=== PATIENT | male | born 1940 | race Caucasian/White ===

== ENCOUNTER 2016-08-22 10:20 | Inpatient (IN) | payer MEDICARE, OTHER ==
[2016-08-22] MEDS ORDERED: methylPREDNISolone SOD SUCCI 125 MG/2 ML VIAL IV STA (10:30)
[2016-08-22] MEDS ORDERED: IPRATROPIUM-ALBUTEROL 3 ML NEB INHALATION STA (10:30)
--- NOTE | 2016-08-22 10:34 | ED ---
SOB HPI - General Stated Complaint: Chest pain,SOB Time Seen by Provider: 08/22/16 10:25 Source: patient, family, RN notes reviewed Mode of arrival: wheelchair Limitations: no limitations - History of Present Illness Initial Comments: This is a 76-year-old male with a history of COPD who just finished antibiotics and steroids a couple weeks ago for upper respiratory infection and cough he states he is had the onset since yesterday of shortness of breath cough some fevers chills sweats exertional dyspnea is also had some burning epigastric pain some nonspecific chest pain. No nausea vomiting diarrhea. MD Complaint: shortness of breath, cough - Related Data Home Medications Medication Instructions Recorded Confirmed Budesonide-Formot 160-4.5 Mcg 2 puff INHALATION RT-BID 08/09/14 05/19/16 [Symbicort 160-4.5 Mcg Inhaler] Insulin NPH Hum/Reg Insulin Hm 40 units SQ BID 08/09/14 05/19/16 [NovoLIN 70-30 100 UNIT/ML VIAL] Ipratropium-Albuterol Nebulize 3 ml INHALATION RT-QID 08/09/14 05/19/16 [Duoneb 0.5 mg-3 mg/3 ml Soln] Sertraline HCl [Zoloft] 50 mg PO HS 08/09/14 05/19/16 Atorvastatin Calcium [Lipitor] 20 mg PO HS 05/19/16 05/19/16 Gabapentin [Neurontin] 100 mg PO TID 05/19/16 05/19/16 HYDROcodone/APAP 7.5-325MG [Hartman 1 tab PO TID 05/19/16 05/19/16 7.5-325] amLODIPine [Norvasc] 5 mg PO DAILY 05/19/16 05/19/16 Previous Rx's Medication Instructions Recorded Insulin NPH/Reg Insulin 70/30 40 unit SQ HS vial 05/24/16 [humuLIN 70/30 VIAL] Levofloxacin [Levaquin] 500 mg PO DAILY #10 tab 05/24/16 Allergies Allergy/AdvReac Type Severity Reaction Status Date / Time sulfamethoxazole Allergy Unknown Verified 08/22/16 10:33 [From Bactrim] trimethoprim [From Bactrim] Allergy Unknown Verified 08/22/16 10:33 Review of Systems ROS Statement: Those systems with pertinent positive or pertinent negative responses have been documented in the HPI. ROS Other: All systems not noted in ROS Statement are negative. Past Medical History Past Medical History: Cancer, Chest Pain / Angina, COPD, Diabetes Mellitus, Hyperlipidemia, Hypertension, Pneumonia, Prostate Disorder Additional Past Medical History / Comment(s): colon ca 2006, glaucoma, retinal disorder,hemorroids, dentures upper and lower arthritis, home o2 2litersn/c as needed at night. spinal stenosis and disc deterioration History of Any Multi-Drug Resistant Organisms: None Reported Past Surgical History: Appendectomy, Bowel Resection Additional Past Surgical History / Comment(s): turp, bowel resection 2005 d/t cancer had peritonitis 3RD DAY post op spent 1 month in hospital -had colostomy w/ reversal. génesis cataracts, HAD A SHOT IN THE LT EYE FOR SWELLING BEHIND THE EYE. Past Anesthesia/Blood Transfusion Reactions: No Reported Reaction Past Psychological History: Anxiety, Depression Smoking Status: Former smoker Past Alcohol Use History: Occasional Additional Past Alcohol Use History / Comment(s): quit smoking in 1982 smoked 3 ppd x 30 years Past Drug Use History: None Reported - Past Family History Father Family Medical History: Unable to Obtain Mother Family Medical History: Cancer Additional Family Medical History / Comment(s): breast cancer, heart problems General Exam - General Exam Comments Initial Comments: Is a well-developed well-nourished awake alert oriented 3 male Limitations: no limitations General appearance: alert, anxious, in distress Head exam: Present: atraumatic, normocephalic, normal inspection Eye exam: Present: normal appearance, PERRL, EOMI. Absent: scleral icterus, conjunctival injection, periorbital swelling ENT exam: Present: normal exam, mucous membranes moist Neck exam: Present: normal inspection. Absent: tenderness, meningismus, lymphadenopathy Respiratory exam: Present: wheezes, accessory muscle use, decreased breath sounds. Absent: respiratory distress, rales, rhonchi, stridor Cardiovascular Exam: Present: regular rate, normal rhythm, normal heart sounds. Absent: systolic murmur, diastolic murmur, rubs, gallop, clicks GI/Abdominal exam: Present: soft, normal bowel sounds. Absent: distended, tenderness, guarding, rebound, rigid Extremities exam: Present: normal inspection, full ROM, normal capillary refill. Absent: tenderness, pedal edema, joint swelling, calf tenderness Back exam: Present: normal inspection Neurological exam: Present: alert, oriented X3, CN II-XII intact Psychiatric exam: Present: normal affect, normal mood Skin exam: Present: warm, dry, intact, normal color. Absent: rash Course Vital Signs 08/22/16 08/22/16 08/22/16 10:28 10:35 11:07 Temperature 98.6 F Pulse Rate 87 74 Respiratory 24 24 Rate Blood Pressure 183/77 O2 Sat by Pulse 86 L Oximetry 08/22/16 08/22/16 11:17 11:41 Temperature Pulse Rate 74 81 Respiratory 20 Rate Blood Pressure 180/76 O2 Sat by Pulse 96 Oximetry - Reevaluation(s) Reevaluation #1: 08/22/16 11:51 Patient states he is feeling somewhat better though reevaluation of the lung sounds reveal no wheezes at this time there is some diminished sounds on the left. Reevaluation #2: 08/22/16 11:51 I did review the EKG showed normal sinus rhythm I did review an old one from 05/19/16 which looks very similar configuration. Medical Decision Making - Lab Data Result diagrams: 08/22/16 10:00 08/22/16 10:00 Lab Results 08/22/16 08/22/16 08/22/16 Range/Units 10:00 10:00 10:00 WBC 7.1 (3.8-10.6) k/uL RBC 3.93 L (4.30-5.90) m/uL Hgb 12.1 L (13.0-17.5) gm/dL Hct 36.2 L (39.0-53.0) % MCV 92.2 (80.0-100.0) fL MCH 30.8 (25.0-35.0) pg MCHC 33.4 (31.0-37.0) g/dL RDW 15.0 (11.5-15.5) % Plt Count 127 L (150-450) k/uL Neutrophils % 85 % Lymphocytes % 4 % Monocytes % 5 % Eosinophils % 2 % Basophils % 1 % Neutrophils # 6.1 (1.3-7.7) k/uL Lymphocytes # 0.3 L (1.0-4.8) k/uL Monocytes # 0.3 (0-1.0) k/uL Eosinophils # 0.1 (0-0.7) k/uL Basophils # 0.0 (0-0.2) k/uL PT (9.0-12.0) sec INR (<1.1) APTT (22.0-30.0) sec Sodium 138 (137-145) mmol/L Potassium 4.7 (3.5-5.1) mmol/L Chloride 104 (98-107) mmol/L Carbon Dioxide 30 (22-30) mmol/L Anion Gap 4 mmol/L BUN 28 H (9-20) mg/dL Creatinine 1.20 (0.66-1.25) mg/dL Est GFR (MDRD) Af Amer >60 (>60 ml/min/1.73 sqM) Est GFR (MDRD) Non-Af 59 (>60 ml/min/1.73 sqM) Glucose 233 H (74-99) mg/dL Plasma Lactic Acid Tarik (0.7-2.0) mmol/L Calcium 9.0 (8.4-10.2) mg/dL Magnesium 1.8 (1.6-2.3) mg/dL Total Bilirubin 0.7 (0.2-1.3) mg/dL AST 33 (17-59) U/L ALT 40 (21-72) U/L Alkaline Phosphatase 66 (38-126) U/L Total Creatine Kinase 234 H (55-170) U/L CK-MB (CK-2) 5.6 H* (0.0-2.4) ng/mL CK-MB (CK-2) Rel Index 2.4 Troponin I 1.480 H* (0.000-0.034) ng/mL NT-Pro-B Natriuret Pep pg/mL Total Protein 5.8 L (6.3-8.2) g/dL Albumin 3.3 L (3.5-5.0) g/dL Influenza Type A RNA (Not Detectd) Influenza Type B (PCR) (Not Detectd) 08/22/16 08/22/16 08/22/16 Range/Units 10:00 10:00 10:00 WBC (3.8-10.6) k/uL RBC (4.30-5.90) m/uL Hgb (13.0-17.5) gm/dL Hct (39.0-53.0) % MCV (80.0-100.0) fL MCH (25.0-35.0) pg MCHC (31.0-37.0) g/dL RDW (11.5-15.5) % Plt Count (150-450) k/uL Neutrophils % % Lymphocytes % % Monocytes % % Eosinophils % % Basophils % % Neutrophils # (1.3-7.7) k/uL Lymphocytes # (1.0-4.8) k/uL Monocytes # (0-1.0) k/uL Eosinophils # (0-0.7) k/uL Basophils # (0-0.2) k/uL PT 10.4 (9.0-12.0) sec INR 1.0 (<1.1) APTT 24.7 (22.0-30.0) sec Sodium (137-145) mmol/L Potassium (3.5-5.1) mmol/L Chloride (98-107) mmol/L Carbon Dioxide (22-30) mmol/L Anion Gap mmol/L BUN (9-20) mg/dL Creatinine (0.66-1.25) mg/dL Est GFR (MDRD) Af Amer (>60 ml/min/1.73 sqM) Est GFR (MDRD) Non-Af (>60 ml/min/1.73 sqM) Glucose (74-99) mg/dL Plasma Lactic Acid Tarik (0.7-2.0) mmol/L Calcium (8.4-10.2) mg/dL Magnesium (1.6-2.3) mg/dL Total Bilirubin (0.2-1.3) mg/dL AST (17-59) U/L ALT (21-72) U/L Alkaline Phosphatase (38-126) U/L Total Creatine Kinase (55-170) U/L CK-MB (CK-2) (0.0-2.4) ng/mL CK-MB (CK-2) Rel Index Troponin I (0.000-0.034) ng/mL NT-Pro-B Natriuret Pep 3150 pg/mL Total Protein (6.3-8.2) g/dL Albumin (3.5-5.0) g/dL Influenza Type A RNA Detected H (Not Detectd) Influenza Type B (PCR) Not Detected (Not Detectd) 08/22/16 Range/Units 10:00 WBC (3.8-10.6) k/uL RBC (4.30-5.90) m/uL Hgb (13.0-17.5) gm/dL Hct (39.0-53.0) % MCV (80.0-100.0) fL MCH (25.0-35.0) pg MCHC (31.0-37.0) g/dL RDW (11.5-15.5) % Plt Count (150-450) k/uL Neutrophils % % Lymphocytes % % Monocytes % % Eosinophils % % Basophils % % Neutrophils # (1.3-7.7) k/uL Lymphocytes # (1.0-4.8) k/uL Monocytes # (0-1.0) k/uL Eosinophils # (0-0.7) k/uL Basophils # (0-0.2) k/uL PT (9.0-12.0) sec INR (<1.1) APTT (22.0-30.0) sec Sodium (137-145) mmol/L Potassium (3.5-5.1) mmol/L Chloride (98-107) mmol/L Carbon Dioxide (22-30) mmol/L Anion Gap mmol/L BUN (9-20) mg/dL Creatinine (0.66-1.25) mg/dL Est GFR (MDRD) Af Amer (>60 ml/min/1.73 sqM) Est GFR (MDRD) Non-Af (>60 ml/min/1.73 sqM) Glucose (74-99) mg/dL Plasma Lactic Acid Tarik 1.2 (0.7-2.0) mmol/L Calcium (8.4-10.2) mg/dL Magnesium (1.6-2.3) mg/dL Total Bilirubin (0.2-1.3) mg/dL AST (17-59) U/L ALT (21-72) U/L Alkaline Phosphatase (38-126) U/L Total Creatine Kinase (55-170) U/L CK-MB (CK-2) (0.0-2.4) ng/mL CK-MB (CK-2) Rel Index Troponin I (0.000-0.034) ng/mL NT-Pro-B Natriuret Pep pg/mL Total Protein (6.3-8.2) g/dL Albumin (3.5-5.0) g/dL Influenza Type A RNA (Not Detectd) Influenza Type B (PCR) (Not Detectd) - EKG Data -: EKG Interpreted by Me EKG shows normal: sinus rhythm, axis, intervals, QRS complexes, ST-T waves ( Normal sinus rhythm a rate of 84. Interval and 76 QRS duration 82 QT/QTC of 366 /43 to some artifact is present st-t wave changes.) Rate: normal - Radiology Data Radiology results: report reviewed (I did review the imaging and report left basilar infiltrate small effusion noted), image reviewed Critical Care Time Critical Care Time: Yes Critical Care Time: 33 minutes of critical care time which includes initial presentation with history and physical as well as lab and x-ray orders. Discussed with the patient and his family regarding the symptoms and findings. Evaluation of labs and x-ray orders. Reevaluation the patient to responsive therapy and several occasions. Discussed with the family regarding the final diagnosis. Discussion with Dr. Velazquez. Admission orders and documentation the above. Review of old charting. Also I did notify cardiology of the admission. Disposition Clinical Impression: Non-ST elevation myocardial infarction (NSTEMI), Congestive heart failure, Acute exacerbation of chronic obstructive airways disease Disposition: ADMITTED IP TO THIS HOSP Condition: Stable Decision Time: 11:45
[2016-08-22 10:57] LABS: Basophils % (A) 1 %; CH 29.6; CHCM 32.3; Eosinophils # (A) 0.1 k/uL (0-0.7); Eosinophils % (A) 2 %; HCT 36.2 % (39.0-53.0); HGB 12.1 gm/dL (13.0-17.5); Luc # (Auto) 0.26; Luc % (Auto) 4; Lymphocytes # (A) 0.3 k/uL (1.0-4.8); Lymphocytes % (A) 4 %; MCH 30.8 pg (25.0-35.0); MCHC 33.4 g/dL (31.0-37.0); MCV 92.2 fL (80.0-100.0); Mean Platelet Volume 8.7; Monocytes # (A) 0.3 k/uL (0-1.0); Monocytes % (A) 5 %; Neutrophils # (A) 6.1 k/uL (1.3-7.7); Neutrophils % (A) 85 %; RBC 3.93 m/uL (4.30-5.90); WBC 7.1 k/uL (3.8-10.6); WBC (Perox) 7.78
[2016-08-22 10:59] LABS: Partial Thromboplastin Time 24.7 sec (22.0-30.0); Prothrombin Time 10.4 sec (9.0-12.0)
[2016-08-22 11:04] LABS: ALT 40 U/L (21-72); AST 33 U/L (17-59); Alkaline Phosphatase 66 U/L (38-126); Anion Gap 4 mmol/L; Blood Urea Nitrogen 28 mg/dL (9-20); Carbon Dioxide 30 mmol/L (22-30); Chloride 104 mmol/L (98-107); Glucose 233 mg/dL (74-99); Magnesium 1.8 mg/dL (1.6-2.3); Non-African American GFR(MDRD) 59 (>60 ml/min/1.73 sqM); Potassium 4.7 mmol/L (3.5-5.1); Sodium 138 mmol/L (137-145); Total Bilirubin 0.7 mg/dL (0.2-1.3); Total Protein 5.8 g/dL (6.3-8.2)
--- NOTE | 2016-08-22 11:05 | XR ---
EXAMINATION TYPE: XR chest 2V DATE OF EXAM: 08/22/2016 10:57 AM COMPARISON: 07/29/2016 TECHNIQUE: PA and lateral views submitted. HISTORY: Difficulty breathing FINDINGS: Small left effusion and basilar infiltrate. Interstitium prominent heart enlarged. Arthropathy of the shoulders. Right lung clear. IMPRESSION: 1. Left basilar infiltrate with small effusion. Correlate for mild central venous congestion.
[2016-08-22 11:30] LABS: Creatine Kinase MB 5.6 ng/mL (0.0-2.4); Troponin I 1.48 ng/mL (0.000-0.034)
[2016-08-22] MEDS ORDERED: ACETAMINOPHEN TAB 500 MG TAB PO STA (11:34)
[2016-08-22] MEDS ORDERED: FUROSEMIDE 10 MG/ML 4 ML VIAL IV STA (11:52)
[2016-08-22] MEDS ORDERED: HEPARIN SODIUM,PORCINE 5,000 UNIT/ML 1 ML VIAL IV ONE (12:19)
[2016-08-22] MEDS ORDERED: NITROGLYCERIN SL TABS 0.4 MG TAB SUBLINGUAL PRN (12:19)
--- NOTE | 2016-08-22 12:25 | ED ---
Medical Decision Making - Lab Data Result diagrams: 08/22/16 10:00 08/22/16 10:00 Lab Results 08/22/16 08/22/16 08/22/16 Range/Units 10:00 10:00 10:00 WBC 7.1 (3.8-10.6) k/uL RBC 3.93 L (4.30-5.90) m/uL Hgb 12.1 L (13.0-17.5) gm/dL Hct 36.2 L (39.0-53.0) % MCV 92.2 (80.0-100.0) fL MCH 30.8 (25.0-35.0) pg MCHC 33.4 (31.0-37.0) g/dL RDW 15.0 (11.5-15.5) % Plt Count 127 L (150-450) k/uL Neutrophils % 85 % Lymphocytes % 4 % Monocytes % 5 % Eosinophils % 2 % Basophils % 1 % Neutrophils # 6.1 (1.3-7.7) k/uL Lymphocytes # 0.3 L (1.0-4.8) k/uL Monocytes # 0.3 (0-1.0) k/uL Eosinophils # 0.1 (0-0.7) k/uL Basophils # 0.0 (0-0.2) k/uL PT (9.0-12.0) sec INR (<1.1) APTT (22.0-30.0) sec Sodium 138 (137-145) mmol/L Potassium 4.7 (3.5-5.1) mmol/L Chloride 104 (98-107) mmol/L Carbon Dioxide 30 (22-30) mmol/L Anion Gap 4 mmol/L BUN 28 H (9-20) mg/dL Creatinine 1.20 (0.66-1.25) mg/dL Est GFR (MDRD) Af Amer >60 (>60 ml/min/1.73 sqM) Est GFR (MDRD) Non-Af 59 (>60 ml/min/1.73 sqM) Glucose 233 H (74-99) mg/dL Plasma Lactic Acid Tarik (0.7-2.0) mmol/L Calcium 9.0 (8.4-10.2) mg/dL Magnesium 1.8 (1.6-2.3) mg/dL Total Bilirubin 0.7 (0.2-1.3) mg/dL AST 33 (17-59) U/L ALT 40 (21-72) U/L Alkaline Phosphatase 66 (38-126) U/L Total Creatine Kinase 234 H (55-170) U/L CK-MB (CK-2) 5.6 H* (0.0-2.4) ng/mL CK-MB (CK-2) Rel Index 2.4 Troponin I 1.480 H* (0.000-0.034) ng/mL NT-Pro-B Natriuret Pep pg/mL Total Protein 5.8 L (6.3-8.2) g/dL Albumin 3.3 L (3.5-5.0) g/dL Influenza Type A RNA (Not Detectd) Influenza Type B (PCR) (Not Detectd) 08/22/16 08/22/16 08/22/16 Range/Units 10:00 10:00 10:00 WBC (3.8-10.6) k/uL RBC (4.30-5.90) m/uL Hgb (13.0-17.5) gm/dL Hct (39.0-53.0) % MCV (80.0-100.0) fL MCH (25.0-35.0) pg MCHC (31.0-37.0) g/dL RDW (11.5-15.5) % Plt Count (150-450) k/uL Neutrophils % % Lymphocytes % % Monocytes % % Eosinophils % % Basophils % % Neutrophils # (1.3-7.7) k/uL Lymphocytes # (1.0-4.8) k/uL Monocytes # (0-1.0) k/uL Eosinophils # (0-0.7) k/uL Basophils # (0-0.2) k/uL PT 10.4 (9.0-12.0) sec INR 1.0 (<1.1) APTT 24.7 (22.0-30.0) sec Sodium (137-145) mmol/L Potassium (3.5-5.1) mmol/L Chloride (98-107) mmol/L Carbon Dioxide (22-30) mmol/L Anion Gap mmol/L BUN (9-20) mg/dL Creatinine (0.66-1.25) mg/dL Est GFR (MDRD) Af Amer (>60 ml/min/1.73 sqM) Est GFR (MDRD) Non-Af (>60 ml/min/1.73 sqM) Glucose (74-99) mg/dL Plasma Lactic Acid Tarik (0.7-2.0) mmol/L Calcium (8.4-10.2) mg/dL Magnesium (1.6-2.3) mg/dL Total Bilirubin (0.2-1.3) mg/dL AST (17-59) U/L ALT (21-72) U/L Alkaline Phosphatase (38-126) U/L Total Creatine Kinase (55-170) U/L CK-MB (CK-2) (0.0-2.4) ng/mL CK-MB (CK-2) Rel Index Troponin I (0.000-0.034) ng/mL NT-Pro-B Natriuret Pep 3150 pg/mL Total Protein (6.3-8.2) g/dL Albumin (3.5-5.0) g/dL Influenza Type A RNA Detected H (Not Detectd) Influenza Type B (PCR) Not Detected (Not Detectd) 08/22/16 Range/Units 10:00 WBC (3.8-10.6) k/uL RBC (4.30-5.90) m/uL Hgb (13.0-17.5) gm/dL Hct (39.0-53.0) % MCV (80.0-100.0) fL MCH (25.0-35.0) pg MCHC (31.0-37.0) g/dL RDW (11.5-15.5) % Plt Count (150-450) k/uL Neutrophils % % Lymphocytes % % Monocytes % % Eosinophils % % Basophils % % Neutrophils # (1.3-7.7) k/uL Lymphocytes # (1.0-4.8) k/uL Monocytes # (0-1.0) k/uL Eosinophils # (0-0.7) k/uL Basophils # (0-0.2) k/uL PT (9.0-12.0) sec INR (<1.1) APTT (22.0-30.0) sec Sodium (137-145) mmol/L Potassium (3.5-5.1) mmol/L Chloride (98-107) mmol/L Carbon Dioxide (22-30) mmol/L Anion Gap mmol/L BUN (9-20) mg/dL Creatinine (0.66-1.25) mg/dL Est GFR (MDRD) Af Amer (>60 ml/min/1.73 sqM) Est GFR (MDRD) Non-Af (>60 ml/min/1.73 sqM) Glucose (74-99) mg/dL Plasma Lactic Acid Tarik 1.2 (0.7-2.0) mmol/L Calcium (8.4-10.2) mg/dL Magnesium (1.6-2.3) mg/dL Total Bilirubin (0.2-1.3) mg/dL AST (17-59) U/L ALT (21-72) U/L Alkaline Phosphatase (38-126) U/L Total Creatine Kinase (55-170) U/L CK-MB (CK-2) (0.0-2.4) ng/mL CK-MB (CK-2) Rel Index Troponin I (0.000-0.034) ng/mL NT-Pro-B Natriuret Pep pg/mL Total Protein (6.3-8.2) g/dL Albumin (3.5-5.0) g/dL Influenza Type A RNA (Not Detectd) Influenza Type B (PCR) (Not Detectd) Disposition Clinical Impression: Non-ST elevation myocardial infarction (NSTEMI), Congestive heart failure, Acute exacerbation of chronic obstructive airways disease, Influenza A Disposition: ADMITTED IP TO THIS HOSP Condition: Stable Referrals: Ford Altman MD [Primary Care Provider] - 1-2 days
[2016-08-22] MEDS ORDERED: HEPARIN SODIUM,PORCINE/D5W PMX 25,000 UNIT in DEXTROSE/WATER 1 500ML.BAG IV SCH (12:30)
[2016-08-22] MEDS: SODIUM CHLORIDE 0.9% 1,000 ML IV SCH (12:48)
[2016-08-22 14:44] LABS: Hemoglobin A1C 6.3 % (4.2-6.1)
[2016-08-22] MEDS: IPRATROPIUM-ALBUTEROL 3 ML NEB INHALATION SCH ×2 (16:19→19:47)
[2016-08-22] MEDS: GABAPENTIN 100 MG CAP PO SCH ×2 (16:40→21:46)
[2016-08-22] MEDS: HYDROcodone/APAP 7.5-325MG 1 EACH TAB PO SCH ×2 (16:40→21:45)
[2016-08-22 17:02] LABS: Glucose,Whole Blood 376 mg/dL (75-99)
[2016-08-22] MEDS: INSULIN LISPRO (humaLOG) 300 UNIT/3 ML VIAL SQ SCH ×2 (17:41→21:47)
[2016-08-22] MEDS: NITROGLYCERIN OINT 1 INCH/GM PACKET TOPICAL SCH (17:44)
[2016-08-22 18:32] LABS: Creatine Kinase MB 6.1 ng/mL (0.0-2.4)
[2016-08-22 18:33] LABS: Troponin I 0.995 ng/mL (0.000-0.034)
--- NOTE | 2016-08-22 18:48 | HP ---
DATE OF ADMISSION: 08/22/2016 CHIEF COMPLAINTS: Severe shortness of breath and cough. This is a 76-year-old white male who has a long-standing history of chronic obstructive pulmonary disease and he was recently seen by Dr. Moya and gave him a course of antibiotics and steroids and the patient continues to have a cough and shortness of breath and was progressively getting worse and he was brought to the emergency room. In the ER, his chest x-ray showed basilar infiltrate in the right lung and also there was a mild left pleural effusion. His CBC showed WBC count of 7.1, hemoglobin 12.1, platelet count 127,000. Potassium 4.7, sodium was within normal limits which was 138 and BUN 28, creatinine 1.20, BNP was 3,150. Cardiac enzymes slightly elevated, troponin 1.480 and CK-MB 5.6. Patient also was extremely short of breath and patient was admitted to the hospital for further evaluation and treatment. His past medical history reveals that the patient is known to have chronic obstructive pulmonary disease, hypertensive cardiovascular disease, diabetes mellitus, and he also has hyperlipidemia. His current medications includes: 1. Symbicort inhaler. 2. He is also on insulin for diabetes mellitus. 3. NPH insulin 40 units b.i.d. 4. He is also on DuoNeb inhaler. 5. Zoloft 50 mg p.o. daily. 6. Lipitor 20 mg p.o. daily. 7. Ventress 7.5/325 one t.i.d. p.r.n. 8. He is also on Neurontin 100 mg p.o. t.i.d. He is allergic to BACTRIM. He does not smoke and he does not drink alcohol. Family history reveals that there is a strong family history of heart disease and diabetes and hypertension. REVIEW OF SYSTEMS: Patient denies any headache. Appetite has been good. Bowels are regular. He denies any chest pain but he is extremely short of breath and also has a severe cough. No abdominal pain. He has some evidence of peripheral neuropathy. Physical examination reveals a 76-year-old white male, moderately obese. He is alert and oriented. He is short of breath even at rest and getting worse when he moves around and there is no jaundice. There is no generalized lymphadenopathy. There are no petechiae or bruises. Pulse 88 per minute and regular, blood pressure in the ER was 118/76, and temperature 98.6. Examination of the ENT negative. Neck is supple. There is no jugular venous distention. There is no goiter. There is no carotid bruit. Heart is in sinus rhythm. Lungs reveal diminished breath sounds over both bases with scattered rales and rhonchi and expiratory wheeze. Abdomen is soft and nontender. There is no mass palpable. Examination of the lower extremities reveal bilateral minimal pitting edema. Neurologic examination does not reveal any localizing signs. IMPRESSION: 1. Chronic obstructive pulmonary disease with acute exacerbation. 2. Acute tracheobronchitis with possible left basilar pneumonia. 3. Elevated cardiac enzymes, possible non-ST elevation myocardial infarction. 4. Diabetes mellitus, uncontrolled. His blood sugar in the ER was 234. 5. Peripheral neuropathy. 6. Mental depression. PLAN: The patient will be admitted to hospital and will monitor his heart rate on telemetry and will get serial EKGs and cardiac enzymes and will have get a cardiology consultation and Dr. Moya has been following for his pulmonary problems and will consult Dr. Moya. His diabetes will be controlled with NovoLog sliding scale. Overall prognosis is guarded. The diagnoses, prognosis, and therapeutic plans were discussed in detail with the patient. This patient was admitted by me for Dr. Altman who is his primary care physician. Dr. Altman has been on vacation and I am covering him during his absence.
[2016-08-22] MEDS ORDERED: INSULIN NPH/REG INSULIN 70/30 300 UNIT/3 ML VIAL SQ SCH (21:00)
[2016-08-22 21:44] LABS: Glucose,Whole Blood 429 mg/dL (75-99)
[2016-08-22] MEDS: ATORVASTATIN 20 MG TAB PO SCH (21:46)
[2016-08-22] MEDS: SERTRALINE 50 MG TAB PO SCH (21:47)
[2016-08-22] MEDS: INSULIN NPH/REG INSULIN 70/30 300 UNIT/3 ML VIAL SQ SCH (21:48)
[2016-08-22 23:19] LABS: Creatine Kinase MB 4.9 ng/mL (0.0-2.4); Troponin I 0.686 ng/mL (0.000-0.034)
[2016-08-23] MEDS: IPRATROPIUM-ALBUTEROL 3 ML NEB INHALATION SCH ×6 (00:05→20:32)
[2016-08-23] MEDS: NITROGLYCERIN OINT 1 INCH/GM PACKET TOPICAL SCH ×5 (00:21→23:39)
[2016-08-23 06:20] LABS: Glucose,Whole Blood 168 mg/dL (75-99)
[2016-08-23] MEDS: INSULIN LISPRO (humaLOG) 300 UNIT/3 ML VIAL SQ SCH ×4 (06:35→21:28)
[2016-08-23 07:07] LABS: Cholesterol 164 mg/dL (<200); HDL Cholesterol 63 mg/dL (40-60); Triglycerides 51 mg/dL (<150)
--- NOTE | 2016-08-23 11:58 | ECHOF ---
Referral Reason:[facility] MEASUREMENTS -------- HEIGHT: 172.7 cm WEIGHT: 104.3 kg BP: 129/56 RVIDd: 2.6 cm (< 3.3) IVSd: 0.8 cm (0.6 - 1.1) LVIDd: 5.1 cm (3.9 - 5.3) LVPWd: 1.1 cm (0.6 - 1.1) IVSs: 1.5 cm LVIDs: 3.9 cm LVPWs: 1.2 cm LA Diam: 3.7 cm (2.7 - 3.8) LAESV Index (A-L): 35.27 ml/m Ao Diam: 3.7 cm (2.0 - 3.7) AV Cusp: 2.0 cm (1.5 - 2.6) LA Diam: 3.8 cm (2.7 - 3.8) MV EXCURSION: 17.332 mm (> 18.000) MV EF SLOPE: 45 mm/s (70 - 150) EPSS: 1.8 cm MV E Selwyn: 0.82 m/s MV DecT: 211 ms MV A Selwyn: 1.04 m/s MV E/A Ratio: 0.79 FINDINGS -------- Sinus rhythm. This was a technically adequate study. There is mild concentric left ventricular hypertrophy. Overall left ventricular systolic function is low-normal with, an EF between 50 - 55 %. The right ventricle is normal in size. LA is moderately dilated 34-39 ml/m2 The right atrial size is normal. There is mild aortic valve sclerosis. There is no evidence of aortic regurgitation. Mild mitral annular calcification present. Mild mitral regurgitation is present. Mild tricuspid regurgitation present. There is no evidence of pulmonary hypertension. The right ventricular systolic pressure, as measured by Doppler, is {RVSP}. There is no pulmonic regurgitation present. The aortic root size is normal. There is no pericardial effusion. CONCLUSIONS -------- 1. There is mild concentric left ventricular hypertrophy. 2. Overall left ventricular systolic function is low-normal with, an EF between 50 - 55 %. 3. LA is moderately dilated 34-39 ml/m2 4. There is mild aortic valve sclerosis. 5. Mild mitral annular calcification present. 6. Mild mitral regurgitation is present. 7. Mild tricuspid regurgitation present. 8. There is no evidence of pulmonary hypertension. 9. The right ventricular systolic pressure, as measured by Doppler, is {RVSP}. BAR USEFUL OR BUSSER: Frida Thomason RDCS
[2016-08-23 12:08] LABS: Glucose,Whole Blood 133 mg/dL (75-99)
--- NOTE | 2016-08-23 12:14 | P.CRDCN ---
History of Present Illness Reason for Consult (text): Abnormal troponin History of present illness: This is a 76-year-old gentleman who came to the emergency room with the complaint of cough and shortness of breath and patient also had some fever and chills. This patient recently has been treated by Dr. Croft her acute bronchitis with antibiotic and prednisone. Patient started having some cough fever and chills and some burning pain in epigastric area patient has a history of for COPD. Patient denies any history of exertional angina or previous myocardial infarction isn't has a history of diabetes as well as hypertension. We will requested to see the patient because of abnormal troponin. EKG did not show any acute ischemic changes. Past Medical History Past Medical History: Cancer, Chest Pain / Angina, COPD, Diabetes Mellitus, Hyperlipidemia, Hypertension, Pneumonia, Prostate Disorder Additional Past Medical History / Comment(s): COPD, hypertension, hyperlipidemia , diabetes mellitus, BPH, peripheral neuropathy, glaucoma, retinal disease/ detachment/retinopathy, colon cancer with a previous resection in 2005, spinal stenosis with degenerative disc disease, recent hospitalization for respiratory complications that occurred in May 2016, Obesity, chronic hypoxic respiratory failre History of Any Multi-Drug Resistant Organisms: None Reported Past Surgical History: Appendectomy, Bowel Resection Additional Past Surgical History / Comment(s): I'll resection for colon cancer in 2005, TURP, previous colostomy with subsequent reversal due to complications of peritonitis following bowel surgery, cataracts surgery in both eyes, appendectomy Past Anesthesia/Blood Transfusion Reactions: No Reported Reaction Past Psychological History: Anxiety, Depression Smoking Status: Former smoker Past Alcohol Use History: Occasional Additional Past Alcohol Use History / Comment(s): quit smoking in 1982 smoked 3 ppd x 30 years Past Drug Use History: None Reported - Past Family History Father Family Medical History: Unable to Obtain Mother Family Medical History: Cancer Additional Family Medical History / Comment(s): breast cancer, heart problems Medications and Allergies Home Medications Medication Instructions Recorded Confirmed Type Insulin NPH Hum/Reg Insulin Hm 40 units SQ BID 08/09/14 08/22/16 History [NovoLIN 70-30 100 UNIT/ML VIAL] Ipratropium-Albuterol Nebulize 3 ml INHALATION RT-QID 08/09/14 08/22/16 History [Duoneb 0.5 mg-3 mg/3 ml Soln] Sertraline HCl [Zoloft] 75 mg PO HS 08/09/14 08/22/16 History Atorvastatin Calcium [Lipitor] 20 mg PO HS 05/19/16 08/22/16 History HYDROcodone/APAP 7.5-325MG [Mcdonough 1 tab PO TID 05/19/16 08/22/16 History 7.5-325] Aspirin EC [Ecotrin Low Dose] 81 mg PO DAILY 08/22/16 08/22/16 History Cholecalciferol [Vitamin D3] 2,000 unit PO DAILY 08/22/16 08/22/16 History Allergies Allergy/AdvReac Type Severity Reaction Status Date / Time sulfamethoxazole Allergy RAISES Verified 08/22/16 12:26 [From Bactrim] POTASSIUM trimethoprim [From Bactrim] Allergy RAISES Verified 08/22/16 12:26 POTASSIUM Physical Exam Vitals: Vital Signs Temp Pulse Pulse Resp BP BP Pulse Ox 08/23/16 11:49 76 08/23/16 11:34 72 08/23/16 08:14 80 08/23/16 08:04 76 08/23/16 08:00 97 F L 64 18 153/55 100 08/23/16 04:34 72 08/23/16 04:21 76 08/23/16 04:00 62 18 129/56 98 08/23/16 00:17 84 08/23/16 00:05 76 08/23/16 00:00 97.7 F 78 18 140/68 94 L 08/22/16 20:01 72 08/22/16 20:00 97.5 F L 81 18 125/62 94 L 08/22/16 19:47 70 08/22/16 16:33 74 08/22/16 16:19 76 08/22/16 13:57 97.9 F 64 20 149/63 96 08/22/16 13:10 69 22 149/67 94 L 08/22/16 12:34 97.6 F 79 20 163/80 94 L Intake and Output 08/22/16 08/23/16 08/23/16 22:59 06:59 14:59 Intake Total 180 Output Total 850 Balance 180 -850 Intake: Oral 180 Output: Urine 850 Other: Voiding Method Toilet Toilet Toilet Urinal Urinal Urinal # Voids 3 Weight 104.6 kg Patient is comfortable and not in any acute distress. Vital signs are reviewed. . ENT negative. Neck supple no increase in jugular venous pressure. There is no carotid bruit. Heart. First and second heart sounds are normal no murmurs are heard. Lungs. Bilateral scattered rhonchi noted. Abdomen is soft liver and spleen are not enlarged. Extremities pedal pulses are weak. There is no leg edema. Patient's initial troponin is 1.48 and second troponin is 0.995. Echocardiogram does not show any wall motion abnormality Results 08/22/16 10:00 08/22/16 10:00 Cardiac Enzymes 08/22/16 08/22/16 Range/Units 17:39 22:06 CK-MB (CK-2) 6.1 H* 4.9 H* (0.0-2.4) ng/mL Troponin I 0.995 H* 0.686 H* (0.000-0.034) ng/mL Coagulation 08/22/16 08/23/16 Range/Units 18:43 06:12 APTT 49.0 H 49.7 H (22.0-30.0) sec Lipids 08/23/16 Range/Units 06:12 Triglycerides 51 (<150) mg/dL Cholesterol 164 (<200) mg/dL HDL Cholesterol 63 H (40-60) mg/dL Current Medications Generic Name Dose Route Start Last Admin Trade Name Freq PRN Reason Stop Dose Admin Hydrocodone Bitart/Acetaminophen 1 each 08/22/16 16:00 08/22/16 21:45 Mcdonough 7.5-325 PO Not Given TID EILEEN Albuterol/Ipratropium 3 ml 08/22/16 16:00 08/23/16 11:34 Duoneb 0.5 Mg-3 Mg/3 Ml Soln INHALATION 3 ml RT-Q4H EILEEN Administration Amlodipine Besylate 5 mg 08/23/16 09:00 Norvasc PO DAILY EILEEN Aspirin 325 mg 08/23/16 09:00 Aspirin PO DAILY EILEEN Atorvastatin Calcium 20 mg 08/22/16 21:00 08/22/16 21:46 Lipitor PO 20 mg HS EILEEN Administration Gabapentin 100 mg 08/22/16 16:00 08/22/16 21:46 Neurontin PO 100 mg TID EILEEN Administration Heparin Sodium/Dextrose 25,000 500 mls @ 20 mls/hr 08/22/16 12:30 08/22/16 12 :42 unit/ IV Solution IV 9.186 units/kg/hr .Q24H EILEEN 20 mls/hr Protocol Administration 9.186 UNITS/KG/HR Sodium Chloride 1,000 mls @ 20 mls/hr 08/22/16 12:30 08/22/16 12:48 Saline 0.9% IV 20 mls/hr .Q24H EILEEN Administration Insulin Human Isoph/Insulin Regular 40 unit 08/22/16 21:00 08/22/16 21:48 Humulin 70/30 Vial SQ 40 unit BID EILEEN Administration Insulin Human Lispro 0 unit 08/22/16 17:30 08/23/16 06:35 Humalog SQ 2 unit ACHS EILEEN Administration Protocol Methylprednisolone Sodium Succinate 40 mg 08/23/16 10:45 Solu-Medrol IV Q12HR EILEEN Nitroglycerin 1 inch 08/22/16 18:00 08/23/16 06:35 Nitro-Bid Oint TOPICAL 1 inch Q6HR EILEEN Administration Nitroglycerin 0.4 mg 08/22/16 12:19 Nitrostat SUBLINGUAL Q5M PRN Chest Pain Oseltamivir Phosphate 75 mg 08/23/16 10:45 Tamiflu PO 08/27/16 21:01 Q12HR EILEEN Sertraline HCl 50 mg 08/22/16 21:00 08/22/16 21:47 Zoloft PO 50 mg HS EILEEN Administration Intake and Output 08/22/16 08/23/16 08/23/16 22:59 06:59 14:59 Intake Total 180 Output Total 850 Balance 180 -850 Intake: Oral 180 Output: Urine 850 Other: Voiding Method Toilet Toilet Toilet Urinal Urinal Urinal # Voids 3 Weight 104.6 kg Assessment and Plan Plan: This patient is primarily admitted with the symptoms of cough shortness of breath and acute bronchitis. Patient's nasal swab is positive for influenza. Patient's EKG does not show any acute ischemic changes and echocardiogram does not show any wall motion abnormality. The mild rise in the troponin could be secondary to supply and demand mismatch and type II myocardial infarction in view of the multiple risk factors underlying coronary artery disease cannot be entirely excluded. Patient might have even peripheral arterial disease. I would recommend to evaluate the patient with a stress Cardiolite study after he has recovered from his current illness
[2016-08-23] MEDS: HYDROcodone/APAP 7.5-325MG 1 EACH TAB PO SCH ×3 (13:06→21:26)
[2016-08-23] MEDS: METOPROLOL TARTRATE 25 MG TAB PO SCH ×2 (13:06→21:24)
[2016-08-23] MEDS: GABAPENTIN 100 MG CAP PO SCH ×3 (13:07→21:24)
[2016-08-23] MEDS: ASPIRIN 325 MG TAB PO SCH (13:07)
[2016-08-23] MEDS: INSULIN NPH/REG INSULIN 70/30 300 UNIT/3 ML VIAL SQ SCH ×2 (13:07→21:28)
[2016-08-23] MEDS: amLODIPine 5 MG TAB PO SCH (13:07)
[2016-08-23] MEDS: OSELTAMIVIR 75 MG CAP PO SCH ×2 (13:09→21:24)
[2016-08-23] MEDS: methylPREDNISolone SOD SUCCI 40 MG/ML 1 ML VIAL IV SCH ×2 (13:09→21:27)
[2016-08-23] MEDS: SODIUM CHLORIDE 0.9% 1,000 ML IV SCH (13:19)
[2016-08-23 16:47] LABS: Glucose,Whole Blood 124 mg/dL (75-99)
[2016-08-23 18:52] LABS: Glucose,Whole Blood 209 mg/dL (75-99)
[2016-08-23 20:59] LABS: Glucose,Whole Blood 209 mg/dL (75-99)
[2016-08-23] MEDS: SERTRALINE 50 MG TAB PO SCH (21:24)
[2016-08-23] MEDS: ATORVASTATIN 20 MG TAB PO SCH (21:25)
[2016-08-23] MEDS: ATORVASTATIN 40 MG TAB PO SCH (21:27)
[2016-08-24] MEDS: IPRATROPIUM-ALBUTEROL 3 ML NEB INHALATION SCH ×6 (00:47→19:53)
[2016-08-24] MEDS ORDERED: IPRATROPIUM-ALBUTEROL 3 ML NEB INHALATION PRN (03:54)
[2016-08-24] MEDS: NITROGLYCERIN OINT 1 INCH/GM PACKET TOPICAL SCH (05:17)
[2016-08-24 06:35] LABS: Glucose,Whole Blood 129 mg/dL (75-99)
[2016-08-24] MEDS: INSULIN LISPRO (humaLOG) 300 UNIT/3 ML VIAL SQ SCH ×4 (06:36→21:36)
[2016-08-24] MEDS: ASPIRIN 325 MG TAB PO SCH (08:14)
[2016-08-24] MEDS: HYDROcodone/APAP 7.5-325MG 1 EACH TAB PO SCH ×3 (08:14→21:34)
[2016-08-24] MEDS: GABAPENTIN 100 MG CAP PO SCH ×3 (08:14→21:35)
[2016-08-24] MEDS: METOPROLOL TARTRATE 25 MG TAB PO SCH ×2 (08:15→21:35)
[2016-08-24] MEDS: predniSONE 20 MG TAB PO SCH (08:15)
[2016-08-24] MEDS: amLODIPine 5 MG TAB PO SCH (08:15)
[2016-08-24] MEDS: OSELTAMIVIR 75 MG CAP PO SCH ×2 (08:15→21:35)
[2016-08-24] MEDS: INSULIN NPH/REG INSULIN 70/30 300 UNIT/3 ML VIAL SQ SCH ×2 (08:17→21:37)
--- NOTE | 2016-08-24 10:02 | PN ---
DATE OF SERVICE: 08/23/2016 CHIEF COMPLAINT: Re-evaluation. HISTORY OF PRESENT ILLNESS: This is an elderly gentleman, 76 years of age, who was admitted to the hospital with shortness of breath. The patient said he had a fairly good day on Tuesday, Tuesday he started having some increased shortness of breath. The patient was brought in to the emergency room over the weekend. He was noted to have elevated troponins. EKG reveals no acute changes. The patient does have underlying history of COPD and was being treated in the outpatient and he was towards the end of his treatment. His respiratory status had been stable when the symptoms occurred. There is potential ( ). REVIEW OF SYSTEMS: NEURO: Denies any headaches, dizziness. PSYCH: No anxiety but does have a history of depression. CARDIAC: Denies chest pain, angina, palpitation. RESPIRATORY: Denies shortness of breath, cough, hemoptysis. GI: No nausea, vomiting, abdominal pain, diarrhea. : No symptoms of dysuria, hematuria, urgency, frequency. EXTREMITIES: Denies pain or edema. CONSTITUTIONAL: No fever or chills. PHYSICAL EXAMINATION: Pleasant gentleman in no distress. Vital signs reveals temperature 97.6, pulse 64, respirations 18, blood pressure 153/55, pulse ox 100% on 2 liters. HEENT: Normocephalic. NECK: Supple. No JVD. Chest is clear to auscultation with generalized decreased air flow. No wheezing or rhonchi. CARDIAC: Distant heart sounds. S1, S2 with no gallop, systolic murmur 2 out of 6 left sternal border. ABDOMEN: Soft, no palpable masses. Bowel sounds normal. No organomegaly. The patient has a protuberant abdomen. Extremities reveal no edema. Good pulses upper extremities. Decreased pedal pulses, evidence of peripheral neuropathy. NEUROLOGICAL: Awake, alert, oriented with well-coordinated movements. Laboratory assessment was positive influenza A. Troponins elevated with elevated CPK. ASSESSMENT: 1. Acute tracheobronchitis. 2. Chronic obstructive pulmonary disease exacerbation. 3. Influenza. 4. Positive troponin and CPK elevation with improvement suggestion of possible subendocardial myocardial infarction. 5. Diabetes mellitus. PLAN: The patient is stable. Continue present medical regimen. The patient's condition discussed with the patient. Prognosis guarded. Cardiology has seen the patient at the time of this dictation. They feel the patient probably requires stress Cardiolite as an outpatient and not further intervention at present. We will plan on discontinuing heparin. The patient's prognosis remains guarded.
--- NOTE | 2016-08-24 10:52 | CDI ---
In responding to this query, please exercise your independent professional judgment. The [facility] Coding Staff and Clinical Documentation Specialists appreciate your assistance in clarifying documentation, maintaining compliance with coding guidelines, accurately documenting patients condition and capturing severity of illness. The fact that a question is asked does not imply that any particular answer is desired or expected. Communication forms are a method of clarifying documentation and are not made part of the Legal Health Record. Thank you in advance for your clarification. Last Revision, August 2015 [address] [facility] [place] [address] Documentation Clarification Form Date: 08/24/2016 10:45:00 AM From: Farheen Díaz Admit Date: 08/22/2016 12:26:00 PM Patient Name: Ralph Krishna Visit Number: [id number] Dr. Ford Altman History/Risk Factors: COPD Exacerbation Acute Traceobronchitis Possible NSTEMI Positive Influenza A Exsmoker Clinical Indicators: Vital signs on admission: RR 24, O2 sats 86% room air Lung/Breathing assessment: wheezes, accessory muscle use, decreased breath sounds, short of breath, labored Treatment: Updrafts IV Steroids IV Heparin IV Lasix x1 PO Tamiflu O2 4L nasal cannula initially, now down to 2L In your professional opinion, can you please clarify if these findings signify one of the following conditions? Acuity: o Acute o Chronic o Acute on Chronic Respiratory Status: o Respiratory failure with hypercapnia o Respiratory failure with hypoxia o Acute Respiratory Distress o Other Diagnosis, please specify o Unable to determine Please document in your progress notes and discharge summary in order to capture severity of illness and risk of mortality. Include clinical findings that support your diagnosis. FYI: Press F11 to launch patient chart. Place X here if this finding has no clinical significance, is not applicable or if you are not able to provide any additional documentation. REENA
[2016-08-24 10:59] VITALS: BMI 35.1
[2016-08-24 11:51] LABS: Glucose,Whole Blood 116 mg/dL (75-99)
[2016-08-24] MEDS: SODIUM CHLORIDE 0.9% 1,000 ML IV SCH (13:14)
--- NOTE | 2016-08-24 14:38 | P.PN ---
Subjective Principal diagnosis: Cough This is a 76-year-old gentleman who presented to the hospital with mainly complaints of cough and associated shortness of breath. He also had mild associated fever. Currently receiving treatment for acute bronchitis. Continues to have a productive cough today occasionally dark sputum but mostly clear according to him. Cardiology was initially requested to see the patient because of mildly abnormal troponins. Once patient is stable from a lung perspective we will schedule him for an outpatient stress test down the road. Echocardiogram with Doppler study was performed which revealed an ejection fraction of 50-55%. Objective - Vital Signs Vital signs: Vital Signs Temp 97.7 F 08/24/16 08:13 Pulse 78 08/24/16 13:12 Resp 18 08/24/16 11:15 BP 166/85 08/24/16 11:15 Pulse Ox 98 08/24/16 11:15 Intake & Output 08/23/16 08/24/16 08/24/16 18:59 06:59 18:59 Intake Total 250 300 860 Output Total 750 1000 750 Balance -500 -700 110 Weight 104.8 kg 104.8 kg Intake: Oral 250 300 860 Output: Urine 750 1000 750 Other: Voiding Method Toilet Toilet Toilet Urinal Urinal Urinal - Exam PHYSICAL EXAMINATION: HEENT: Head is atraumatic, normocephalic. Pupils equal, round. Neck is supple. There is no elevated jugular venous pressure. HEART EXAMINATION: Heart S1, S2 normal. No murmur or gallop heard. CHEST EXAMINATION: Lungs reveal bilateral scattered rhonchi. ABDOMEN: Soft, nontender. Bowel sounds are heard. No organomegaly noted. EXTREMITIES: 2+ peripheral pulses with no evidence of peripheral edema and no calf tenderness noted. NEUROLOGIC patient is awake, alert and oriented -3. . - Labs CBC & Chem 7: 08/22/16 10:00 08/22/16 10:00 Labs: Abnormal Lab Results - Last 24 Hours (Table) 08/23/16 08/23/16 08/23/16 Range/Units 16:45 18:50 20:57 POC Glucose (mg/dL) 124 H 209 H 209 H (75-99) mg/dL 08/24/16 08/24/16 Range/Units 06:32 11:49 POC Glucose (mg/dL) 129 H 116 H (75-99) mg/dL Assessment and Plan (1) Tracheobronchitis Status: Acute (2) Diabetes Status: Acute (3) Elevated troponin Status: Acute (4) Acute exacerbation of chronic obstructive airways disease Status: Acute Plan: From cardiology's perspective, we'll continue the patient on his current medications. Once he is stable from a lung perspective consider outpatient stress testing. DNP note has been reviewed, I agree with a documented findings and plan of care. Patient was seen and examined.
[2016-08-24 16:34] LABS: Glucose,Whole Blood 216 mg/dL (75-99)
[2016-08-24 20:25] LABS: Glucose,Whole Blood 272 mg/dL (75-99)
[2016-08-24] MEDS: ATORVASTATIN 40 MG TAB PO SCH (21:34)
[2016-08-24] MEDS: SERTRALINE 50 MG TAB PO SCH (21:35)
--- NOTE | 2016-08-24 23:06 | PN ---
CHIEF COMPLAINT: Re-evaluation. HISTORY OF PRESENT ILLNESS: This 76-year-old gentleman was admitted to the hospital with shortness of breath, cough. Patient has underlying history of influenza A. The patient does have a history of COPD and diabetes mellitus. His cardiac enzymes were elevated. Reviewed with the hydrometeorologist. He felt that this is probably more related to the patient's condition rather than an acute infarct. REVIEW OF SYSTEMS: NEURO: Denies any headaches, dizziness. PSYCH: No anxiety. CARDIAC: No chest pain, angina, palpitation. RESPIRATORY: No shortness of breath. Some cough. No hemoptysis. GI: No nausea, vomiting, abdominal pain, diarrhea. : No symptoms of dysuria, hematuria. EXTREMITIES: Denies pain, edema. CONSTITUTIONAL: No fever or chills. PHYSICAL EXAMINATION: Pleasant gentleman, at present in no acute distress. Vital signs reveal temperature 97.7, pulse 76, respirations of 18, blood pressure 157/79, pulse ox of 94% on 2 L. HEENT: Normocephalic. NECK: No JVD. CHEST: There is bilateral decreased air flow, generalized increased percussion noted. Occasional rhonchi. CARDIAC: Distant heart sounds. S1, S2 with no gallops. Systolic murmur 2/6, left sternal border. ABDOMEN: Soft. Bowel sounds present. EXTREMITIES: No edema. Neurologically awake, alert, oriented with well-coordinated movements. LABORATORY ASSESSMENT: None new. ASSESSMENT: 1. Acute exacerbation of chronic obstructive pulmonary disease. 2. Influenza A. 3. Elevated troponins, probably mismatch between supply and demand. Type 2 myocardial infarction, in view of the multiple risk factors, underlying coronary artery disease, not entirely excluded. 4. Diabetes mellitus. 5. Obesity. PLAN: The patient is stable. Continue present medical regimen. Patient's condition discussed with the patient. Prognosis guarded. Potential discharge home tomorrow.
[2016-08-25 03:16] LABS: Glucose,Whole Blood 30 mg/dL (75-99)
[2016-08-25 03:33] LABS: Glucose,Whole Blood 144 mg/dL (75-99)
[2016-08-25] MEDS ORDERED: DEXTROSE 50%-WATER 50 ML SYRINGE IVP STA (03:36)
[2016-08-25 05:31] LABS: Glucose,Whole Blood 73 mg/dL (75-99)
[2016-08-25 06:08] LABS: Glucose,Whole Blood 57 mg/dL (75-99)
[2016-08-25 06:37] LABS: Glucose,Whole Blood 82 mg/dL (75-99)
[2016-08-25] MEDS: INSULIN LISPRO (humaLOG) 300 UNIT/3 ML VIAL SQ SCH (06:42)
[2016-08-25] MEDS: IPRATROPIUM-ALBUTEROL 3 ML NEB INHALATION SCH ×4 (07:41→20:36)
[2016-08-25] MEDS: predniSONE 20 MG TAB PO SCH (08:27)
[2016-08-25] MEDS: amLODIPine 5 MG TAB PO SCH (08:27)
[2016-08-25] MEDS: ASPIRIN 325 MG TAB PO SCH (08:27)
[2016-08-25] MEDS: GABAPENTIN 100 MG CAP PO SCH ×3 (08:27→21:14)
[2016-08-25] MEDS: METOPROLOL TARTRATE 25 MG TAB PO SCH ×2 (08:27→21:13)
[2016-08-25] MEDS: OSELTAMIVIR 75 MG CAP PO SCH ×2 (08:27→21:13)
[2016-08-25] MEDS: INSULIN NPH/REG INSULIN 70/30 300 UNIT/3 ML VIAL SQ SCH ×2 (08:28→21:13)
[2016-08-25] MEDS: HYDROcodone/APAP 7.5-325MG 1 EACH TAB PO SCH ×3 (08:32→23:19)
[2016-08-25 10:53] LABS: Glucose,Whole Blood 33 mg/dL (75-99)
[2016-08-25 11:10] LABS: Glucose,Whole Blood 44 mg/dL (75-99)
[2016-08-25 11:32] LABS: Glucose,Whole Blood 86 mg/dL (75-99)
[2016-08-25 11:58] LABS: Glucose,Whole Blood 82 mg/dL (75-99)
[2016-08-25] MEDS: SODIUM CHLORIDE 0.9% 1,000 ML IV SCH (12:58)
--- NOTE | 2016-08-25 16:44 | P.PN ---
Subjective The patient was seen again today 08/25/2016 in follow-up. He was originally admitted with complaints of increasing shortness of breath cough and congestion. He was found to have underlying influenza A an exacerbation of his COPD. His chest x-ray reveals evidence of a left basilar infiltrate and a small effusion. He was actually planning on going home today however he had episodes of hypoglycemia and it was decided to keep the patient another day. He is seen today on the selective care unit. He is awake and alert in no acute distress. He states he did have some episode of dizziness with his low blood sugars but is recovered now. He denies any issues with shortness of breath, cough or congestion. Objective - Vital Signs Vital signs: Vital Signs Temp 98.4 F 08/25/16 15:57 Pulse 83 08/25/16 15:57 Resp 18 08/25/16 15:57 BP 115/67 08/25/16 15:57 Pulse Ox 97 08/25/16 15:57 Intake & Output 08/24/16 08/25/16 08/25/16 18:59 06:59 18:59 Intake Total 860 850 480 Output Total 750 Balance 110 850 480 Weight 104.8 kg 102.3 kg Intake: Oral 860 850 480 Output: Urine 750 Other: Voiding Method Toilet Toilet Toilet Urinal Urinal Urinal # Voids 2 - Exam GENERAL EXAM: Obese. Alert, active, comfortable in no apparent distress. HEAD: Normocephalic. EYES: Normal reaction of pupils, equal size. NOSE: Clear with pink turbinates. THROAT: No erythema or exudates. NECK: No masses, no JVD. CHEST: No chest wall deformity. LUNGS: Equal air entry with no crackles, wheeze, rhonchi or dullness. CVS: S1 and S2 normal with no audible murmurs, regular rhythm. ABDOMEN: No hepatosplenomegaly, normal bowel sounds, no guarding or rigidity. SPINE: No scoliosis or deformity SKIN: No rashes CENTRAL NERVOUS SYSTEM: No focal deficits, tone is normal in all 4 extremities. Extremities: There is trace peripheral edema. No clubbing, no cyanosis. Peripheral pulses are intact. - Labs CBC & Chem 7: 08/22/16 10:00 08/22/16 10:00 Labs: Abnormal Lab Results - Last 24 Hours (Table) 03/08/24/16 08/25/16 Range/Units 16:32 20:23 03:14 POC Glucose (mg/dL) 216 H 272 H 30 L (75-99) mg/dL 08/25/16 08/25/16 08/25/16 Range/Units 03:32 05:20 06:07 POC Glucose (mg/dL) 144 H 73 L 57 L (75-99) mg/dL 08/25/16 08/25/16 Range/Units 10:42 10:57 POC Glucose (mg/dL) 33 L 44 L (75-99) mg/dL Assessment and Plan Plan: Impression: #1 Acute exacerbation of chronic obstructive pulmonary disease, complicated by purulent tracheobronchitis and influenza A. #2 Diabetes mellitus. #3 Elevated troponin. #4 Diabetes mellitus with an episode of hypoglycemia. #5 Hyperlipidemia. #6 Hypertension. #7 Peripheral neuropathy. #8 Benign prosthetic hypertrophy. #9 Obesity. Plan: The patient was seen and evaluated by Dr. Vaughn. He is stable from the pulmonary standpoint. We'll continue with his bronchodilators. He'll complete his course of Tamiflu. Continue prednisone taper. He is going to stay based on his hypoglycemic episodes. His insulin doses have been adjusted. We will continue to follow.
[2016-08-25 16:45] LABS: Glucose,Whole Blood 128 mg/dL (75-99)
--- NOTE | 2016-08-25 18:24 | PN ---
Patient had a hypoglycemic episode today. He is otherwise feeling well. Denies any chest pain or shortness of breath. Blood pressure is 134/97 mmHg. First and second heart sounds are normal. Lungs reveal a few scattered wheezes. Patient is advised to follow up with Dr. Meneses as an outpatient and have further evaluation with a stress test. Depending upon the results, further recommendations will be made.
[2016-08-25 20:45] LABS: Glucose,Whole Blood 355 mg/dL (75-99)
[2016-08-25] MEDS: SERTRALINE 50 MG TAB PO SCH (21:13)
[2016-08-25] MEDS: ATORVASTATIN 40 MG TAB PO SCH (21:13)
--- NOTE | 2016-08-25 22:51 | PN ---
CHIEF COMPLAINT: Re-evaluation. HISTORY OF PRESENT ILLNESS: This is a 76-year-old gentleman who was admitted to the hospital with influenza and shortness of breath, cough, also elevated troponins with no evidence of any acute myocardial infarction. The patient is feeling much better; however, the patient did have hypoglycemia during the night with a blood sugar down to 30. The patient was given sugar and protein with help. The patient was planned for discharge if his blood sugars remained stable during the morning. However, before lunch, his blood sugar did drop again down in the 30s. The patient received a decreased dose of insulin this morning. REVIEW OF SYSTEMS: NEURO: Denies any headaches, dizziness. PSYCH: No anxiety. CARDIAC: No chest pain, angina, palpitation. RESPIRATORY: No shortness of breath. Does have cough. GI: No nausea, vomiting, abdominal pain, diarrhea. : No symptoms of dysuria, hematuria. EXTREMITIES: Denies pain or edema. CONSTITUTIONAL: No fever or chills. PHYSICAL EXAMINATION: Pleasant gentleman, at present in no distress. Vital signs reveal temperature 98.6, pulse of 96, respirations 18, blood pressure 146/61, pulse ox of 96% on 2L. HEENT: Normocephalic. NECK: No JVD. Chest has decreased generalized air flow, occasional scattered rhonchi. CARDIAC: Distant heart sounds. S1, S2 with no gallops. Systolic murmur 2/6, left sternal border. ABDOMEN: Soft, obese. Bowel sounds active. Extremities reveal trace edema at the ankles. Neurologically awake, alert, oriented with well-coordinated movements. LABORATORY ASSESSMENT: Blood sugar of 30 at 3:00 in the morning and then 57 at 6:00. ASSESSMENT: 1. Hypoglycemic episode. 2. Diabetes mellitus, type 2 on insulin. 3. Influenza A. 4. Chronic obstructive pulmonary disease with mild exacerbation. PLAN: The patient is presently stable. Continue present medical regimen. Patient's discharge was held. The patient's blood sugars will be monitored. Insulin is decreased down. He went down to 25 b.i.d. Prognosis remains guarded. The patient's blood sugar was probably decreased due to the insulin intake might be more for him with the hospital-controlled eating.
[2016-08-26 06:17] LABS: Glucose,Whole Blood 51 mg/dL (75-99)
[2016-08-26 06:35] LABS: Glucose,Whole Blood 66 mg/dL (75-99)
[2016-08-26 06:50] LABS: Glucose,Whole Blood 100 mg/dL (75-99)
[2016-08-26] MEDS: IPRATROPIUM-ALBUTEROL 3 ML NEB INHALATION SCH ×2 (07:43→11:14)
[2016-08-26] MEDS: INSULIN NPH/REG INSULIN 70/30 300 UNIT/3 ML VIAL SQ SCH ×2 (08:03→11:57)
[2016-08-26] MEDS: HYDROcodone/APAP 7.5-325MG 1 EACH TAB PO SCH (08:04)
[2016-08-26] MEDS: ASPIRIN 325 MG TAB PO SCH (08:04)
[2016-08-26] MEDS: OSELTAMIVIR 75 MG CAP PO SCH (08:05)
[2016-08-26] MEDS: METOPROLOL TARTRATE 25 MG TAB PO SCH (08:05)
[2016-08-26] MEDS: predniSONE 20 MG TAB PO SCH (08:05)
[2016-08-26] MEDS: amLODIPine 5 MG TAB PO SCH (08:05)
[2016-08-26] MEDS: GABAPENTIN 100 MG CAP PO SCH (08:05)
[2016-08-26 09:31] VITALS: TEMP 97.1
[2016-08-26 11:47] LABS: Glucose,Whole Blood 325 mg/dL (75-99)
[2016-08-26] MEDS: SODIUM CHLORIDE 0.9% 1,000 ML IV SCH (11:56)
[2016-08-26 13:19] VITALS: BP 166/68; PULSE 68; RESP 18
--- NOTE | 2016-08-27 14:25 | CDI ---
In responding to this query, please exercise your independent professional judgment. The [facility] Coding Staff and Clinical Documentation Specialists appreciate your assistance in clarifying documentation, maintaining compliance with coding guidelines, accurately documenting patients condition and capturing severity of illness. The fact that a question is asked does not imply that any particular answer is desired or expected. Communication forms are a method of clarifying documentation and are not made part of the Legal Health Record. Thank you in advance for your clarification. Last Revision, August 2015 [place] [address] [facility] [place] [address] Documentation Clarification Form Date: 08/24/2016 10:45:00 AM From: Farheen Díaz Admit Date: 08/22/2016 12:26:00 PM Patient Name: Ralph Krishna Visit Number: [id number] Discharge Date: 08/26/2016 Dr. Ford Altman *Query resubmitted Please respond prior to signing History/Risk Factors: COPD Exacerbation Acute Traceobronchitis Possible NSTEMI Positive Influenza A Exsmoker Clinical Indicators: Vital signs on admission: RR 24, O2 sats 86% room air Lung/Breathing assessment: wheezes, accessory muscle use, decreased breath sounds, short of breath, labored Treatment: Updrafts IV Steroids IV Heparin IV Lasix x1 PO Tamiflu O2 4L nasal cannula initially, now down to 2L In your professional opinion, can you please clarify if these findings signify one of the following conditions? Acuity: o Acute o Chronic o Acute on Chronic Respiratory Status: o Respiratory failure with hypercapnia o Respiratory failure with hypoxia o Acute Respiratory Distress o Other Diagnosis, please specify o Unable to determine Please document in your progress notes and discharge summary in order to capture severity of illness and risk of mortality. Include clinical findings that support your diagnosis. FYI: Press F11 to launch patient chart. Place X here if this finding has no clinical significance, is not applicable or if you are not able to provide any additional documentation. MTDD
--- NOTE | 2016-09-05 14:55 | P.DS ---
Providers Date of admission: 08/22/16 12:26 Attending physician: Ford Altman Consults: 08/22/16 14:52 Consult Physician Routine Consulting Provider: Frank Moya Consult Reason/Comments: COPD, CHF, non-ST elevation [place] Do you want consulting provider notified?: Yes Primary care physician: Ford Altman [facility] Course: History present illness/hospital course. This 76-year-old gentleman was admitted to the hospital because of shortness of breath. The patient does have underlying history of chronic obstructive lung disease. And evidence of chronic respiratory failure. Patient is on oxygen at home. He presents with increasing shortness of breath. Patient does follow with Dr. Berger on the outpatient. He had been treated in due to failure treatment he presents to the hospital. The patient's general condition improved after hospitalization with treatment. He was positive for influenza. Patient does have a history of diabetes mellitus and he did have episodes of hypoglycemia. Insulin is adjusted. Patient remains stable at the time of discharge. Final diagnoses to include 1. Influenza. 2. Tracheobronchitis 3. Acute on chronic respiratory failure 4. Obesity 5. Diabetes mellitus with associated autonomic neuropathy 6. Hypertension 7. Elevated troponins with no evidence of myocardial infarction Patient Condition at Discharge: Stable Plan - Discharge Summary New Discharge Prescriptions: Levofloxacin [Levaquin] 250 mg PO DAILY #7 tablet Nystatin 100,000 Unit/ml Susp [Mycostatin Oral Susp] 5 ml PO QID #150 ml Oseltamivir [Tamiflu] 75 mg PO Q12HR #5 cap predniSONE 10 mg PO DIRECTED #32 tab Discharge Medication List Insulin NPH Hum/Reg Insulin Hm [NovoLIN 70-30 100 UNIT/ML VIAL] 25 units SQ BID 08/09/14 [History] Ipratropium-Albuterol Nebulize [Duoneb 0.5 mg-3 mg/3 ml Soln] 3 ml INHALATION RT -QID 08/09/14 [History] Sertraline HCl [Zoloft] 75 mg PO HS 08/09/14 [History] Atorvastatin Calcium [Lipitor] 20 mg PO HS 05/19/16 [History] HYDROcodone/APAP 7.5-325MG [[place] 7.5-325] 1 tab PO TID 05/19/16 [History] Aspirin EC [Ecotrin Low Dose] 81 mg PO DAILY 08/22/16 [History] Cholecalciferol [Vitamin D3] 2,000 unit PO DAILY 08/22/16 [History] Atorvastatin [Lipitor] 40 mg PO HS tab 08/25/16 [Rx] Gabapentin [Neurontin] 100 mg PO TID cap 08/25/16 [Rx] Ipratropium-Albuterol Nebulize [Duoneb 0.5 mg-3 mg/3 ml Soln] 3 ml INHALATION RT -QID ampul.neb 08/25/16 [Rx] Levofloxacin [Levaquin] 250 mg PO DAILY #7 tablet 08/25/16 [Rx] Metoprolol Tartrate [Lopressor] 25 mg PO BID tab 08/25/16 [Rx] Oseltamivir [Tamiflu] 75 mg PO Q12HR #5 cap 08/25/16 [Rx] amLODIPine [Norvasc] 5 mg PO DAILY tab 08/25/16 [Rx] predniSONE 10 mg PO DIRECTED #32 tab 08/25/16 [Rx] Nystatin 100,000 Unit/ml Susp [Mycostatin Oral Susp] 5 ml PO QID #150 ml [Rx] Follow up Appointment(s)/Referral(s): Ford Altman MD [Primary Care Provider] - 08/30/16 2:00 pm (Follow up appt on TuesdayAugust 30 at 2:00 pm) Francisco Meneses MD [STAFF PHYSICIAN] - 3 Weeks (Call to make follow up appt for stress test) Patient Instructions/Handouts: Heart Failure (DC), COPD (Chronic Obstructive Pulmonary Disease) (DC) Discharge Disposition: HOME WITH HOME HEALTH SERVICES
== END 2016-08-26 14:07 | disposition home health service (06) | DRG 190 ==
LOC: EC 10:20 → 6SEL 12:26
PROVIDERS: ADMIT Internal Medicine; ATTEND Internal Medicine
DX: J44.0 Chronic obstructive pulmonary disease with (acute) lower respiratory infection (principal); J96.20 Acute and chronic respiratory failure, unspecified whether with hypoxia or hypercapnia; E11.42 Type 2 diabetes mellitus with diabetic polyneuropathy; I11.0 Hypertensive heart disease with heart failure; I50.9 Heart failure, unspecified; E11.649 Type 2 diabetes mellitus with hypoglycemia without coma; E11.43 Type 2 diabetes mellitus with diabetic autonomic (poly)neuropathy; E11.319 Type 2 diabetes mellitus with unspecified diabetic retinopathy without macular edema; E11.65 Type 2 diabetes mellitus with hyperglycemia; J44.1 Chronic obstructive pulmonary disease with (acute) exacerbation; E11.39 Type 2 diabetes mellitus with other diabetic ophthalmic complication; H40.9 Unspecified glaucoma; E66.9 Obesity, unspecified; E78.5 Hyperlipidemia, unspecified; F32.9 Major depressive disorder, single episode, unspecified; I25.10 Atherosclerotic heart disease of native coronary artery without angina pectoris; J20.9 Acute bronchitis, unspecified; N40.0 Benign prostatic hyperplasia without lower urinary tract symptoms; M48.00 Spinal stenosis, site unspecified; K64.9 Unspecified hemorrhoids; J10.1 Influenza due to other identified influenza virus with other respiratory manifestations; Z79.4 Long term (current) use of insulin; Z79.899 Other long term (current) drug therapy; Z88.2 Allergy status to sulfonamides; Z85.038 Personal history of other malignant neoplasm of large intestine; Z87.891 Personal history of nicotine dependence; Z68.35 Body mass index [BMI] 35.0-35.9, adult; Z82.49 Family history of ischemic heart disease and other diseases of the circulatory system
CPT/HCPCS: 36415; 71020; 80053; 80061; 82550; 82553; 83036; 83605; 83735; 83880; 84484; 85025; 85610; 85730; 87040; 87502; 93005; 93306; 94640; 94760; 96365; 96366; 96375; 96376; 99291

== ENCOUNTER → 2016-09-23 | Outpatient (CLI) | payer MEDICARE, OTHER ==
--- NOTE | 2016-09-23 10:33 | XR ---
EXAMINATION TYPE: XR chest 2V DATE OF EXAM: 09/23/2016 10:05 AM COMPARISON: 08/22/2016 TECHNIQUE: PA and lateral views submitted. HISTORY: Shortness of breath FINDINGS: Left lower lobe infiltrate and small effusion stable. No overt failure. Biapical pleural thickening. Arthropathy of the shoulders. Heart size stable. IMPRESSION: 1. A suggests COPD with stable left lower lobe infiltrate and small effusion. Consolidation in the joann ng base likely related to compressive atelectasis rather than pneumonia. Correlate clinically.
[2016-09-23 10:59] LABS: CH 29.7; CHCM 32.5; HCT 36.1 % (39.0-53.0); HDW 2.94; HGB 11.7 gm/dL (13.0-17.5); MCH 29.8 pg (25.0-35.0); MCHC 32.4 g/dL (31.0-37.0); Mean Platelet Volume 7.9; RBC 3.93 m/uL (4.30-5.90); WBC 10.4 k/uL (3.8-10.6)
[2016-09-23 11:14] LABS: ALT 27 U/L (21-72); AST 23 U/L (17-59); Alkaline Phosphatase 77 U/L (38-126); Anion Gap 8 mmol/L; Blood Urea Nitrogen 29 mg/dL (9-20); Calcium 9.8 mg/dL (8.4-10.2); Carbon Dioxide 31 mmol/L (22-30); Chloride 97 mmol/L (98-107); Glucose 190 mg/dL (74-99); Non-African American GFR(MDRD) >60 (>60 ml/min/1.73 sqM); Potassium 4.7 mmol/L (3.5-5.1); Sodium 136 mmol/L (137-145); Total Protein 6.3 g/dL (6.3-8.2)
== END ==
LOC: RADXRMAIN 09:36
PROVIDERS: ATTEND Internal Medicine
DX: R05 Cough (principal); R07.89 Other chest pain
CPT/HCPCS: 36415; 71020; 80053; 85027

== ENCOUNTER 2016-10-28 09:21 | Emergency (ER) | payer MEDICARE, OTHER ==
[2016-10-28] MEDS ORDERED: SODIUM CHLORIDE 0.9% 1,000 ML IV STA (09:28)
[2016-10-28] MEDS ORDERED: ALBUTEROL NEBULIZED 2.5 MG/3 ML INHALATION STA ×2 (09:28→12:01)
[2016-10-28] MEDS ORDERED: IPRATROPIUM 0.5 MG/2.5 ML NEBU INHALATION STA ×2 (09:28→12:01)
--- NOTE | 2016-10-28 09:56 | ED ---
General Adult HPI - General Chief complaint: Shortness of Breath Stated complaint: [place] Time Seen by Provider: 10/28/16 09:28 Source: patient, RN notes reviewed, old records reviewed Mode of arrival: wheelchair Limitations: no limitations - History of Present Illness Initial comments: This is a 76 male ER for evaluation shortness of breath, severe shortness of breath cough and congestion, requiring increasing oxygen. Patient has severe history of COPD, on chronic oxygen. Symptoms of the worse 3 months. No fevers. Does increasing oxygen demand, decreased activity level, inability to perform any exercise or activities. No chest pain. No bowel pain. No change in medications. Patient states he does do breathing treatments at least 4 times a day - Related Data Home Medications Medication Instructions Recorded Confirmed Insulin NPH Hum/Reg Insulin Hm 35 units SQ BID 08/09/14 10/28/16 [NovoLIN 70-30 100 UNIT/ML VIAL] Ipratropium-Albuterol Nebulize 3 ml INHALATION RT-TID 08/09/14 10/28/16 [Duoneb 0.5 mg-3 mg/3 ml Soln] Atorvastatin Calcium [Lipitor] 20 mg PO HS 05/19/16 10/28/16 HYDROcodone/APAP 7.5-325MG [[place] 1 tab PO TID 05/19/16 10/28/16 7.5-325] Aspirin EC [Ecotrin Low Dose] 81 mg PO DAILY 08/22/16 10/28/16 Cholecalciferol [Vitamin D3] 2,000 unit PO DAILY 08/22/16 10/28/16 Fludrocortisone [Florinef] 0.1 mg PO DAILY PRN 10/28/16 10/28/16 Gabapentin [Neurontin] 300 mg PO TID 10/28/16 10/28/16 Sertraline HCl [Zoloft] 100 mg PO HS 10/28/16 10/28/16 amLODIPine [Norvasc] 5 mg PO DAILY PRN 10/28/16 10/28/16 Previous Rx's Medication Instructions Recorded Albuterol Nebulized [Ventolin 2.5 mg INHALATION Q4H PRN #25 nebu 10/28/16 Nebulized] Albuterol Sulfate [Proair Hfa] 1 - 2 puff INHALATION Q4H PRN #1 10/28/16 inhaler Azithromycin [Zithromax Z-pack] 0 mg PO DIRECTED #1 pack 10/28/16 predniSONE 50 mg PO DAILY #5 tab 10/28/16 Allergies Allergy/AdvReac Type Severity Reaction Status Date / Time sulfamethoxazole Allergy RAISES Verified 10/28/16 11:22 [From Bactrim] POTASSIUM trimethoprim [From Bactrim] Allergy RAISES Verified 10/28/16 11:22 POTASSIUM Review of Systems ROS Statement: Those systems with pertinent positive or pertinent negative responses have been documented in the HPI. ROS Other: All systems not noted in ROS Statement are negative. Past Medical History Past Medical History: Cancer, Chest Pain / Angina, COPD, Diabetes Mellitus, Hyperlipidemia, Hypertension, Pneumonia, Prostate Disorder Additional Past Medical History / Comment(s): COPD, hypertension, hyperlipidemia , diabetes mellitus, BPH, peripheral neuropathy, glaucoma, retinal disease/ detachment/retinopathy, colon cancer with a previous resection in 2005, spinal stenosis with degenerative disc disease, recent hospitalization for respiratory complications that occurred in May 2016, Obesity, chronic hypoxic respiratory failre History of Any Multi-Drug Resistant Organisms: None Reported Past Surgical History: Appendectomy, Bowel Resection Additional Past Surgical History / Comment(s): I'll resection for colon cancer in 2005, TURP, previous colostomy with subsequent reversal due to complications of peritonitis following bowel surgery, cataracts surgery in both eyes, appendectomy Past Anesthesia/Blood Transfusion Reactions: No Reported Reaction Past Psychological History: Anxiety, Depression Smoking Status: Former smoker Past Alcohol Use History: Occasional Additional Past Alcohol Use History / Comment(s): quit smoking in 1982 smoked 3 ppd x 30 years Past Drug Use History: None Reported - Past Family History Father Family Medical History: Unable to Obtain Mother Family Medical History: Cancer Additional Family Medical History / Comment(s): breast cancer, heart problems General Exam Limitations: no limitations General appearance: alert, in no apparent distress, anxious Head exam: Present: atraumatic, normocephalic, normal inspection Eye exam: Present: normal appearance, PERRL, EOMI. Absent: scleral icterus, conjunctival injection, periorbital swelling ENT exam: Present: normal exam, mucous membranes moist Neck exam: Present: normal inspection. Absent: tenderness, meningismus, lymphadenopathy Respiratory exam: Present: respiratory distress, wheezes, accessory muscle use, decreased breath sounds, prolonged expiratory. Absent: rales, rhonchi, stridor Cardiovascular Exam: Present: regular rate, normal rhythm, normal heart sounds. Absent: systolic murmur, diastolic murmur, rubs, gallop, clicks GI/Abdominal exam: Present: soft, normal bowel sounds. Absent: distended, tenderness, guarding, rebound, rigid Extremities exam: Present: normal inspection, full ROM, normal capillary refill. Absent: tenderness, pedal edema, joint swelling, calf tenderness Back exam: Present: normal inspection Neurological exam: Present: alert, oriented X3, CN II-XII intact Psychiatric exam: Present: normal affect, normal mood Skin exam: Present: warm, dry, intact, normal color. Absent: rash Course Vital Signs 10/28/16 10/28/16 10/28/16 09:23 10:00 10:13 Temperature 98.3 F Pulse Rate 86 82 Respiratory 18 18 Rate Blood Pressure 182/72 O2 Sat by Pulse 88 L Oximetry 10/28/16 10/28/16 10/28/16 10:16 10:26 10:27 Temperature Pulse Rate 68 72 72 Respiratory Rate Blood Pressure O2 Sat by Pulse Oximetry 10/28/16 10/28/16 10/28/16 10:46 10:51 10:52 Temperature Pulse Rate 75 75 75 Respiratory 18 Rate Blood Pressure 215/88 190/77 O2 Sat by Pulse 100 Oximetry 10/28/16 10/28/16 10/28/16 11:00 12:12 12:13 Temperature Pulse Rate 76 70 85 Respiratory 20 Rate Blood Pressure 160/70 O2 Sat by Pulse 97 Oximetry 10/28/16 10/28/16 12:24 12:41 Temperature Pulse Rate 82 84 Respiratory Rate Blood Pressure O2 Sat by Pulse Oximetry - Reevaluation(s) Reevaluation #1: 10/28/16 12:[address] Altman, the patient to try outpatient therapy, speaking with patient patient agrees to this trial on this option. Patient would like to be discharged home Reevaluation #2: 10/28/16 12:52 Patient feeling better with improved prolonged breathing treatment EKG Findings - EKG Comments: EKG Findings:: EKG shows normal sinus rhythm of 71, FL 180, QRS 90, QTC 423 Medical Decision Making - Medical Decision Making 76 year for evaluation of cough congestion. Serious cough and congestion with history of COPD. Patient having increased work of breathing with activity, will increase oxygen, treated as an outpatient - Lab Data Result diagrams: 10/28/16 10:08 10/28/16 10:08 Lab Results 10/28/16 10/28/16 10/28/16 Range/Units 10:08 10:08 10:08 WBC 8.1 (3.8-10.6) k/uL RBC 3.72 L (4.30-5.90) m/uL Hgb 10.8 L (13.0-17.5) gm/dL Hct 33.2 L (39.0-53.0) % MCV 89.2 (80.0-100.0) fL MCH 29.2 (25.0-35.0) pg MCHC 32.7 (31.0-37.0) g/dL RDW 14.3 (11.5-15.5) % Plt Count 249 (150-450) k/uL Neutrophils % 64 % Lymphocytes % 12 % Monocytes % 6 % Eosinophils % 17 % Basophils % 1 % Neutrophils # 5.1 (1.3-7.7) k/uL Lymphocytes # 0.9 L (1.0-4.8) k/uL Monocytes # 0.5 (0-1.0) k/uL Eosinophils # 1.3 H (0-0.7) k/uL Basophils # 0.1 (0-0.2) k/uL PT (9.0-12.0) sec INR (<1.1) APTT (22.0-30.0) sec Sodium 142 (137-145) mmol/L Potassium 4.6 (3.5-5.1) mmol/L Chloride 102 (98-107) mmol/L Carbon Dioxide 31 H (22-30) mmol/L Anion Gap 9 mmol/L BUN 25 H (9-20) mg/dL Creatinine 0.92 (0.66-1.25) mg/dL Est GFR (MDRD) Af Amer >60 (>60 ml/min/1.73 sqM) Est GFR (MDRD) Non-Af >60 (>60 ml/min/1.73 sqM) Glucose 145 H (74-99) mg/dL Calcium 9.1 (8.4-10.2) mg/dL Magnesium 1.9 (1.6-2.3) mg/dL Total Bilirubin 0.7 (0.2-1.3) mg/dL AST 23 (17-59) U/L ALT 27 (21-72) U/L Alkaline Phosphatase 100 (38-126) U/L Total Creatine Kinase 100 (55-170) U/L CK-MB (CK-2) 2.2 (0.0-2.4) ng/mL CK-MB (CK-2) Rel Index 2.2 Troponin I 0.012 (0.000-0.034) ng/mL NT-Pro-B Natriuret Pep pg/mL Total Protein 6.5 (6.3-8.2) g/dL Albumin 3.4 L (3.5-5.0) g/dL 10/28/16 10/28/16 Range/Units 10:08 10:08 WBC (3.8-10.6) k/uL RBC (4.30-5.90) m/uL Hgb (13.0-17.5) gm/dL Hct (39.0-53.0) % MCV (80.0-100.0) fL MCH (25.0-35.0) pg MCHC (31.0-37.0) g/dL RDW (11.5-15.5) % Plt Count (150-450) k/uL Neutrophils % % Lymphocytes % % Monocytes % % Eosinophils % % Basophils % % Neutrophils # (1.3-7.7) k/uL Lymphocytes # (1.0-4.8) k/uL Monocytes # (0-1.0) k/uL Eosinophils # (0-0.7) k/uL Basophils # (0-0.2) k/uL PT 10.6 (9.0-12.0) sec INR 1.1 (<1.1) APTT 22.7 (22.0-30.0) sec Sodium (137-145) mmol/L Potassium (3.5-5.1) mmol/L Chloride (98-107) mmol/L Carbon Dioxide (22-30) mmol/L Anion Gap mmol/L BUN (9-20) mg/dL Creatinine (0.66-1.25) mg/dL Est GFR (MDRD) Af Amer (>60 ml/min/1.73 sqM) Est GFR (MDRD) Non-Af (>60 ml/min/1.73 sqM) Glucose (74-99) mg/dL Calcium (8.4-10.2) mg/dL Magnesium (1.6-2.3) mg/dL Total Bilirubin (0.2-1.3) mg/dL AST (17-59) U/L ALT (21-72) U/L Alkaline Phosphatase (38-126) U/L Total Creatine Kinase (55-170) U/L CK-MB (CK-2) (0.0-2.4) ng/mL CK-MB (CK-2) Rel Index Troponin I (0.000-0.034) ng/mL NT-Pro-B Natriuret Pep 674 pg/mL Total Protein (6.3-8.2) g/dL Albumin (3.5-5.0) g/dL - Radiology Data Radiology results: report reviewed (Chest x-ray is negative for acute disease), image reviewed Disposition Clinical Impression: Acute exacerbation of chronic obstructive airways disease, Congestive heart failure Disposition: HOME SELF-CARE Condition: Good Instructions: Acute Bronchitis (ED), Chronic Bronchitis (ED) Prescriptions: Albuterol Nebulized [Ventolin Nebulized] 2.5 mg INHALATION Q4H PRN #25 nebu PRN Reason: Shortness Of Breath Albuterol Sulfate [Proair Hfa] 1 - 2 puff INHALATION Q4H PRN #1 inhaler PRN Reason: Shortness Of Breath Azithromycin [Zithromax Z-pack] 0 mg PO DIRECTED #1 pack predniSONE 50 mg PO DAILY #5 tab Referrals: Ford Altman MD [Primary Care Provider] - 1-2 days
[2016-10-28 10:23] LABS: Basophils # (A) 0.1 k/uL (0-0.2); Basophils % (A) 1 %; CH 29.1; CHCM 32.7; Eosinophils # (A) 1.3 k/uL (0-0.7); Eosinophils % (A) 17 %; HCT 33.2 % (39.0-53.0); HDW 3.06; HGB 10.8 gm/dL (13.0-17.5); Luc # (Auto) 0.18; Luc % (Auto) 2; Lymphocytes # (A) 0.9 k/uL (1.0-4.8); Lymphocytes % (A) 12 %; MCH 29.2 pg (25.0-35.0); MCHC 32.7 g/dL (31.0-37.0); MCV 89.2 fL (80.0-100.0); Mean Platelet Volume 7.5; Monocytes # (A) 0.5 k/uL (0-1.0); Monocytes % (A) 6 %; Neutrophils # (A) 5.1 k/uL (1.3-7.7); Neutrophils % (A) 64 %; RBC 3.72 m/uL (4.30-5.90); RDW 14.3 % (11.5-15.5); WBC 8.1 k/uL (3.8-10.6); WBC (Perox) 7.49
--- NOTE | 2016-10-28 10:32 | XR ---
EXAMINATION TYPE: XR chest 1V portable DATE OF EXAM: 10/28/2016 10:26 AM Comparison: 09/23/2016 Clinical History: 76-year-old male with sob Findings: The cardiomediastinal silhouette, aorta, and pulmonary vasculature are within normal limits. There i s some strandy atelectasis in the lower lungs. Left base underpenetrated. Some patchy opacity or trac e effusion on the left difficult to exclude. Impression: Left base underpenetrated. Difficult to exclude a trace effusion or some patchy atelectasis/infiltrat e here.
[2016-10-28 10:33] LABS: Anion Gap 9 mmol/L; Blood Urea Nitrogen 25 mg/dL (9-20); Carbon Dioxide 31 mmol/L (22-30); Chloride 102 mmol/L (98-107); Glucose 145 mg/dL (74-99); INR 1.1 (<1.1); Partial Thromboplastin Time 22.7 sec (22.0-30.0); Potassium 4.6 mmol/L (3.5-5.1); Prothrombin Time 10.6 sec (9.0-12.0); Sodium 142 mmol/L (137-145)
[2016-10-28 10:34] LABS: ALT 27 U/L (21-72); AST 23 U/L (17-59); Alkaline Phosphatase 100 U/L (38-126); Calcium 9.1 mg/dL (8.4-10.2); Magnesium 1.9 mg/dL (1.6-2.3); Non-African American GFR(MDRD) >60 (>60 ml/min/1.73 sqM); Total Bilirubin 0.7 mg/dL (0.2-1.3); Total Protein 6.5 g/dL (6.3-8.2)
[2016-10-28] MEDS ORDERED: ENALAPRILAT 1.25 MG/ML 1 ML VIAL IVP STA (10:40)
[2016-10-28 11:01] LABS: Creatine Kinase MB 2.2 ng/mL (0.0-2.4); Troponin I 0.012 ng/mL (0.000-0.034)
[2016-10-28] MEDS ORDERED: SODIUM CHLORIDE 0.9% 500 ML IV STA (12:00)
[2016-10-28] MEDS ORDERED: methylPREDNISolone SOD SUCCI 125 MG/2 ML VIAL IV STA (12:00)
[2016-10-28 13:00] VITALS: RESP 18
[2016-10-28 13:23] VITALS: BP 183/79; PULSE 78; TEMP 98
== END 2016-10-28 13:15 | disposition home or self-care (01) ==
LOC: EC 09:21
DX: J44.1 Chronic obstructive pulmonary disease with (acute) exacerbation (principal); I11.0 Hypertensive heart disease with heart failure; E78.5 Hyperlipidemia, unspecified; E11.42 Type 2 diabetes mellitus with diabetic polyneuropathy; F32.9 Major depressive disorder, single episode, unspecified; F41.9 Anxiety disorder, unspecified; Z87.891 Personal history of nicotine dependence; Z79.4 Long term (current) use of insulin; Z79.82 Long term (current) use of aspirin; Z79.899 Other long term (current) drug therapy; Z88.1 Allergy status to other antibiotic agents; Z85.038 Personal history of other malignant neoplasm of large intestine; Z87.39 Personal history of other diseases of the musculoskeletal system and connective tissue; Z86.79 Personal history of other diseases of the circulatory system; Z99.81 Dependence on supplemental oxygen; Z98.890 Other specified postprocedural states
CPT/HCPCS: 36415; 94640 ×2; 93005; 83880; 80053; 82550; 82553; 83735; 84484; 85025; 85610; 85730; 87040; 71010; 99285; 96374; 96375; 96361 ×3; J2930

== ENCOUNTER 2017-03-09 17:12 | Inpatient (IN) | payer MEDICARE, OTHER ==
[2017-03-09] MEDS ORDERED: LEVOFLOXACIN 750MG-D5W PMX 750 MG in DEXTROSE/WATER 1 150ML.BAG IVPB STA (17:34)
[2017-03-09] MEDS ORDERED: IPRATROPIUM 0.5 MG/2.5 ML NEBU INHALATION STA (17:34)
[2017-03-09] MEDS ORDERED: ALBUTEROL NEBULIZED 2.5 MG/3 ML INHALATION STA (17:34)
[2017-03-09] MEDS ORDERED: SODIUM CHLORIDE 0.9% 1,000 ML IV STA ×2 (17:34)
[2017-03-09 18:30] LABS: Basophils % (A) 0 %; CH 26.4; CHCM 30.1; Eosinophils # (A) 0.2 k/uL (0-0.7); Eosinophils % (A) 1 %; HDW 2.76; HGB 9.4 gm/dL (13.0-17.5); Hypochromasia Marked; Luc # (Auto) 0.13; Luc % (Auto) 1; Lymphocytes # (A) 0.3 k/uL (1.0-4.8); Lymphocytes % (A) 2 %; MCH 26.8 pg (25.0-35.0); MCHC 30.4 g/dL (31.0-37.0); MCV 88.1 fL (80.0-100.0); Mean Platelet Volume 8.5; Monocytes # (A) 0.6 k/uL (0-1.0); Monocytes % (A) 4 %; Neutrophils # (A) 12.5 k/uL (1.3-7.7); Neutrophils % (A) 91 %; RBC 3.52 m/uL (4.30-5.90); WBC 13.7 k/uL (3.8-10.6)
[2017-03-09 18:34] LABS: Glucose,Whole Blood 163 mg/dL (75-99)
[2017-03-09 18:39] LABS: ALT 35 U/L (21-72); AST 28 U/L (17-59); Alkaline Phosphatase 77 U/L (38-126); Anion Gap 8 mmol/L; Blood Urea Nitrogen 31 mg/dL (9-20); Carbon Dioxide 27 mmol/L (22-30); Chloride 104 mmol/L (98-107); Glucose 144 mg/dL (74-99); Magnesium 1.7 mg/dL (1.6-2.3); Non-African American GFR(MDRD) 59 (>60 ml/min/1.73 sqM); Partial Thromboplastin Time 21.9 sec (22.0-30.0); Potassium 4.7 mmol/L (3.5-5.1); Prothrombin Time 10.5 sec (9.0-12.0); Sodium 139 mmol/L (137-145); Total Bilirubin 0.6 mg/dL (0.2-1.3); Total Protein 5.6 g/dL (6.3-8.2)
[2017-03-09 19:00] LABS: Troponin I 0.831 ng/mL (0.000-0.034)
[2017-03-09] MEDS ORDERED: PNEUMONIA PROTOCOL UTILIZED 1 EACH MISC PO PRN (20:22)
[2017-03-09] MEDS ORDERED: PIPERACILLIN-TAZOBACTAM 3.375 GM in DEXTROSE/WATER 1 50ML.BAG IVPB STA (20:22)
[2017-03-09] MEDS ORDERED: NITROGLYCERIN SL TABS 0.4 MG TAB SUBLINGUAL PRN (20:22)
[2017-03-09] MEDS ORDERED: HEPARIN SODIUM,PORCINE 5,000 UNIT/ML 1 ML VIAL IV ONE (20:22)
[2017-03-09] MEDS ORDERED: HEPARIN SODIUM,PORCINE 5,000 UNIT/ML 1 ML VIAL IV PRN (20:22)
[2017-03-09] MEDS ORDERED: MORPHINE SULFATE 4 MG/ML SYRINGE IV PRN (20:22)
[2017-03-09] MEDS ORDERED: SODIUM CHLORIDE 0.9% 1,000 ML IV SCH (20:30)
--- NOTE | 2017-03-09 20:30 | ED ---
General Adult HPI - General Chief complaint: Shortness of Breath Stated complaint: [place] Time Seen by Provider: 03/09/17 17:33 Source: patient, EMS, RN notes reviewed, old records reviewed Mode of arrival: EMS Limitations: no limitations - History of Present Illness Initial comments: This is a 76-year-old male to the ER for evaluation. Patient was unsafe for evaluation regarding shortness of breath. Patient has severe shortness of breath severe cough congestion and positive fever. Patient's [place] illness [place] for disease, chronic heart disease. Patient states symptoms really started today. He has water proofer yesterday and had no complaints. Patient denies significant chest pain at this time will he does have chest pain. Patient mainly complaining of shortness of breath to help at home breathing treatments. Patient states he noticed fever just prior to arrival. No recent travel history or known sick contacts - Related Data Home Medications Medication Instructions Recorded Confirmed Insulin NPH Hum/Reg Insulin Hm 40 units SQ BID 08/09/14 03/09/17 [NovoLIN 70-30 100 UNIT/ML VIAL] Ipratropium-Albuterol Nebulize 3 ml INHALATION RT-QID 08/09/14 03/09/17 [Duoneb 0.5 mg-3 mg/3 ml Soln] Atorvastatin Calcium [Lipitor] 20 mg PO HS 05/19/16 03/09/17 HYDROcodone/APAP 7.5-325MG [[place] 1 tab PO TID 05/19/16 03/09/17 7.5-325] Aspirin EC [Ecotrin Low Dose] 81 mg PO DAILY 08/22/16 03/09/17 Gabapentin [Neurontin] 300 mg PO TID 10/28/16 03/09/17 amLODIPine [Norvasc] 5 mg PO DAILY 10/28/16 03/09/17 Budesonide/Formoterol Fumarate 2 puff INHALATION RT-BID 03/09/17 03/09/17 [Symbicort 160-4.5 Mcg Inhaler] Sertraline [Zoloft] 50 mg PO HS 03/09/17 03/09/17 Allergies Allergy/AdvReac Type Severity Reaction Status Date / Time sulfamethoxazole Allergy RAISES Verified 03/09/17 18:54 [From Bactrim] POTASSIUM trimethoprim [From Bactrim] Allergy RAISES Verified 03/09/17 18:54 POTASSIUM Review of Systems ROS Statement: Those systems with pertinent positive or pertinent negative responses have been documented in the HPI. ROS Other: All systems not noted in ROS Statement are negative. Past Medical History Past Medical History: Cancer, Chest Pain / Angina, COPD, Diabetes Mellitus, Hyperlipidemia, Hypertension, Pneumonia, Prostate Disorder Additional Past Medical History / Comment(s): COPD, hypertension, hyperlipidemia , diabetes mellitus, BPH, peripheral neuropathy, glaucoma, retinal disease/ detachment/retinopathy, colon cancer with a previous resection in 2005, spinal stenosis with degenerative disc disease, recent hospitalization for respiratory complications that occurred in May 2016, Obesity, chronic hypoxic respiratory failre History of Any Multi-Drug Resistant Organisms: None Reported Past Surgical History: Appendectomy, Bowel Resection Additional Past Surgical History / Comment(s): I'll resection for colon cancer in 2005, TURP, previous colostomy with subsequent reversal due to complications of peritonitis following bowel surgery, cataracts surgery in both eyes, appendectomy Past Anesthesia/Blood Transfusion Reactions: No Reported Reaction Past Psychological History: Anxiety, Depression Smoking Status: Former smoker Past Alcohol Use History: Occasional Past Drug Use History: None Reported - Past Family History Father Family Medical History: Unable to Obtain Mother Family Medical History: Cancer Additional Family Medical History / Comment(s): breast cancer, heart problems General Exam Limitations: no limitations General appearance: alert, anxious, in distress Head exam: Present: atraumatic, normocephalic, normal inspection Eye exam: Present: normal appearance, PERRL, EOMI. Absent: scleral icterus, conjunctival injection, periorbital swelling ENT exam: Present: normal exam, mucous membranes moist Neck exam: Present: normal inspection. Absent: tenderness, meningismus, lymphadenopathy Respiratory exam: Present: normal lung sounds bilaterally, wheezes, accessory muscle use, decreased breath sounds, prolonged expiratory. Absent: respiratory distress, rales, rhonchi, stridor Cardiovascular Exam: Present: normal rhythm, tachycardia, normal heart sounds. Absent: systolic murmur, diastolic murmur, rubs, gallop, clicks GI/Abdominal exam: Present: soft, normal bowel sounds. Absent: distended, tenderness, guarding, rebound, rigid Extremities exam: Present: normal inspection, full ROM, normal capillary refill. Absent: tenderness, pedal edema, joint swelling, calf tenderness Back exam: Present: normal inspection Neurological exam: Present: alert, oriented X3, CN II-XII intact Psychiatric exam: Present: normal affect, normal mood Skin exam: Present: warm, dry, intact, normal color. Absent: rash Course Vital Signs 03/09/17 03/09/17 03/09/17 17:15 18:30 19:07 Temperature 102.6 F H Pulse Rate 111 H 101 H 92 Respiratory 26 H 24 Rate Blood Pressure 182/76 161/68 O2 Sat by Pulse 98 94 L Oximetry 03/09/17 03/09/17 19:29 20:00 Temperature Pulse Rate 98 94 Respiratory Rate Blood Pressure O2 Sat by Pulse Oximetry - Reevaluation(s) Reevaluation #1: 03/09/17 20:27 no improvemenyt with breathing treatment EKG Findings - EKG Comments: EKG Findings:: EKG shows sinus tachycardia rate of 101, SD 166, QRS 80, QTC 440 Medical Decision Making - Medical Decision Making 37 no the ER for evaluation of severe shortness of breath cough congestion positive fever. Positive pneumonia, elevated troponin elevated WI with chest pain. Patient to be admitted for removal respiratory treatments and therapy, IV antibiotics, anticoagulation trending of troponin and cardiac observation. We will monitor. Patient hemodynamically - Lab Data Result diagrams: 03/09/17 18:14 03/09/17 18:14 Lab Results 03/09/17 03/09/17 03/09/17 Range/Units 18:14 18:14 18:14 WBC 13.7 H (3.8-10.6) k/uL RBC 3.52 L (4.30-5.90) m/uL Hgb 9.4 L (13.0-17.5) gm/dL Hct 31.0 L (39.0-53.0) % MCV 88.1 (80.0-100.0) fL MCH 26.8 (25.0-35.0) pg MCHC 30.4 L (31.0-37.0) g/dL RDW 15.0 (11.5-15.5) % Plt Count 239 (150-450) k/uL Neutrophils % 91 % Lymphocytes % 2 % Monocytes % 4 % Eosinophils % 1 % Basophils % 0 % Neutrophils # 12.5 H (1.3-7.7) k/uL Lymphocytes # 0.3 L (1.0-4.8) k/uL Monocytes # 0.6 (0-1.0) k/uL Eosinophils # 0.2 (0-0.7) k/uL Basophils # 0.0 (0-0.2) k/uL Hypochromasia Marked PT (9.0-12.0) sec INR (<1.2) APTT (22.0-30.0) sec Sodium 139 (137-145) mmol/L Potassium 4.7 (3.5-5.1) mmol/L Chloride 104 (98-107) mmol/L Carbon Dioxide 27 (22-30) mmol/L Anion Gap 8 mmol/L BUN 31 H (9-20) mg/dL Creatinine 1.20 (0.66-1.25) mg/dL Est GFR (MDRD) Af Amer >60 (>60 ml/min/1.73 sqM) Est GFR (MDRD) Non-Af 59 (>60 ml/min/1.73 sqM) Glucose 144 H (74-99) mg/dL POC Glucose (mg/dL) (75-99) mg/dL POC Glu Patrol Supervisor ID Plasma Lactic Acid Tarik (0.7-2.0) mmol/L Calcium 9.0 (8.4-10.2) mg/dL Magnesium 1.7 (1.6-2.3) mg/dL Total Bilirubin 0.6 (0.2-1.3) mg/dL AST 28 (17-59) U/L ALT 35 (21-72) U/L Alkaline Phosphatase 77 (38-126) U/L Total Creatine Kinase 253 H (55-170) U/L CK-MB (CK-2) 8.0 H* (0.0-2.4) ng/mL CK-MB (CK-2) Rel Index 3.2 Troponin I 0.831 H* (0.000-0.034) ng/mL NT-Pro-B Natriuret Pep pg/mL Total Protein 5.6 L (6.3-8.2) g/dL Albumin 3.2 L (3.5-5.0) g/dL 03/09/17 03/09/17 03/09/17 Range/Units 18:14 18:14 18:14 WBC (3.8-10.6) k/uL RBC (4.30-5.90) m/uL Hgb (13.0-17.5) gm/dL Hct (39.0-53.0) % MCV (80.0-100.0) fL MCH (25.0-35.0) pg MCHC (31.0-37.0) g/dL RDW (11.5-15.5) % Plt Count (150-450) k/uL Neutrophils % % Lymphocytes % % Monocytes % % Eosinophils % % Basophils % % Neutrophils # (1.3-7.7) k/uL Lymphocytes # (1.0-4.8) k/uL Monocytes # (0-1.0) k/uL Eosinophils # (0-0.7) k/uL Basophils # (0-0.2) k/uL Hypochromasia PT 10.5 (9.0-12.0) sec INR 1.0 (<1.2) APTT 21.9 L (22.0-30.0) sec Sodium (137-145) mmol/L Potassium (3.5-5.1) mmol/L Chloride (98-107) mmol/L Carbon Dioxide (22-30) mmol/L Anion Gap mmol/L BUN (9-20) mg/dL Creatinine (0.66-1.25) mg/dL Est GFR (MDRD) Af Amer (>60 ml/min/1.73 sqM) Est GFR (MDRD) Non-Af (>60 ml/min/1.73 sqM) Glucose (74-99) mg/dL POC Glucose (mg/dL) (75-99) mg/dL POC Glu Patrol Supervisor ID Plasma Lactic Acid Tarik 1.3 (0.7-2.0) mmol/L Calcium (8.4-10.2) mg/dL Magnesium (1.6-2.3) mg/dL Total Bilirubin (0.2-1.3) mg/dL AST (17-59) U/L ALT (21-72) U/L Alkaline Phosphatase (38-126) U/L Total Creatine Kinase (55-170) U/L CK-MB (CK-2) (0.0-2.4) ng/mL CK-MB (CK-2) Rel Index Troponin I (0.000-0.034) ng/mL NT-Pro-B Natriuret Pep 1070 pg/mL Total Protein (6.3-8.2) g/dL Albumin (3.5-5.0) g/dL 03/09/17 Range/Units 18:31 WBC (3.8-10.6) k/uL RBC (4.30-5.90) m/uL Hgb (13.0-17.5) gm/dL Hct (39.0-53.0) % MCV (80.0-100.0) fL MCH (25.0-35.0) pg MCHC (31.0-37.0) g/dL RDW (11.5-15.5) % Plt Count (150-450) k/uL Neutrophils % % Lymphocytes % % Monocytes % % Eosinophils % % Basophils % % Neutrophils # (1.3-7.7) k/uL Lymphocytes # (1.0-4.8) k/uL Monocytes # (0-1.0) k/uL Eosinophils # (0-0.7) k/uL Basophils # (0-0.2) k/uL Hypochromasia PT (9.0-12.0) sec INR (<1.2) APTT (22.0-30.0) sec Sodium (137-145) mmol/L Potassium (3.5-5.1) mmol/L Chloride (98-107) mmol/L Carbon Dioxide (22-30) mmol/L Anion Gap mmol/L BUN (9-20) mg/dL Creatinine (0.66-1.25) mg/dL Est GFR (MDRD) Af Amer (>60 ml/min/1.73 sqM) Est GFR (MDRD) Non-Af (>60 ml/min/1.73 sqM) Glucose (74-99) mg/dL POC Glucose (mg/dL) 163 H (75-99) mg/dL POC Glu Patrol Supervisor ID Prerna Waterman Plasma Lactic Acid Tarik (0.7-2.0) mmol/L Calcium (8.4-10.2) mg/dL Magnesium (1.6-2.3) mg/dL Total Bilirubin (0.2-1.3) mg/dL AST (17-59) U/L ALT (21-72) U/L Alkaline Phosphatase (38-126) U/L Total Creatine Kinase (55-170) U/L CK-MB (CK-2) (0.0-2.4) ng/mL CK-MB (CK-2) Rel Index Troponin I (0.000-0.034) ng/mL NT-Pro-B Natriuret Pep pg/mL Total Protein (6.3-8.2) g/dL Albumin (3.5-5.0) g/dL - Radiology Data Radiology results: report reviewed (CXR is positive for pnenumonia), image reviewed Critical Care Time Critical Care Time: Yes Total Critical Care Time: 31 Disposition Clinical Impression: Renal failure, acute, Non-ST elevation myocardial infarction (NSTEMI), Congestive heart failure, Acute exacerbation of chronic obstructive airways disease, Elevated troponin, Fever, Nosocomial pneumonia Disposition: ADMITTED IP TO THIS HOSP Condition: Serious Referrals: Ford Altman MD [Primary Care Provider] - 1-2 days
--- NOTE | 2017-03-09 20:46 | XR ---
EXAMINATION TYPE: XR chest 2V DATE OF EXAM: 03/09/2017 COMPARISON: 10/28/2016 HISTORY: Difficulty breathing TECHNIQUE: Frontal and lateral views of the chest are obtained. FINDINGS: There is patchy consolidation in the right middle lobe. There is also infiltrate in both l ower lobes and probably more on the right side. There is no heart failure. Heart size is normal. Ther e are chest leads. IMPRESSION: New bilateral pneumonia compared to last exam. No heart failure.
[2017-03-09 21:10] LABS: Glucose,Whole Blood 189 mg/dL (75-99)
[2017-03-09] MEDS ORDERED: ONDANSETRON 4 MG/2 ML VIAL IVP STA (21:23)
[2017-03-09] MEDS ORDERED: ONDANSETRON 4 MG/2 ML VIAL IVP PRN ×2 (21:23→21:25)
[2017-03-09] MEDS: HEPARIN SODIUM,PORCINE/D5W PMX 25,000 UNIT in DEXTROSE/WATER 1 500ML.BAG IV SCH (21:30)
[2017-03-09] MEDS ORDERED: MORPHINE SULFATE 4 MG/ML SYRINGE IVP PRN (23:08)
[2017-03-09] MEDS: IPRATROPIUM-ALBUTEROL 3 ML NEB INHALATION SCH (23:19)
[2017-03-09] MEDS: methylPREDNISolone SOD SUCCI 125 MG/2 ML VIAL IV SCH (23:26)
--- NOTE | 2017-03-09 23:35 | HP ---
HISTORY AND PHYSICAL CHIEF COMPLAINT: Shortness of breath. HISTORY OF PRESENT ILLNESS: This 76-year-old gentleman was brought in the emergency room by ambulance because of shortness of breath. The patient was also noted to have a temperature of 102.6. The patient did not realize he had a fever. For the past couple days, he says he has having some shivering and has taken his temperatures at home and they have been normal. He does have underlying history of COPD. In fact, he saw the custom feed mill operator helper yesterday and was doing fairly well. The patient was recommended to continue his regular medications and follow up with him in about 3 months. The patient states he got more short of breath when he woke up this morning. He tried to take more oxygen, but his pulse ox was just low. He decided this evening to come to the hospital. As mentioned above, the patient had a temperature of 102.6. On subsequent workup, it was revealed the patient had some elevated CPK with troponin elevation, but no associated chest pain, symptoms of angina or any EKG changes. The patient did have a temperature as mentioned above associated with some cough and shortness of breath. The patient was given updrafts in the emergency room with some help. He had taken some updrafts at home, too. The patient's chest x-ray does suggest pneumonia. The patient is admitted to the hospital in view of this. PAST MEDICAL HISTORY: Significant for COPD, with chronic respiratory failure, history of diabetes mellitus with some associated autonomic neuropathy and peripheral neuropathy, history of carcinoma of the colon about 10 years ago with no evidence of recurrence. History of gastroesophageal reflux, degenerative arthritis and spinal stenosis. No history of CVA, myocardial infarction or peripheral arterial disease. PAST SURGICAL HISTORY: Partial colectomy and TURP, previous abdominal wall hernia repair. SOCIAL HISTORY: Ex-smoker. Alcohol: None. ALLERGIES: To sulfa. MEDICATIONS: At present include: 1. Gabapentin 100 mg t.i.d. 2. Aspirin 81 mg daily. 3. Zoloft 50 mg at bedtime. 4. DuoNeb updrafts. 5. [place] 7.5/325 p.r.n. t.i.d. 6. Symbicort 160/4.5, 2 puffs b.i.d. 7. Norvasc 5 mg daily. 8. Lipitor 20 mg daily. 9. Novolin 70/30, 40 units b.i.d. VACCINATION HISTORY: Pneumovax previously. ASR, also I think a flu vaccination a couple weeks ago. Details are pending. FAMILY MEDICAL HISTORY: Two daughters, one with history of hypertension. SOCIAL HISTORY: The patient , lives with his spouse. The spouse has a history of COPD and chronic back pain. PHYSICAL EXAMINATION: Pleasant gentleman present, quite nauseous and retching, but once that settled down, he was able to appear stable. VITAL SIGNS: Temperature was 102.6, pulse 111, respirations 26, blood pressure 182/76, pulse ox 98% on nonrebreather. Subsequently the patient's pulse ox is 94% on 4L. HEENT: Normocephalic. Pupils are reactive. Pharynx not examined, as patient was retching. NECK: No JVD. No carotid bruits. No thyromegaly. CHEST: Decreased air flow, especially left base. A few crackles. CARDIAC: Distant heart sounds. S1, S2 with no gallop. Systolic murmur 2/6 left sternal border. ABDOMEN: Protuberant, soft. Bowel sounds present. Extremities reveal trace edema. NEUROLOGIC: Awake, alert, oriented x3 with well coordinated movements. LABORATORY ASSESSMENT: Chest x-ray reveals bilateral basal infiltrates. Hemoglobin is 9.4, white count 13.7, platelets 239. PT, PTT are normal. Electrolytes normal. BUN 31, creatinine 1.2, glucose 144. Hepatic functions normal. CPK 253, MB 88.0 and troponin 0.831. BNP 1070. ASSESSMENT: 1. Pneumonia, bilateral. 2. Chronic obstructive pulmonary disease. 3. Respiratory failure. 4. Acute on chronic respiratory failure. 5. Anemia. 6. Diabetes mellitus. 7. Elevated troponins, probably demand and supply imbalance. PLAN: The patient has been started on IV antibiotics; Zosyn and Levaquin, oxygen updrafts. The patient has been anticoagulated. As a result of this, subsequent troponins remained stable or improved. Discontinued. The patient's condition was discussed with the patient and family. Further evaluation of anemia. The patient's general condition discussed with the patient. Prognosis guarded. MMODL / IJN: [id number] /
[2017-03-10] MEDS: ATORVASTATIN 20 MG TAB PO SCH ×2 (00:32→21:27)
[2017-03-10] MEDS: ASPIRIN 81 MG PO SCH ×2 (00:32→08:30)
[2017-03-10] MEDS: SERTRALINE 50 MG TAB PO SCH ×2 (00:32→21:27)
[2017-03-10 01:16] LABS: Creatine Kinase MB 23.9 ng/mL (0.0-2.4); Troponin I 8.49 ng/mL (0.000-0.034)
[2017-03-10] MEDS ORDERED: IPRATROPIUM-ALBUTEROL 3 ML NEB INHALATION PRN (03:28)
[2017-03-10] MEDS: IPRATROPIUM-ALBUTEROL 3 ML NEB INHALATION SCH ×5 (03:30→20:59)
[2017-03-10] MEDS: HYDROcodone/APAP 7.5-325MG 1 EACH TAB PO SCH ×4 (04:27→22:59)
[2017-03-10] MEDS: SODIUM CHLORIDE 0.9% 1,000 ML IV SCH ×2 (04:27→06:28)
[2017-03-10] MEDS ORDERED: HEPARIN SODIUM,PORCINE 5,000 UNIT/ML 1 ML VIAL IV STA (05:00)
[2017-03-10] MEDS ORDERED: HEPARIN SODIUM,PORCINE 5,000 UNIT/ML 1 ML VIAL IV PRN (05:25)
[2017-03-10 06:09] LABS: Glucose,Whole Blood 404 mg/dL (75-99)
[2017-03-10] MEDS: INSULIN LISPRO (humaLOG) 300 UNIT/3 ML VIAL SQ SCH ×4 (06:18→21:23)
[2017-03-10] MEDS: methylPREDNISolone SOD SUCCI 125 MG/2 ML VIAL IV SCH (06:23)
[2017-03-10 06:50] LABS: CH 26.9; CHCM 30.4; HCT 28.4 % (39.0-53.0); HDW 2.64; HGB 8.7 gm/dL (13.0-17.5); Hypochromasia Moderate; MCH 27.1 pg (25.0-35.0); MCHC 30.5 g/dL (31.0-37.0); MCV 88.6 fL (80.0-100.0); Mean Platelet Volume 8.5; RBC 3.21 m/uL (4.30-5.90); RDW 15.9 % (11.5-15.5); Reticulocyte % 2.8 % (0.5-2.0)
[2017-03-10 07:25] LABS: Cholesterol 108 mg/dL (<200); HDL Cholesterol 60 mg/dL (40-60)
[2017-03-10 07:34] LABS: Creatine Kinase MB 30.4 ng/mL (0.0-2.4); Troponin I 10.6 ng/mL (0.000-0.034)
--- NOTE | 2017-03-10 07:42 | P.CRDCN ---
History of Present Illness Consult date: 03/10/17 History of present illness: This is a pleasant 76-year-old gentleman with a past medical history significant for chronic respiratory failure related to COPD on home oxygen, diabetes, hypertension, dyslipidemia, presented to the hospital complaining of shortness of breath. The patient was in his usual state of health where he was seen by his global project manager on Tuesday and he was told that he was doing well. He was with some friends at [place] yesterday when he did not feel well. He started experiencing shortness of breath. He put his oxygen on without any improvement. The patient went home and continues not feeling well and then he decided to come to the hospital. In the emergency room he was found to be febrile with more than 100 Fahrenheit temperature. A chest x-ray was performed and showed what it seems to be bilateral pneumonia where the patient was admitted to the hospital and started on antibiotics as well as steroids. He did not have any symptoms of chest pain or chest discomfort for. We get involved in the care of the patient because her cardiac enzymes were checked and came in to be significantly abnormal with significantly abnormal troponin as well as CK-MB. As a mentioned earlier the patient did not have any symptoms of chest pain. The EKG showed sinus rhythm with diffuse nonspecific changes. BMP was checked and came in to be around 1000. He is not aware of any prior history of coronary artery disease or coronary revascularization in the past. Currently the patient is on aspirin, statin, and he is also on heparin IV. Past Medical History Past Medical History: Cancer, Chest Pain / Angina, COPD, Diabetes Mellitus, Hyperlipidemia, Hypertension, Pneumonia, Prostate Disorder Additional Past Medical History / Comment(s): COPD, hypertension, hyperlipidemia , diabetes mellitus, BPH, peripheral neuropathy, glaucoma, retinal disease/ detachment/retinopathy, colon cancer with a previous resection in 2005, spinal stenosis with degenerative disc disease, recent hospitalization for respiratory complications that occurred in May 2016, Obesity, chronic hypoxic respiratory failre History of Any Multi-Drug Resistant Organisms: None Reported Past Surgical History: Appendectomy, Bowel Resection Additional Past Surgical History / Comment(s): I'll resection for colon cancer in 2005, TURP, previous colostomy with subsequent reversal due to complications of peritonitis following bowel surgery, cataracts surgery in both eyes, appendectomy Past Anesthesia/Blood Transfusion Reactions: No Reported Reaction Past Psychological History: Anxiety, Depression Smoking Status: Former smoker Past Alcohol Use History: Occasional Additional Past Alcohol Use History / Comment(s): quit smoking in 1982 smoked 3 ppd x 30 years Past Drug Use History: None Reported - Past Family History Father Family Medical History: Unable to Obtain Mother Family Medical History: Cancer Additional Family Medical History / Comment(s): breast cancer, heart problems Medications and Allergies Home Medications Medication Instructions Recorded Confirmed Type Insulin NPH Hum/Reg Insulin Hm 40 units SQ BID 08/09/14 03/09/17 History [NovoLIN 70-30 100 UNIT/ML VIAL] Ipratropium-Albuterol Nebulize 3 ml INHALATION RT-QID 08/09/14 03/09/17 History [Duoneb 0.5 mg-3 mg/3 ml Soln] Atorvastatin Calcium [Lipitor] 20 mg PO HS 05/19/16 03/09/17 History HYDROcodone/APAP 7.5-325MG [Ethel 1 tab PO TID 05/19/16 03/09/17 History 7.5-325] Aspirin EC [Ecotrin Low Dose] 81 mg PO DAILY 08/22/16 03/09/17 History Gabapentin [Neurontin] 100 mg PO TID 10/28/16 03/09/17 History amLODIPine [Norvasc] 5 mg PO DAILY 10/28/16 03/09/17 History Budesonide/Formoterol Fumarate 2 puff INHALATION RT-BID 03/09/17 03/09/17 History [Symbicort 160-4.5 Mcg Inhaler] Sertraline [Zoloft] 50 mg PO HS 03/09/17 03/09/17 History Allergies Allergy/AdvReac Type Severity Reaction Status Date / Time sulfamethoxazole Allergy RAISES Verified 03/09/17 18:54 [From Bactrim] POTASSIUM trimethoprim [From Bactrim] Allergy RAISES Verified 03/09/17 18:54 POTASSIUM Physical Exam Vitals: Vital Signs Temp Pulse Pulse Resp BP BP Pulse Ox 03/10/17 04:00 98.0 F 74 16 157/68 03/10/17 03:51 72 03/10/17 03:30 73 03/10/17 00:00 98.3 F 75 21 90/50 99 03/09/17 23:24 102 H 03/09/17 23:19 102 H 03/09/17 22:55 97.8 F 98 22 115/51 98 03/09/17 21:00 98.9 F 99 24 176/87 95 03/09/17 20:00 94 03/09/17 19:29 98 03/09/17 19:07 92 03/09/17 18:30 101 H 24 161/68 94 L 03/09/17 17:15 102.6 F H 111 H 26 H 182/76 98 Intake and Output 03/09/17 03/10/17 03/10/17 22:59 06:59 14:59 Intake Total 450 376.333 Output Total 150 Balance 450 226.333 Intake: Intake, IV Titration 200 376.333 Amount Heparin Sodium,Porcine/ 150.333 D5w Pmx 25,000 unit In Dextrose/Water 1 500ml. bag @ 9.19 UNITS/KG/HR 20 mls/hr IV .Q24H [facility] Rx#: [id number] Piperacillin-Tazobactam 3 226 .375 gm In Dextrose/Water 1 50ml.bag @ 12.5 mls/hr IVPB ONCE [facility] Rx#: [id number] Sodium Chloride 0.9% 1, 200 000 ml @ 100 mls/hr IV . Q10H [facility] Rx#:[id number] Oral 250 Output: Urine 150 Other: Weight 108.862 kg 106.6 kg - Constitutional General appearance: no acute distress - Respiratory Respiratory: bilateral: rales - Cardiovascular Rhythm: regular Heart sounds: normal: S1, S2 Results 03/10/17 06:14 03/09/17 18:14 Cardiac Enzymes 03/09/17 03/09/17 03/10/17 Range/Units 18:14 18:14 00:28 AST 28 (17-59) U/L CK-MB (CK-2) 8.0 H* 23.9 H* (0.0-2.4) ng/mL Troponin I 0.831 H* 8.490 H* (0.000-0.034) ng/mL 03/10/17 Range/Units 06:14 AST (17-59) U/L CK-MB (CK-2) 30.4 H* (0.0-2.4) ng/mL Troponin I 10.600 H* (0.000-0.034) ng/mL Coagulation 03/09/17 03/10/17 Range/Units 18:14 04:12 PT 10.5 (9.0-12.0) sec APTT 21.9 L 32.6 H (22.0-30.0) sec Lipids 03/10/17 Range/Units 06:14 Triglycerides 47 (<150) mg/dL Cholesterol 108 (<200) mg/dL HDL Cholesterol 60 (40-60) mg/dL CBC 03/09/17 03/10/17 Range/Units 18:14 06:14 WBC 13.7 H 11.0 H (3.8-10.6) k/uL RBC 3.52 L 3.21 L (4.30-5.90) m/uL Hgb 9.4 L 8.7 L (13.0-17.5) gm/dL Hct 31.0 L 28.4 L (39.0-53.0) % Plt Count 239 199 (150-450) k/uL Comprehensive Metabolic Panel 03/09/17 Range/Units 18:14 Sodium 139 (137-145) mmol/L Potassium 4.7 (3.5-5.1) mmol/L Chloride 104 (98-107) mmol/L Carbon Dioxide 27 (22-30) mmol/L BUN 31 H (9-20) mg/dL Creatinine 1.20 (0.66-1.25) mg/dL Glucose 144 H (74-99) mg/dL Calcium 9.0 (8.4-10.2) mg/dL AST 28 (17-59) U/L ALT 35 (21-72) U/L Alkaline Phosphatase 77 (38-126) U/L Total Protein 5.6 L (6.3-8.2) g/dL Albumin 3.2 L (3.5-5.0) g/dL Current Medications Generic Name Dose Route Start Last Admin Trade Name Freq PRN Reason Stop Dose Admin Hydrocodone Bitart/Acetaminophen 1 each 03/09/17 22:45 03/10/17 04:27 Ethel 7.5-325 PO Not Given TID [facility] Albuterol/Ipratropium 3 ml 03/10/17 08:00 03/10/17 03:30 Duoneb 0.5 Mg-3 Mg/3 Ml Soln INHALATION 3 ml RT-QID [facility] Administration Albuterol/Ipratropium 3 ml 03/10/17 03:28 Duoneb 0.5 Mg-3 Mg/3 Ml Soln INHALATION RT-Q2H PRN Shortness Of Breath Or Wheezing Amlodipine Besylate 5 mg 03/10/17 09:00 Norvasc PO DAILY [facility] Aspirin 81 mg 03/09/17 22:45 03/10/17 00:32 Aspirin PO 81 mg DAILY [facility] Administration Atorvastatin Calcium 20 mg 03/09/17 22:45 03/10/17 00:32 Lipitor PO 20 mg HS [facility] Administration Budesonide/Formoterol Fumarate 2 puff 03/10/17 08:00 Symbicort 160-4.5 Mcg Inhaler INHALATION RT-BID [facility] Gabapentin 100 mg 03/10/17 09:00 Neurontin PO TID [facility] Heparin Sodium (Porcine) 0 unit 03/10/17 05:25 03/10/17 05:57 Heparin IV 4,000 unit Q6HR PRN Administration Low PTT Protocol Heparin Sodium/Dextrose 25,000 500 mls @ 20 mls/hr 03/09/17 20:30 03/10/17 05 :01 unit/ IV Solution IV 12.19 units/kg/hr .Q24H [facility] 26.54 mls/hr Protocol Titration 9.19 UNITS/KG/HR Piperacillin/Tazobactam/ 50 mls @ 12.5 mls/hr 03/10/17 08:00 Dextrose 3.375 gm/ IV Solution IVPB 03/20/17 08:01 Q8HR [facility] Sodium Chloride 1,000 mls @ 100 mls/hr 03/09/17 20:30 03/10/17 06:28 Saline 0.9% IV 100 mls/hr .Q10H [facility] Administration Insulin Human Isoph/Insulin Regular 40 unit 03/10/17 09:00 Humulin 70/30 Vial SQ BID [facility] Insulin Human Lispro 0 unit 03/10/17 07:30 03/10/17 06:18 Humalog SQ 8 unit ACHS [facility] Administration Protocol Methylprednisolone Sodium Succinate 60 mg 03/10/17 00:00 03/10/17 06:23 Solu-Medrol IV 60 mg Q6HR [facility] Administration Miscellaneous Information 1 each 03/09/17 20:22 Pneumonia Protocol Utilized PO ONCE PRN Per Protocol Morphine Sulfate 4 mg 03/09/17 23:08 03/09/17 23:20 Morphine Sulfate (Inj) IVP 4 mg Q6H PRN Administration Pain Nitroglycerin 0.4 mg 03/09/17 20:22 Nitrostat SUBLINGUAL Q5M PRN Chest Pain Ondansetron HCl 4 mg 03/09/17 21:23 Zofran IVP Q6HR PRN Nausea And Vomiting Pantoprazole Sodium 40 mg 03/10/17 09:00 Protonix IVP DAILY [facility] Sertraline HCl 50 mg 03/09/17 22:45 03/10/17 00:32 Zoloft PO 50 mg HS [facility] Administration Intake and Output 03/09/17 03/10/17 03/10/17 22:59 06:59 14:59 Intake Total 450 376.333 Output Total 150 Balance 450 226.333 Intake: Intake, IV Titration 200 376.333 Amount Heparin Sodium,Porcine/ 150.333 D5w Pmx 25,000 unit In Dextrose/Water 1 500ml. bag @ 9.19 UNITS/KG/HR 20 mls/hr IV .Q24H [facility] Rx#: [id number] Piperacillin-Tazobactam 3 226 .375 gm In Dextrose/Water 1 50ml.bag @ 12.5 mls/hr IVPB ONCE [facility] Rx#: [id number] Sodium Chloride 0.9% 1, 200 000 ml @ 100 mls/hr IV . Q10H [facility] Rx#:[id number] Oral 250 Output: Urine 150 Other: Weight 108.862 kg 106.6 kg 03/10/17 06:14 03/09/17 18:14 Assessment and Plan Plan: This is a pleasant 76-year-old gentleman with COPD, chronic respiratory failure , diabetes, hypertension, dyslipidemia presented to the hospital with dyspnea. No chest pain or discomfort. No cough. The patient was febrile when he was in the emergency room. The chest x-ray showed findings consistent with bilateral pneumonia. He was ruled in for acute non-ST elevation myocardial infarction by significantly abnormal troponin. Beside that he had nonspecific changes in the EKG most prominent in the lateral leads and could be representing ischemia. I would recommend at this point continue the current medical treatment with antibiotic and steroids. Continue the aspirin and heparin. I do feel that the patient need to undergo a heart catheterization to rule out any severe underlying CAD. I would recommend proceeding with that in the next 24 hours. We'll obtain an echocardiogram to assess for any wall motion abnormalities. We' ll continue following up with him.
[2017-03-10] MEDS: SYMBICORT 160-4.5 MCG INHALER INHALATION SCH ×2 (07:55→20:59)
[2017-03-10] MEDS ORDERED: IPRATROPIUM-ALBUTEROL 3 ML NEB INHALATION SCH (08:00)
[2017-03-10] MEDS: amLODIPine 5 MG TAB PO SCH (08:30)
[2017-03-10] MEDS: PANTOPRAZOLE 40 MG/10 ML VIAL IVP SCH (08:31)
[2017-03-10] MEDS: INSULIN NPH/REG INSULIN 70/30 300 UNIT/3 ML VIAL SQ SCH ×2 (08:31→21:22)
[2017-03-10] MEDS ORDERED: ASPIRIN 325 MG TAB PO SCH (09:00)
--- NOTE | 2017-03-10 09:02 | XR ---
EXAMINATION TYPE: XR chest 1V portable DATE OF EXAM: 03/10/2017 COMPARISON: 03/09/2017 HISTORY: Pneumonia TECHNIQUE: Single frontal view of the chest is obtained. FINDINGS: Bilateral lower lobe infiltrate. Cardiomegaly and hyperinflation suggestive of COPD. Arthr opathy of the shoulders. No pneumothorax. IMPRESSION: 1. Bilateral lower lobe infiltrate. Findings are stable.
[2017-03-10] MEDS: GABAPENTIN 100 MG CAP PO SCH ×3 (09:56→21:27)
--- NOTE | 2017-03-10 10:04 | ECHOF ---
Referral Reason:nstemi MEASUREMENTS -------- HEIGHT: 172.7 cm WEIGHT: 106.6 kg BP: RVIDd: 3.6 cm (< 3.3) IVSd: 1.4 cm (0.6 - 1.1) LVIDd: 4.7 cm (3.9 - 5.3) LVPWd: 1.3 cm (0.6 - 1.1) IVSs: 1.6 cm LVIDs: 4.2 cm LVPWs: 1.4 cm LAESV Index (A-L): 30.84 ml/m Ao Diam: 3.3 cm (2.0 - 3.7) AV Cusp: 1.8 cm (1.5 - 2.6) LA Diam: 4.3 cm (2.7 - 3.8) RAP: 5.00 mmHg RVSP: 16.53 mmHg FINDINGS -------- Sinus rhythm. This was a techncally difficult study with suboptimal views, , Definity utilized for enhancement of images. The left ventricular size is normal. Left ventricular wall thickness is normal. Overall left ventricular systolic function is normal with, an EF between 55 - 60 %. The right ventricle is normal in size. LA is midly dilated 29-33ml/m2. The right atrial size is normal. 1.5MG OF DEFINITY UTLIZED: 2 OR MORE WALL SEGMENTS NOT VISUALIZED. The aortic valve is trileaflet, and appears structurally normal. No aortic stenosis or regurgitation. Mild mitral regurgitation is present. Mild tricuspid regurgitation present. There is no evidence of pulmonary hypertension. The right ventricular systolic pressure, as measured by Doppler, is 16.53mmHg. The pulmonic valve was not well visualized. The aortic root size is normal. There is no pericardial effusion. CONCLUSIONS -------- 1. This was a techncally difficult study with suboptimal views, , Definity utilized for enhancement of images. 2. There is no evidence of pulmonary hypertension. 3. The right ventricular systolic pressure, as measured by Doppler, is 16.53mmHg. 4. The pulmonic valve was not well visualized. 5. The aortic root size is normal. 6. There is no pericardial effusion. 7. The left ventricular size is normal. 8. Left ventricular wall thickness is normal. 9. Overall left ventricular systolic function is normal with, an EF between 55 - 60 %. 10. LA is midly dilated 29-33ml/m2. 11. 1.5MG OF DEFINITY UTLIZED: 2 OR MORE WALL SEGMENTS NOT VISUALIZED. 12. The aortic valve is trileaflet, and appears structurally normal. No aortic stenosis or regurgitation. 13. Mild mitral regurgitation is present. 14. Mild tricuspid regurgitation present. HEALTHCARE ECONOMICS MANAGER: Frida Thomason RDCS
[2017-03-10] MEDS: PIPERACILLIN-TAZOBACTAM 3.375 GM in DEXTROSE/WATER 1 50ML.BAG IVPB SCH ×3 (10:34→23:10)
[2017-03-10 11:58] LABS: Glucose,Whole Blood 331 mg/dL (75-99)
--- NOTE | 2017-03-10 13:04 | P.CNPUL ---
History of Present Illness Consult date: 03/10/17 Requesting physician: Ford Altman Reason for consult: COPD, pneumonia, other (Acute myocardial infarction, COPD) Chief complaint: Shortness of breath, fever and chills. History of present illness: This is a 76-year-old white male with known history of severe COPD, O2 dependent , but not prednisone dependent. Patient is also known to have history of obstructive sleep apnea syndrome, noncompliant with his CPAP at home. Patient saw Dr. Moya on Tuesday for follow-up on his COPD, and it was basically a routine visit, his lungs sounded fairly clear and the patient had no unusual pulmonary symptoms. No changes were made with his medications. However on Tuesday the patient started feeling a bit febrile and had intermittent chills. He also noted that he was requiring oxygen most of the time, and his O2 saturation in spite of being on 4 L nasal cannula in the 70s. As time went on, patient was getting worse, and he was not feeling much better with increased shortness of breath, fever and chills, and temperature as high as 102.6. Patient came into the ER yesterday, and he was noted to have abnormal chest x- ray consistent with by basilar infiltrates. Patient was also noted to have a bit of leukocytosis, and his cardiac panel was significantly abnormal with elevated troponins. Patient was admitted and I was asked to see him on consultation. He was already placed on proper antibiotics and bronchodilators. He was already seen by cardiology, and entertaining the possibility of having to do cardiac catheterization because of his non-ST segment elevation myocardial infarction. EKG showed nonspecific changes, normal sinus rhythm. CPK MB bands were also abnormal. Patient had no symptoms of chest pain all along, no palpitations, no nausea, no vomiting, felt some vague back discomfort , but is not unusual to have mid back pain on and off. Patient had no melena, no hematemesis, no dysuria and no frequency no urgency. Patient was placed on heparin and he was already on aspirin. No previous history of coronary artery disease. Patient is known to have diabetes, and history of hypertension. As well as morbid obesity. Review of Systems 14 point review of systems were obtained, please refer to pertinent positives in the HPI, otherwise the remaining systems are negative. Past Medical History Past Medical History: Cancer, Chest Pain / Angina, COPD, Diabetes Mellitus, Hyperlipidemia, Hypertension, Pneumonia, Prostate Disorder Additional Past Medical History / Comment(s): COPD, hypertension, hyperlipidemia , diabetes mellitus, BPH, peripheral neuropathy, glaucoma, retinal disease/ detachment/retinopathy, colon cancer with a previous resection in 2005, spinal stenosis with degenerative disc disease, recent hospitalization for respiratory complications that occurred in May 2016, Obesity, chronic hypoxic respiratory failre History of Any Multi-Drug Resistant Organisms: None Reported Past Surgical History: Appendectomy, Bowel Resection Additional Past Surgical History / Comment(s): I'll resection for colon cancer in 2005, TURP, previous colostomy with subsequent reversal due to complications of peritonitis following bowel surgery, cataracts surgery in both eyes, appendectomy Past Anesthesia/Blood Transfusion Reactions: No Reported Reaction Past Psychological History: Anxiety, Depression Smoking Status: Former smoker Past Alcohol Use History: Occasional Additional Past Alcohol Use History / Comment(s): quit smoking in 1982 smoked 3 ppd x 30 years Past Drug Use History: None Reported - Past Family History Father Family Medical History: Unable to Obtain Mother Family Medical History: Cancer Additional Family Medical History / Comment(s): breast cancer, heart problems Medications and Allergies Home Medications Medication Instructions Recorded Confirmed Type Insulin NPH Hum/Reg Insulin Hm 40 units SQ BID 08/09/14 03/09/17 History [NovoLIN 70-30 100 UNIT/ML VIAL] Ipratropium-Albuterol Nebulize 3 ml INHALATION RT-QID 08/09/14 03/09/17 History [Duoneb 0.5 mg-3 mg/3 ml Soln] Atorvastatin Calcium [Lipitor] 20 mg PO HS 05/19/16 03/09/17 History HYDROcodone/APAP 7.5-325MG [Renovo 1 tab PO TID 05/19/16 03/09/17 History 7.5-325] Aspirin EC [Ecotrin Low Dose] 81 mg PO DAILY 08/22/16 03/09/17 History Gabapentin [Neurontin] 300 mg PO TID 10/28/16 03/10/17 History amLODIPine [Norvasc] 5 mg PO DAILY 10/28/16 03/09/17 History Budesonide/Formoterol Fumarate 2 puff INHALATION RT-BID 03/09/17 03/09/17 History [Symbicort 160-4.5 Mcg Inhaler] Cholecalciferol (Vitamin D3) 2,000 unit PO DAILY 03/10/17 03/10/17 History [Vitamin D3] Fludrocortisone [Florinef] 0.1 mg PO DAILY 03/10/17 03/10/17 History Sertraline [Zoloft] 100 mg PO DAILY 03/10/17 03/10/17 History Allergies Allergy/AdvReac Type Severity Reaction Status Date / Time sulfamethoxazole Allergy RAISES Verified 03/09/17 18:54 [From Bactrim] POTASSIUM trimethoprim [From Bactrim] Allergy RAISES Verified 03/09/17 18:54 POTASSIUM Physical Exam Vitals: Vital Signs Temp Pulse Pulse Resp BP BP Pulse Ox 03/10/17 12:09 80 03/10/17 11:59 98.7 F 80 18 137/54 98 03/10/17 11:54 80 03/10/17 08:30 97.8 F 74 20 128/52 100 03/10/17 08:10 84 03/10/17 07:56 88 03/10/17 04:00 98.0 F 74 16 157/68 03/10/17 03:51 72 03/10/17 03:30 73 03/10/17 00:00 98.3 F 75 21 90/50 99 03/09/17 23:24 102 H 03/09/17 23:19 102 H 03/09/17 22:55 97.8 F 98 22 115/51 98 03/09/17 21:00 98.9 F 99 24 176/87 95 03/09/17 20:00 94 03/09/17 19:29 98 03/09/17 19:07 92 03/09/17 18:30 101 H 24 161/68 94 L 03/09/17 17:15 102.6 F H 111 H 26 H 182/76 98 Intake and Output 03/09/17 03/10/17 03/10/17 22:59 06:59 14:59 Intake Total 450 376.333 695.338 Output Total 150 Balance 450 226.333 695.338 Intake: Intake, IV Titration 200 376.333 335.338 Amount Heparin Sodium,Porcine/ 150.333 185.338 D5w Pmx 25,000 unit In Dextrose/Water 1 500ml. bag @ 9.19 UNITS/KG/HR 20 mls/hr IV .Q24H [facility] Rx#: [id number] Piperacillin-Tazobactam 3 226 .375 gm In Dextrose/Water 1 50ml.bag @ 12.5 mls/hr IVPB ONCE [facility] Rx#: [id number] Piperacillin-Tazobactam 3 50 .375 gm In Dextrose/Water 1 50ml.bag @ 12.5 mls/hr IVPB Q8HR [facility] Rx#: [id number] Sodium Chloride 0.9% 1, 200 100 000 ml @ 100 mls/hr IV . Q10H [facility] Rx#:[id number] Oral 250 360 Output: Urine 150 Other: Voiding Method Urinal Urinal Weight 108.862 kg 106.6 kg General appearance: Revealed a 76-year-old obese white male, alert, in no form of respiratory distress. Head exam: atraumatic, normocephalic, normal inspection Eye exam: PERRL, EOMI. no icterus. ENT exam: Moist mucous membranes, normal nasal mucosa. Neck exam: No neck masses, no JVD, no thyromegaly, no lymphadenopathy. Respiratory exam: Present: normal lung sounds bilaterally, minimal crackles at the bases, no rhonchi, no wheezes. Normal symmetrical chest expansion. Cardiovascular Exam: Present: Normal S1 and S2, no S3 gallop, no murmur. GI/Abdominal exam: Obese, soft, nontender, large abdominal wall hernia noted./ Ventral hernia and multiple surgical scars noted. Extremities exam: Present: normal inspection, full ROM, normal capillary refill. Absent: tenderness, pedal edema, joint swelling, calf tenderness Back exam: No tenderness. Neurological exam: No gross focal neurologic deficit Psychiatric exam: normal affect, normal mood Skin exam: No rashes. No ulcerations. Results - Laboratory Findings CBC and BMP: 03/10/17 06:14 03/09/17 18:14 PT/INR, D-dimer PT 10.5 sec (9.0-12.0) 03/09/17 18:14 INR 1.0 (<1.2) 03/09/17 18:14 Abnormal lab findings: Abnormal Labs 03/09/17 03/09/17 03/09/17 18:14 18:14 18:14 WBC 13.7 H RBC 3.52 L Hgb 9.4 L Hct 31.0 L MCHC 30.4 L RDW Neutrophils # 12.5 H Lymphocytes # 0.3 L Retic Count APTT BUN 31 H Glucose 144 H POC Glucose (mg/dL) Plasma Lactic Acid Tarik Total Creatine Kinase 253 H CK-MB (CK-2) 8.0 H* Troponin I 0.831 H* Total Protein 5.6 L Albumin 3.2 L 03/09/17 03/09/17 03/09/17 18:14 18:31 21:07 WBC RBC Hgb Hct MCHC RDW Neutrophils # Lymphocytes # Retic Count APTT 21.9 L BUN Glucose POC Glucose (mg/dL) 163 H 189 H Plasma Lactic Acid Tarik Total Creatine Kinase CK-MB (CK-2) Troponin I Total Protein Albumin 03/10/17 03/10/17 03/10/17 00:28 00:28 04:12 WBC RBC Hgb Hct MCHC RDW Neutrophils # Lymphocytes # Retic Count APTT 32.6 H BUN Glucose POC Glucose (mg/dL) Plasma Lactic Acid Tarik 2.6 H* Total Creatine Kinase 586 H CK-MB (CK-2) 23.9 H* Troponin I 8.490 H* Total Protein Albumin 03/10/17 03/10/17 03/10/17 04:12 06:07 06:14 WBC RBC Hgb Hct MCHC RDW Neutrophils # Lymphocytes # Retic Count APTT BUN Glucose POC Glucose (mg/dL) 404 H Plasma Lactic Acid Tarik 2.1 H* Total Creatine Kinase 760 H CK-MB (CK-2) 30.4 H* Troponin I 10.600 H* Total Protein Albumin 03/10/17 03/10/17 03/10/17 06:14 10:39 11:42 WBC 11.0 H RBC 3.21 L Hgb 8.7 L Hct 28.4 L MCHC 30.5 L RDW 15.9 H Neutrophils # Lymphocytes # Retic Count 2.8 H APTT 45.9 H BUN Glucose POC Glucose (mg/dL) 331 H Plasma Lactic Acid Tarik Total Creatine Kinase CK-MB (CK-2) Troponin I Total Protein Albumin - Diagnostic Findings Chest x-ray: image reviewed (By basilar infiltrates were noted.) Assessment and Plan Plan: Impression: 1 acute community-acquired pneumonia 2 acute non-ST segment elevation myocardial infarction 3 acute on chronic hypoxic respiratory failure secondary to pneumonia and COPD 4 severe oxygen dependent chronic obstructive pulmonary disease with acute exacerbation 5 morbid obesity 6 history of obstructive sleep apnea syndrome 7 history of diabetes Recommendation: Continue present treatment plan including antibiotics in the form of Zosyn and Levaquin, continue heparin and aspirin, patient is being considered for possible cardiac catheterization. Bronchodilators, cut down the dose of Solu-Medrol since the presentation seems to be mostly a presentation of pneumonia rather than presentation of COPD exacerbation. Continue GI prophylaxis. We will continue to follow. Time with Patient: Greater than 30
[2017-03-10 14:10] LABS: Iron Saturation 5.2 (15.00-50.00)
[2017-03-10 15:09] LABS: Magnesium 1.9 mg/dL (1.6-2.3); Potassium 4.5 mmol/L (3.5-5.1)
[2017-03-10] MEDS: methylPREDNISolone SOD SUCCI 40 MG/ML 1 ML VIAL IV SCH ×2 (16:56→22:59)
[2017-03-10 16:59] LABS: Glucose,Whole Blood 232 mg/dL (75-99)
[2017-03-10] MEDS: HEPARIN SODIUM,PORCINE/D5W PMX 25,000 UNIT in DEXTROSE/WATER 1 500ML.BAG IV SCH (17:08)
[2017-03-10 21:07] LABS: Glucose,Whole Blood 316 mg/dL (75-99)
[2017-03-11 02:37] LABS: Glucose,Whole Blood 275 mg/dL (75-99)
[2017-03-11] MEDS: INSULIN LISPRO (humaLOG) 300 UNIT/3 ML VIAL SQ SCH ×5 (02:45→21:14)
--- NOTE | 2017-03-11 05:34 | PN ---
PROGRESS NOTE CHIEF COMPLAINT: Re-evaluation. HISTORY OF PRESENT ILLNESS: This 76-year-old gentleman was admitted to the hospital with significant shortness of breath last night. The patient was doing fairly well this morning. He had received some morphine, oxygen and BiPAP. The patient is more alert and back to his usual self this evening. The patient denies any chest pain. The patient's laboratory evaluation has revealed progressive troponin elevation. The patient has been on IV heparin. He was given some steroids too. The patient is feeling improved. Chest x-ray suggested pneumonia. REVIEW OF SYSTEMS: NEURO: Denies any headaches, dizziness. PSYCH: Some anxiety. CARDIAC: No chest pain, angina, palpitations. RESPIRATORY: Denies much shortness of breath. Does have some cough. No hemoptysis. GI: No nausea, vomiting, abdominal pain, diarrhea. : No symptoms of dysuria, hematuria. Does have some urgency, frequency. Extremities denies pain, edema. CONSTITUTIONAL: No fever or chills. PHYSICAL EXAMINATION: Pleasant gentleman in no distress. VITAL SIGNS: Temperature 98, pulse 74, respirations 16, blood pressure 157/68 on BiPAP. Later this afternoon, the patient has remained afebrile with a temperature 97, pulse 77, respiration 18, blood pressure 143/54, pulse ox of 99% 3 L. HEENT: Normocephalic. NECK: Supple. No JVD. CHEST EXAMINATION: Generalized decreased air flow. CARDIAC: Distant heart sounds. S1, S2. No gallop. Systolic murmur 2/6 left sternal border. ABDOMEN: Soft, protuberant. Bowel sounds active. Extremities reveal trace edema at the ankles. NEUROLOGIC: Awake, alert, oriented with well-coordinated movements. LABORATORY ASSESSMENT: Troponin level 10.60. The CPK up to 760. The patient's serum iron is low at 14. Hemoglobin is 8.7, white count 11. Blood sugar is elevated. Cholesterol 108, HDL 60, and the LDL 39. ASSESSMENT: 1. Acute subendocardial myocardial infarction. 2. Chronic obstructive pulmonary disease exacerbation. 3. Pneumonia. 4. Diabetes mellitus. 5. Obesity. 6. Anemia of iron deficiency. PLAN: The patient at present is stable as upon this morning with the vital signs and again was re-evaluated this evening and discussed with the patient and family regarding the possible cardiac catheterization. The patient has had no further temperatures. Will monitor the patient closely. We will discontinue his steroids. Continue antibiotics. Repeat chest x-ray in the morning. The patient will receive some iron intravenously. Patient condition discussed with the patient. Prognosis guarded. Subsequently may require GI workup. DAYANARAL / IJN: [id number] /
[2017-03-11 05:53] LABS: Glucose,Whole Blood 266 mg/dL (75-99)
[2017-03-11 07:09] LABS: CH 27.1; HCT 27.9 % (39.0-53.0); HDW 2.64; HGB 8.3 gm/dL (13.0-17.5); Hypochromasia Slight; MCH 26.1 pg (25.0-35.0); MCHC 29.8 g/dL (31.0-37.0); MCV 87.8 fL (80.0-100.0); Mean Platelet Volume 9.5; RBC 3.17 m/uL (4.30-5.90); RDW 15.9 % (11.5-15.5)
[2017-03-11 07:26] LABS: Calcium 8.5 mg/dL (8.4-10.2); Potassium 4.5 mmol/L (3.5-5.1)
--- NOTE | 2017-03-11 08:29 | XR ---
EXAMINATION TYPE: XR chest 2V DATE OF EXAM: 03/11/2017 COMPARISON: 03/10/2017 TECHNIQUE: PA and lateral views submitted. HISTORY: Shortness of breath FINDINGS: Bilateral lower lobe infiltrate and small left effusion stable. Mild interstitial prominence. No pneu mothorax. Apical pleural thickening arthropathy of the shoulders noted. Heart size stable. IMPRESSION: 1. Stable bilateral lower lobe infiltrate. Mild central venous congestion not excluded
[2017-03-11] MEDS: SYMBICORT 160-4.5 MCG INHALER INHALATION SCH ×2 (08:36→20:10)
[2017-03-11] MEDS: IPRATROPIUM-ALBUTEROL 3 ML NEB INHALATION SCH ×4 (08:36→20:10)
[2017-03-11] MEDS: PANTOPRAZOLE 40 MG/10 ML VIAL IVP SCH (08:44)
[2017-03-11] MEDS: ASPIRIN 81 MG PO SCH (08:44)
[2017-03-11] MEDS: HYDROcodone/APAP 7.5-325MG 1 EACH TAB PO SCH ×3 (08:44→23:04)
[2017-03-11] MEDS: INSULIN NPH/REG INSULIN 70/30 300 UNIT/3 ML VIAL SQ SCH ×2 (08:44→21:14)
[2017-03-11] MEDS: amLODIPine 5 MG TAB PO SCH (08:45)
[2017-03-11] MEDS: SODIUM CHLORIDE 0.9% 1,000 ML IV SCH ×2 (08:45→23:05)
[2017-03-11] MEDS: PIPERACILLIN-TAZOBACTAM 3.375 GM in DEXTROSE/WATER 1 50ML.BAG IVPB SCH ×3 (08:58→23:11)
--- NOTE | 2017-03-11 09:58 | P.PN ---
Subjective Principal diagnosis: Acute coronary syndrome This is a pleasant 76-year-old gentleman with a past medical history significant for chronic respiratory failure related to COPD on home oxygen, diabetes, hypertension, dyslipidemia, presented to the hospital complaining of shortness of breath. 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 He was with some friends at [place] yesterday when he did not feel well. He started experiencing shortness of breath. He put his oxygen on without any improvement. The patient went home and continues not feeling well and then he decided to come to the hospital. In the emergency room he was found to be febrile with more than 100 Fahrenheit temperature. A chest x-ray was performed and showed what it seems to be bilateral pneumonia where the patient was admitted to the hospital and started on antibiotics as well as steroids. He did not have any symptoms of chest pain or chest discomfort for. We get involved in the care of the patient because her cardiac enzymes were checked and came in to be significantly abnormal with significantly abnormal troponin as well as CK-MB. The third set of troponin came in to be 10. As a mentioned earlier the patient did not have any symptoms of chest pain. The EKG showed sinus rhythm with diffuse nonspecific changes. BMP was checked and came in to be around 1000. He is not aware of any prior history of coronary artery disease or coronary revascularization in the past. On follow-up with the patient today on March [id number], he stated that the shortness of breath is better. He continues to be chest pain free. The patient initially was scheduled to undergo a heart catheterization today but the creatinine is worse and he is not on any nephrotoxic medication nor he was hypotensive. The echocardiogram showed normal LV function without any evidence of wall motion abnormalities.. At this point, would continue the current medical treatment with aspirin, heparin IV, statin, and consider monitoring the creatinine over the weekend for possible heart catheterization on Tuesday with Dr. Meneses. Objective - Vital Signs Vital signs: Vital Signs Temp 98 F 03/11/17 08:44 Pulse 80 03/11/17 08:51 Resp 18 03/11/17 08:44 BP 137/54 03/11/17 08:44 Pulse Ox 100 03/11/17 08:44 Intake & Output 03/10/17 03/11/17 03/11/17 18:59 06:59 18:59 Intake Total 1213.907 317.801 125.048 Output Total 300 750 Balance 913.907 -432.199 125.048 Weight 109.1 kg Intake: Intake, IV Titration 493.907 317.801 125.048 Amount Heparin Sodium,Porcine/ 343.907 267.801 125.048 D5w Pmx 25,000 unit In Dextrose/Water 1 500ml. bag @ 9.19 UNITS/KG/HR 20 mls/hr IV .Q24H [facility] Rx#: [id number] Piperacillin-Tazobactam 3 50 50 .375 gm In Dextrose/Water 1 50ml.bag @ 12.5 mls/hr IVPB Q8HR [facility] Rx#: [id number] Sodium Chloride 0.9% 1, 100 000 ml @ 100 mls/hr IV . Q10H [facility] Rx#:[id number] Oral 720 Output: Urine 300 750 Other: Voiding Method Urinal Urinal Urinal # Voids 1 - Constitutional General appearance: Present: no acute distress - Respiratory Respiratory: bilateral: diminished - Cardiovascular Rhythm: regular Heart sounds: normal: S1, S2 - Labs CBC & Chem 7: 03/11/17 06:51 03/11/17 06:51 Labs: Abnormal Lab Results - Last 24 Hours (Table) 03/10/17 03/10/17 03/10/17 Range/Units 06:14 10:39 11:42 WBC (3.8-10.6) k/uL RBC (4.30-5.90) m/uL Hgb (13.0-17.5) gm/dL Hct (39.0-53.0) % MCHC (31.0-37.0) g/dL RDW (11.5-15.5) % APTT 45.9 H (22.0-30.0) sec Sodium (137-145) mmol/L BUN (9-20) mg/dL Creatinine (0.66-1.25) mg/dL Glucose (74-99) mg/dL POC Glucose (mg/dL) 331 H (75-99) mg/dL Iron 14 L (65-175) ug/dL Iron Saturation 5.20 L (15.00-50.00) 03/10/17 03/10/17 03/10/17 Range/Units 16:53 18:03 21:05 WBC (3.8-10.6) k/uL RBC (4.30-5.90) m/uL Hgb (13.0-17.5) gm/dL Hct (39.0-53.0) % MCHC (31.0-37.0) g/dL RDW (11.5-15.5) % APTT 82.0 H (22.0-30.0) sec Sodium (137-145) mmol/L BUN (9-20) mg/dL Creatinine (0.66-1.25) mg/dL Glucose (74-99) mg/dL POC Glucose (mg/dL) 232 H 316 H (75-99) mg/dL Iron (65-175) ug/dL Iron Saturation (15.00-50.00) 03/11/17 03/11/17 03/11/17 Range/Units 01:29 02:36 05:48 WBC (3.8-10.6) k/uL RBC (4.30-5.90) m/uL Hgb (13.0-17.5) gm/dL Hct (39.0-53.0) % MCHC (31.0-37.0) g/dL RDW (11.5-15.5) % APTT 91.5 H (22.0-30.0) sec Sodium (137-145) mmol/L BUN (9-20) mg/dL Creatinine (0.66-1.25) mg/dL Glucose (74-99) mg/dL POC Glucose (mg/dL) 275 H 266 H (75-99) mg/dL Iron (65-175) ug/dL Iron Saturation (15.00-50.00) 03/11/17 03/11/17 03/11/17 Range/Units 06:51 06:51 06:51 WBC 14.0 H (3.8-10.6) k/uL RBC 3.17 L (4.30-5.90) m/uL Hgb 8.3 L (13.0-17.5) gm/dL Hct 27.9 L (39.0-53.0) % MCHC 29.8 L (31.0-37.0) g/dL RDW 15.9 H (11.5-15.5) % APTT 92.3 H (22.0-30.0) sec Sodium 135 L (137-145) mmol/L BUN 57 H (9-20) mg/dL Creatinine 2.08 H (0.66-1.25) mg/dL Glucose 228 H (74-99) mg/dL POC Glucose (mg/dL) (75-99) mg/dL Iron (65-175) ug/dL Iron Saturation (15.00-50.00) Microbiology - Last 24 Hours (Table) 03/09/17 18:14 Blood Culture - Preliminary Blood No Growth after 24 hours Assessment and Plan Plan: This is a pleasant 76-year-old gentleman with COPD, chronic respiratory failure , diabetes, hypertension, dyslipidemia presented to the hospital with dyspnea. No chest pain or discomfort. No cough. The patient was febrile when he was in the emergency room. The chest x-ray showed findings consistent with bilateral pneumonia. He was ruled in for acute non-ST elevation myocardial infarction by significantly abnormal troponin. Beside that he had nonspecific changes in the EKG most prominent in the lateral leads and could be representing ischemia. In view of the worsening creatinine I would continue monitoring the kidney function over the weekend and consider heart catheterization on Tuesday. Continue the current medical regimen and add metoprolol
[2017-03-11] MEDS: HEPARIN SODIUM,PORCINE/D5W PMX 25,000 UNIT in DEXTROSE/WATER 1 500ML.BAG IV SCH (10:15)
[2017-03-11 11:59] LABS: Glucose,Whole Blood 243 mg/dL (75-99)
[2017-03-11] MEDS: SODIUM FERRIC GLUCONAT-SUCROSE 125 MG in SODIUM CHLORIDE 0.9% 100 ML IVPB SCH (13:34)
[2017-03-11] MEDS ORDERED: ALPRAZolam 0.25 MG TAB PO PRN (14:58)
--- NOTE | 2017-03-11 15:50 | P.PN ---
Subjective Principal diagnosis: Acute bilateral pneumonia and acute CO. This is a 76-year-old white male with known history of severe COPD, O2 dependent , but not prednisone dependent. Patient is also known to have history of obstructive sleep apnea syndrome, noncompliant with his CPAP at home. Patient saw Dr. Moya on Tuesday for follow-up on his COPD, and it was basically a routine visit, his lungs sounded fairly clear and the patient had no unusual pulmonary symptoms. No changes were made with his medications. However on Tuesday the patient started feeling a bit febrile and had intermittent chills. He also noted that he was requiring oxygen most of the time, and his O2 saturation in spite of being on 4 L nasal cannula in the 70s. As time went on, patient was getting worse, and he was not feeling much better with increased shortness of breath, fever and chills, and temperature as high as 102.6. Patient came into the ER yesterday, and he was noted to have abnormal chest x- ray consistent with by basilar infiltrates. Patient was also noted to have a bit of leukocytosis, and his cardiac panel was significantly abnormal with elevated troponins. Patient was admitted and I was asked to see him on consultation. He was already placed on proper antibiotics and bronchodilators. He was already seen by cardiology, and entertaining the possibility of having to do cardiac catheterization because of his non-ST segment elevation myocardial infarction. EKG showed nonspecific changes, normal sinus rhythm. CPK MB bands were also abnormal. Patient had no symptoms of chest pain all along, no palpitations, no nausea, no vomiting, felt some vague back discomfort , but is not unusual to have mid back pain on and off. Patient had no melena, no hematemesis, no dysuria and no frequency no urgency. Patient was placed on heparin and he was already on aspirin. No previous history of coronary artery disease. Patient is known to have diabetes, and history of hypertension. As well as morbid obesity. Patient was reevaluated today on 03/11/2017, feels better, shortness of breath is improved, no chest pain, patient was supposed to undergo cardiac catheterization today, however because of his renal profile this was postponed. His echocardiogram showed normal LV function. Patient remains on most daily aspirin and heparin IV, statin, creatinine jumped up to 2.08 today. It was 1.2 on admission. No nephrotoxic drugs were given, and no IV contrast was given to this patient so far. Hemoglobin is 8.3 WBC count is 14.0. Objective - Vital Signs Vital signs: Vital Signs Temp 97.2 F L 03/11/17 12:08 Pulse 76 03/11/17 12:16 Resp 20 03/11/17 12:08 BP 157/71 03/11/17 12:08 Pulse Ox 97 03/11/17 12:08 Intake & Output 03/10/17 03/11/17 03/11/17 18:59 06:59 18:59 Intake Total 1213.907 317.801 664.382 Output Total 300 750 440 Balance 913.907 -432.199 224.382 Weight 109.1 kg Intake: Intake, IV Titration 493.907 317.801 424.382 Amount Heparin Sodium,Porcine/ 343.907 267.801 274.382 D5w Pmx 25,000 unit In Dextrose/Water 1 500ml. bag @ 9.19 UNITS/KG/HR 20 mls/hr IV .Q24H [facility] Rx#: [id number] Piperacillin-Tazobactam 3 50 50 .375 gm In Dextrose/Water 1 50ml.bag @ 12.5 mls/hr IVPB Q8HR [facility] Rx#: [id number] Sodium Chloride 0.9% 1, 100 000 ml @ 100 mls/hr IV . Q10H [facility] Rx#:[id number] Sodium Chloride 0.9% 1, 150 000 ml @ 75 mls/hr IV . [id number] [facility] Rx#:[id number] Oral 720 240 Output: Urine 300 750 440 Other: Voiding Method Urinal Urinal Urinal # Voids 1 2 # Bowel Movements 0 - Exam General appearance: Revealed a 76-year-old obese white male, alert, in no form of respiratory distress. Head exam: atraumatic, normocephalic, normal inspection Eye exam: PERRL, EOMI. no icterus. ENT exam: Moist mucous membranes, normal nasal mucosa. Neck exam: No neck masses, no JVD, no thyromegaly, no lymphadenopathy. Respiratory exam: Present: normal lung sounds bilaterally, minimal crackles at the bases, no rhonchi, no wheezes. Normal symmetrical chest expansion. Cardiovascular Exam: Present: Normal S1 and S2, no S3 gallop, no murmur. GI/Abdominal exam: Obese, soft, nontender, large abdominal wall hernia noted./ Ventral hernia and multiple surgical scars noted. Extremities exam: Present: normal inspection, full ROM, normal capillary refill. Absent: tenderness, pedal edema, joint swelling, calf tenderness Back exam: No tenderness. Neurological exam: No gross focal neurologic deficit Psychiatric exam: normal affect, normal mood Skin exam: No rashes. No ulcerations. - Labs CBC & Chem 7: 03/11/17 06:51 03/11/17 06:51 Labs: Abnormal Lab Results - Last 24 Hours (Table) 03/10/17 03/10/17 03/10/17 Range/Units 16:53 18:03 21:05 WBC (3.8-10.6) k/uL RBC (4.30-5.90) m/uL Hgb (13.0-17.5) gm/dL Hct (39.0-53.0) % MCHC (31.0-37.0) g/dL RDW (11.5-15.5) % APTT 82.0 H (22.0-30.0) sec Sodium (137-145) mmol/L BUN (9-20) mg/dL Creatinine (0.66-1.25) mg/dL Glucose (74-99) mg/dL POC Glucose (mg/dL) 232 H 316 H (75-99) mg/dL Troponin I (0.000-0.034) ng/mL 03/11/17 03/11/17 03/11/17 Range/Units 01:29 02:36 05:48 WBC (3.8-10.6) k/uL RBC (4.30-5.90) m/uL Hgb (13.0-17.5) gm/dL Hct (39.0-53.0) % MCHC (31.0-37.0) g/dL RDW (11.5-15.5) % APTT 91.5 H (22.0-30.0) sec Sodium (137-145) mmol/L BUN (9-20) mg/dL Creatinine (0.66-1.25) mg/dL Glucose (74-99) mg/dL POC Glucose (mg/dL) 275 H 266 H (75-99) mg/dL Troponin I (0.000-0.034) ng/mL 03/11/17 03/11/17 03/11/17 Range/Units 06:51 06:51 06:51 WBC 14.0 H (3.8-10.6) k/uL RBC 3.17 L (4.30-5.90) m/uL Hgb 8.3 L (13.0-17.5) gm/dL Hct 27.9 L (39.0-53.0) % MCHC 29.8 L (31.0-37.0) g/dL RDW 15.9 H (11.5-15.5) % APTT 92.3 H (22.0-30.0) sec Sodium 135 L (137-145) mmol/L BUN 57 H (9-20) mg/dL Creatinine 2.08 H (0.66-1.25) mg/dL Glucose 228 H (74-99) mg/dL POC Glucose (mg/dL) (75-99) mg/dL Troponin I (0.000-0.034) ng/mL 03/11/17 03/11/17 03/11/17 Range/Units 11:12 11:56 13:48 WBC (3.8-10.6) k/uL RBC (4.30-5.90) m/uL Hgb (13.0-17.5) gm/dL Hct (39.0-53.0) % MCHC (31.0-37.0) g/dL RDW (11.5-15.5) % APTT 77.4 H (22.0-30.0) sec Sodium (137-145) mmol/L BUN (9-20) mg/dL Creatinine (0.66-1.25) mg/dL Glucose (74-99) mg/dL POC Glucose (mg/dL) 243 H (75-99) mg/dL Troponin I 3.690 H* (0.000-0.034) ng/mL Microbiology - Last 24 Hours (Table) 03/09/17 18:14 Blood Culture - Preliminary Blood No Growth after 24 hours Assessment and Plan Plan: Impression: 1 acute community-acquired pneumonia 2 acute non-ST segment elevation myocardial infarction 3 acute on chronic hypoxic respiratory failure secondary to pneumonia and COPD 4 severe oxygen dependent chronic obstructive pulmonary disease with acute exacerbation 5 morbid obesity 6 history of obstructive sleep apnea syndrome 7 history of diabetes 8 acute kidney injury, etiology is not clear at this point. Hence his cardiac catheterization was postponed, patient may have to be seen by nephrology on consultation. Recommendation: Continue present treatment plan including antibiotics in the form of Zosyn, Levaquin was discontinued because of his renal profile., continue heparin and aspirin, patient is being considered for possible cardiac catheterization. Possibly early next week. Continue Bronchodilators, cut down the dose of Solu-Medrol since the presentation seems to be mostly a presentation of pneumonia rather than presentation of COPD exacerbation. Continue GI prophylaxis. We will continue to follow. Time with Patient: Less than 30
[2017-03-11 16:42] LABS: Glucose,Whole Blood 286 mg/dL (75-99)
[2017-03-11 20:54] LABS: Glucose,Whole Blood 289 mg/dL (75-99)
[2017-03-11] MEDS: ATORVASTATIN 20 MG TAB PO SCH (21:14)
[2017-03-11] MEDS: SERTRALINE 50 MG TAB PO SCH (21:15)
[2017-03-11] MEDS: METOPROLOL TARTRATE 12.5 MG TAB PO SCH (21:24)
--- NOTE | 2017-03-12 02:23 | PN ---
PROGRESS NOTE ATTENDING PHYSICIAN: Dr. Jonathan Altman. CHIEF COMPLAINT: Reevaluation. HISTORY OF PRESENT ILLNESS: A 76-year-old gentleman was admitted to the hospital with fever with suggestion of pneumonia as well as elevated troponins. The patient was felt to have pneumonia with underlying COPD. Patient is placed on antibiotics. His respiratory status is improved. The patient also has elevated troponins with suggestion of acute subendocardial TN. The patient is anticoagulated on heparin. The patient was planned for cardiac catheterization today but was canceled because of having developed acute nonoliguric renal failure. The patient has not received any significant medications, however, did not know if the patient has an hypotensive episode prior to coming to the hospital. REVIEW OF SYSTEMS: Neuro: Denies any headaches, dizziness. Psych: No anxiety. Cardiac: No chest pain, angina or palpitation. Respiratory: Denies shortness of breath. Does have a history of chronic respiratory failure. Does have mild cough. No hemoptysis. GI: No nausea, vomiting, abdominal pain, diarrhea. : No symptoms of dysuria, hematuria, urgency, frequency. Extremities: Denies pain or edema. Constitutional: No fever or chills. PHYSICAL EXAMINATION: Vital signs are stable. The patient has been afebrile since admission. Cardiac rhythm has remained stable. Temperature is 98, pulse 70, respirations 18, blood pressure 137/54, pulse ox 100% on 3 L. HEENT: Normocephalic. Neck no JVD. CHEST: Clear to auscultation with mild decrease of vision. No rhonchi or wheezing appreciated. Cardiac distant heart sounds S1, S2 with no gallop. Systolic murmur 2/6 left sternal border. Abdomen protuberant, soft. Bowel sounds present. Extremities reveal trace edema. Neurologic is awake, alert, oriented times with well coordinated movements. LABORATORY ASSESSMENT: CBC which shows a hemoglobin of 8.7, [place] [address], hemoglobin is 8.3, platelet 220. Sodium 135, potassium 4.5, chloride 100, CO2 content 24, BUN 57, creatinine 2.08. A significant increase. Echocardiogram, which shows good left ventricular function. No hypokinetic segment. Ejection fraction 55%. ASSESSMENT: 1. Acute endocardial myocardial infarction. 2. Bilateral lower lobe pneumonia. 3. Chronic obstructive pulmonary disease. 4. Acute on chronic renal failure. 5. Diabetes mellitus. 6. Obesity. 7. Anemia of iron deficiency. PLAN: The patient is stable. Continue present medical regimen. Patient is dehydrated. Prognosis remains guarded. The patient's cardiac catheterization was postponed for now. The patient is asymptomatic. Patient condition discussed with the patient. Prognosis remains guarded. Cardiac catheterizations pending. Follow renal function. MMODL / IJN: [id number] /
[2017-03-12] MEDS: INSULIN LISPRO (humaLOG) 300 UNIT/3 ML VIAL SQ SCH ×4 (06:24→20:54)
[2017-03-12 06:29] LABS: Mean Platelet Volume 8.6
[2017-03-12 06:41] LABS: Glucose,Whole Blood 71 mg/dL (75-99)
[2017-03-12] MEDS: PANTOPRAZOLE 40 MG/10 ML VIAL IVP SCH (08:20)
[2017-03-12] MEDS: amLODIPine 5 MG TAB PO SCH (08:26)
[2017-03-12] MEDS: PIPERACILLIN-TAZOBACTAM 3.375 GM in DEXTROSE/WATER 1 50ML.BAG IVPB SCH ×3 (08:26→23:45)
[2017-03-12] MEDS: ASPIRIN 81 MG PO SCH (08:26)
[2017-03-12] MEDS: METOPROLOL TARTRATE 12.5 MG TAB PO SCH ×2 (08:27→19:54)
[2017-03-12] MEDS: INSULIN NPH/REG INSULIN 70/30 300 UNIT/3 ML VIAL SQ SCH ×3 (08:27→17:17)
[2017-03-12] MEDS: HYDROcodone/APAP 7.5-325MG 1 EACH TAB PO SCH ×3 (08:28→22:35)
[2017-03-12] MEDS: IPRATROPIUM-ALBUTEROL 3 ML NEB INHALATION SCH ×4 (08:43→20:45)
[2017-03-12] MEDS: SYMBICORT 160-4.5 MCG INHALER INHALATION SCH ×2 (08:43→20:45)
[2017-03-12 10:02] LABS: Calcium 8.1 mg/dL (8.4-10.2); Potassium 4.3 mmol/L (3.5-5.1)
[2017-03-12 10:08] LABS: Glucose,Whole Blood 43 mg/dL (75-99)
[2017-03-12 10:19] LABS: Glucose,Whole Blood 40 mg/dL (75-99)
[2017-03-12 10:43] LABS: Glucose,Whole Blood 62 mg/dL (75-99)
[2017-03-12 10:53] LABS: Glucose,Whole Blood 67 mg/dL (75-99)
--- NOTE | 2017-03-12 10:59 | P.PN ---
Subjective Principal diagnosis: Acute bilateral pneumonia and acute MS. This is a 76-year-old white male with known history of severe COPD, O2 dependent , but not prednisone dependent. Patient is also known to have history of obstructive sleep apnea syndrome, noncompliant with his CPAP at home. Patient saw Dr. Moya on Tuesday for follow-up on his COPD, and it was basically a routine visit, his lungs sounded fairly clear and the patient had no unusual pulmonary symptoms. No changes were made with his medications. However on Tuesday the patient started feeling a bit febrile and had intermittent chills. He also noted that he was requiring oxygen most of the time, and his O2 saturation in spite of being on 4 L nasal cannula in the 70s. As time went on, patient was getting worse, and he was not feeling much better with increased shortness of breath, fever and chills, and temperature as high as 102.6. Patient came into the ER yesterday, and he was noted to have abnormal chest x- ray consistent with by basilar infiltrates. Patient was also noted to have a bit of leukocytosis, and his cardiac panel was significantly abnormal with elevated troponins. Patient was admitted and I was asked to see him on consultation. He was already placed on proper antibiotics and bronchodilators. He was already seen by cardiology, and entertaining the possibility of having to do cardiac catheterization because of his non-ST segment elevation myocardial infarction. EKG showed nonspecific changes, normal sinus rhythm. CPK MB bands were also abnormal. Patient had no symptoms of chest pain all along, no palpitations, no nausea, no vomiting, felt some vague back discomfort , but is not unusual to have mid back pain on and off. Patient had no melena, no hematemesis, no dysuria and no frequency no urgency. Patient was placed on heparin and he was already on aspirin. No previous history of coronary artery disease. Patient is known to have diabetes, and history of hypertension. As well as morbid obesity. Patient was reevaluated today on 03/11/2017, feels better, shortness of breath is improved, no chest pain, patient was supposed to undergo cardiac catheterization today, however because of his renal profile this was postponed. His echocardiogram showed normal LV function. Patient remains on most daily aspirin and heparin IV, statin, creatinine jumped up to 2.08 today. It was 1.2 on admission. No nephrotoxic drugs were given, and no IV contrast was given to this patient so far. Hemoglobin is 8.3 WBC count is 14.0. Reevaluated today on 03/12/2017, patient continues to do clinically well. Remains on heparin, renal profile seems to be a bit better today, creatinine is down to 1.82. PTT is 78. Troponin has been trending down compared to 2 days ago. Hemoglobin is 8.3. Patient is being considered for cardiac catheterization, however his renal profile seems to be the issue. And his acute kidney injury is an issue at this point. Patient denies any cough no wheezing no shortness of breath at present. Objective - Vital Signs Vital signs: Vital Signs Temp 97.2 F L 03/12/17 08:00 Pulse 68 03/12/17 08:53 Resp 20 03/12/17 08:00 BP 124/61 03/12/17 08:00 Pulse Ox 100 03/12/17 08:43 Intake & Output 03/11/17 03/12/17 03/12/17 18:59 06:59 18:59 Intake Total 1144.382 941.144 240 Output Total 440 850 Balance 704.382 91.144 240 Weight 108.6 kg Intake: IV 675 Sodium Chloride 0.9% 1, 675 000 ml @ 75 mls/hr IV . [id number] EILEEN Rx#:[id number] Intake, IV Titration 424.382 266.144 Amount Heparin Sodium,Porcine/ 274.382 216.144 D5w Pmx 25,000 unit In Dextrose/Water 1 500ml. bag @ 9.19 UNITS/KG/HR 20 mls/hr IV .Q24H EILEEN Rx#: [id number] Piperacillin-Tazobactam 3 50 .375 gm In Dextrose/Water 1 50ml.bag @ 12.5 mls/hr IVPB Q8HR EILEEN Rx#: [id number] Sodium Chloride 0.9% 1, 150 000 ml @ 75 mls/hr IV . [id number] EILEEN Rx#:[id number] Oral 720 240 Output: Urine 440 850 Other: Voiding Method Urinal Urinal Urinal # Voids 2 # Bowel Movements 0 - Exam General appearance: Revealed a 76-year-old obese white male, alert, in no form of respiratory distress. Head exam: atraumatic, normocephalic, normal inspection Eye exam: PERRL, EOMI. no icterus. ENT exam: Moist mucous membranes, normal nasal mucosa. Neck exam: No neck masses, no thyromegaly, no lymphadenopathy. Respiratory exam: Present: normal lung sounds bilaterally, minimal crackles at the bases, no rhonchi, no wheezes. Normal symmetrical chest expansion. Cardiovascular Exam: Present: Normal S1 and S2, no S3 gallop, no murmur. GI/Abdominal exam: Obese, soft, nontender, large abdominal wall hernia noted./ Ventral hernia and multiple surgical scars noted. Extremities exam: Present: normal inspection, full ROM, normal capillary refill. Absent: tenderness, pedal edema, joint swelling, calf tenderness Back exam: No tenderness. Neurological exam: No gross focal neurologic deficit Psychiatric exam: normal affect, normal mood Skin exam: No rashes. No ulcerations. - Labs CBC & Chem 7: 03/12/17 06:01 03/12/17 06:01 Labs: Abnormal Lab Results - Last 24 Hours (Table) 03/11/17 03/11/17 03/11/17 Range/Units 11:12 11:56 13:48 APTT 77.4 H (22.0-30.0) sec Chloride (98-107) mmol/L BUN (9-20) mg/dL Creatinine (0.66-1.25) mg/dL Glucose (74-99) mg/dL POC Glucose (mg/dL) 243 H (75-99) mg/dL Calcium (8.4-10.2) mg/dL Troponin I 3.690 H* (0.000-0.034) ng/mL 03/11/17 03/11/17 03/11/17 Range/Units 16:39 17:15 20:35 APTT 89.9 H (22.0-30.0) sec Chloride (98-107) mmol/L BUN (9-20) mg/dL Creatinine (0.66-1.25) mg/dL Glucose (74-99) mg/dL POC Glucose (mg/dL) 286 H (75-99) mg/dL Calcium (8.4-10.2) mg/dL Troponin I 3.400 H* (0.000-0.034) ng/mL 03/11/17 03/12/17 03/12/17 Range/Units 20:38 06:01 06:01 APTT 78.2 H (22.0-30.0) sec Chloride 108 H (98-107) mmol/L BUN 60 H (9-20) mg/dL Creatinine 1.82 H (0.66-1.25) mg/dL Glucose 62 L (74-99) mg/dL POC Glucose (mg/dL) 289 H (75-99) mg/dL Calcium 8.1 L (8.4-10.2) mg/dL Troponin I (0.000-0.034) ng/mL 03/12/17 03/12/17 03/12/17 Range/Units 06:21 10:04 10:17 APTT (22.0-30.0) sec Chloride (98-107) mmol/L BUN (9-20) mg/dL Creatinine (0.66-1.25) mg/dL Glucose (74-99) mg/dL POC Glucose (mg/dL) 71 L 43 L 40 L (75-99) mg/dL Calcium (8.4-10.2) mg/dL Troponin I (0.000-0.034) ng/mL 03/12/17 03/12/17 Range/Units 10:31 10:50 APTT (22.0-30.0) sec Chloride (98-107) mmol/L BUN (9-20) mg/dL Creatinine (0.66-1.25) mg/dL Glucose (74-99) mg/dL POC Glucose (mg/dL) 62 L 67 L (75-99) mg/dL Calcium (8.4-10.2) mg/dL Troponin I (0.000-0.034) ng/mL Microbiology - Last 24 Hours (Table) 03/10/17 21:25 Gram Stain - Preliminary Sputum 03/09/17 18:14 Blood Culture - Preliminary Blood No Growth after 48 hours Assessment and Plan Plan: Impression: 1 acute community-acquired pneumonia, bilateral 2 acute non-ST segment elevation myocardial infarction 3 acute on chronic hypoxic respiratory failure secondary to pneumonia and COPD 4 severe oxygen dependent chronic obstructive pulmonary disease with acute exacerbation 5 morbid obesity 6 history of obstructive sleep apnea syndrome 7 history of diabetes 8 acute kidney injury, etiology is not clear at this point. Hence his cardiac catheterization was postponed, patient may have to be seen by nephrology on consultation. Recommendation: Continue present treatment plan including antibiotics in the form of Zosyn, Levaquin was discontinued because of his renal profile., continue heparin and aspirin, patient is being considered for possible cardiac catheterization. Possibly early next week. Continue Bronchodilators, cut down the dose of Solu-Medrol since the presentation seems to be mostly a presentation of pneumonia rather than presentation of COPD exacerbation. Continue GI prophylaxis. We will continue to follow. Time with Patient: Less than 30
[2017-03-12 11:10] LABS: Glucose,Whole Blood 81 mg/dL (75-99)
[2017-03-12] MEDS: SODIUM FERRIC GLUCONAT-SUCROSE 125 MG in SODIUM CHLORIDE 0.9% 100 ML IVPB SCH (12:27)
[2017-03-12] MEDS: SODIUM CHLORIDE 0.9% 1,000 ML IV SCH ×2 (12:28→22:35)
--- NOTE | 2017-03-12 13:51 | PN ---
PROGRESS NOTE Mr. Krishna is a 76-year-old male with known history of severe chronic obstructive lung disease, who presented with evidence of non ST-segment elevation myocardial infarction. He was evaluated to undergo cardiac catheterization, but that had to be postponed because of worsening renal function. He is feeling better today. His breathing is stable. He denies any symptoms of chest pain. He denies any dizziness or palpitation. He continues to be dyspneic, but stabilized. He continued to be on amlodipine 5 mg daily, aspirin 81 mg daily, Lipitor 20 mg daily, IV heparin, metoprolol tartrate 12.5 mg twice a day. PHYSICAL EXAMINATION: Blood pressure 124/60 with the heart rate in the 60s. LUNGS: With severe decreased in air exchange. No wheezes. HEART: Regular rate and rhythm. S1, S2. No S3. No rub appreciated. ABDOMEN: Soft, obese, nontender. EXTREMITIES: No edema. LAB DATA: Lab data revealed a BUN and creatinine of 60 and 1.82. Potassium of 4.3. His creatinine yesterday was 2.08. IMPRESSION: 1. Exacerbation of chronic obstructive pulmonary disease. 2. Non ST-segment elevation myocardial infarction. 3. Worsening renal failure. RECOMMENDATION: From the cardiac standpoint, we will continue present therapy. We will follow his renal function. If they are stabilized by Tuesday, then he will proceed with coronary angiography. MMODL / IJN: [id number] /
[2017-03-12 15:48] LABS: Glucose,Whole Blood 55 mg/dL (75-99)
[2017-03-12] MEDS ORDERED: HEPARIN SODIUM,PORCINE 5,000 UNIT/ML 1 ML VIAL SQ SCH (16:00)
[2017-03-12 16:35] LABS: Glucose,Whole Blood 75 mg/dL (75-99)
[2017-03-12 16:35] LABS: Glucose,Whole Blood 83 mg/dL (75-99)
[2017-03-12] MEDS: ATORVASTATIN 20 MG TAB PO SCH (19:54)
[2017-03-12] MEDS: SERTRALINE 50 MG TAB PO SCH (19:54)
[2017-03-12] MEDS: HEPARIN SODIUM,PORCINE/D5W PMX 25,000 UNIT in DEXTROSE/WATER 1 500ML.BAG IV SCH (20:45)
[2017-03-12 20:56] LABS: Glucose,Whole Blood 102 mg/dL (75-99)
--- NOTE | 2017-03-12 23:27 | PN ---
PROGRESS NOTE ATTENDING PHYSICIAN: Dr. Ford Altman. CHIEF COMPLAINT: Re-evaluation. HISTORY OF PRESENT ILLNESS: This 76-year-old gentleman was admitted to the hospital for shortness of breath. The patient also had an associated temperature, noted to have suggestion of pneumonia as well as COPD exacerbation. The patient had no wheezing. The patient has also had a progressively elevated troponin suggestive of a non-ST elevated myocardial infarction. The patient does have underlying history of diabetes mellitus. He had developed acute renal failure, possibly ATN. The patient's status is improving. He does have diabetes mellitus and this morning, mid morning when he was seen, his blood sugars are down in the 40s. Patient awake, alert. He is given treatment for hypoglycemia. The patient's insulin dosage is adjusted down. REVIEW OF SYSTEMS: NEURO: Denies any headaches, dizziness. PSYCH: No anxiety. CARDIAC: No chest pain, angina, palpitation. RESPIRATORY: Denies shortness of breath. Uses oxygen 24/7. Does have mild cough. No hemoptysis. GI: No nausea, vomiting, abdominal pain, diarrhea. : No symptoms of dysuria, hematuria, urgency, frequency. EXTREMITIES: Denies pain, edema. CONSTITUTIONAL: No fever, chills. ENDOCRINE. Hypoglycemia. SKIN: No rash. PHYSICAL EXAMINATION: Pleasant gentleman at present in no distress. Vital signs reveal temperature 97.2, pulse 67, respirations 20, blood pressure 124/61, pulse ox 100% on 3L. HEENT: Normocephalic. NECK: No JVD. CHEST: Clear to auscultation with mild generalized decreased air flow. Occasional rhonchi. CARDIAC: Distant heart sounds. S1, S2 with no gallop. Systolic murmur 2/6, left sternal border. ABDOMEN: Soft, protuberant. Bowel sounds active. Extremities reveal no edema. NEUROLOGICAL: Awake, alert, oriented with well-coordinated movements. LABORATORY ASSESSMENT: Electrolytes are normal. BUN 60, creatinine 1.82, glucose of 62. Calcium 8.1. ASSESSMENT: 1. Acute on chronic renal failure, improving. 2. Status post myocardial infarction. 3. Pneumonia. 4. Chronic obstructive pulmonary disease. 5. Diabetes mellitus. 6. Hypoglycemic episode. 7. Hypertension. 8. Chronic obstructive pulmonary disease. 9. Anemia, iron deficiency. PLAN: Continue present medical regimen. Patient's condition discussed with the patient. Prognosis guarded. The patient is subsequently going to be scheduled for a cardiac cath. He is also going to require workup for anemia deficiency, iron deficiency. He has had a previous history of carcinoma of the colon and has had colonoscopies subsequently routinely. The patient's condition is guarded. Potential discharge home tomorrow. MMODL / IJN: [id number] /
[2017-03-13 02:33] LABS: Glucose,Whole Blood 125 mg/dL (75-99)
[2017-03-13] MEDS: SYMBICORT 160-4.5 MCG INHALER INHALATION SCH ×2 (06:26→20:19)
[2017-03-13] MEDS: IPRATROPIUM-ALBUTEROL 3 ML NEB INHALATION SCH ×4 (06:26→20:20)
[2017-03-13 06:27] LABS: Potassium 4.6 mmol/L (3.5-5.1)
[2017-03-13 06:32] LABS: Glucose,Whole Blood 114 mg/dL (75-99)
[2017-03-13] MEDS: INSULIN LISPRO (humaLOG) 300 UNIT/3 ML VIAL SQ SCH ×4 (06:36→21:46)
[2017-03-13] MEDS: PANTOPRAZOLE 40 MG TABLET PO SCH (06:54)
[2017-03-13] MEDS: METOPROLOL TARTRATE 12.5 MG TAB PO SCH ×2 (08:38→20:27)
[2017-03-13] MEDS: ASPIRIN 81 MG PO SCH (08:39)
[2017-03-13] MEDS: amLODIPine 5 MG TAB PO SCH (08:39)
[2017-03-13] MEDS: PIPERACILLIN-TAZOBACTAM 3.375 GM in DEXTROSE/WATER 1 50ML.BAG IVPB SCH ×3 (08:39→23:45)
[2017-03-13] MEDS: HYDROcodone/APAP 7.5-325MG 1 EACH TAB PO SCH ×3 (08:39→20:31)
--- NOTE | 2017-03-13 09:23 | XR ---
EXAMINATION TYPE: XR chest 1V portable DATE OF EXAM: 03/13/2017 HISTORY: sob. REFERENCE: Previous study dated 03/11/2017. FINDINGS: The heart is mildly enlarged. There is vascular congestion and mild pulmonary edema. I susp ect small effusions. IMPRESSION: FINDINGS CONSISTENT WITH CONGESTIVE HEART FAILURE.
[2017-03-13] MEDS ORDERED: FUROSEMIDE 10 MG/ML 4 ML VIAL IV STA ×2 (10:46→23:01)
--- NOTE | 2017-03-13 10:53 | P.PN ---
Subjective Principal diagnosis: Acute bilateral pneumonia and acute AL. This is a 76-year-old white male with known history of severe COPD, O2 dependent , but not prednisone dependent. Patient is also known to have history of obstructive sleep apnea syndrome, noncompliant with his CPAP at home. Patient saw Dr. Moya on Tuesday for follow-up on his COPD, and it was basically a routine visit, his lungs sounded fairly clear and the patient had no unusual pulmonary symptoms. No changes were made with his medications. However on Tuesday the patient started feeling a bit febrile and had intermittent chills. He also noted that he was requiring oxygen most of the time, and his O2 saturation in spite of being on 4 L nasal cannula in the 70s. As time went on, patient was getting worse, and he was not feeling much better with increased shortness of breath, fever and chills, and temperature as high as 102.6. Patient came into the ER yesterday, and he was noted to have abnormal chest x- ray consistent with by basilar infiltrates. Patient was also noted to have a bit of leukocytosis, and his cardiac panel was significantly abnormal with elevated troponins. Patient was admitted and I was asked to see him on consultation. He was already placed on proper antibiotics and bronchodilators. He was already seen by cardiology, and entertaining the possibility of having to do cardiac catheterization because of his non-ST segment elevation myocardial infarction. EKG showed nonspecific changes, normal sinus rhythm. CPK MB bands were also abnormal. Patient had no symptoms of chest pain all along, no palpitations, no nausea, no vomiting, felt some vague back discomfort , but is not unusual to have mid back pain on and off. Patient had no melena, no hematemesis, no dysuria and no frequency no urgency. Patient was placed on heparin and he was already on aspirin. No previous history of coronary artery disease. Patient is known to have diabetes, and history of hypertension. As well as morbid obesity. Patient was reevaluated today on 03/11/2017, feels better, shortness of breath is improved, no chest pain, patient was supposed to undergo cardiac catheterization today, however because of his renal profile this was postponed. His echocardiogram showed normal LV function. Patient remains on most daily aspirin and heparin IV, statin, creatinine jumped up to 2.08 today. It was 1.2 on admission. No nephrotoxic drugs were given, and no IV contrast was given to this patient so far. Hemoglobin is 8.3 WBC count is 14.0. Reevaluated today on 03/12/2017, patient continues to do clinically well. Remains on heparin, renal profile seems to be a bit better today, creatinine is down to 1.82. PTT is 78. Troponin has been trending down compared to 2 days ago. Hemoglobin is 8.3. Patient is being considered for cardiac catheterization, however his renal profile seems to be the issue. And his acute kidney injury is an issue at this point. Patient denies any cough no wheezing no shortness of breath at present. Reevaluated today on 03/13/2017, patient does not seem to be feeling well today. Complaining of shortness of breath, cough, and wheezing. Chest x-ray was ordered and I reviewed the chest x-ray seems to be consistent with mild congestive heart failure. Small effusions were also noted. Hence I recommended Lasix 40 mg IV push 1, and I recommended cutting down his IV fluid to 50 mL/h. Solu-Medrol was added because of his wheezing although I am convinced that the findings are more findings of congestive heart failure but he does have severe underlying COPD. Slight worsening is noted in his right lower lobe airspace disease, however that could be a combination of pneumonia and pulmonary edema. Patient is already on antibiotics, and I will add Lasix 1 today, must have a repeat chest x-ray in a.m. Considering the patient had normal LV function on presentation, I believe the patient's echocardiogram may have to be repeated I am suspecting LV dysfunction or diastolic congestive heart failure, with poor renal perfusion to explain his rapid renal worsening shortly after he presented to the hospital. Objective - Vital Signs Vital signs: Vital Signs Temp 98.8 F 03/13/17 08:00 Pulse 80 03/13/17 08:00 Resp 22 03/13/17 08:00 BP 145/66 03/13/17 08:00 Pulse Ox 98 03/13/17 04:00 Intake & Output 03/12/17 03/13/17 03/13/17 18:59 06:59 18:59 Intake Total 765.688 684.605 129.835 Output Total 480 Balance 765.688 204.605 129.835 Weight 107.8 kg Intake: IV 602 Heparin Sodium,Porcine/ 77 D5w Pmx 25,000 unit In Dextrose/Water 1 500ml. bag @ 9.19 UNITS/KG/HR 20 mls/hr IV .Q24H [facility] Rx#: [id number] Sodium Chloride 0.9% 1, 525 000 ml @ 75 mls/hr IV . [id number] [facility] Rx#:[id number] Intake, IV Titration 45.688 82.605 129.835 Amount Heparin Sodium,Porcine/ 45.688 82.605 129.835 D5w Pmx 25,000 unit In Dextrose/Water 1 500ml. bag @ 9.19 UNITS/KG/HR 20 mls/hr IV .Q24H [facility] Rx#: [id number] Oral 720 Output: Urine 480 Other: Voiding Method Urinal Toilet Toilet Urinal Urinal # Voids 3 1 - Exam General appearance: Revealed a 76-year-old obese white male, alert, in no form of respiratory distress. Head exam: atraumatic, normocephalic, normal inspection Eye exam: PERRL, EOMI. no icterus. ENT exam: Moist mucous membranes, normal nasal mucosa. Neck exam: No neck masses, no thyromegaly, no lymphadenopathy. Respiratory exam: Present: normal lung sounds bilaterally, minimal crackles at the bases, rhonchi and wheezes noted bilaterally more so on forced expiratory maneuver Normal symmetrical chest expansion. Cardiovascular Exam: Present: Normal S1 and S2, no S3 gallop, no murmur. GI/Abdominal exam: Obese, soft, nontender, large abdominal wall hernia noted./ Ventral hernia and multiple surgical scars noted. Extremities exam: Present: normal inspection, full ROM, normal capillary refill. Absent: tenderness, pedal edema, joint swelling, calf tenderness Back exam: No tenderness. Neurological exam: No gross focal neurologic deficit Psychiatric exam: normal affect, normal mood Skin exam: No rashes. No ulcerations. - Labs CBC & Chem 7: 03/12/17 06:01 03/13/17 05:49 Labs: Abnormal Lab Results - Last 24 Hours (Table) 03/12/17 03/12/17 03/12/17 Range/Units 10:50 12:22 15:46 APTT 43.6 H (22.0-30.0) sec Chloride (98-107) mmol/L BUN (9-20) mg/dL Creatinine (0.66-1.25) mg/dL Glucose (74-99) mg/dL POC Glucose (mg/dL) 67 L 55 L (75-99) mg/dL Calcium (8.4-10.2) mg/dL 03/12/17 03/12/17 03/13/17 Range/Units 18:22 20:53 02:21 APTT 49.7 H (22.0-30.0) sec Chloride (98-107) mmol/L BUN (9-20) mg/dL Creatinine (0.66-1.25) mg/dL Glucose (74-99) mg/dL POC Glucose (mg/dL) 102 H 125 H (75-99) mg/dL Calcium (8.4-10.2) mg/dL 03/13/17 03/13/17 03/13/17 Range/Units 05:49 05:52 06:14 APTT 34.9 H (22.0-30.0) sec Chloride 109 H (98-107) mmol/L BUN 54 H (9-20) mg/dL Creatinine 1.90 H (0.66-1.25) mg/dL Glucose 103 H (74-99) mg/dL POC Glucose (mg/dL) 114 H (75-99) mg/dL Calcium 8.0 L (8.4-10.2) mg/dL Microbiology - Last 24 Hours (Table) 03/10/17 21:25 Gram Stain - Final Sputum Sputum Culture - Final Brandi albicans 03/09/17 18:14 Blood Culture - Preliminary Blood No Growth after 72 hours Assessment and Plan Plan: Impression: 1 acute community-acquired pneumonia, bilateral 2 acute non-ST segment elevation myocardial infarction 3 acute on chronic hypoxic respiratory failure secondary to pneumonia and COPD 4 severe oxygen dependent chronic obstructive pulmonary disease with acute exacerbation 5 suspect acute diastolic congestive heart failure, although the possibility of systolic congestive heart failure is not entirely ruled out. Repeat echocardiogram may be necessary to assess his LV function again and compared to the admission echocardiogram. Considering his initial presentation of acute AL , I believe the patient may have sustained significant cardiac injury to explain all the findings of congestive heart failure acute kidney injury and possibly poor renal perfusion. 5 morbid obesity 6 history of obstructive sleep apnea syndrome 7 history of diabetes 8 acute kidney injury, I believe it is mostly secondary to poor perfusion state to his kidneys. And again an echocardiogram may be necessary but I will leave that decision to the residential real estate appraiser on the case. Recommendation: Continue present treatment plan including antibiotics in the form of Zosyn, patient will have IV fluid at KVO, Lasix 40 mg IV push was ordered since his chest x-ray is showing worsening congestive heart failure picture. Patient will be placed on Solu-Medrol because of his wheezing and we' ll continue to follow closely. Again may have to consider repeating his echocardiogram. I am strongly suspecting that the patient may have sustained significant cardiac injury from his acute myocardial infarction. Time with Patient: Less than 30
[2017-03-13] MEDS: SODIUM CHLORIDE 0.9% 1,000 ML IV SCH ×2 (11:28→20:26)
[2017-03-13] MEDS: methylPREDNISolone SOD SUCCI 40 MG/ML 1 ML VIAL IV SCH ×3 (11:30→23:46)
[2017-03-13] MEDS: INSULIN NPH/REG INSULIN 70/30 300 UNIT/3 ML VIAL SQ SCH ×2 (11:31→17:43)
--- NOTE | 2017-03-13 11:49 | PN ---
PROGRESS NOTE Mr. Krishna is a 76-year-old male with history of severe chronic obstructive lung disease, who presented with symptoms of dyspnea and was diagnosed with non ST-segment elevation myocardial infarction. He was evaluated to undergo cardiac catheterization, but that procedure was postponed because of worsening renal function. He has dyspnea on exertion but no chest pain. He denies any dizziness or palpitation. He denies any nausea. He continues to be at this time on amlodipine 5 mg daily, aspirin once a day, Lipitor 20 mg daily, IV heparin, metoprolol tartrate 12.5 mg twice a day. PHYSICAL EXAMINATION: Blood pressure 145/60 with a heart in the 80s. LUNGS: Severe decreased in air exchange. No wheezes. HEART: Regular rate and rhythm S1, S2. No S3. No rub. ABDOMEN: Soft, obese, nontender. EXTREMITIES: No significant edema. LAB DATA: Revealed BUN and creatinine 54 and 1.9. Potassium 4.6. IMPRESSION: 1. Non ST-segment elevation myocardial infarction. 2. Severe chronic obstructive pulmonary disease. 3. Renal failure. 4. Obesity. 5. Diabetes mellitus. RECOMMENDATION: From the cardiac standpoint, I will obtain a repeat evaluation of his renal function tomorrow. If they remain unstable, then the cardiac catheterization will be postponed. If no cardiac catheterization is to be done tomorrow, then I will stop his IV heparin. MMODL / IJN: [id number] /
[2017-03-13 12:22] LABS: Glucose,Whole Blood 153 mg/dL (75-99)
[2017-03-13 16:35] LABS: Glucose,Whole Blood 289 mg/dL (75-99)
[2017-03-13] MEDS: HEPARIN SODIUM,PORCINE/D5W PMX 25,000 UNIT in DEXTROSE/WATER 1 500ML.BAG IV SCH (20:26)
[2017-03-13] MEDS: SERTRALINE 50 MG TAB PO SCH (20:27)
[2017-03-13] MEDS: ATORVASTATIN 20 MG TAB PO SCH (20:27)
[2017-03-13 21:06] LABS: Glucose,Whole Blood 455 mg/dL (75-99)
[2017-03-13 21:11] LABS: Glucose,Whole Blood 449 mg/dL (75-99)
[2017-03-14] MEDS ORDERED: INSULIN LISPRO (humaLOG) 300 UNIT/3 ML VIAL SQ ONE (00:15)
[2017-03-14 00:47] LABS: Glucose,Whole Blood 364 mg/dL (75-99)
[2017-03-14 06:19] LABS: Glucose,Whole Blood 287 mg/dL (75-99)
[2017-03-14] MEDS: PANTOPRAZOLE 40 MG TABLET PO SCH (06:24)
[2017-03-14] MEDS: amLODIPine 5 MG TAB PO SCH (06:24)
[2017-03-14] MEDS: INSULIN LISPRO (humaLOG) 300 UNIT/3 ML VIAL SQ SCH ×4 (06:24→22:08)
[2017-03-14] MEDS: ASPIRIN 81 MG PO SCH (06:24)
[2017-03-14] MEDS: METOPROLOL TARTRATE 12.5 MG TAB PO SCH (06:24)
--- NOTE | 2017-03-14 07:14 | PN ---
PROGRESS NOTE CHIEF COMPLAINT: Re-evaluation. HISTORY OF PRESENT ILLNESS: This 76-year-old gentleman was admitted to the hospital with shortness of breath, noted to have evidence suggestive of pneumonia and also a subendocardial RI. The patient has been followed by Pulmonary as well as Cardiology. The patient has developed acute renal failure, nonoliguric, etiology unclear. The patient's renal function improved slightly and then is back up again today. The patient has no symptoms relating to his renal status. The patient has no chest pain. He did have increased shortness of breath last night. He has mild cough. The patient does have a history of COPD and he also has anemia of iron deficiency. REVIEW OF SYSTEMS: NEURO: Denies any headaches, dizziness. PSYCH: Some frustration. CARDIAC: Denies chest pain. RESPIRATORY: Complains of shortness of breath. Mild cough. No hemoptysis. GI: No nausea, vomiting, abdominal pain, diarrhea. : No symptoms of dysuria, hematuria. Has adequate urine output. EXTREMITIES: No pain or edema. CONSTITUTIONAL: No fever or chills. PHYSICAL EXAMINATION: Pleasant gentleman at present in no distress. Vital signs reveal temperature 98.8, pulse 80, respirations 22, blood pressure 145/66, pulse ox 92% on 3 L. HEENT: Normocephalic. NECK: No JVD. Chest has decreased air flow. No rhonchi or wheezing. CARDIAC: Distant heart sounds. S1, S2 with no gallops. Systolic murmur 2/6 left sternal border. Regular rhythm. ABDOMEN: Protuberant, soft. Bowel sounds present. Extremities reveal 1+ edema left leg, trace right leg. NEUROLOGICAL: Awake, alert, oriented with well-coordinated movements. LABORATORY ASSESSMENT: Electrolytes normal. BUN 54, creatinine 1.9. Glucose 103. Calcium 8.0. better results. ASSESSMENT: 1. Status post subendocardial myocardial infarction. 2. Acute renal failure and acute on chronic renal failure. 3. Pneumonia. 4. Chronic obstructive pulmonary disease. 5. Anemia of iron deficiency. 6. Obesity. PLAN: Continue present medical regimen. Patient's condition discussed with the patient and Dr. Sheehan. Plan to continue present medical regimen. Prognosis remains guarded. Cardiac cath is on hold. Pulmonary physician feels that the patient's problem may be more cardiac. Await the patient's renal status to stabilize. The patient's condition discussed with the patient. Prognosis guarded. MMODL / IJN: [id number] /
[2017-03-14 07:22] LABS: Calcium 9.4 mg/dL (8.4-10.2); Potassium 4.6 mmol/L (3.5-5.1)
[2017-03-14] MEDS ORDERED: FUROSEMIDE 10 MG/ML 2 ML VIAL IV ONE (08:30)
[2017-03-14] MEDS ORDERED: ALPRAZolam 0.25 MG TAB PO PRN (08:42)
[2017-03-14] MEDS ORDERED: ALPRAZolam 0.5 MG TAB PO PRN (08:42)
[2017-03-14] MEDS ORDERED: SODIUM CHLORIDE 0.9% 1,000 ML in EMPTY BAG 1 BAG IV ONE (08:42)
[2017-03-14] MEDS ORDERED: NITROGLYCERIN SL TABS 0.4 MG TAB SUBLINGUAL PRN (08:42)
[2017-03-14] MEDS: HYDROcodone/APAP 7.5-325MG 1 EACH TAB PO SCH ×3 (09:08→22:07)
[2017-03-14] MEDS: PIPERACILLIN-TAZOBACTAM 3.375 GM in DEXTROSE/WATER 1 50ML.BAG IVPB SCH ×3 (09:09→23:02)
[2017-03-14] MEDS: INSULIN NPH/REG INSULIN 70/30 300 UNIT/3 ML VIAL SQ SCH ×2 (10:19→17:09)
[2017-03-14] MEDS: SODIUM CHLORIDE 0.9% 1,000 ML IV SCH (10:24)
--- NOTE | 2017-03-14 10:35 | PN ---
PROGRESS NOTE Mr. Krishna is a 76-year-old male who presented with worsening dyspnea as well as evidence of non STEMI. He is feeling reasonably well this morning. His breathing is stable. He is denying any chest pain. No dizziness or palpitation. He denies any nausea. He had some abdominal discomfort earlier that resolved. His rate and rhythm are stable. He continues to be on amlodipine 5 mg daily, aspirin once a day, Atorvastatin 20 mg daily, metoprolol tartrate 12.5 mg twice a day. His IV heparin was stopped and he received a dose of diuretics yesterday. PHYSICAL EXAMINATION: Blood pressure running in the 130s to 180 with the heart rate in the 70s. LUNGS: No wheezes. HEART: Regular rate and rhythm, S1, S2. No S3. No rub. ABDOMEN: Soft, obese, nontender. EXTREMITIES: No significant edema. LAB DATA: Lab data revealed BUN and creatinine 50 and 1.66. His NT proBNP is 8270. The chest x-ray that was performed yesterday revealed evidence of congestive heart failure. IMPRESSION: 1. Exacerbation of chronic obstructive pulmonary disease with dyspnea, improving. 2. Non-ST elevation myocardial infarction. 3. Renal failure, improving. 4. Hypertension. RECOMMENDATION: From the cardiac standpoint, I will increase the dose of his metoprolol tartrate and will follow his renal functions tomorrow. If they are stable, we will proceed with cardiac catheterization tomorrow by Dr. Meneses. I have discussed with the patient those findings and recommendations. MMODL / IJN: [id number] /
[2017-03-14] MEDS: SYMBICORT 160-4.5 MCG INHALER INHALATION SCH ×2 (11:06→20:23)
[2017-03-14] MEDS: IPRATROPIUM-ALBUTEROL 3 ML NEB INHALATION SCH ×4 (11:07→20:26)
--- NOTE | 2017-03-14 11:21 | XR ---
EXAMINATION TYPE: XR chest 2V DATE OF EXAM: 03/14/2017 COMPARISON: 03/13/2017 TECHNIQUE: PA and lateral views submitted. HISTORY: Shortness of breath FINDINGS: Bilateral consolidation and small effusion noted. Prominent central interstitial pattern. Biapical pl eural thickening. Diffuse osteopenia and arthropathy shoulders. No pneumothorax. Underlying COPD susp ected. IMPRESSION: 1. Bilateral lower lobe infiltrate and small effusion. Mild central venous congestion or interstitial pneumonitis in the differential diagnosis. No significant interval change.
[2017-03-14 12:01] LABS: Glucose,Whole Blood 307 mg/dL (75-99)
--- NOTE | 2017-03-14 14:58 | P.PN ---
Subjective Progress note dated 03/14/2017 76-year-old male admitted with a shortness of breath cough and wheezing. Was thought to have a combination of COPD exacerbation and possible pneumonia and also congestive heart failure. The patient also had elevation of his cardiac enzymes was thought to have a non-ST segment elevation myocardial infarction. He was to have a catheterization but kidney dysfunction prevented that. From the pulmonary standpoint he is feeling better. Not feeling as much shortness of breath as before. The patient is being treated with an with a number different medications for all those things mentioned above. He is feeling better as I mention. Hoping to have a catheterization in the near future. Again the poor renal function is prevented that. Other than that he is doing reasonably well. Denies any chest pain or chest discomfort. Not really coughing. Not producing much phlegm. No fever or chills. Objective - Vital Signs Vital signs: Vital Signs Temp 97.2 F L 03/14/17 08:00 Pulse 72 03/14/17 12:09 Resp 18 03/14/17 12:00 BP 170/52 03/14/17 08:00 Pulse Ox 98 03/14/17 08:00 Intake & Output 03/13/17 03/14/17 03/14/17 18:59 06:59 18:59 Intake Total 732.268 497.528 200 Output Total 850 1720 300 Balance -117.732 -1222.472 -100 Intake: IV 340 Heparin Sodium,Porcine/ 240 D5w Pmx 25,000 unit In Dextrose/Water 1 500ml. bag @ 9.19 UNITS/KG/HR 20 mls/hr IV .Q24H EILEEN Rx#: [id number] Sodium Chloride 0.9% 1, 100 000 ml @ 50 mls/hr IV . Q20H EILEEN Rx#:[id number] Intake, IV Titration 252.268 157.528 Amount Heparin Sodium,Porcine/ 252.268 157.528 D5w Pmx 25,000 unit In Dextrose/Water 1 500ml. bag @ 9.19 UNITS/KG/HR 20 mls/hr IV .Q24H EILEEN Rx#: [id number] Oral 480 200 Output: Urine 850 1720 300 Other: Voiding Method Toilet Toilet Urinal Urinal # Voids 1 - Exam No acute distress, oriented 3. Laying on his right side. Receiving a breathing treatment while we were in the room. HEENT examination is grossly unremarkable. Mucous membranes are moist. No oral lesions. A bit of a roper face. Neck supple. Full range of motion. No adenopathy or thyromegaly. Neck veins are flat. Cardiovascular examination reveals distant heart sounds. S1-S2 normal. No S3- S4 or murmur. Lungs reveal some mild expiratory wheezes. This some expiratory crackles. Breath sounds are diminished. There is prolongation. Breath sounds are equal bilaterally. Abdomen obese. Bowel sounds are heard. Extremities reveal some mild edema. No cyanosis or clubbing. Skin is without rash. Neurologic examination is nonfocal. - Labs CBC & Chem 7: 03/12/17 06:01 03/14/17 06:03 Labs: Abnormal Lab Results - Last 24 Hours (Table) 03/13/17 03/13/17 03/13/17 Range/Units 14:42 16:32 20:59 APTT 44.2 H 59.1 H (22.0-30.0) sec BUN (9-20) mg/dL Creatinine (0.66-1.25) mg/dL Glucose (74-99) mg/dL POC Glucose (mg/dL) 289 H (75-99) mg/dL 03/13/17 03/13/17 03/14/17 Range/Units 21:04 21:06 00:14 APTT (22.0-30.0) sec BUN (9-20) mg/dL Creatinine (0.66-1.25) mg/dL Glucose (74-99) mg/dL POC Glucose (mg/dL) 455 H 449 H 364 H (75-99) mg/dL 03/14/17 03/14/17 03/14/17 Range/Units 06:03 06:03 06:16 APTT 73.4 H (22.0-30.0) sec BUN 50 H (9-20) mg/dL Creatinine 1.66 H (0.66-1.25) mg/dL Glucose 288 H (74-99) mg/dL POC Glucose (mg/dL) 287 H (75-99) mg/dL 03/14/17 Range/Units 11:57 APTT (22.0-30.0) sec BUN (9-20) mg/dL Creatinine (0.66-1.25) mg/dL Glucose (74-99) mg/dL POC Glucose (mg/dL) 307 H (75-99) mg/dL Microbiology - Last 24 Hours (Table) 03/09/17 18:14 Blood Culture - Preliminary Blood No Growth after 96 hours Assessment and Plan (1) Obesity Status: Acute (2) Acute exacerbation of chronic obstructive airways disease Status: Acute (3) Congestive heart failure Status: Acute (4) Elevated troponin Status: Acute (5) Non-ST elevation myocardial infarction (NSTEMI) Status: Acute (6) Nosocomial pneumonia Status: Acute (7) Renal failure, acute Status: Acute (8) Chest pain Status: Acute (9) Diabetes Status: Acute (10) Tracheobronchitis Status: Acute Plan: Plan The patient's medications labs and x-rays are reviewed. The x-ray showed bibasilar infiltrates or atelectasis. Possibly some small effusions. The patient's medications are reviewed as is his labs. Additional recommendations and suggestions are forthcoming. His prognosis is guarded given his plethora of medical problems as obesity renal fire COPD and CHF. Time with Patient: Greater than 30
[2017-03-14 17:18] LABS: Glucose,Whole Blood 276 mg/dL (75-99)
--- NOTE | 2017-03-14 18:17 | PN ---
PROGRESS NOTE CHIEF COMPLAINT: Re-evaluation. HISTORY OF PRESENT ILLNESS: This 76-year-old gentleman was admitted to the hospital because of shortness of breath. He has suggestion of pneumonia. The patient also has history of underlying COPD. The patient had some elevated troponins. The patient's subsequent serial enzymes suggested subendocardial [place]. The patient has an echocardiogram which reveals adequate ejection fraction of 55%. The patient is being followed by Cardiology as well as Pulmonary. The patient developed acute renal failure of uncertain etiology. The patient's renal failure is improving. The patient was scheduled for a cardiac catheterization, and this has been put on hold because of his renal status. The patient also has anemia, iron deficiency. He has been given iron supplement intravenously. The patient had been on anticoagulation. REVIEW OF SYSTEMS: NEURO: Denies any headaches, dizziness. PSYCH: Some apprehension. CARDIAC: Denies chest pain, angina, palpitation. RESPIRATORY: Shortness of breath but improved following the dose of Lasix yesterday. : No symptoms of dysuria, hematuria. Has frequency. GI: No nausea, vomiting, abdominal pain, diarrhea. SKIN: Denies any rash. EXTREMITIES: Edema, improved. ENDOCRINE: Elevated blood sugars. PHYSICAL EXAMINATION: Pleasant gentleman, at present in no distress. Vital signs revealed blood pressure this morning was elevated 170/52, pulse rate of 63, respirations 18, temperature 97.2, pulse ox of 98% with oxygen at 3 L. HEENT: Normocephalic. NECK: Supple. JVD is not appreciated. CHEST EXAMINATION: Decreased air flow at the bases. No rhonchi or wheezing. CARDIAC: Distant heart sounds S1, S2 with no gallops. Systolic murmur 2/6, left sternal border. ABDOMEN: Protuberant, soft. Bowel sounds present. Extremities reveal trace edema, left leg, which is improved. Neurologically awake, alert, oriented x3 with well-coordinated movements. LABORATORY ASSESSMENT: Electrolytes are normal. BUN 50, creatinine 1.66. Glucose was 288. Calcium 9.4. BNP elevated at 8270. Chest x-ray shows basilar infiltrates, possible mild venous congestion. ASSESSMENT: 1. Status post subendocardial myocardial infarction. 2. /pneumonia. 3. Chronic obstructive pulmonary disease. 4. Anemia. 5. Diabetes mellitus with elevated blood sugars. 6. Acute on chronic renal failure. PLAN: The patient is stable. Continue present medical regimen. Patient's condition was discussed with the patient and Dr. Sheehan from Cardiology. Plan is to hold off any cardiac catheterization today. Reconsider tomorrow. Patient's prognosis remains guarded. Patient will be given a small dose of Lasix 20 mg today. Will recheck patient's electrolytes, BUN and creatinine tomorrow. Recheck CBC tomorrow. MMODL / IJN: [id number] /
[2017-03-14 21:10] LABS: Glucose,Whole Blood 185 mg/dL (75-99)
[2017-03-14] MEDS: METOPROLOL TARTRATE 25 MG TAB PO SCH (22:06)
[2017-03-14] MEDS: methylPREDNISolone SOD SUCCI 40 MG/ML 1 ML VIAL IV SCH ×2 (22:06→22:53)
[2017-03-14] MEDS: ATORVASTATIN 20 MG TAB PO SCH (22:06)
[2017-03-14] MEDS: SERTRALINE 50 MG TAB PO SCH (22:07)
[2017-03-14] MEDS: ALPRAZolam 0.5 MG TAB PO PRN (22:07)
[2017-03-15] MEDS ORDERED: ATORVASTATIN 80 MG TAB PO ONE (06:00)
[2017-03-15] MEDS ORDERED: ASPIRIN 325 MG TAB PO ONE (06:00)
[2017-03-15] MEDS: METOPROLOL TARTRATE 25 MG TAB PO SCH ×2 (06:12→20:16)
[2017-03-15] MEDS: amLODIPine 5 MG TAB PO SCH (06:13)
[2017-03-15] MEDS: methylPREDNISolone SOD SUCCI 40 MG/ML 1 ML VIAL IV SCH (06:14)
[2017-03-15] MEDS: ASPIRIN 81 MG PO SCH (06:14)
[2017-03-15] MEDS: PANTOPRAZOLE 40 MG TABLET PO SCH (06:14)
[2017-03-15] MEDS: SODIUM CHLORIDE 0.9% 1,000 ML IV SCH ×2 (06:15→23:28)
[2017-03-15 06:20] LABS: Basophils % (A) 0 %; CHCM 29.3; Eosinophils % (A) 0 %; HCT 27.1 % (39.0-53.0); HDW 2.65; Hypochromasia Marked; Luc # (Auto) 0.08; Luc % (Auto) 1; Lymphocytes # (A) 0.3 k/uL (1.0-4.8); Lymphocytes % (A) 3 %; MCH 26.3 pg (25.0-35.0); MCHC 29.6 g/dL (31.0-37.0); MCV 88.8 fL (80.0-100.0); Mean Platelet Volume 8.8; Monocytes # (A) 0.3 k/uL (0-1.0); Monocytes % (A) 3 %; Neutrophils # (A) 9.4 k/uL (1.3-7.7); Neutrophils % (A) 93 %; RBC 3.06 m/uL (4.30-5.90); RDW 15.3 % (11.5-15.5); WBC 10.1 k/uL (3.8-10.6); WBC (Perox) 10.62
[2017-03-15 06:26] LABS: Calcium 8.8 mg/dL (8.4-10.2); Total Bilirubin 0.4 mg/dL (0.2-1.3); Total Protein 5.4 g/dL (6.3-8.2)
[2017-03-15] MEDS: INSULIN LISPRO (humaLOG) 300 UNIT/3 ML VIAL SQ SCH ×4 (06:48→23:11)
[2017-03-15 06:50] LABS: Glucose,Whole Blood 202 mg/dL (75-99)
[2017-03-15] MEDS: IPRATROPIUM-ALBUTEROL 3 ML NEB INHALATION SCH ×4 (07:26→21:03)
[2017-03-15] MEDS: SYMBICORT 160-4.5 MCG INHALER INHALATION SCH ×2 (07:26→21:03)
[2017-03-15] MEDS ORDERED: amLODIPine 5 MG TAB PO STA (08:12)
[2017-03-15] MEDS: PIPERACILLIN-TAZOBACTAM 3.375 GM in DEXTROSE/WATER 1 50ML.BAG IVPB SCH ×3 (08:18→23:28)
[2017-03-15] MEDS ORDERED: LIDOCAINE 2% INJ 20 MG/ML (20 ML MDV) ONE ×2 (09:40→10:01)
[2017-03-15] MEDS: INSULIN NPH/REG INSULIN 70/30 300 UNIT/3 ML VIAL SQ SCH ×2 (09:49→16:47)
[2017-03-15] MEDS ORDERED: fentaNYL (PF) 50 MCG/ML 2 ML AMP ONE (10:01)
[2017-03-15] MEDS ORDERED: MIDAZOLAM 2 MG/2 ML VIAL ONE (10:01)
[2017-03-15] MEDS ORDERED: hydrALAZINE HCL 20 MG/ML 1 ML VIAL ONE (10:06)
[2017-03-15] MEDS ORDERED: MIDAZOLAM 2 MG/2 ML VIAL IV ONE (10:08)
[2017-03-15] MEDS: hydrALAZINE HCL 20 MG/ML 1 ML VIAL IV ONE ×2 (10:08→10:24)
[2017-03-15] MEDS ORDERED: LIDOCAINE 2% INJ 20 MG/ML SQ ONE ×2 (10:10→10:43)
[2017-03-15] MEDS ORDERED: fentaNYL (PF) 50 MCG/ML 2 ML AMP IV ONE (10:15)
[2017-03-15] MEDS ORDERED: IV FLUID CONTINUATION 1,000 ML IV ONE (10:24)
[2017-03-15] MEDS ORDERED: VERAPAMIL 2.5 MG/ML 2 ML AMP ONE (10:30)
[2017-03-15] MEDS ORDERED: HEPARIN SODIUM 1,000 UN/ML (10ML VL) ONE (10:42)
[2017-03-15] MEDS ORDERED: VERAPAMIL SYRINGE (5 MG/10 ML) INTRAARTER ONE (10:43)
[2017-03-15] MEDS ORDERED: HEPARIN SODIUM 1,000 UN/ML (10ML VL) IV ONE (10:53)
[2017-03-15] MEDS ORDERED: IODIXANOL 320 MG/ML 100 ML INTRAARTER ONE (11:09)
[2017-03-15] MEDS ORDERED: RX INFO: IV CONTRAST WAS GIVEN 1 EACH MISC MISCELLANE PRN (11:09)
[2017-03-15] MEDS ORDERED: SODIUM CHLORIDE 0.9% 1,000 ML IV SCH (11:15)
[2017-03-15 11:44] LABS: Glucose,Whole Blood 239 mg/dL (75-99)
--- NOTE | 2017-03-15 11:45 | CC ---
CARDIAC CATHETERIZATION REPORT Mr. Krishna is a 76-year-old male with known history of chronic obstructive lung disease, who presented with symptoms of progressive dyspnea, had elevation of his troponin. In view of that, recommendation made regarding cardiac catheterization. The procedures, risks, and complications were discussed with the patient who is in full understanding and agreement. PROCEDURE: Patient was brought to [facility] in a fasting semi-sedated state after receiving fentanyl and Benadryl and achieving moderate conscious sedated state. Attempt by Dr. Meneses to canalize the right femoral artery was unsuccessful because of very poor pulse. At that time, using xylocaine anesthesia and Seldinger technique, a 6-Danish sheath was introduced in the right radial artery. Selective right and left angiography performed using 5-Danish 3.5 bend right and left Luz Marina catheter. Multiple views of the coronary artery including hemiaxial views were obtained. Following that 5-Danish tight pigtail catheter was introduced into the left ventricle and pressures were calculated. Following that, catheter and sheath were removed. Hemostasis was obtained with deployment of a TR band. There was no immediate complication. Patient is returned to his room in stable condition. Of note, the patient received 5000 units of intravenous heparin as well as intra-arterial verapamil. FINDINGS: LEFT MAIN: This is a large-sized vessel bifurcating into left circumflex, left anterior descending artery. The left main coronary artery distally has a 20% plaque, is a calcified vessel. LEFT ANTERIOR DESCENDING ARTERY: This is a large-sized vessel reaching toward the apex, with a wraparound apex segment, tapers down distal third, giving rise to a large diagonal branch in the mid segment. The left anterior descending artery is calcified throughout its course. Has diffuse intimal disease to 20% to 30% without any evidence of high-grade stenosis. LEFT CIRCUMFLEX: This is a nondominant vessel, moderate in caliber, giving rise to 2 obtuse marginal branches, small to moderate caliber. The left circumflex has diffuse intimal disease without any evidence of high-grade stenosis. RIGHT CORONARY ARTERY: This is a large dominant vessel, bifurcating distally into PDA, postop segment branches, calcified in the mid segment. The right coronary artery in mid segment has 20% to 30% plaque. The rest of the vessel has no high-degree stenosis. LEFT VENTRICULOGRAM: Left ventriculogram was not performed. HEMODYNAMICS: There was no gradient across the aortic valve. The left ventricular end- diastolic pressure was 24 mmHg. CONCLUSION: 1. Calcified coronary artery. 2. Mild to moderate triple-vessel coronary disease. 3. Mildly elevated left ventricular end-diastolic pressure. RECOMMENDATION: In view of finding, I have recommend to maximize his medical therapy. Patient most likely had a ruptured plaque. Those findings and recommendation were discussed with the patient and his family who are in full understanding and agreement. MMSELVIN / DENG: [id number] /
--- NOTE | 2017-03-15 11:54 | LTR ---
DATE OF SERVICE: 03/15/2013 RE: Erendira Ralph Dear Dr. Altman; I performed a cardiac catheterization on Mr. Krishna at [facility] on March 15, 2017 and a full copy of the procedure note will be forwarded to you. In brief, he was found to have calcified coronary artery with mild to moderate triple- vessel coronary disease and based on those findings, I have recommended to continue medical therapy with the aggressive risk-factor modification being initiated. Thank you again for allowing me to participate in your patient's care. Please feel free to call for any questions. Sincerely yours, Piotr NICHOLEL / IJN: [id number] /
--- NOTE | 2017-03-15 12:09 | P.PN ---
Subjective Principal diagnosis: Acute non-ST segment elevation myocardial infarction. This is a very pleasant 76-year-old gentleman who presented here on 03/09/2017 with an acute non-ST segment elevation myocardial infarction with secondary shortness of breath. He had undergone cardiac catheterization today which revealed calcified coronary arteries. There is [id number] triple-vessel coronary artery disease and mildly elevated left ventricular end diastolic pressure. There is no significant stenosis. He is recommended maximal medical therapy. He is seen again today in follow-up on the selective care unit. He is resting quite comfortably in bed. He denies any worsening shortness of breath, cough or congestion. No chest pain, palpitations lightheadedness or dizziness. Yesterday his chest x-ray revealed bilateral lower lobe infiltrate and small effusions. There is some mild central venous congestion as well. He remains on bronchodilators, IV Solu-Medrol and antibiotics in the form of Zosyn. Renal function improved to 1.60. Objective - Vital Signs Vital signs: Vital Signs Temp 98.7 F 03/15/17 08:00 Pulse 66 03/15/17 08:00 Resp 18 03/15/17 08:00 BP 177/74 03/15/17 08:00 Pulse Ox 99 03/15/17 08:00 Intake & Output 03/14/17 03/15/17 03/15/17 18:59 06:59 18:59 Intake Total 436 450 100 Output Total 1000 Balance -564 450 100 Weight 106 kg Intake: IV 400 100 Sodium Chloride 0.9% 1, 400 000 ml @ 50 mls/hr IV . Q20H EILEEN Rx#:[id number] Intake, IV Titration 50 Amount Piperacillin-Tazobactam 3 50 .375 gm In Dextrose/Water 1 50ml.bag @ 12.5 mls/hr IVPB Q8HR EILEEN Rx#: [id number] Oral 436 Output: Urine 1000 Other: Voiding Method Toilet Urinal # Voids 3 - Exam GENERAL EXAM: Alert, comfortable in no apparent distress. HEAD: Normocephalic. EYES: Normal reaction of pupils, equal size. NOSE: Clear with pink turbinates. THROAT: No erythema or exudates. NECK: No masses, no JVD. CHEST: No chest wall deformity. LUNGS: Equal air entry with crackles in the posterior bases. Diminished. CVS: S1 and S2 normal with no audible murmurs, regular rhythm. ABDOMEN: No hepatosplenomegaly, normal bowel sounds, no guarding or rigidity. SPINE: No scoliosis or deformity SKIN: No rashes CENTRAL NERVOUS SYSTEM: No focal deficits, tone is normal in all 4 extremities. Extremities: There is no significant peripheral edema. No clubbing, no cyanosis. Peripheral pulses are intact. - Labs CBC & Chem 7: 03/15/17 05:42 03/15/17 05:42 Labs: Abnormal Lab Results - Last 24 Hours (Table) 03/14/17 03/14/17 03/14/17 Range/Units 11:57 16:55 21:03 RBC (4.30-5.90) m/uL Hgb (13.0-17.5) gm/dL Hct (39.0-53.0) % MCHC (31.0-37.0) g/dL Neutrophils # (1.3-7.7) k/uL Lymphocytes # (1.0-4.8) k/uL BUN (9-20) mg/dL Creatinine (0.66-1.25) mg/dL Glucose (74-99) mg/dL POC Glucose (mg/dL) 307 H 276 H 185 H (75-99) mg/dL Total Protein (6.3-8.2) g/dL Albumin (3.5-5.0) g/dL 03/15/17 03/15/17 03/15/17 Range/Units 05:42 05:42 06:30 RBC 3.06 L (4.30-5.90) m/uL Hgb 8.0 L (13.0-17.5) gm/dL Hct 27.1 L (39.0-53.0) % MCHC 29.6 L (31.0-37.0) g/dL Neutrophils # 9.4 H (1.3-7.7) k/uL Lymphocytes # 0.3 L (1.0-4.8) k/uL BUN 54 H (9-20) mg/dL Creatinine 1.60 H (0.66-1.25) mg/dL Glucose 187 H (74-99) mg/dL POC Glucose (mg/dL) 202 H (75-99) mg/dL Total Protein 5.4 L (6.3-8.2) g/dL Albumin 2.9 L (3.5-5.0) g/dL 03/15/17 Range/Units 11:42 RBC (4.30-5.90) m/uL Hgb (13.0-17.5) gm/dL Hct (39.0-53.0) % MCHC (31.0-37.0) g/dL Neutrophils # (1.3-7.7) k/uL Lymphocytes # (1.0-4.8) k/uL BUN (9-20) mg/dL Creatinine (0.66-1.25) mg/dL Glucose (74-99) mg/dL POC Glucose (mg/dL) 239 H (75-99) mg/dL Total Protein (6.3-8.2) g/dL Albumin (3.5-5.0) g/dL Microbiology - Last 24 Hours (Table) 03/09/17 18:14 Blood Culture - Preliminary Blood No Growth after 120 hours Assessment and Plan Plan: Impression: 1 acute community-acquired pneumonia, bilateral 2 acute non-ST segment elevation myocardial infarction 3 acute on chronic hypoxic respiratory failure secondary to pneumonia and COPD 4 severe oxygen dependent chronic obstructive pulmonary disease with acute exacerbation 5 suspect acute diastolic congestive heart failure, systolic congestive heart failure is ruled out. Repeat echocardiogram revealed preserved left ventricular systolic function. 6 morbid obesity 7 history of obstructive sleep apnea syndrome 8 history of diabetes 9 acute kidney injury, I believe it is mostly secondary to poor perfusion state to his kidneys. Plan: The patient was seen and evaluated by Dr. Moya. He is stable from the pulmonary standpoint. Cardiac catheterization did not reveal any significant stenosis. We'll continue with his current medications. We will repeat his chest x-ray in a.m. We'll continue to follow.
[2017-03-15] MEDS: HYDROcodone/APAP 7.5-325MG 1 EACH TAB PO SCH ×3 (12:43→23:09)
[2017-03-15] MEDS: ATORVASTATIN 40 MG TAB PO SCH ×2 (12:44→20:16)
[2017-03-15 14:20] VITALS: BMI 35.5
[2017-03-15 16:43] LABS: Glucose,Whole Blood 353 mg/dL (75-99)
--- NOTE | 2017-03-15 19:36 | PN ---
PROGRESS NOTE ATTENDING PHYSICIAN: Dr. Jonathan Altman. CHIEF COMPLAINT: Re-evaluation. HISTORY OF PRESENT ILLNESS: 76-year-old gentleman who was admitted to the hospital with shortness of breath. The patient has undergone chest x-ray which suggests a pneumonic process. He has been treated for the same. His cough is markedly improved. He has had no further fever. The patient has been followed by Pulmonary. The patient is on updrafts. He is still on steroids and will try to discontinue that. Patient placed on a small dose of steroids orally. He also had developed renal failure unclear etiology. Possible maybe an episode of hypotension not documented. The patient was nonoliguric and renal function is improved marginally today compared to yesterday. His creatinine was 1.66. Today is 1.6. The patient is overall feeling better. His troponins have gone up, indication of subendocardial IA. The patient is awaiting further evaluation by Cardiology for cardiac cath possible today. REVIEW OF SYSTEMS: NEURO: Denies any headaches, dizziness. PSYCH: No anxiety, slept all night. CARDIAC: Denies chest pain, angina, palpitation. RESPIRATORY: Denies shortness of breath. Mild minimal cough. No hemoptysis. GI: No nausea, vomiting, abdominal pain, diarrhea. : No symptoms of dysuria, hematuria. EXTREMITIES: Denies pain edema. CONSTITUTIONAL: No fever chills. ENDOCRINE: Blood sugars elevated. Patient on steroid. PHYSICAL EXAMINATION: Pleasant gentleman in no distress. Vital signs reveals temperature 98.7, pulse 66, respirations 18, blood pressure 177/74, pulse ox of 99% on 3 L. HEENT: Normocephalic. NECK: No JVD. CHEST EXAMINATION: Generalized decreased air flow. No rhonchi, wheezing appreciated. CARDIAC: Distant heart sounds S1, S2 with no gallop. Systolic murmur 2/6 left sternal border. ABDOMEN: Protuberant, soft. Bowel sounds are active. EXTREMITIES: Reveal trace edema left leg. NEUROLOGIC: Awake, alert, oriented with well-coordinated movements. LABORATORY ASSESSMENT: As mentioned above. Electrolytes normal with potassium 4.0, BUN 54, creatinine 1.6. The patient has a hemoglobin of 8, white count 10.1, platelet count 219. The patient did undergo a cardiac catheterization and was noted to have mild to moderate generalized diffuse coronary artery disease. Has been recommended risk modification in medical therapy. ASSESSMENT: 1. Bilateral pneumonia on medical therapy, resolving. 2. Chronic obstructive pulmonary disease. 3. Subendocardial myocardial infarction. 4. Coronary arthrosclerosis. 5. Anemia, iron deficiency. 6. Diabetes mellitus. 7. Obesity. 8. Acute on chronic renal failure, improved. 9. Remote history of carcinoma of the colon. PLAN: The patient is stable. Continue present medical regimen. Patient's condition discussed with the patient. Prognosis guarded. Recheck renal function tomorrow. The patient's steroids will be discontinued with rising BUN. We will start the patient on p.o. steroids tomorrow and wean off. The patient's condition stable. MMODL / IJN: [id number] /
[2017-03-15] MEDS: SERTRALINE 50 MG TAB PO SCH (20:16)
[2017-03-15 20:50] LABS: Glucose,Whole Blood 345 mg/dL (75-99)
[2017-03-15] MEDS: ALPRAZolam 0.5 MG TAB PO PRN (23:09)
[2017-03-15 23:10] LABS: Glucose,Whole Blood 309 mg/dL (75-99)
[2017-03-16 06:08] LABS: Glucose,Whole Blood 160 mg/dL (75-99)
[2017-03-16] MEDS: PANTOPRAZOLE 40 MG TABLET PO SCH (06:18)
[2017-03-16 06:32] LABS: Calcium 8.4 mg/dL (8.4-10.2); Potassium 4.5 mmol/L (3.5-5.1)
[2017-03-16] MEDS: INSULIN NPH/REG INSULIN 70/30 300 UNIT/3 ML VIAL SQ SCH (07:02)
[2017-03-16] MEDS: INSULIN LISPRO (humaLOG) 300 UNIT/3 ML VIAL SQ SCH (07:02)
--- NOTE | 2017-03-16 07:21 | XR ---
EXAMINATION TYPE: XR chest 1V portable DATE OF EXAM: 03/16/2017 COMPARISON: Prior chest x-ray 03/14/2017 HISTORY: Follow-up pneumonia, congestive heart failure TECHNIQUE: Single frontal view of the chest is obtained. FINDINGS: There is some improvement in aeration at the left lung base. Patient is rotated. No eviden t pneumothorax. Patient is rotated. Heart size is stable accounting for differences in technique. Pat cat basilar density persists bilaterally. IMPRESSION: There is some improvement in aeration at the left lung base.
[2017-03-16] MEDS: SYMBICORT 160-4.5 MCG INHALER INHALATION SCH (08:20)
[2017-03-16] MEDS: IPRATROPIUM-ALBUTEROL 3 ML NEB INHALATION SCH (08:20)
[2017-03-16] MEDS ORDERED: predniSONE 20 MG TAB PO SCH (09:00)
--- NOTE | 2017-03-16 09:12 | P.PN ---
Subjective Progress Note Date: 03/16/17 Principal diagnosis: NSTEMI This is a pleasant 76-year-old gentleman with a history of COPD. He presented to the emergency department with progressive dyspnea and was noted to have elevation of his troponins. In view of that, recommendation was made for patient to undergo cardiac catheterization. Patient was found to have mild to moderate triple-vessel coronary disease now with elevated left ventricular end- diastolic pressure. It was felt the patient likely had a plaque rupture. He is recommended to maximize medical therapy. Upon examination this morning, patient is resting completely embedded. He denies complaints of shortness of breath, chest discomfort, palpitations, dizziness or lightheadedness. He does complain of some tenderness at his right femoral puncture site where access was attempted initially. The site is soft without ecchymosis or hematoma. Objective - Vital Signs Vital signs: Vital Signs Temp 97.3 F L 03/16/17 04:00 Pulse 74 03/16/17 08:32 Resp 18 03/16/17 04:00 BP 125/58 03/16/17 04:00 Pulse Ox 99 03/15/17 08:00 Intake & Output 03/15/17 03/16/17 03/16/17 18:59 06:59 18:59 Intake Total 1540 Output Total 220 580 Balance 1320 -580 Weight 106 kg 110.3 kg Intake: IV 100 Oral 1440 Output: Urine 220 580 Other: Voiding Method Toilet Urinal # Voids 1 1 # Bowel Movements 0 - Exam PHYSICAL EXAMINATION: HEENT: Head is atraumatic, normocephalic. Pupils equal, round. Neck is supple. There is no elevated jugular venous pressure. HEART EXAMINATION: Heart sounds regular, S1 and S2 normal. No murmur or gallop heard. CHEST EXAMINATION: Lungs reveal diminished air entry bilaterally. No chest wall tenderness is noted on palpation or with deep breathing. ABDOMEN: Soft, obese, nontender. Bowel sounds are heard. No organomegaly noted. EXTREMITIES: 1+ peripheral pulses with no evidence of peripheral edema and no calf tenderness noted. Right radial puncture site soft with ecchymosis but no hematoma. Right groin puncture site soft without ecchymosis or hematoma.. NEUROLOGIC patient is awake, alert and oriented x3. . - Labs CBC & Chem 7: 03/15/17 05:42 03/16/17 05:50 Labs: Abnormal Lab Results - Last 24 Hours (Table) 03/15/17 03/15/17 03/15/17 Range/Units 11:42 16:38 20:48 BUN (9-20) mg/dL Creatinine (0.66-1.25) mg/dL Glucose (74-99) mg/dL POC Glucose (mg/dL) 239 H 353 H 345 H (75-99) mg/dL 03/15/17 03/16/17 03/16/17 Range/Units 23:08 05:50 06:07 BUN 63 H (9-20) mg/dL Creatinine 1.80 H (0.66-1.25) mg/dL Glucose 140 H (74-99) mg/dL POC Glucose (mg/dL) 309 H 160 H (75-99) mg/dL Microbiology - Last 24 Hours (Table) 03/09/17 18:14 Blood Culture - Final Blood No Growth after 144 hours Assessment and Plan Plan: Assessment and plan #1 non-ST elevated NC, likely secondary to plaque rupture #2 mild to moderate triple-vessel coronary artery disease #3 COPD #4 hypertension #5 renal failure From cardiology's perspective, patient is stable for discharge home today. He will have a repeat lites BUN and creatinine on Tuesday and follow-up with Dr. Gaviria next week. In the new amlodipine 5 mg by mouth daily, aspirin 81 mg by mouth daily, atorvastatin 40 mg by mouth daily at bedtime, tartrate 25 mg by mouth twice a day. INTRAOPERATIVE NEURO TECH note has been reviewed, I agree with a documented findings and plan of care. Patient was seen and examined.
[2017-03-16] MEDS: METOPROLOL TARTRATE 25 MG TAB PO SCH (09:31)
[2017-03-16] MEDS: amLODIPine 5 MG TAB PO SCH (09:31)
[2017-03-16] MEDS: ASPIRIN 81 MG PO SCH (09:31)
[2017-03-16] MEDS: PIPERACILLIN-TAZOBACTAM 3.375 GM in DEXTROSE/WATER 1 50ML.BAG IVPB SCH (09:36)
[2017-03-16 10:48] VITALS: TEMP 97.4
[2017-03-16 10:59] LABS: Anisocytosis Slight; CHCM 30.7; HDW 2.58; HGB 7.5 gm/dL (13.0-17.5); Hypochromasia Moderate; MCH 26.3 pg (25.0-35.0); MCHC 29.8 g/dL (31.0-37.0); MCV 88.3 fL (80.0-100.0); Mean Platelet Volume 9.2; RBC 2.84 m/uL (4.30-5.90); RDW 16.7 % (11.5-15.5); WBC 11.5 k/uL (3.8-10.6)
[2017-03-16 12:06] LABS: Glucose,Whole Blood 168 mg/dL (75-99)
[2017-03-16] MEDS: HYDROcodone/APAP 7.5-325MG 1 EACH TAB PO SCH (12:15)
[2017-03-16 12:32] VITALS: BP 125/58; PULSE 69; RESP 17
--- NOTE | 2017-03-16 13:19 | P.PN ---
Subjective Progress note dated 03/14/2017 76-year-old male admitted with a shortness of breath cough and wheezing. Was thought to have a combination of COPD exacerbation and possible pneumonia and also congestive heart failure. The patient also had elevation of his cardiac enzymes was thought to have a non-ST segment elevation myocardial infarction. He was to have a catheterization but kidney dysfunction prevented that. From the pulmonary standpoint he is feeling better. Not feeling as much shortness of breath as before. The patient is being treated with an with a number different medications for all those things mentioned above. He is feeling better as I mention. Hoping to have a catheterization in the near future. Again the poor renal function is prevented that. Other than that he is doing reasonably well. Denies any chest pain or chest discomfort. Not really coughing. Not producing much phlegm. No fever or chills. Progress note dated 03/16/2017 76-year-old male admitted with a diagnosis of shortness of breath cough wheezing. In addition, saw to have a component of CHF acute kidney injury and elevated cardiac enzymes consistent with a non-ST segment elevation myocardial infarction. Catheterization was performed. He apparently was negative for significant CAD. He did have some disease but disease that could be treated medically. The patient may be discharged home today. He's feeling well. We' ll make sure he has an appointment to see me in the office. He does see me typically in the office. He has a history of off chronic hypoxemic respiratory failure diastolic CHF morbid obesity sleep apnea syndrome diabetes. Objective - Vital Signs Vital signs: Vital Signs Temp 97.4 F L 03/16/17 08:00 Pulse 69 03/16/17 12:00 Resp 17 03/16/17 12:00 BP 125/58 03/16/17 12:00 Pulse Ox 97 03/16/17 12:00 Intake & Output 03/15/17 03/16/17 03/16/17 18:59 06:59 18:59 Intake Total 1540 230 Output Total 220 580 400 Balance 1320 -580 -170 Weight 106 kg 110.3 kg Intake: IV 100 Intake, IV Titration 50 Amount Piperacillin-Tazobactam 3 50 .375 gm In Dextrose/Water 1 50ml.bag @ 12.5 mls/hr IVPB Q8HR [facility] Rx#: [id number] Oral 1440 180 Output: Urine 220 580 400 Other: Voiding Method Toilet Urinal # Voids 1 1 # Bowel Movements 0 - Exam No acute distress, oriented 3. Laying on his right side. Receiving a breathing treatment while we were in the room. HEENT examination is grossly unremarkable. Mucous membranes are moist. No oral lesions. A bit of a roper face. Neck supple. Full range of motion. No adenopathy or thyromegaly. Neck veins are flat. Cardiovascular examination reveals distant heart sounds. S1-S2 normal. No S3- S4 or murmur. Lungs reveal some mild expiratory wheezes. This some expiratory crackles. Breath sounds are diminished. There is prolongation. Breath sounds are equal bilaterally. Abdomen obese. Bowel sounds are heard. Extremities reveal some mild edema. No cyanosis or clubbing. Skin is without rash. Neurologic examination is nonfocal. - Labs CBC & Chem 7: 03/16/17 10:39 03/16/17 05:50 Labs: Abnormal Lab Results - Last 24 Hours (Table) 03/15/17 03/15/17 03/15/17 Range/Units 16:38 20:48 23:08 WBC (3.8-10.6) k/uL RBC (4.30-5.90) m/uL Hgb (13.0-17.5) gm/dL Hct (39.0-53.0) % MCHC (31.0-37.0) g/dL RDW (11.5-15.5) % BUN (9-20) mg/dL Creatinine (0.66-1.25) mg/dL Glucose (74-99) mg/dL POC Glucose (mg/dL) 353 H 345 H 309 H (75-99) mg/dL 03/16/17 03/16/17 03/16/17 Range/Units 05:50 06:07 10:39 WBC 11.5 H (3.8-10.6) k/uL RBC 2.84 L (4.30-5.90) m/uL Hgb 7.5 L (13.0-17.5) gm/dL Hct 25.0 L (39.0-53.0) % MCHC 29.8 L (31.0-37.0) g/dL RDW 16.7 H (11.5-15.5) % BUN 63 H (9-20) mg/dL Creatinine 1.80 H (0.66-1.25) mg/dL Glucose 140 H (74-99) mg/dL POC Glucose (mg/dL) 160 H (75-99) mg/dL 03/16/17 Range/Units 11:49 WBC (3.8-10.6) k/uL RBC (4.30-5.90) m/uL Hgb (13.0-17.5) gm/dL Hct (39.0-53.0) % MCHC (31.0-37.0) g/dL RDW (11.5-15.5) % BUN (9-20) mg/dL Creatinine (0.66-1.25) mg/dL Glucose (74-99) mg/dL POC Glucose (mg/dL) 168 H (75-99) mg/dL Microbiology - Last 24 Hours (Table) 03/09/17 18:14 Blood Culture - Final Blood No Growth after 144 hours Assessment and Plan (1) Obesity Status: Acute (2) Acute exacerbation of chronic obstructive airways disease Status: Acute (3) Congestive heart failure Status: Acute (4) Elevated troponin Status: Acute (5) Non-ST elevation myocardial infarction (NSTEMI) Status: Acute (6) Nosocomial pneumonia Status: Acute (7) Renal failure, acute Status: Acute (8) Chest pain Status: Acute (9) Diabetes Status: Acute (10) Tracheobronchitis Status: Acute Plan: Plan The patient's medications labs and x-rays are reviewed. The x-ray showed bibasilar infiltrates or atelectasis. Possibly some small effusions. The patient's medications are reviewed as is his labs. Additional recommendations and suggestions are forthcoming. His prognosis is guarded given his plethora of medical problems as obesity renal fire COPD and CHF. Plan dated 03/16/2017. Possible discharge today. The patient seemed be doing a lot better. He was relieved to know that S catheterization was essentially within normal range save for some minimal disease. The patient will see me back in the office. Additional recommendations are made. Prognosis is guarded. Time with Patient: Less than 30
--- NOTE | 2017-03-27 09:12 | P.DS ---
Providers Date of admission: 03/09/17 20:26 Expected date of discharge: 03/16/17 Attending physician: Ford Altman Consults: 03/09/17 20:22 Consult Physician Urgent Consulting Provider: Wilmer Campo Consult Reason/Comments: known Do you want consulting provider notified?: Yes Consult Physician Urgent Consulting Provider: Opal Contreras Consult Reason/Comments: nstemi Do you want consulting provider notified?: Yes Primary care physician: Ford Altman Hospital Course: This 76-year-old gentleman was admitted to the hospital with complaints of shortness of breath. He also had a temperature 102.6. Noted to have bilateral pneumonia on chest x-ray. He does have underlying history of COPD and diabetes mellitus. The patient's troponins are borderline elevated at the time of admission he had no symptoms to suggest myocardial infarction however his subsequent enzymes went up significantly. The patient in view of this was anticoagulated with heparin and monitored cardiac monitoring. Patient treated with antibiotics area patient's temperature defervesced his respiratory status improved. He was seen by pulmonary as well. The patient also was noted to be anemic and has evidence of iron deficiency anemia with no evidence of any active bleeding. He has had a previous history of carcinoma of the colon with no evidence of recurrence. Patient's hemoglobin was down to about 7.5 at discharge. He was given IV infusion of iron. Patient has history of diabetes mellitus. His sister had combination of autonomic and peripheral neuropathy. The patient did have elevated blood sugars due to the use of steroids. He is treated with additional insulin. He did have one episode of hypoglycemia. The patient respiratory status stabilized. He does have a history of chronic respiratory failure oxygen dependent for hypoxia. The patient also developed acute on chronic renal failure of unclear etiology. The patient's renal status improved and subsequently he did undergo cardiac catheterization. Her cardiac cath is noted to have mild to moderate blockages with significant calcifications of the coronary arteries. He is advised medical management. Had a long discussion with the patient regarding his obesity, need to be dietary compliant and lose weight. He also has diabetes mellitus and recommended adequate control of his blood sugars as well as hypertension and lipids. The patient's status was also discussed with the family. Patient at the time of discharge is stable. As mentioned above and was seen by pulmonary and cardiology. He'll follow up in the outpatient. Final diagnosis to include 1. Acute on chronic respiratory failure 2. Bilateral pneumonia 3. COPD 4. Hypertension 5. Diabetes with complication of neuropathy 6. Acute renal failure 7. Morbid obesity 8. Subendocardial myocardial infarction 9. [id number] occlusion of coronary arteries with atherosclerosis 10. Anemia of iron deficiency secondary to chronic blood loss 11. History of carcinoma of the colon Patient Condition at Discharge: Serious Plan - Discharge Summary New Discharge Prescriptions: New Metoprolol Tartrate [Lopressor] 25 mg PO BID #100 tab Nitroglycerin Sl Tabs [Nitrostat] 0.4 mg SUBLINGUAL Q5M PRN #100 tab PRN Reason: Chest Pain predniSONE 5 mg PO DIRECTED #30 tab Sertraline [Zoloft] 50 mg PO HS tab Cefuroxime Axetil [Ceftin] 500 mg PO BID #10 tab Continue Insulin NPH Hum/Reg Insulin Hm [NovoLIN 70-30 100 UNIT/ML VIAL] 40 units SQ BID Ipratropium-Albuterol Nebulize [Duoneb 0.5 mg-3 mg/3 ml Soln] 3 ml INHALATION RT-QID HYDROcodone/APAP 7.5-325MG [[place] 7.5-325] 1 tab PO TID Atorvastatin Calcium [Lipitor] 20 mg PO HS Aspirin EC [Ecotrin Low Dose] 81 mg PO DAILY amLODIPine [Norvasc] 5 mg PO DAILY Gabapentin [Neurontin] 300 mg PO TID Budesonide/Formoterol Fumarate [Symbicort 160-4.5 Mcg Inhaler] 2 puff INHALATION RT-BID Sertraline [Zoloft] 100 mg PO DAILY Cholecalciferol (Vitamin D3) [Vitamin D3] 2,000 unit PO DAILY Fludrocortisone [Florinef] 0.1 mg PO DAILY Discharge Medication List Insulin NPH Hum/Reg Insulin Hm [NovoLIN 70-30 100 UNIT/ML VIAL] 40 units SQ BID 08/09/14 [History] Ipratropium-Albuterol Nebulize [Duoneb 0.5 mg-3 mg/3 ml Soln] 3 ml INHALATION RT -QID 08/09/14 [History] Atorvastatin Calcium [Lipitor] 20 mg PO HS 05/19/16 [History] HYDROcodone/APAP 7.5-325MG [[place] 7.5-325] 1 tab PO TID 05/19/16 [History] Aspirin EC [Ecotrin Low Dose] 81 mg PO DAILY 08/22/16 [History] Gabapentin [Neurontin] 300 mg PO TID 10/28/16 [History] amLODIPine [Norvasc] 5 mg PO DAILY 10/28/16 [History] Budesonide/Formoterol Fumarate [Symbicort 160-4.5 Mcg Inhaler] 2 puff INHALATION RT-BID 03/09/17 [History] Cholecalciferol (Vitamin D3) [Vitamin D3] 2,000 unit PO DAILY 03/10/17 [History] Fludrocortisone [Florinef] 0.1 mg PO DAILY 03/10/17 [History] Sertraline [Zoloft] 100 mg PO DAILY 03/10/17 [History] Cefuroxime Axetil [Ceftin] 500 mg PO BID #10 tab 03/16/17 [Rx] Metoprolol Tartrate [Lopressor] 25 mg PO BID #100 tab 03/16/17 [Rx] Nitroglycerin Sl Tabs [Nitrostat] 0.4 mg SUBLINGUAL Q5M PRN #100 tab 03/16/17 [ Rx] Sertraline [Zoloft] 50 mg PO HS tab 03/16/17 [Rx] predniSONE 5 mg PO DIRECTED #30 tab 03/16/17 [Rx] Follow up Appointment(s)/Referral(s): Ford Altman MD [Primary Care Provider] - 03/18/17 11:00 am Francisco Meneses MD [STAFF PHYSICIAN] - 03/24/17 4:00 pm Ambulatory/Diagnostic Orders: Basic Metabolic Panel [LAB.AMB] Time Frame: 03/21/17, Location: Determined By Patient Patient Instructions/Handouts: *Surgery [facility] - After Heart Catheterization - [employer] Instructions, Left Heart Catheterization (DC) Discharge Disposition: HOME SELF-CARE
== END 2017-03-16 13:36 | disposition home or self-care (01) | DRG 280 ==
LOC: EC 17:12 → 6SEL 20:26
PROVIDERS: ADMIT Internal Medicine; ATTEND Internal Medicine
PROC: B211YZZ Fluoroscopy of Multiple Coronary Arteries using Other Contrast (ICD-10-PCS; 2017-03-15)
PROC: 4A023N7 Measurement of Cardiac Sampling and Pressure, Left Heart, Percutaneous Approach (ICD-10-PCS; principal; 2017-03-15 09:00)
DX: I21.4 Non-ST elevation (NSTEMI) myocardial infarction (principal); J96.21 Acute and chronic respiratory failure with hypoxia; J18.9 Pneumonia, unspecified organism; I50.33 Acute on chronic diastolic (congestive) heart failure; N17.9 Acute kidney failure, unspecified; I13.0 Hypertensive heart and chronic kidney disease with heart failure and stage 1 through stage 4 chronic kidney disease, or unspecified chronic kidney disease; E11.42 Type 2 diabetes mellitus with diabetic polyneuropathy; E11.22 Type 2 diabetes mellitus with diabetic chronic kidney disease; J44.0 Chronic obstructive pulmonary disease with (acute) lower respiratory infection; J44.1 Chronic obstructive pulmonary disease with (acute) exacerbation; E11.43 Type 2 diabetes mellitus with diabetic autonomic (poly)neuropathy; E11.649 Type 2 diabetes mellitus with hypoglycemia without coma; Z99.81 Dependence on supplemental oxygen; E66.01 Morbid (severe) obesity due to excess calories; E11.319 Type 2 diabetes mellitus with unspecified diabetic retinopathy without macular edema; E11.65 Type 2 diabetes mellitus with hyperglycemia; D50.0 Iron deficiency anemia secondary to blood loss (chronic); K21.9 Gastro-esophageal reflux disease without esophagitis; I25.10 Atherosclerotic heart disease of native coronary artery without angina pectoris; E78.5 Hyperlipidemia, unspecified; N40.0 Benign prostatic hyperplasia without lower urinary tract symptoms; H40.9 Unspecified glaucoma; N18.9 Chronic kidney disease, unspecified; G47.33 Obstructive sleep apnea (adult) (pediatric); F32.9 Major depressive disorder, single episode, unspecified; F41.9 Anxiety disorder, unspecified; G89.29 Other chronic pain; M54.9 Dorsalgia, unspecified; M19.91 Primary osteoarthritis, unspecified site; M48.00 Spinal stenosis, site unspecified; Z79.82 Long term (current) use of aspirin; Z79.51 Long term (current) use of inhaled steroids; Z79.4 Long term (current) use of insulin; Z79.899 Other long term (current) drug therapy; Z87.891 Personal history of nicotine dependence; Z98.42 Cataract extraction status, left eye; Z98.41 Cataract extraction status, right eye; Z91.19 Patient's noncompliance with other medical treatment and regimen; Z85.038 Personal history of other malignant neoplasm of large intestine; Z90.49 Acquired absence of other specified parts of digestive tract; Z82.49 Family history of ischemic heart disease and other diseases of the circulatory system; Z88.2 Allergy status to sulfonamides
CPT/HCPCS: 36415; 71010; 71020; 80048; 80053; 80061; 82550; 82553; 82728; 83540; 83550; 83605; 83735; 83880; 84132; 84484; 85025; 85027; 85045; 85049; 85610; 85730; 87040; 87070; 87205; 90686; 93005; 93306; 93458; 94640; 94644; 94660; 94760; 96365; 96366; 96375; 99213; 99291

== ENCOUNTER 2017-04-04 15:35 | Inpatient (IN) | payer MEDICARE, OTHER ==
[2017-04-04] MEDS ORDERED: methylPREDNISolone SOD SUCCI 125 MG/2 ML VIAL IV STA (15:42)
[2017-04-04] MEDS ORDERED: IPRATROPIUM-ALBUTEROL 3 ML NEB INHALATION STA (15:42)
--- NOTE | 2017-04-04 15:45 | ED ---
General Adult HPI - General Stated complaint: DENNYS Time Seen by Provider: 04/04/17 15:42 Source: patient, EMS, RN notes reviewed Mode of arrival: EMS Limitations: no limitations - History of Present Illness Initial comments: Patient is a pleasant 76-year-old male presenting to the emergency department with difficulty in breathing. Onset of symptoms was last day or 2, worsening. Patient has taken 3 nebulizer treatments today without improvement. Patient has occasional dry cough. Patient was just discharged from the hospital less than 2 weeks ago with double pneumonia. No fevers at this time. Patient does have a history of similar symptoms previously with COPD. - Related Data Home Medications Medication Instructions Recorded Confirmed Ipratropium-Albuterol Nebulize 3 ml INHALATION RT-QID 08/09/14 04/04/17 [Duoneb 0.5 mg-3 mg/3 ml Soln] Atorvastatin Calcium [Lipitor] 20 mg PO HS 05/19/16 04/04/17 HYDROcodone/APAP 7.5-325MG [[place] 1 tab PO TID 05/19/16 04/04/17 7.5-325] Aspirin EC [Ecotrin Low Dose] 81 mg PO DAILY 08/22/16 04/04/17 Gabapentin [Neurontin] 300 mg PO TID 10/28/16 04/04/17 Budesonide/Formoterol Fumarate 2 puff INHALATION RT-BID 03/09/17 04/04/17 [Symbicort 160-4.5 Mcg Inhaler] Cholecalciferol (Vitamin D3) 2,000 unit PO DAILY 03/10/17 04/04/17 [Vitamin D3] Fludrocortisone [Florinef] 0.1 mg PO DAILY 03/10/17 04/04/17 Sertraline [Zoloft] 100 mg PO DAILY 03/10/17 04/04/17 Insulin Aspart [NovoLOG] See Protocol SQ AC-TID PRN 04/04/17 04/04/17 Insuln Asp Prt/Insulin Aspart 30 - 35 unit SQ BID 04/04/17 04/04/17 [NovoLOG MIX 70-30 VIAL] Previous Rx's Medication Instructions Recorded Metoprolol Tartrate [Lopressor] 25 mg PO BID #100 tab 03/16/17 Nitroglycerin Sl Tabs [Nitrostat] 0.4 mg SUBLINGUAL Q5M PRN #100 tab 03/16/17 Sertraline [Zoloft] 50 mg PO HS tab 03/16/17 Allergies Allergy/AdvReac Type Severity Reaction Status Date / Time sulfamethoxazole Allergy RAISES Verified 04/04/17 16:27 [From Bactrim] POTASSIUM trimethoprim [From Bactrim] Allergy RAISES Verified 04/04/17 16:27 POTASSIUM Review of Systems ROS Statement: Those systems with pertinent positive or pertinent negative responses have been documented in the HPI. ROS Other: All systems not noted in ROS Statement are negative. Constitutional: Denies: fever Eyes: Denies: eye pain ENT: Denies: ear pain Respiratory: Reports: cough, dyspnea Cardiovascular: Denies: chest pain Endocrine: Reports: fatigue Gastrointestinal: Denies: abdominal pain Genitourinary: Denies: dysuria Musculoskeletal: Denies: back pain Skin: Denies: rash Neurological: Denies: weakness Past Medical History Past Medical History: Cancer, Chest Pain / Angina, COPD, Diabetes Mellitus, Hyperlipidemia, Hypertension, Pneumonia, Prostate Disorder Additional Past Medical History / Comment(s): COPD, hypertension, hyperlipidemia , diabetes mellitus, BPH, peripheral neuropathy, glaucoma, retinal disease/ detachment/retinopathy, colon cancer with a previous resection in 2005, spinal stenosis with degenerative disc disease, recent hospitalization for respiratory complications that occurred in May 2016, Obesity, chronic hypoxic respiratory failre History of Any Multi-Drug Resistant Organisms: None Reported Past Surgical History: Appendectomy, Bowel Resection Additional Past Surgical History / Comment(s): I'll resection for colon cancer in 2005, TURP, previous colostomy with subsequent reversal due to complications of peritonitis following bowel surgery, cataracts surgery in both eyes, appendectomy Past Anesthesia/Blood Transfusion Reactions: No Reported Reaction Past Psychological History: Anxiety, Depression Smoking Status: Former smoker Past Alcohol Use History: Occasional Additional Past Alcohol Use History / Comment(s): quit smoking in 1982 smoked 3 ppd x 30 years Past Drug Use History: None Reported - Past Family History Father Family Medical History: Unable to Obtain Mother Family Medical History: Cancer Additional Family Medical History / Comment(s): breast cancer, heart problems General Exam Limitations: no limitations General appearance: alert, in distress Head exam: Present: atraumatic Eye exam: Present: normal appearance, PERRL ENT exam: Present: normal oropharynx Neck exam: Present: normal inspection Respiratory exam: Present: respiratory distress, decreased breath sounds Cardiovascular Exam: Present: regular rate, normal rhythm GI/Abdominal exam: Present: soft. Absent: tenderness Extremities exam: Present: normal inspection. Absent: pedal edema, calf tenderness Neurological exam: Present: alert Psychiatric exam: Present: normal affect, normal mood Skin exam: Present: normal color Course Vital Signs 04/04/17 04/04/17 04/04/17 15:40 16:00 16:09 Temperature 97.9 F Pulse Rate 107 H 90 92 Respiratory 32 H Rate Blood Pressure 207/88 O2 Sat by Pulse 100 Oximetry 04/04/17 16:12 Temperature Pulse Rate 90 Respiratory 17 Rate Blood Pressure 172/72 O2 Sat by Pulse 100 Oximetry EKG Findings - EKG Comments: EKG Findings:: Normal sinus rhythm 92. NM 180. QRS 86. QT 358. QTC 442. Normal axis. Normal QRS. Nonspecific ST-T. Medical Decision Making - Medical Decision Making Patient reexamined and significantly improved with BiPAP. Patient updated on results and plan. Case was discussed with Dr. Morrow, who will consult on his patient. Dr. Altman has been paged for admission. - Lab Data Result diagrams: 04/04/17 15:58 04/04/17 15:58 Lab Results 04/04/17 04/04/17 04/04/17 Range/Units 15:58 15:58 15:58 WBC 7.4 (3.8-10.6) k/uL RBC 3.07 L (4.30-5.90) m/uL Hgb 8.1 L (13.0-17.5) gm/dL Hct 27.8 L (39.0-53.0) % MCV 90.5 (80.0-100.0) fL MCH 26.4 (25.0-35.0) pg MCHC 29.2 L (31.0-37.0) g/dL RDW 16.6 H (11.5-15.5) % Plt Count 201 (150-450) k/uL Neutrophils % 85 % Lymphocytes % 6 % Monocytes % 6 % Eosinophils % 1 % Basophils % 0 % Neutrophils # 6.3 (1.3-7.7) k/uL Lymphocytes # 0.5 L (1.0-4.8) k/uL Monocytes # 0.5 (0-1.0) k/uL Eosinophils # 0.1 (0-0.7) k/uL Basophils # 0.0 (0-0.2) k/uL Hypochromasia Marked Anisocytosis Slight PT (9.0-12.0) sec INR (<1.2) APTT (22.0-30.0) sec Sodium 140 (137-145) mmol/L Potassium 4.9 (3.5-5.1) mmol/L Chloride 104 (98-107) mmol/L Carbon Dioxide 28 (22-30) mmol/L Anion Gap 8 mmol/L BUN 25 H (9-20) mg/dL Creatinine 1.08 (0.66-1.25) mg/dL Est GFR (MDRD) Af Amer >60 (>60 ml/min/1.73 sqM) Est GFR (MDRD) Non-Af >60 (>60 ml/min/1.73 sqM) Glucose 157 H (74-99) mg/dL Calcium 8.8 (8.4-10.2) mg/dL Total Bilirubin 0.7 (0.2-1.3) mg/dL AST 40 (17-59) U/L ALT 56 (21-72) U/L Alkaline Phosphatase 87 (38-126) U/L Total Creatine Kinase 93 (55-170) U/L CK-MB (CK-2) 3.2 H* (0.0-2.4) ng/mL CK-MB (CK-2) Rel Index 3.4 Troponin I 0.040 H* (0.000-0.034) ng/mL NT-Pro-B Natriuret Pep pg/mL Total Protein 6.1 L (6.3-8.2) g/dL Albumin 3.4 L (3.5-5.0) g/dL 04/04/17 04/04/17 Range/Units 15:58 15:58 WBC (3.8-10.6) k/uL RBC (4.30-5.90) m/uL Hgb (13.0-17.5) gm/dL Hct (39.0-53.0) % MCV (80.0-100.0) fL MCH (25.0-35.0) pg MCHC (31.0-37.0) g/dL RDW (11.5-15.5) % Plt Count (150-450) k/uL Neutrophils % % Lymphocytes % % Monocytes % % Eosinophils % % Basophils % % Neutrophils # (1.3-7.7) k/uL Lymphocytes # (1.0-4.8) k/uL Monocytes # (0-1.0) k/uL Eosinophils # (0-0.7) k/uL Basophils # (0-0.2) k/uL Hypochromasia Anisocytosis PT 10.3 (9.0-12.0) sec INR 1.0 (<1.2) APTT 23.3 (22.0-30.0) sec Sodium (137-145) mmol/L Potassium (3.5-5.1) mmol/L Chloride (98-107) mmol/L Carbon Dioxide (22-30) mmol/L Anion Gap mmol/L BUN (9-20) mg/dL Creatinine (0.66-1.25) mg/dL Est GFR (MDRD) Af Amer (>60 ml/min/1.73 sqM) Est GFR (MDRD) Non-Af (>60 ml/min/1.73 sqM) Glucose (74-99) mg/dL Calcium (8.4-10.2) mg/dL Total Bilirubin (0.2-1.3) mg/dL AST (17-59) U/L ALT (21-72) U/L Alkaline Phosphatase (38-126) U/L Total Creatine Kinase (55-170) U/L CK-MB (CK-2) (0.0-2.4) ng/mL CK-MB (CK-2) Rel Index Troponin I (0.000-0.034) ng/mL NT-Pro-B Natriuret Pep 3750 pg/mL Total Protein (6.3-8.2) g/dL Albumin (3.5-5.0) g/dL - Radiology Data Radiology results: image reviewed (Chest x-ray shows suspected CHF. Vascular congestion and effusions.) Critical Care Time Critical Care Time: Yes Total Critical Care Time: 32 Disposition Clinical Impression: Acute exacerbation of chronic obstructive airways disease, Acute respiratory failure Disposition: ADMITTED IP TO THIS [facility] Condition: Serious Referrals: Ford Altman MD [Primary Care Provider] - 1-2 days Decision Time: 17:04
[2017-04-04 16:14] LABS: Anisocytosis Slight; Basophils % (A) 0 %; CH 26.3; CHCM 29.2; Eosinophils # (A) 0.1 k/uL (0-0.7); Eosinophils % (A) 1 %; HCT 27.8 % (39.0-53.0); HDW 2.85; HGB 8.1 gm/dL (13.0-17.5); Hypochromasia Marked; Luc # (Auto) 0.12; Luc % (Auto) 2; Lymphocytes # (A) 0.5 k/uL (1.0-4.8); Lymphocytes % (A) 6 %; MCH 26.4 pg (25.0-35.0); MCHC 29.2 g/dL (31.0-37.0); MCV 90.5 fL (80.0-100.0); Mean Platelet Volume 7.4; Monocytes # (A) 0.5 k/uL (0-1.0); Monocytes % (A) 6 %; Neutrophils # (A) 6.3 k/uL (1.3-7.7); Neutrophils % (A) 85 %; RBC 3.07 m/uL (4.30-5.90); RDW 16.6 % (11.5-15.5); WBC 7.4 k/uL (3.8-10.6); WBC (Perox) 7.24
[2017-04-04 16:25] LABS: Partial Thromboplastin Time 23.3 sec (22.0-30.0); Prothrombin Time 10.3 sec (9.0-12.0)
[2017-04-04 16:27] LABS: ALT 56 U/L (21-72); AST 40 U/L (17-59); Alkaline Phosphatase 87 U/L (38-126); Anion Gap 8 mmol/L; Blood Urea Nitrogen 25 mg/dL (9-20); Calcium 8.8 mg/dL (8.4-10.2); Carbon Dioxide 28 mmol/L (22-30); Chloride 104 mmol/L (98-107); Glucose 157 mg/dL (74-99); Non-African American GFR(MDRD) >60 (>60 ml/min/1.73 sqM); Potassium 4.9 mmol/L (3.5-5.1); Sodium 140 mmol/L (137-145); Total Bilirubin 0.7 mg/dL (0.2-1.3); Total Protein 6.1 g/dL (6.3-8.2)
--- NOTE | 2017-04-04 16:29 | XR ---
EXAMINATION TYPE: XR chest 1V portable DATE OF EXAM: 04/04/2017 COMPARISON: Chest x-ray March 16, 2017 HISTORY: COPD with shortness of breath TECHNIQUE: Single AP portable frontal upright view of the chest is obtained. FINDINGS: There is cardiomegaly identified. There is central vascular congestion seen. There are sm all to moderate-sized bilateral pleural effusions, left greater than right. There is associated bibas ilar atelectasis and/or infiltrate. The osseous structures are demineralized. IMPRESSION: Suspect CHF exacerbation as there is cardiomegaly with central vascular congestion and s mall to moderate-sized left greater than right pleural effusions, correlate clinically. Associated le ft greater than right bibasilar atelectasis and/or infiltrate is noted. Findings more prominent than prior.
[2017-04-04 16:54] LABS: Creatine Kinase MB 3.2 ng/mL (0.0-2.4)
[2017-04-04 16:55] LABS: Troponin I 0.04 ng/mL (0.000-0.034)
[2017-04-04] MEDS ORDERED: IPRATROPIUM-ALBUTEROL 3 ML NEB INHALATION PRN (17:05)
[2017-04-04] MEDS ORDERED: FUROSEMIDE 10 MG/ML 4 ML VIAL IV STA (17:09)
[2017-04-04] MEDS ORDERED: NITROGLYCERIN SL TABS 0.4 MG TAB SUBLINGUAL PRN (18:20)
[2017-04-04 19:15] LABS: Glucose,Whole Blood 218 mg/dL (75-99)
[2017-04-04] MEDS ORDERED: IPRATROPIUM-ALBUTEROL 3 ML NEB INHALATION SCH (20:00)
[2017-04-04] MEDS: IPRATROPIUM-ALBUTEROL 3 ML NEB INHALATION SCH (20:21)
[2017-04-04] MEDS: SYMBICORT 160-4.5 MCG INHALER INHALATION SCH (20:22)
[2017-04-04] MEDS ORDERED: methylPREDNISolone SOD SUCCI 125 MG/2 ML VIAL IV SCH ×3 (21:00→23:00)
[2017-04-04] MEDS: METOPROLOL TARTRATE 25 MG TAB PO SCH (21:02)
[2017-04-04] MEDS: SERTRALINE 50 MG TAB PO SCH (21:02)
[2017-04-04] MEDS: FUROSEMIDE 10 MG/ML 4 ML VIAL IV SCH (21:02)
[2017-04-04] MEDS: GABAPENTIN 300 MG CAP PO SCH (21:02)
[2017-04-04] MEDS: ATORVASTATIN 20 MG TAB PO SCH (21:02)
[2017-04-04] MEDS: HYDROcodone/APAP 7.5-325MG 1 EACH TAB PO SCH (21:03)
[2017-04-04 21:10] LABS: Glucose,Whole Blood 264 mg/dL (75-99)
[2017-04-04] MEDS: INSULIN LISPRO (humaLOG) 300 UNIT/3 ML VIAL SQ SCH (22:13)
[2017-04-04] MEDS: HEPARIN SODIUM,PORCINE 5,000 UNIT/ML 1 ML VIAL SQ SCH (23:10)
--- NOTE | 2017-04-05 06:03 | HP ---
HISTORY AND PHYSICAL CHIEF COMPLAINT: Shortness of breath. HISTORY OF PRESENT ILLNESS: This 76-year-old gentleman brought in the emergency room by ambulance because of markedly increased short of breath. The patient says for the past couple days, he has been having some progressive dyspnea on exertion. No shortness of breath at rest. However, today the breathing got worse and in view of this patient presents to the emergency room. He has had a previous hospitalization here about 2 weeks ago. He was discharged on 03/16/2017 with exacerbation of COPD and possible subendocardial AK. The patient noted to have adequate left ventricular function. He does have symptoms, however, suggestive of possible CHF. The patient denied any symptoms of shortness of breath sitting around. His symptoms only are mostly with activity and they started 2 days prior. Today, his breathing got worse even in sitting. He denied any chest pain. PAST MEDICAL HISTORY: Past medical history is significant for COPD. The patient also has a history of recent pneumonia, also history of coronary artery disease with generalized diffuse coronary atherosclerosis with no significant tight lesions. The patient has adequate left ventricular function. He does have history of diabetes mellitus, hypertension, obesity, remote history of carcinoma of the colon. The patient also at last visit noted to have anemia, iron deficiency; however, the patient's condition not been stable enough to undergo any GI evaluation at present. The patient was given iron supplements last visit. Past medical history as mentioned about diabetes mellitus, hypertension, COPD, coronary artery disease, obesity, peripheral neuropathy and autonomic neuropathy. No history of any CVA. Does have a history of peripheral neuropathy, PAST SURGICAL HISTORY: Significant for partial colon resection and TURP. Also has had some previous abdominal wall hernia repair. PERSONAL HISTORY: Ex-smoker. Alcohol none. ALLERGIES: Allergies to SULFA. Basically the SULFA caused him to have acute renal failure, nonoliguric. MEDICATIONS: Medications at present include; 1. Gabapentin mg t.i.d. 2. Aspirin 81 mg daily. 3. Zoloft 100 mg daily. 4. DuoNeb updrafts q.i.d. 5. Lamont 7.5/325 p.r.n. t.i.d. 6. Symbicort 160/4.5 two puffs b.i.d. 7. Norvasc 5 mg daily. 8. Lipitor 20 mg daily. 9. Novolin 70/30 40 units b.i.d. with some coverage with Novolin for elevated blood sugars for which he is on steroids. The patient used to be on enalapril, which has been on hold due to the renal status. VACCINATION HISTORY: The patient has had a Pneumovax. FAMILY MEDICAL HISTORY: Two daughters in good health. One has history of hypertension. SOCIAL HISTORY: Patient is , lives with his spouse. The spouse at present is in the hospital with some cellulitis apparently in the lower legs. PHYSICAL EXAMINATION: Elderly gentleman who appears to be at present stable, stabilized with use of BiPAP. Vital signs reveal a blood pressure of 186/70, pulse rate of 90, respirations of 24. HEENT: Normocephalic. Neck is supple. Pupils are reactive. Ears reveal no drainage. Oral cavity is dry. Patient wears upper and lower dentures. NECK: Difficult to assess for any JVD. No carotid bruits appreciated. CHEST EXAMINATION: Generalized decreased air flow. No wheezing or rhonchi appreciated. CARDIAC: Distant heart sounds, S1, S2, with no gallop. Systolic murmur 2/6 left sternal border. ABDOMEN: Protuberant, soft. Bowel sounds are active. Extremities reveal trace to 1+ edema bilateral lower legs. NEUROLOGICAL: Awake, alert, oriented x3 with well-coordinated movements in both upper and lower extremities. LABORATORY ASSESSMENT: EKG reveals no acute changes. Chest x-ray suggests CHF with bilateral small effusions. Hemoglobin is 8.1, white count 7.4, platelets 201,000. PT and PTT are normal. Electrolytes normal. BUN 25, creatinine 1.08. Glucose 157. CPK is normal. Troponin 0.040. BNP was 3750. Albumin 3.4. ASSESSMENT: 1. Acute respiratory failure. 2. Acute congestive cardiac failure secondary to diastolic dysfunction. 3. Chronic obstructive pulmonary disease with exacerbation. 4. Diabetes mellitus. 5. Obesity. 6. Anemia. 7. History of hypertension. 8. Diabetes mellitus with peripheral neuropathy. PLAN: The patient at present stable, stabilized with BiPAP. We will continue that for now. The patient will be given Lasix and see if his respirations and breathing improves with diuresis. The patient's condition discussed with the patient and his daughter. Prognosis remains guarded. MMODL / IJN: [id number] /
[2017-04-05 06:18] LABS: Glucose,Whole Blood 294 mg/dL (75-99)
[2017-04-05] MEDS: INSULIN LISPRO (humaLOG) 300 UNIT/3 ML VIAL SQ SCH ×4 (06:40→20:32)
[2017-04-05] MEDS: IPRATROPIUM-ALBUTEROL 3 ML NEB INHALATION SCH ×4 (08:10→20:37)
[2017-04-05] MEDS: SYMBICORT 160-4.5 MCG INHALER INHALATION SCH ×2 (08:10→20:36)
[2017-04-05] MEDS: HYDROcodone/APAP 7.5-325MG 1 EACH TAB PO SCH ×3 (08:46→21:16)
[2017-04-05] MEDS: INSULN ASP PRT/INSULIN ASPART 100 UNIT/ML 10 ML VIAL SQ SCH ×2 (08:46→17:20)
[2017-04-05] MEDS: HEPARIN SODIUM,PORCINE 5,000 UNIT/ML 1 ML VIAL SQ SCH ×3 (08:46→23:50)
[2017-04-05] MEDS: ASPIRIN 81 MG PO SCH (08:47)
[2017-04-05] MEDS: METOPROLOL TARTRATE 25 MG TAB PO SCH ×2 (08:47→20:33)
[2017-04-05] MEDS: SERTRALINE 100 MG TAB PO SCH (08:47)
[2017-04-05] MEDS: FUROSEMIDE 10 MG/ML 4 ML VIAL IV SCH ×2 (08:47→20:30)
[2017-04-05] MEDS: GABAPENTIN 300 MG CAP PO SCH ×3 (08:47→21:16)
[2017-04-05 09:14] LABS: Anion Gap 6 mmol/L; Blood Urea Nitrogen 34 mg/dL (9-20); Calcium 8.6 mg/dL (8.4-10.2); Carbon Dioxide 32 mmol/L (22-30); Chloride 99 mmol/L (98-107); Glucose 298 mg/dL (74-99); Non-African American GFR(MDRD) 59 (>60 ml/min/1.73 sqM); Potassium 4.5 mmol/L (3.5-5.1); Sodium 137 mmol/L (137-145)
--- NOTE | 2017-04-05 09:58 | P.CNPUL ---
History of Present Illness Consult date: 04/05/17 Reason for consult: dyspnea, hypoxemia, pleural effusion, abnormal CXR/CT, other Chief complaint: Shortness of breath History of present illness: Consult dated 04/05/2017 76-year-old male well-known to me. He sees Dr. Altman as his primary. He came in with 1 or 2 days of worsening difficulty breathing. He was using his nebulizer machine at home. Had a dry nonproductive cough. Not producing any phlegm. No fever no chills. Recently in the hospital with pneumonia and COPD exacerbation. Chest x-ray on this admission is consistent with heart failure. His BNP was 3750. He looks very very well today. He was on BiPAP for a period of time. The only thing that would improve this quickly would be CHF/fluid overload. Anyway he does look much improved and he was told by his primary physician that he might call in the morning. His is also in the hospital with cellulitis. Review of Systems A 12 point review of system is positive for shortness of breath. No chest pain or chest discomfort. No fever no chills. No phlegm production. No coughing up of blood. He did have some lower extremity edema as well. Past Medical History Past Medical History: Cancer, Chest Pain / Angina, COPD, Diabetes Mellitus, Hyperlipidemia, Hypertension, Pneumonia, Prostate Disorder Additional Past Medical History / Comment(s): COPD, hypertension, hyperlipidemia , diabetes mellitus, BPH, peripheral neuropathy, glaucoma, retinal disease/ detachment/retinopathy, colon cancer with a previous resection in 2005, spinal stenosis with degenerative disc disease, recent hospitalization for respiratory complications that occurred in May 2016, Obesity, chronic hypoxic respiratory failre History of Any Multi-Drug Resistant Organisms: None Reported Past Surgical History: Appendectomy, Bowel Resection Additional Past Surgical History / Comment(s): bowel resection for colon cancer in 2006, TURP, previous colostomy with subsequent reversal due to complications of peritonitis following bowel surgery, cataracts surgery in both eyes, appendectomy Past Anesthesia/Blood Transfusion Reactions: No Reported Reaction Smoking Status: Former smoker - Past Family History Father Family Medical History: Unable to Obtain Mother Family Medical History: Cancer Additional Family Medical History / Comment(s): breast cancer, heart problems Medications and Allergies Home Medications Medication Instructions Recorded Confirmed Type Ipratropium-Albuterol Nebulize 3 ml INHALATION RT-QID 08/09/14 04/04/17 History [Duoneb 0.5 mg-3 mg/3 ml Soln] Atorvastatin Calcium [Lipitor] 20 mg PO HS 05/19/16 04/04/17 History HYDROcodone/APAP 7.5-325MG [Elizabeth 1 tab PO TID 05/19/16 04/04/17 History 7.5-325] Aspirin EC [Ecotrin Low Dose] 81 mg PO DAILY 08/22/16 04/04/17 History Gabapentin [Neurontin] 300 mg PO TID 10/28/16 04/04/17 History Budesonide/Formoterol Fumarate 2 puff INHALATION RT-BID 03/09/17 04/04/17 History [Symbicort 160-4.5 Mcg Inhaler] Cholecalciferol (Vitamin D3) 2,000 unit PO DAILY 03/10/17 04/04/17 History [Vitamin D3] Fludrocortisone [Florinef] 0.1 mg PO DAILY 03/10/17 04/04/17 History Sertraline [Zoloft] 100 mg PO DAILY 03/10/17 04/04/17 History Metoprolol Tartrate [Lopressor] 25 mg PO BID #100 tab 03/16/17 04/04/17 Rx Nitroglycerin Sl Tabs [Nitrostat] 0.4 mg SUBLINGUAL Q5M PRN #100 tab 03/16/17 Rx Sertraline [Zoloft] 50 mg PO HS tab 03/16/17 04/04/17 Rx Insulin Aspart [NovoLOG] See Protocol SQ AC-TID PRN 04/04/17 04/04/17 History Insuln Asp Prt/Insulin Aspart 30 - 35 unit SQ BID 04/04/17 04/04/17 History [NovoLOG MIX 70-30 VIAL] Allergies Allergy/AdvReac Type Severity Reaction Status Date / Time sulfamethoxazole Allergy RAISES Verified 04/04/17 16:27 [From Bactrim] POTASSIUM trimethoprim [From Bactrim] Allergy RAISES Verified 04/04/17 16:27 POTASSIUM Physical Exam Osteopathic Statement: *. No significant issues noted on an osteopathic structural exam other than those noted in the History and Physical/Consult. Vitals: Vital Signs Temp Pulse Pulse Resp BP BP Pulse Ox 04/05/17 08:25 96.7 F L 80 20 155/74 98 04/05/17 08:20 96 04/05/17 08:11 92 98 04/05/17 04:00 98.3 F 74 18 150/61 98 04/05/17 00:00 99.3 F 70 20 163/60 97 04/04/17 20:37 88 04/04/17 20:22 90 04/04/17 20:00 98.4 F 86 22 147/78 99 04/04/17 19:17 99.9 F H 107 H 22 164/79 92 L 04/04/17 18:00 98.3 F 92 26 H 176/86 99 04/04/17 17:15 89 23 179/74 99 04/04/17 16:12 90 17 172/72 100 04/04/17 16:09 92 04/04/17 16:00 90 04/04/17 15:40 97.9 F 107 H 32 H 207/88 100 Intake and Output 04/04/17 04/05/17 04/05/17 22:59 06:59 14:59 Output Total 575 1710 Balance -575 -1710 Output: Urine 575 1710 Other: # Voids 1 Weight 96.615 kg 104.3 kg No acute distress, oriented 3. HEENT examination is grossly unremarkable. Mucous membranes are moist. No oral lesions. Neck supple. Full range of motion. No adenopathy thyromegaly or neck vein distention. Cardiovascular examination reveals regular rhythm rate. S1-S2 normal. No S3 or S4. No discernible murmur noted. Lungs reveal few scattered crackles. No wheezes. A few scattered rhonchi. Breath sounds are equal bilaterally. Abdomen soft bowel sounds are heard. No masses or tenderness. Extremities are intact. No cyanosis or clubbing. Slight edema noted. Skin is without rash or lesion. Neurologic examination is brief but nonfocal. Results - Laboratory Findings CBC and BMP: 04/04/17 15:58 04/05/17 08:03 PT/INR, D-dimer PT 10.3 sec (9.0-12.0) 04/04/17 15:58 INR 1.0 (<1.2) 04/04/17 15:58 Abnormal lab findings: Abnormal Labs 04/04/17 04/04/17 04/04/17 15:58 15:58 15:58 RBC 3.07 L Hgb 8.1 L Hct 27.8 L MCHC 29.2 L RDW 16.6 H Lymphocytes # 0.5 L Carbon Dioxide BUN 25 H Glucose 157 H POC Glucose (mg/dL) CK-MB (CK-2) 3.2 H* Troponin I 0.040 H* Total Protein 6.1 L Albumin 3.4 L 04/04/17 04/04/17 04/05/17 19:05 21:08 06:16 RBC Hgb Hct MCHC RDW Lymphocytes # Carbon Dioxide BUN Glucose POC Glucose (mg/dL) 218 H 264 H 294 H CK-MB (CK-2) Troponin I Total Protein Albumin 04/05/17 08:03 RBC Hgb Hct MCHC RDW Lymphocytes # Carbon Dioxide 32 H BUN 34 H Glucose 298 H POC Glucose (mg/dL) CK-MB (CK-2) Troponin I Total Protein Albumin - Diagnostic Findings Chest x-ray: image reviewed (Chest x-ray labs and medications are all reviewed.) Assessment and Plan (1) COPD (chronic obstructive pulmonary disease) Current Visit: Yes Status: Acute Code(s): J44.9 - CHRONIC OBSTRUCTIVE PULMONARY DISEASE, UNSPECIFIED SNOMED Code(s): 86104900 (2) Hyperlipidemia Current Visit: Yes Status: Acute Code(s): E78.5 - HYPERLIPIDEMIA, UNSPECIFIED SNOMED Code(s): 50378881 (3) Colon cancer Current Visit: Yes Status: Acute Code(s): C18.9 - MALIGNANT NEOPLASM OF COLON, UNSPECIFIED SNOMED Code(s): 110689277 (4) Acute respiratory failure Current Visit: Yes Status: Acute Code(s): J96.00 - ACUTE RESPIRATORY FAILURE , UNSP W HYPOXIA OR HYPERCAPNIA SNOMED Code(s): 14632211 (5) Congestive heart failure Current Visit: No Status: Acute Code(s): I50.9 - HEART FAILURE, UNSPECIFIED SNOMED Code(s): 67738966 (6) Diabetes Current Visit: No Status: Acute Code(s): E11.9 - TYPE 2 DIABETES MELLITUS WITHOUT COMPLICATIONS SNOMED Code(s): 09150863 (7) Obesity Current Visit: No Status: Acute Code(s): E66.9 - OBESITY, UNSPECIFIED SNOMED Code(s): 832609400 Plan: Plan dated 04/05/2017 The patient looks much improved. In my opinion the only thing that would explain his rapid improvement would be that he had heart failure/fluid overload. His chest x-ray was consistent with that diagnosis. His N-terminal proBNP was elevated nearly 4000. He sitting up at the bedside. Looks back to baseline. He was told by by his primary physician that he may be discharged home tomorrow. His is currently also on the hospital with cellulitis. We counseled the patient importance of taking his medications properly weigh himself every day and making sure that he has a low salt diet. I believe he eats a lot of snack foods at home rich in salts. We'll continue to follow closely. Time with Patient: Greater than 30
[2017-04-05 12:02] LABS: Glucose,Whole Blood 151 mg/dL (75-99)
[2017-04-05] MEDS: CHOLECALCIFEROL 1,000 UNIT TAB PO SCH (12:18)
[2017-04-05 16:42] LABS: Glucose,Whole Blood 264 mg/dL (75-99)
[2017-04-05] MEDS: ATORVASTATIN 20 MG TAB PO SCH (20:30)
[2017-04-05] MEDS: SERTRALINE 50 MG TAB PO SCH (20:33)
[2017-04-05 21:03] LABS: Glucose,Whole Blood 252 mg/dL (75-99)
--- NOTE | 2017-04-06 06:53 | PN ---
PROGRESS NOTE CHIEF COMPLAINT: Re-evaluation. HISTORY OF PRESENT ILLNESS: This is a 76-year-old gentleman who was admitted to the hospital for shortness of breath. The patient has underlying history of COPD and was noted to have suggestion of congestive cardiac failure. The patient chest x-ray verifies that. The patient has elevated BNP. The patient is actually feeling much better with some diuresis. He still has some dyspnea. His cough is improved. From BiPAP, he has been down to 5 L of nasal cannula. The patient otherwise denies any other major symptoms of chest pain, palpitations. REVIEW OF SYSTEMS: NEURO: Denies any headaches dizziness. PSYCH: Some anxiety and depression. CARDIAC: No chest pain, angina, palpitations. RESPIRATORY: Has shortness of breath and cough as present symptoms. GI: No nausea, vomiting, abdominal pain, diarrhea. : No symptoms of dysuria, hematuria. Does have frequency. EXTREMITIES: Denies pain, edema. CONSTITUTIONAL: No fever, chills. PHYSICAL EXAMINATION: Vital signs revealed temperature 96.7, pulse 80, respirations 20, blood pressure 155/74, pulse ox 98% on 5 L. HEENT: Normocephalic. NECK: No JVD. CHEST EXAMINATION: Clear to auscultation with generalized decreased air flow. CARDIAC: Distant heart sounds, S1, S2 with no gallop. Systolic murmur 2/6 left sternal border. ABDOMEN: Protuberant, soft. Bowel sounds present. EXTREMITIES: Trace edema. NEUROLOGIC: Awake, alert, oriented with well-coordinated movements. LABORATORY ASSESSMENT: Electrolytes which reveal a CO2 content of 32, BUN 34, creatinine 1.2. Glucose 298. Calcium 8.6. ASSESSMENT: 1. Acute congestive cardiac failure secondary to diastolic dysfunction, improved. 2. Chronic obstructive pulmonary disease exacerbation. 3. Chronic respiratory failure secondary to hypoxia. 4. Obesity. 5. Diabetes mellitus with peripheral neuropathy. 6. Anemia, iron deficiency. PLAN: The patient is stable. Continue present medical regimen. Patient's condition discussed with the patient. Prognosis guarded. Potential discharge home tomorrow. Recheck chest x-ray in the morning. MMODL / IJN: [id number] /
[2017-04-06 07:22] LABS: Glucose,Whole Blood 96 mg/dL (75-99)
[2017-04-06] MEDS: INSULIN LISPRO (humaLOG) 300 UNIT/3 ML VIAL SQ SCH ×4 (07:42→21:12)
[2017-04-06] MEDS: INSULN ASP PRT/INSULIN ASPART 100 UNIT/ML 10 ML VIAL SQ SCH ×2 (07:49→17:42)
[2017-04-06] MEDS: IPRATROPIUM-ALBUTEROL 3 ML NEB INHALATION SCH ×4 (07:54→19:45)
[2017-04-06] MEDS: SYMBICORT 160-4.5 MCG INHALER INHALATION SCH ×2 (07:54→19:45)
[2017-04-06 08:22] LABS: Anisocytosis Slight; CH 26.1; CHCM 29.4; HCT 24.9 % (39.0-53.0); HDW 2.69; HGB 7.4 gm/dL (13.0-17.5); Hypochromasia Marked; MCH 26.4 pg (25.0-35.0); MCHC 29.7 g/dL (31.0-37.0); MCV 88.9 fL (80.0-100.0); Mean Platelet Volume 8.5; RDW 18.2 % (11.5-15.5); WBC 7.7 k/uL (3.8-10.6)
[2017-04-06] MEDS: HYDROcodone/APAP 7.5-325MG 1 EACH TAB PO SCH ×3 (08:29→23:50)
[2017-04-06] MEDS: FUROSEMIDE 10 MG/ML 4 ML VIAL IV SCH (08:29)
[2017-04-06] MEDS: ASPIRIN 81 MG PO SCH (08:29)
[2017-04-06] MEDS: METOPROLOL TARTRATE 25 MG TAB PO SCH ×2 (08:29→21:11)
[2017-04-06] MEDS: SERTRALINE 100 MG TAB PO SCH (08:29)
[2017-04-06] MEDS: GABAPENTIN 300 MG CAP PO SCH ×3 (08:29→21:11)
[2017-04-06] MEDS: HEPARIN SODIUM,PORCINE 5,000 UNIT/ML 1 ML VIAL SQ SCH ×2 (08:30→15:46)
[2017-04-06 08:33] LABS: Calcium 8.5 mg/dL (8.4-10.2); Potassium 4.2 mmol/L (3.5-5.1)
--- NOTE | 2017-04-06 10:49 | P.PN ---
Subjective Progress Note Date: 04/06/17 Principal diagnosis: Shortness of breath, bilateral pleural effusion, congestive heart failure, COPD exacerbation. 76-year-old male well-known to me. He sees Dr. Altman as his primary. He came in with 1 or 2 days of worsening difficulty breathing. He was using his nebulizer machine at home. Had a dry nonproductive cough. Not producing any phlegm. No fever no chills. Recently in the hospital with pneumonia and COPD exacerbation. Chest x-ray on this admission is consistent with heart failure. His BNP was 3750. He looks very very well today. He was on BiPAP for a period of time. The only thing that would improve this quickly would be CHF/fluid overload. Anyway he does look much improved and he was told by his primary physician that he might call in the morning. His is also in the hospital with cellulitis. On 04/06/2017 patient is seen in follow-up on medical surgical floor. He is sitting up on the edge of the bed in no acute distress. He does state that he desaturates to 84% on 4 L of oxygen with ambulation to the bathroom and it takes him several minutes to recover. He did not require BiPAP ventilator support last night, he continues to diurese well. His fluid balance is -1500 over last 24 hours, but his creatinine is up to 1.51 and B UN is up to 49. We will decrease the Lasix to 40 mg IV once a day. He would DuoNeb and Symbicort. Lung sounds are diminished bilaterally with a few rales at posterior bases. Chest x-ray from 04/06/[address] Moya and shows persistence of left pleural effusion with associated bibasilar atelectasis and central vascular congestion. Objective - Vital Signs Vital signs: Vital Signs Temp 96.5 F L 04/06/17 07:00 Pulse 76 04/06/17 08:05 Resp 16 04/06/17 07:00 BP 165/72 04/06/17 07:00 Pulse Ox 99 04/06/17 07:57 Intake & Output 04/05/17 04/06/17 04/06/17 18:59 06:59 18:59 Output Total 400 1100 Balance -400 -1100 Output: Urine 400 1100 Other: # Voids 1 - Exam No acute distress, oriented 3. HEENT examination is grossly unremarkable. Mucous membranes are moist. No oral lesions. Neck supple. Full range of motion. No adenopathy thyromegaly or neck vein distention. Cardiovascular examination reveals regular rhythm rate. S1-S2 normal. No S3 or S4. No discernible murmur noted. Lungs reveal few scattered crackles. No wheezes. A few scattered rhonchi. Breath sounds are equal bilaterally. Abdomen soft bowel sounds are heard. No masses or tenderness. Extremities are intact. No cyanosis or clubbing. Slight edema noted. Skin is without rash or lesion. Neurologic examination is brief but nonfocal. - Labs CBC & Chem 7: 04/06/17 07:25 04/06/17 07:25 Labs: Abnormal Lab Results - Last 24 Hours (Table) 04/05/17 04/05/17 04/05/17 Range/Units 11:36 16:41 20:26 RBC (4.30-5.90) m/uL Hgb (13.0-17.5) gm/dL Hct (39.0-53.0) % MCHC (31.0-37.0) g/dL RDW (11.5-15.5) % Carbon Dioxide (22-30) mmol/L BUN (9-20) mg/dL Creatinine (0.66-1.25) mg/dL POC Glucose (mg/dL) 151 H 264 H 252 H (75-99) mg/dL 04/06/17 04/06/17 Range/Units 07:25 07:25 RBC 2.80 L (4.30-5.90) m/uL Hgb 7.4 L (13.0-17.5) gm/dL Hct 24.9 L (39.0-53.0) % MCHC 29.7 L (31.0-37.0) g/dL RDW 18.2 H (11.5-15.5) % Carbon Dioxide 32 H (22-30) mmol/L BUN 49 H (9-20) mg/dL Creatinine 1.51 H (0.66-1.25) mg/dL POC Glucose (mg/dL) (75-99) mg/dL Assessment and Plan Plan: Assessment: #1. Acute on chronic hypoxic respiratory failure secondary to diastolic congestive heart failure #2. COPD , oxygen dependent #3. Obesity #5. Diabetes mellitus #6. Iron deficiency anemia Plan: Chest x-ray from 04/06/2017 shows persistence of central vascular congestion with left pleural effusion and atelectasis. Patient is maintaining negative balance, increasing while on Lasix. Did not require BiPAP support last night. Improving. We will decrease the IV Lasix to once a day in view of increasing creatinine of 1.51 today. Continue with nebulized treatments. We'll continue to follow with you. I performed a history & physical examination of the patient and discussed their management with my nurse practitioner, Brenda Armstrong. I reviewed the nurse practitioner's note and agree with the documented findings and plan of care. Lung sounds are diminished with a few bibasilar rales. Will decrease the Lasix to once a day related to rising creatinine. I attest to the documentation by the nurse practitioner
[2017-04-06 11:21] LABS: Glucose,Whole Blood 52 mg/dL (75-99)
--- NOTE | 2017-04-06 11:33 | XR ---
EXAMINATION TYPE: XR chest 2V DATE OF EXAM: 04/06/2017 COMPARISON: Prior chest x-ray 04/04/2017 HISTORY: Shortness of breath, COPD TECHNIQUE: Frontal and lateral views of the chest are obtained. FINDINGS: There is blunting of posterior costophrenic angles. Prominent lung volumes suggest underly ing COPD. Interstitium and central vascularity appear prominently. No evident pneumothorax. Heart is enlarged. IMPRESSION: Findings suggest pulmonary venous hypertension and interstitial edema in a patient with pre-existing COPD.
[2017-04-06 11:58] LABS: Glucose,Whole Blood 59 mg/dL (75-99)
[2017-04-06 11:58] LABS: Glucose,Whole Blood 48 mg/dL (75-99)
[2017-04-06 12:26] LABS: Glucose,Whole Blood 66 mg/dL (75-99)
[2017-04-06] MEDS: CHOLECALCIFEROL 1,000 UNIT TAB PO SCH (12:33)
[2017-04-06] MEDS: SODIUM FERRIC GLUCONAT-SUCROSE 125 MG in SODIUM CHLORIDE 0.9% 100 ML IVPB SCH (12:33)
[2017-04-06 13:03] LABS: Glucose,Whole Blood 61 mg/dL (75-99)
[2017-04-06 13:03] LABS: Glucose,Whole Blood 90 mg/dL (75-99)
[2017-04-06 14:43] LABS: Glucose,Whole Blood 176 mg/dL (75-99)
[2017-04-06 17:04] LABS: Glucose,Whole Blood 167 mg/dL (75-99)
[2017-04-06 21:07] LABS: Glucose,Whole Blood 53 mg/dL (75-99)
[2017-04-06 21:07] LABS: Glucose,Whole Blood 55 mg/dL (75-99)
[2017-04-06] MEDS: ATORVASTATIN 20 MG TAB PO SCH (21:11)
[2017-04-06] MEDS: SERTRALINE 50 MG TAB PO SCH (21:11)
[2017-04-06 22:01] LABS: Glucose,Whole Blood 63 mg/dL (75-99)
[2017-04-06 23:00] LABS: Glucose,Whole Blood 108 mg/dL (75-99)
[2017-04-07] MEDS: HEPARIN SODIUM,PORCINE 5,000 UNIT/ML 1 ML VIAL SQ SCH ×3 (03:41→16:36)
--- NOTE | 2017-04-07 04:41 | PN ---
PROGRESS NOTE ATTENDING PHYSICIAN: Dr. Joo Altman CHIEF COMPLAINT: Re-evaluation. HISTORY OF PRESENT ILLNESS: This 76-year-old gentleman was admitted to the hospital with shortness of breath. The patient has evidence suggestive of congestive cardiac failure. He has a history of diastolic dysfunction. He has history of coronary arthrosclerosis. The patient's condition is better today. He feels much improved. The patient's breathing is improved. He still has some dyspnea on exertion, but at rest is fairly comfortable. REVIEW OF SYSTEMS: NEURO: Denies any headaches, dizziness. PSYCH: Some anxiety. CARDIAC: Denies chest pain, angina, palpitations. RESPIRATORY: Chronic shortness of breath. GI: No nausea, vomiting, abdominal pain, diarrhea. : No symptoms hematuria. EXTREMITIES: No pain. Trace edema. CONSTITUTIONAL: No fever, chills. PHYSICAL EXAMINATION: Pleasant gentleman. No distress, is pleasant. Vital signs reveals temperature 96.5, pulse 57, respirations 16, blood pressure 165/72, pulse ox 100% on 4 L. HEENT: Normocephalic. NECK: No JVD. CHEST EXAMINATION: Generalized decreased air flow. CARDIAC: Distant sounds S1, S2 with no gallop. Systolic murmur 2/6 left sternal border. ABDOMEN: Obese, protuberant, soft. Bowel sounds are active. EXTREMITIES: Trace edema. NEUROLOGIC: Awake, alert, oriented with well-coordinated movements. LABORATORY ASSESSMENT: Chest x-ray which does not seem to have much different from yesterday. Electrolytes are normal. Blood sugars are normal range. Hemoglobin is 7.4. Electrolytes are normal. CO2 content , BUN 49, creatinine 1.51 with a GFR down to 45. ASSESSMENT: 1. Acute on chronic respiratory failure. 2. Acute congestive cardiac failure secondary to diastolic dysfunction. 3. Coronary arthrosclerosis. 4. Chronic obstructive pulmonary disease with exacerbation. 5. Diabetes mellitus. 6. Obesity. PLAN: Continue present medical regimen. The patient's condition discussed with the patient. Prognosis guarded. Potential discharge home tomorrow. The patient has been followed by Pulmonary. MMODL / IJN: [id number] /
[2017-04-07 07:16] LABS: Glucose,Whole Blood 69 mg/dL (75-99)
[2017-04-07] MEDS: INSULIN LISPRO (humaLOG) 300 UNIT/3 ML VIAL SQ SCH ×3 (07:19→18:03)
[2017-04-07] MEDS: INSULN ASP PRT/INSULIN ASPART 100 UNIT/ML 10 ML VIAL SQ SCH ×2 (07:20→18:07)
[2017-04-07 07:27] LABS: Glucose,Whole Blood 80 mg/dL (75-99)
[2017-04-07] MEDS: METOPROLOL TARTRATE 25 MG TAB PO SCH (08:10)
[2017-04-07] MEDS: HYDROcodone/APAP 7.5-325MG 1 EACH TAB PO SCH ×2 (08:10→16:36)
[2017-04-07] MEDS: SERTRALINE 100 MG TAB PO SCH (08:10)
[2017-04-07] MEDS: ASPIRIN 81 MG PO SCH (08:11)
[2017-04-07] MEDS: GABAPENTIN 300 MG CAP PO SCH ×2 (08:11→16:36)
[2017-04-07] MEDS: SYMBICORT 160-4.5 MCG INHALER INHALATION SCH (08:38)
[2017-04-07] MEDS: IPRATROPIUM-ALBUTEROL 3 ML NEB INHALATION SCH ×3 (08:38→17:18)
[2017-04-07] MEDS ORDERED: FUROSEMIDE 10 MG/ML 4 ML VIAL IV SCH (09:00)
[2017-04-07] MEDS ORDERED: FUROSEMIDE 40 MG TAB PO SCH (09:00)
[2017-04-07] MEDS: SODIUM FERRIC GLUCONAT-SUCROSE 125 MG in SODIUM CHLORIDE 0.9% 100 ML IVPB SCH (09:20)
[2017-04-07 10:06] LABS: Calcium 8.8 mg/dL (8.4-10.2); Potassium 4.7 mmol/L (3.5-5.1)
[2017-04-07 11:41] LABS: Glucose,Whole Blood 213 mg/dL (75-99)
--- NOTE | 2017-04-07 12:36 | P.PN ---
Subjective Progress Note Date: 04/07/17 Principal diagnosis: Shortness of breath, bilateral pleural effusion, congestive heart failure, COPD exacerbation. 76-year-old male well-known to me. He sees Dr. Altman as his primary. He came in with 1 or 2 days of worsening difficulty breathing. He was using his nebulizer machine at home. Had a dry nonproductive cough. Not producing any phlegm. No fever no chills. Recently in the hospital with pneumonia and COPD exacerbation. Chest x-ray on this admission is consistent with heart failure. His BNP was 3750. He looks very very well today. He was on BiPAP for a period of time. The only thing that would improve this quickly would be CHF/fluid overload. Anyway he does look much improved and he was told by his primary physician that he might call in the morning. His is also in the hospital with cellulitis. On 04/06/2017 patient is seen in follow-up on medical surgical floor. He is sitting up on the edge of the bed in no acute distress. He does state that he desaturates to 84% on 4 L of oxygen with ambulation to the bathroom and it takes him several minutes to recover. He did not require BiPAP ventilator support last night, he continues to diurese well. His fluid balance is -1500 over last 24 hours, but his creatinine is up to 1.51 and B UN is up to 49. We will decrease the Lasix to 40 mg IV once a day. He would DuoNeb and Symbicort. Lung sounds are diminished bilaterally with a few rales at posterior bases. Chest x-ray from 04/06/[address] Moya and shows persistence of left pleural effusion with associated bibasilar atelectasis and central vascular congestion. On 04/07/2017 patient is doing well. He continues to desat with ambulation, but recovers with rest. He is in -800 mL fluid balance over the last 24 hours. Lung sounds are diminished with a few crackles at the bases. Edema in his bilateral lower legs has significantly improved. He came to discharged from pulmonary standpoint, on Lasix 40 mg by mouth daily. Follow-up with Dr. Moya in 10 days Objective - Vital Signs Vital signs: Vital Signs Temp 96.7 F L 04/07/17 07:00 Pulse 72 04/07/17 12:22 Resp 18 04/07/17 07:00 BP 154/67 04/07/17 07:00 Pulse Ox 95 04/07/17 07:00 Intake & Output 04/06/17 04/07/17 04/07/17 18:59 06:59 18:59 Intake Total 1300 Output Total 675 400 800 Balance -675 900 -800 Weight 94.5 kg Intake: Oral 1300 Output: Urine 675 400 800 Other: Voiding Method Toilet Urinal Urinal # Voids 1 0 3 # Bowel Movements 0 0 1 - Exam No acute distress, oriented 3. HEENT examination is grossly unremarkable. Mucous membranes are moist. No oral lesions. Neck supple. Full range of motion. No adenopathy thyromegaly or neck vein distention. Cardiovascular examination reveals regular rhythm rate. S1-S2 normal. No S3 or S4. No discernible murmur noted. Lungs reveal few scattered crackles. No wheezes. Breath sounds are equal bilaterally. Abdomen soft bowel sounds are heard. No masses or tenderness. Extremities are intact. No cyanosis or clubbing. Slight edema noted. Skin is without rash or lesion. Neurologic examination is brief but nonfocal. - Labs CBC & Chem 7: 04/06/17 07:25 04/07/17 08:12 Labs: Abnormal Lab Results - Last 24 Hours (Table) 04/06/17 04/06/17 04/06/17 Range/Units 12:19 12:36 14:39 Carbon Dioxide (22-30) mmol/L BUN (9-20) mg/dL Creatinine (0.66-1.25) mg/dL Glucose (74-99) mg/dL POC Glucose (mg/dL) 66 L 61 L 176 H (75-99) mg/dL 04/06/17 04/06/17 04/06/17 Range/Units 17:03 20:45 20:46 Carbon Dioxide (22-30) mmol/L BUN (9-20) mg/dL Creatinine (0.66-1.25) mg/dL Glucose (74-99) mg/dL POC Glucose (mg/dL) 167 H 53 L 55 L (75-99) mg/dL 04/06/17 04/06/17 04/07/17 Range/Units 21:44 22:57 07:05 Carbon Dioxide (22-30) mmol/L BUN (9-20) mg/dL Creatinine (0.66-1.25) mg/dL Glucose (74-99) mg/dL POC Glucose (mg/dL) 63 L 108 H 69 L (75-99) mg/dL 04/07/17 04/07/17 Range/Units 08:12 11:36 Carbon Dioxide 36 H (22-30) mmol/L BUN 48 H (9-20) mg/dL Creatinine 1.48 H (0.66-1.25) mg/dL Glucose 117 H (74-99) mg/dL POC Glucose (mg/dL) 213 H (75-99) mg/dL Assessment and Plan Plan: Assessment: #1. Acute on chronic hypoxic respiratory failure secondary to diastolic congestive heart failure #2. COPD , oxygen dependent #3. Obesity #5. Diabetes mellitus #6. Iron deficiency anemia Plan: Chest x-ray from 04/06/2017 shows persistence of central vascular congestion with left pleural effusion and atelectasis. Patient is maintaining negative balance, creatinine is improved at 1.48 today, down from 1.51 from 04/06/2017. Did not require BiPAP support last night. He is stable for discharge from pulmonary standpoint on Lasix 40 mg by mouth daily, and his home nebulizers and treatments. Follow-up with Dr. Moya in the office in 10 days. I performed a history & physical examination of the patient and discussed their management with my nurse practitioner, Brenda Armstrong. I reviewed the nurse practitioner's note and agree with the documented findings and plan of care. Lung sounds are diminished with a few bibasilar rales. Patient is clear for discharge from pulmonary standpoint on Lasix 40 daily by mouth. I attest to the documentation by the nurse practitioner
[2017-04-07] MEDS: CHOLECALCIFEROL 1,000 UNIT TAB PO SCH (12:43)
[2017-04-07 15:54] VITALS: BP 167/71; RESP 16; TEMP 97.2
[2017-04-07 17:00] LABS: Glucose,Whole Blood 88 mg/dL (75-99)
[2017-04-07 17:21] VITALS: PULSE 76
--- NOTE | 2017-04-08 06:09 | PN ---
PROGRESS NOTE CHIEF COMPLAINT: Re-evaluation. HISTORY OF PRESENT ILLNESS: A 76-year-old gentleman who was admitted to the hospital because of shortness of breath. The patient is noted to have evidence suggestive of congestive cardiac failure. He has been diuresed. His breathing has improved significantly. The patient has history of coronary atherosclerosis. He has had adequate left ventricular function. He has congestive cardiac failure felt to be secondary to diastolic dysfunction. The patient has improved significantly with diuresis. However, his renal function has somewhat declined. The patient is adequately urinating. He has no other associated symptoms. REVIEW OF SYSTEMS: NEURO: Denies any headaches, dizziness. PSYCH: No anxiety. CARDIAC: No chest pain, angina, palpitation. RESPIRATORY: No shortness of breath, cough, hemoptysis. GI: No nausea, vomiting, abdominal pain, diarrhea. : No symptoms of dysuria, hematuria, urgency, frequency. EXTREMITIES: No pain, edema. CONSTITUTIONAL: No fever, chills. PHYSICAL EXAMINATION: Pleasant gentleman in no distress. Vital signs revealed a temperature 98.7, pulse 71, respirations 18, blood pressure 154/67, pulse ox 95% on 4 L. HEENT: Normocephalic. NECK: Supple. No JVD. CHEST: Clear to auscultation with generalized decreased air flow. No wheezing or rhonchi. CARDIAC: Distant heart sounds. S1, S2, no gallop. Systolic murmur 2/6 left sternal border. ABDOMEN: Protuberant, soft. Bowel sounds present. EXTREMITIES: No edema. NEUROLOGIC: Awake, alert, oriented x3 with well-coordinated movements. LABORATORY ASSESSMENT: Electrolytes reveal sodium 142, potassium 4.7, chloride 99, CO2 content 36, BUN 48, creatinine 1.48 with a GFR of 46. Glucose 117. Calcium 8.8. ASSESSMENT: 1. Acute respiratory failure, resolved. 2. Chronic respiratory failure. 3. Acute congestive cardiac failure secondary to diastolic dysfunction, improved. 4. Coronary arthrosclerosis. 5. Obesity. 6. Anemia. 7. Diabetes mellitus. PLAN: The patient is stable, continue present medical regimen. Patient's condition discussed with the patient. Patient is going to be discharged home. He will continue taking Lasix 40 mg daily. We will follow him up in the outpatient and recheck his renal status. The patient's condition remains guarded. He is advised to cut his insulin down to 35 units morning and 30 units in the evening. The patient's condition discussed with the patient. Prognosis remains guarded. MMODL / IJN: [id number] /
--- NOTE | 2017-04-10 12:50 | P.DS ---
Providers Date of admission: 04/04/17 17:05 Attending physician: Ford Altman Consults: 04/04/17 17:05 Consult Physician Routine Consulting Provider: Frank Moya Consult Reason/Comments: Respiratory failure, COPD Do you want consulting provider notified?: Already Contacted Primary care physician: Ford Altman [facility] Course: This 76-year-old gentleman was admitted to the hospital with acute on chronic respiratory failure. Patient has significant shortness of breath. He required BiPAP initially in the emergency room. He was given some diuretics in the past. The patient's symptoms are suggestive congestive cardiac failure. He denied any shortness of breath at rest but with minimal activity he felt markedly short of breath. He also has some associated orthopnea. The patient was recently hospitalized had mildly elevated troponins. He underwent a cardiac catheterization noted to have triple-vessel disease which was not of any critical nature. The patient was recommended medical therapy. Echocardiogram had revealed adequate left ventricular function. There was evidence of diastolic dysfunction. Patient also has significant chronic obstructive lung disease and is on continuous oxygen at home. Patient's morbid obese also anemic with iron deficiency pending GI evaluations. He does have a previous history of carcinoma of the colon. The patient has had no evidence of recurrence of the CT of the colon. Patient has a history diabetes mellitus with some peripheral neuropathy and autonomic neuropathy. He does have mild CKD3. Patient also has depression associated to heal health problems himself and his . In fact patient's spouse is also in the hospital at the same time. Diagnosis to include 1. Acute on chronic respiratory failure 2. Acute congestive cardiac failure secondary to diastolic dysfunction 3. Coronary atherosclerosis 4. COPD 5. Diabetes mellitus with peripheral neuropathy and autonomic neuropathy 6. Hypertension 7. Morbid obesity 8. Iron deficiency anemia secondary to chronic blood loss 9. Remote history of carcinoma of the colon 10. Major depression with recurrent episode of mild exacerbation Patient Condition at Discharge: Serious Plan - Discharge Summary Discharge Rx Participant: No New Discharge Prescriptions: New Furosemide [Lasix] 40 mg PO DAILY #30 tab Ipratropium-Albuterol Nebulize [Duoneb 0.5 mg-3 mg/3 ml Soln] 3 ml INHALATION RT-QID ampul.neb INSULIN LISPRO (humaLOG) [humaLOG (formulary)] 0 unit SQ ACHS vial Continue Ipratropium-Albuterol Nebulize [Duoneb 0.5 mg-3 mg/3 ml Soln] 3 ml INHALATION RT-QID HYDROcodone/APAP 7.5-325MG [[place] 7.5-325] 1 tab PO TID Atorvastatin Calcium [Lipitor] 20 mg PO HS Aspirin EC [Ecotrin Low Dose] 81 mg PO DAILY Budesonide/Formoterol Fumarate [Symbicort 160-4.5 Mcg Inhaler] 2 puff INHALATION RT-BID Sertraline [Zoloft] 100 mg PO DAILY Cholecalciferol (Vitamin D3) [Vitamin D3] 2,000 unit PO DAILY Metoprolol Tartrate [Lopressor] 25 mg PO BID #100 tab Nitroglycerin Sl Tabs [Nitrostat] 0.4 mg SUBLINGUAL Q5M PRN #100 tab PRN Reason: Chest Pain Sertraline [Zoloft] 50 mg PO HS tab Insuln Asp Prt/Insulin Aspart [NovoLOG MIX 70-30 VIAL] 30 - 35 unit SQ BID Discontinued Gabapentin [Neurontin] 300 mg PO TID Fludrocortisone [Florinef] 0.1 mg PO DAILY Insulin Aspart [NovoLOG] See Protocol SQ AC-TID PRN PRN Reason: Blood Sugar - High Discharge Medication List Ipratropium-Albuterol Nebulize [Duoneb 0.5 mg-3 mg/3 ml Soln] 3 ml INHALATION RT -QID 08/09/14 [History] Atorvastatin Calcium [Lipitor] 20 mg PO HS 05/19/16 [History] HYDROcodone/APAP 7.5-325MG [[place] 7.5-325] 1 tab PO TID 05/19/16 [History] Aspirin EC [Ecotrin Low Dose] 81 mg PO DAILY 08/22/16 [History] Budesonide/Formoterol Fumarate [Symbicort 160-4.5 Mcg Inhaler] 2 puff INHALATION RT-BID 03/09/17 [History] Cholecalciferol (Vitamin D3) [Vitamin D3] 2,000 unit PO DAILY 03/10/17 [History] Sertraline [Zoloft] 100 mg PO DAILY 03/10/17 [History] Metoprolol Tartrate [Lopressor] 25 mg PO BID #100 tab 03/16/17 [Rx] Nitroglycerin Sl Tabs [Nitrostat] 0.4 mg SUBLINGUAL Q5M PRN #100 tab 03/16/17 [ Rx] Sertraline [Zoloft] 50 mg PO HS tab 03/16/17 [Rx] Insuln Asp Prt/Insulin Aspart [NovoLOG MIX 70-30 VIAL] 30 - 35 unit SQ BID 04/04 [History] Furosemide [Lasix] 40 mg PO DAILY #30 tab 04/07/17 [Rx] INSULIN LISPRO (humaLOG) [humaLOG (formulary)] 0 unit SQ ACHS vial 04/07/17 [Rx ] Ipratropium-Albuterol Nebulize [Duoneb 0.5 mg-3 mg/3 ml Soln] 3 ml INHALATION RT -QID ampul.neb 04/07/17 [Rx] Follow up Appointment(s)/Referral(s): Ford Altman MD [Primary Care Provider] - 04/12/17 9:15 am () Frank Moya DO [Doctor of Osteopathic Medicine] - 04/20/17 2:45 pm Patient Instructions/Handouts: COPD (Chronic Obstructive Pulmonary Disease) (DC ) Activity/Diet/Wound Care/Special Instructions: Cardiac, diabetic diet. Discharge Disposition: HOME SELF-CARE
== END 2017-04-07 19:17 | disposition home health service (06) | DRG 291 ==
LOC: EC 15:35 → 6SEL 17:05 → 3SUR 04-05 17:39 → 4MS4W 04-05 21:11
PROVIDERS: ADMIT Internal Medicine; ATTEND Internal Medicine
DX: I13.0 Hypertensive heart and chronic kidney disease with heart failure and stage 1 through stage 4 chronic kidney disease, or unspecified chronic kidney disease (principal); J96.21 Acute and chronic respiratory failure with hypoxia; E11.22 Type 2 diabetes mellitus with diabetic chronic kidney disease; I50.33 Acute on chronic diastolic (congestive) heart failure; J44.1 Chronic obstructive pulmonary disease with (acute) exacerbation; F33.9 Major depressive disorder, recurrent, unspecified; J98.11 Atelectasis; E11.42 Type 2 diabetes mellitus with diabetic polyneuropathy; E11.39 Type 2 diabetes mellitus with other diabetic ophthalmic complication; I25.10 Atherosclerotic heart disease of native coronary artery without angina pectoris; N40.0 Benign prostatic hyperplasia without lower urinary tract symptoms; E11.319 Type 2 diabetes mellitus with unspecified diabetic retinopathy without macular edema; H40.9 Unspecified glaucoma; D64.9 Anemia, unspecified; N18.3 Chronic kidney disease, stage 3 (moderate); E78.5 Hyperlipidemia, unspecified; E11.43 Type 2 diabetes mellitus with diabetic autonomic (poly)neuropathy; D50.0 Iron deficiency anemia secondary to blood loss (chronic); E66.01 Morbid (severe) obesity due to excess calories; Z80.3 Family history of malignant neoplasm of breast; Z82.49 Family history of ischemic heart disease and other diseases of the circulatory system; Z79.51 Long term (current) use of inhaled steroids; Z79.4 Long term (current) use of insulin; Z79.899 Other long term (current) drug therapy; Z79.891 Long term (current) use of opiate analgesic; Z88.2 Allergy status to sulfonamides; Z87.891 Personal history of nicotine dependence; Z87.19 Personal history of other diseases of the digestive system; Z87.01 Personal history of pneumonia (recurrent); Z85.038 Personal history of other malignant neoplasm of large intestine; Z99.81 Dependence on supplemental oxygen; Z90.49 Acquired absence of other specified parts of digestive tract; Z98.41 Cataract extraction status, right eye; Z98.42 Cataract extraction status, left eye; Z90.89 Acquired absence of other organs
CPT/HCPCS: 36415; 71010; 71020; 80048; 80053; 82550; 82553; 83880; 84484; 85025; 85027; 85610; 85730; 93005; 94640; 94660; 94760; 96374; 96375; 99291

== ENCOUNTER 2017-09-30 14:51 | Inpatient (IN) | payer MEDICARE, OTHER ==
--- NOTE | 2017-09-30 15:06 | ED ---
Upper Extremity HPI - General Chief Complaint: Extremity Injury, Upper Stated Complaint: Finger Laceration Time Seen by Provider: 09/30/17 15:02 Source: patient, RN notes reviewed Mode of arrival: ambulatory Limitations: no limitations - History of Present Illness Initial Comments: This is a 77-year-old male who presents to the emergency department with chief complaint of finger injury. Patient states that prior to arrival he was loading his 's walker into the back of their SUV. He states that as he went to shut the back door he slammed his left fourth digit in the trunk door. He states that he is missing the entire tip of his digit. He states that he looked around to find the tip of the finger but was unable to locate it. Denies any numbness or tingling. States he has normal range of motion. Complains of mild pain. Denies any other injury or trauma. Denies fevers or chills, headache or dizziness, nausea or vomiting. - Related Data Home Medications Medication Instructions Recorded Confirmed Ipratropium-Albuterol Nebulize 3 ml INHALATION RT-QID 08/09/14 04/04/17 [Duoneb 0.5 mg-3 mg/3 ml Soln] Atorvastatin Calcium [Lipitor] 20 mg PO HS 05/19/16 04/04/17 HYDROcodone/APAP 7.5-325MG [[place] 1 tab PO TID 05/19/16 04/04/17 7.5-325] Aspirin EC [Ecotrin Low Dose] 81 mg PO DAILY 08/22/16 04/04/17 Budesonide/Formoterol Fumarate 2 puff INHALATION RT-BID 03/09/17 04/04/17 [Symbicort 160-4.5 Mcg Inhaler] Cholecalciferol (Vitamin D3) 2,000 unit PO DAILY 03/10/17 04/04/17 [Vitamin D3] Sertraline [Zoloft] 100 mg PO DAILY 03/10/17 04/04/17 Insuln Asp Prt/Insulin Aspart 30 - 35 unit SQ BID 04/04/17 04/04/17 [NovoLOG MIX 70-30 VIAL] Previous Rx's Medication Instructions Recorded Metoprolol Tartrate [Lopressor] 25 mg PO BID #100 tab 03/16/17 Nitroglycerin Sl Tabs [Nitrostat] 0.4 mg SUBLINGUAL Q5M PRN #100 tab 03/16/17 Sertraline [Zoloft] 50 mg PO HS tab 03/16/17 Furosemide [Lasix] 40 mg PO DAILY #30 tab 04/07/17 INSULIN LISPRO (humaLOG) [humaLOG] 0 unit SQ ACHS vial 04/07/17 Ipratropium-Albuterol Nebulize 3 ml INHALATION RT-QID ampul.neb 04/07/17 [Duoneb 0.5 mg-3 mg/3 ml Soln] Allergies Allergy/AdvReac Type Severity Reaction Status Date / Time sulfamethoxazole Allergy RAISES Verified 09/30/17 14:55 [From Bactrim] POTASSIUM trimethoprim [From Bactrim] Allergy RAISES Verified 09/30/17 14:55 POTASSIUM Review of Systems ROS Statement: Those systems with pertinent positive or pertinent negative responses have been documented in the HPI. ROS Other: All systems not noted in ROS Statement are negative. Past Medical History Past Medical History: Cancer, Chest Pain / Angina, COPD, Diabetes Mellitus, Hyperlipidemia, Hypertension, Pneumonia, Prostate Disorder Additional Past Medical History / Comment(s): COPD, hypertension, hyperlipidemia , diabetes mellitus, BPH, peripheral neuropathy, glaucoma, retinal disease/ detachment/retinopathy, colon cancer with a previous resection in 2005, spinal stenosis with degenerative disc disease, recent hospitalization for respiratory complications that occurred in May 2016, Obesity, chronic hypoxic respiratory failre History of Any Multi-Drug Resistant Organisms: None Reported Past Surgical History: Appendectomy, Bowel Resection Additional Past Surgical History / Comment(s): bowel resection for colon cancer in 2005, TURP, previous colostomy with subsequent reversal due to complications of peritonitis following bowel surgery, cataracts surgery in both eyes, appendectomy Past Anesthesia/Blood Transfusion Reactions: No Reported Reaction Past Psychological History: Anxiety, Depression Smoking Status: Former smoker Past Alcohol Use History: None Reported Past Drug Use History: None Reported - Past Family History Father Family Medical History: Unable to Obtain Mother Family Medical History: Cancer Additional Family Medical History / Comment(s): breast cancer, heart problems General Exam - General Exam Comments Initial Comments: General: Awake and alert, well-developed; in no apparent distress. Sitting comfortably on ED stretcher. HEENT: Head atraumatic, normocephalic. Pupils are equal, round and reactive to light. Extraocular movements intact. Oropharynx moist without erythema or exudate. Neck: Supple. Normal ROM. Cardiovascular: Regular rate and rhythm. No murmurs, rubs or gallops. Chest symmetrical. Respiratory: Lungs clear to auscultation bilaterally. No wheezes, rales or rhonchi. Normal respiratory effort with no use of accessory muscles. Wearing nasal cannula; on 3-4L home O2. Musculoskeletal: Normal ROM of the left fourth digit. Amputation of distal left 4th phalanx distal to the DIP joint. Bleeding is controlled. Sensation is intact. Radial pulses are 2+ equal and palpable bilaterally. Skin: [place], warm and dry without rashes. Neurological: Alert and oriented x3. CN II-XII grossly intact. Speech is fluent and answers are appropriate. No focal neuro deficits. Psychiatric: Normal mood and affect. No overt signs of depression or anxiety noted. Limitations: no limitations Course Vital Signs 09/30/17 14:52 Temperature 98.4 F Pulse Rate 60 Respiratory 18 Rate Blood Pressure 182/81 O2 Sat by Pulse 95 Oximetry - Reevaluation(s) Reevaluation #1: I was in contact with Oj Franco physician assistant counsel for advanced orthopedics. Patient will be admitted to Dr. Carreno for further evaluation. Recommended labs, EKG and to apply wet dressing. 09/30/17 15:40 Medical Decision Making - Medical Decision Making This is a 77-year-old male who presented to the emergency department for evaluation of finger injury. Patient sustained an amputation to the distal tip of the left fourth phalanx. X-ray did redemonstrate open amputation fracture deformity of significant distal portion of the left fourth finger. Leading is controlled. Sensation is intact. Patient has full range of motion of the finger. Radial pulses are 2+ equal and palpable bilaterally. Patient's vital signs are stable and he is in no acute distress. The finger was soaked in a Betadine solution. Tissue edges do appear viable but no possibility for reapproximation. A wet dressing was placed. I was in contact with Oj Franco physician for advanced orthopedics. Patient will be admitted to Dr. Carreno for further evaluation and treatment. Patient given and a tetanus vaccination. EKG was obtained and labs are pending. Patient was made aware of findings and plan. He is in agreement. All questions were answered. - Lab Data Result diagrams: 09/30/17 16:00 09/30/17 16:00 Lab Results 09/30/17 09/30/17 Range/Units 16:00 16:00 WBC 8.5 (3.8-10.6) k/uL RBC 3.34 L (4.30-5.90) m/uL Hgb 10.0 L (13.0-17.5) gm/dL Hct 30.9 L (39.0-53.0) % MCV 92.3 (80.0-100.0) fL MCH 30.1 (25.0-35.0) pg MCHC 32.6 (31.0-37.0) g/dL RDW 15.3 (11.5-15.5) % Plt Count 230 (150-450) k/uL Neutrophils % 78 % Lymphocytes % 10 % Monocytes % 5 % Eosinophils % 5 % Basophils % 0 % Neutrophils # 6.7 (1.3-7.7) k/uL Lymphocytes # 0.9 L (1.0-4.8) k/uL Monocytes # 0.5 (0-1.0) k/uL Eosinophils # 0.4 (0-0.7) k/uL Basophils # 0.0 (0-0.2) k/uL Sodium 143 (137-145) mmol/L Potassium 4.6 (3.5-5.1) mmol/L Chloride 104 (98-107) mmol/L Carbon Dioxide 29 (22-30) mmol/L Anion Gap 10 mmol/L BUN 35 H (9-20) mg/dL Creatinine 1.10 (0.66-1.25) mg/dL Est GFR (CKD-EPI)AfAm 74 (>60 ml/min/1.73 sqM) Est GFR (CKD-EPI)NonAf 64 (>60 ml/min/1.73 sqM) Glucose 71 L (74-99) mg/dL Calcium 9.6 (8.4-10.2) mg/dL Total Bilirubin 0.4 (0.2-1.3) mg/dL AST 30 (17-59) U/L ALT 24 (21-72) U/L Alkaline Phosphatase 83 (38-126) U/L Total Protein 6.0 L (6.3-8.2) g/dL Albumin 3.7 (3.5-5.0) g/dL - EKG Data EKG Comments: EKG 16:27:27. Sinus bradycardia, otherwise normal EKG. Ventricular rate 57 bpm , MO interval 200, QRS duration 92, QT/QTc 428/416 - Radiology Data Radiology results: report reviewed Left fourth digit x-ray impression: Open amputation fracture deformity of significant distal portion of distal phalanx fourth finger left hand. Disposition Clinical Impression: Fingertip amputation, Open fracture of finger, distal phalanx Disposition: ADMITTED IP TO THIS [facility] Condition: Stable Is patient prescribed a controlled substance at d/c from ED?: No Referrals: Ford Altman MD [Primary Care Provider] - 1-2 days Time of Disposition: 16:15
[2017-09-30] MEDS ORDERED: ceFAZolin 1,000 MG VIAL IM STA (15:07)
[2017-09-30] MEDS ORDERED: DIPH,PERTUS(ACELL)TETVAC-LF 0.5 ML VIAL IM ONE (15:07)
--- NOTE | 2017-09-30 15:28 | XR ---
EXAMINATION TYPE: XR finger LT DATE OF EXAM: 09/30/2017 COMPARISON: NONE HISTORY: Slamming injury with pain. TECHNIQUE: 3 views of left second finger acquired. FINDINGS: There is overlying gauze material present. There is open amputation fracture deformity invo lving distal 3/5 of the distal phalanx fourth digit left hand. The joint spaces are preserved. IMPRESSION: Open amputation fracture deformity of significant distal portion of distal phalanx fourth finger left hand. (Initial encounter open type post traumatic fracture)
[2017-09-30] MEDS ORDERED: NALOXONE 0.4 MG/ML 1 ML VIAL IV PRN (15:45)
[2017-09-30] MEDS ORDERED: MORPHINE SULFATE 4 MG/0.8 ML SYRINGE (INJ) IV PRN (15:45)
[2017-09-30] MEDS ORDERED: ACETAMINOPHEN TAB 325 MG TAB PO PRN (15:45)
[2017-09-30] MEDS ORDERED: ceFAZolin IN SWFI 2 GM/20 ML SYRINGE IVP STA (15:54)
[2017-09-30 16:25] LABS: Basophils % (A) 0 %; Eosinophils # (A) 0.4 k/uL (0-0.7); Eosinophils % (A) 5 %; HCT 30.9 % (39.0-53.0); Lymphocytes # (A) 0.9 k/uL (1.0-4.8); Lymphocytes % (A) 10 %; MCH 30.1 pg (25.0-35.0); MCHC 32.6 g/dL (31.0-37.0); MCV 92.3 fL (80.0-100.0); Mean Platelet Volume 8.6; Monocytes # (A) 0.5 k/uL (0-1.0); Monocytes % (A) 5 %; Neutrophils # (A) 6.7 k/uL (1.3-7.7); Neutrophils % (A) 78 %; Platelet Count 230 k/uL (150-450); RBC 3.34 m/uL (4.30-5.90); RDW 15.3 % (11.5-15.5); WBC 8.5 k/uL (3.8-10.6)
[2017-09-30 16:37] LABS: Albumin 3.7 g/dL (3.5-5.0); Calcium 9.6 mg/dL (8.4-10.2); Potassium 4.6 mmol/L (3.5-5.1); Total Bilirubin 0.4 mg/dL (0.2-1.3)
[2017-09-30 16:41] LABS: Prothrombin Time 9.9 sec (9.0-12.0)
[2017-09-30 16:52] LABS: Partial Thromboplastin Time 21.9 sec (22.0-30.0)
[2017-09-30] MEDS ORDERED: LABETALOL 5 MG/ML VIAL MDV IVP STA (17:21)
[2017-09-30] MEDS ORDERED: ALBUTEROL NEBULIZED 2.5 MG/3 ML INHALATION PRN ×2 (17:53→17:59)
--- NOTE | 2017-09-30 18:36 | P.HPOR ---
History of Present Illness H&P Date: 09/30/17 Chief Complaint: Left fourth digit partial ampuation distal phalanx This is a 77 year old male who was evaluated today at [facility] ER with regards to her left finger injury. Patient was leaving the doctor's office when he attempted to shut the rear weller on his vehicle, his left hand was pinched in the door. He had immediate pain, and noted the distal tip of the left finger was partially removed. He was unable to locate the distal end of the finger. He reported to [facility], imaging test and labs were done. I was contacted by the emergency room staff regarding the patient, I was able to review the images with my attending Dr. Carreno. Patient was then admitted to [facility] for further evaluation and surgical treatment. Patient was examined today at bedside on the surgical floor, he is eating dinner and resting comfortably. He notes some discomfort in the finger with movement. There is a bulky bandage present in good position and condition. He denies any other pain involving the left upper extremity, including fingers, hand, wrist, elbow, shoulder. He does have a significant medical history for COPD and congestive heart failure. He does see Dr. Altman is his primary care doctor along with Dr. Webber for pulmonology. Patient also has a history of diabetes which he utilizes insulin for treatment. He currently denies any headaches, lightheadedness, chest pain, new onset shortness of breath, abdominal discomfort, fever or chills. Review of Systems Constitutional: Reports as per HPI Past Medical History Past Medical History: Cancer, Chest Pain / Angina, COPD, Diabetes Mellitus, Hyperlipidemia, Hypertension, Pneumonia, Prostate Disorder Additional Past Medical History / Comment(s): COPD, hypertension, hyperlipidemia , diabetes mellitus, BPH, peripheral neuropathy, glaucoma, retinal disease/ detachment/retinopathy, colon cancer with a previous resection in 2005, spinal stenosis with degenerative disc disease, recent hospitalization for respiratory complications that occurred in May 2016, Obesity, chronic hypoxic respiratory failre History of Any Multi-Drug Resistant Organisms: None Reported Past Surgical History: Appendectomy, Bowel Resection Additional Past Surgical History / Comment(s): bowel resection for colon cancer in 2006, TURP, previous colostomy with subsequent reversal due to complications of peritonitis following bowel surgery, cataracts surgery in both eyes, appendectomy Past Anesthesia/Blood Transfusion Reactions: No Reported Reaction Past Psychological History: Anxiety, Depression Smoking Status: Former smoker Past Alcohol Use History: None Reported Past Drug Use History: None Reported - Past Family History Father Family Medical History: Unable to Obtain Mother Family Medical History: Cancer Additional Family Medical History / Comment(s): breast cancer, heart problems Medications and Allergies Home Medications Medication Instructions Recorded Confirmed Type Atorvastatin Calcium [Lipitor] 20 mg PO HS 05/19/16 09/30/17 History Aspirin EC [Ecotrin Low Dose] 81 mg PO DAILY 08/22/16 09/30/17 History Budesonide/Formoterol Fumarate 2 puff INHALATION RT-BID 03/09/17 09/30/17 History [Symbicort 160-4.5 Mcg Inhaler] Cholecalciferol (Vitamin D3) 2,000 unit PO DAILY 03/10/17 09/30/17 History [Vitamin D3] Sertraline [Zoloft] 100 mg PO DAILY 03/10/17 09/30/17 History Metoprolol Tartrate [Lopressor] 25 mg PO BID #100 tab 03/16/17 09/30/17 Rx Ipratropium-Albuterol Nebulize 3 ml INHALATION RT-QID ampul.neb 04/07/17 Rx [Duoneb 0.5 mg-3 mg/3 ml Soln] Albuterol Inhaler [Ventolin Hfa 2 puff INHALATION RT-Q4H PRN 09/30/17 09/30/17 History Inhaler] Ascorbic Acid [Vitamin C] 500 mg PO DAILY 09/30/17 09/30/17 History Ferrous Sulfate [Feosol] 325 mg PO DAILY 09/30/17 09/30/17 History Insulin NPH Hum/Reg Insulin Hm 40 unit SQ BID 09/30/17 09/30/17 History [Novolin 70-30 100 Unit/ml Vial] Latanoprost Ophth [Xalatan 0.005%] 1 drops BOTH EYES HS 09/30/17 09/30/17 History traMADol HCL [Ultram] 50 mg PO DAILY PRN 09/30/17 09/30/17 History Allergies Allergy/AdvReac Type Severity Reaction Status Date / Time sulfamethoxazole AdvReac RAISES Verified 09/30/17 17:25 [From Bactrim] POTASSIUM trimethoprim [From Bactrim] AdvReac RAISES Verified 09/30/17 17:25 POTASSIUM Physical Examination Left upper extremity: There is a bulky bandage present on the left fourth digit. There is a small area of blood noted on the ventral aspect. No acute skin changes or injury to the remaining fingers, hand or wrist. Radial pulses 2+. His sensation to light touch throughout the first second third and fifth digit are all intact. Results - Labs Labs: Abnormal Lab Results - Last 24 Hours (Table) 09/30/17 09/30/17 09/30/17 Range/Units 16:00 16:00 16:00 RBC 3.34 L (4.30-5.90) m/uL Hgb 10.0 L (13.0-17.5) gm/dL Hct 30.9 L (39.0-53.0) % Lymphocytes # 0.9 L (1.0-4.8) k/uL APTT 21.9 L (22.0-30.0) sec BUN 35 H (9-20) mg/dL Glucose 71 L (74-99) mg/dL Total Protein 6.0 L (6.3-8.2) g/dL H & H 09/30/17 Range/Units 16:00 Hgb 10.0 L (13.0-17.5) gm/dL Hct 30.9 L (39.0-53.0) % Coagulation 09/30/17 Range/Units 16:00 INR 1.0 (<1.2) Result Diagrams: 09/30/17 16:00 09/30/17 16:00 - Diagnostic results Wrist/Hand x-ray: report reviewed, image reviewed Assessment and Plan Plan: Imaging: Multiple views of the left hand were reviewed along with the reports. Images demonstrate a partial amputation of the soft tissue and the distal phalanx of the left fourth digit. No obvious foreign bodies are visualized. Assessment: 1. Partial amputation distal phalanx left fourth digit 2. Injury with car door left hand Plan: I was able to discuss the case, including physical exam findings and imaging studies my attending Dr. Carreno. We would like to proceed with surgical intervention, more specifically and irrigation and debridement along with revision amputation of the left fourth digit. Risk and benefits of the procedure were discussed with the patient, this including but not excluding infection, blood loss, neurovascular injury, need for subsequence surgery. I did notify to the patient and Dr. Carreno will be available in the perioperative period to discuss any further questions regarding the procedure or follow-up. With the patient's medical history of COPD and congestive heart failure, we asked for medical clearance Our plan is to proceed with surgery on 10/02/2017 Regular diet at this time, he will be made nothing by mouth after midnight GI and DVT prophylaxis per medical recommendations Pain control Leave current bandage in place, reinforce if drainage is noted Kefzol 1 g every 8 hours Further recommendations to follow Time with Patient: Less than 30
[2017-09-30] MEDS: IPRATROPIUM-ALBUTEROL 3 ML NEB INHALATION SCH (19:17)
[2017-09-30] MEDS: SYMBICORT 160-4.5 MCG INHALER INHALATION SCH (19:17)
[2017-09-30] MEDS ORDERED: INSULIN NPH/REG INSULIN 70/30 300 UNIT/3 ML VIAL SQ SCH (21:00)
[2017-09-30 21:32] LABS: Glucose,Whole Blood 236 mg/dL (75-99)
[2017-09-30] MEDS: ATORVASTATIN 20 MG TAB PO SCH (21:57)
[2017-09-30] MEDS: LATANOPROST 0.005% OPHTH DROPS 2.5 ML BTL BOTH EYES SCH (21:57)
[2017-09-30] MEDS: METOPROLOL TARTRATE 25 MG TAB PO SCH (21:57)
[2017-09-30] MEDS: Acetaminophen-Codeine 300-30mg TAB PO PRN (22:56)
[2017-10-01] MEDS: ceFAZolin 1,000 MG in DEXTROSE/WATER 1 50ML.BAG IVPB SCH ×4 (00:17→23:42)
[2017-10-01] MEDS: SYMBICORT 160-4.5 MCG INHALER INHALATION SCH ×2 (06:46→21:04)
[2017-10-01] MEDS: IPRATROPIUM-ALBUTEROL 3 ML NEB INHALATION SCH ×4 (06:47→21:04)
[2017-10-01 07:09] LABS: Glucose,Whole Blood 84 mg/dL (75-99)
[2017-10-01 07:09] LABS: Glucose,Whole Blood 40 mg/dL (75-99)
--- NOTE | 2017-10-01 08:21 | CONS ---
CONSULTATION ATTENDING PHYSICIAN: Dr. Carreno. CONSULTING PHYSICIAN: Dr. Jonathan Altman. CONSULTATION: Regarding medical management. HISTORY OF PRESENT ILLNESS: This 77-year-old gentleman accidentally had crush injury to the left 4th finger distal digit. The distal 1/2 inch was amputated in the injury. The patient otherwise denies any other symptoms. He was waiting for his to get to the car at the [facility]. He had opened the trunk while waiting. His hand was on the frame and with the other he accidentally pushed the trunk lid down. It crashed on his finger. The patient was seen in the emergency room, subsequently evaluated by Dr. Carreno' service and patient is admitted to the hospital. They plan to do a surgical procedure to the finger with a possible partial amputation. The patient otherwise denies any other symptoms. He does have a history of COPD, hypertensive cardiovascular disease, obesity, and remote history of carcinoma of the colon. The patient's respiratory status at present is stable. PAST MEDICAL HISTORY: Significant for as mentioned above. 1. Chronic obstructive pulmonary disease. 2. Hypertension. 3. Coronary artery disease with diffuse atherosclerosis with no significant tight lesions. 4. History of diabetes mellitus with peripheral neuropathy. 5. Obesity. 6. Remote history of carcinoma of the colon. PAST SURGICAL HISTORY: Significant for partial colectomy and TURP. Also an abdominal wall hernia repair. PERSONAL HISTORY: Ex-smoker. Alcohol none. ALLERGIES: SULFA which caused him an acute renal failure, nonoliguric. MEDICATIONS: Medications at present include off tramadol 50 mg p.r.n. t.i.d. for chronic back pain, Latanoprost 0.005% one drop both eyes at bedtime, Atorvastatin 20 mg at bedtime, albuterol inhaler p.r.n., metoprolol tartrate 25 mg b.i.d., DuoNeb inhalation q.i.d., Symbicort 160/4.5 two puffs b.i.d., aspirin 81 mg daily, insulin Novolin 70/30 40 units b.i.d., ferrous sulfate 1 daily, Zoloft 100 mg daily, vitamin D3 2000 units daily, ascorbic acid 500 mg daily. SOCIAL HISTORY: Patient is , lives with his spouse. FAMILY MEDICAL HISTORY: The patient has 2 daughters in adequate health. REVIEW OF SYSTEMS: NEURO: Denies any headaches, dizziness. No double vision or blurred vision. No symptoms of TIA, syncope, seizures. PSYCH: History of depression, controlled. CARDIAC: Denies chest pain, angina, palpitations. RESPIRATORY: Chronic shortness of breath. The patient does use oxygen at night and with exertion. GI: No nausea, vomiting, abdominal pain, diarrhea, constipation, hematochezia, melena. : No symptoms of dysuria, hematuria, urgency, frequency. EXTREMITIES: No pain, edema except for the left ring finger. CONSTITUTIONAL: No fever, chills. HEMATOLOGICAL: History of chronic anemia. SKIN: No rashes. PHYSICAL EXAMINATION: Pleasant gentleman at present in no distress. Vital signs reveals temperature 98.9, pulse 65, respirations 14, blood pressure 162/70, pulse ox 100% 3 L. His blood pressure was significantly elevated at the time of his ER evaluation with a blood pressure of 210/84. HEENT: Normocephalic. Neck supple. Pupils are reactive. Neck reveals no JVD, carotid bruits or thyromegaly. CHEST EXAMINATION: Clear to auscultation with generalized decreased air flow. CARDIAC: Distant heart sounds, S1, S2 with no gallop. Systolic murmur 2/6 left sternal border. ABDOMEN: Soft. Bowel sounds present. EXTREMITIES: Reveal trace edema at the ankles. Left hand ring finger has a dressing and is not checked. NEUROLOGICAL: Awake, alert, oriented x3 with well-coordinated movements. LABORATORY ASSESSMENT: EKG which reveals no acute changes. CBC reveals a hemoglobin of 10, normal MCV. PT, PTT are normal. Electrolytes normal. BUN 35, creatinine 1.1. GFR 64, blood sugar at the time of the evaluation in the ER was 71. Albumin 3.7. ASSESSMENT: 1. Chronic respiratory failure. 2. Chronic obstructive pulmonary disease. 3. Coronary artery disease. 4. Diabetes mellitus. 5. Obesity. 6. Accidental amputation distal digit left ring finger. 7. Anemia, chronic. PLAN: The patient is stable. Continue present medical regimen. Patient is stable to undergo the planned surgical procedure. Patient's condition discussed with the patient. Prognosis is guarded. MMODL / IJN: [id number] /
--- NOTE | 2017-10-01 09:08 | P.PN ---
Subjective Progress Note Date: 10/01/17 Principal diagnosis: Left ring finger injury History present illness: This 77-year-old was admitted to the hospital following a crush injury distal left finger with loss of tissue. Patient is admitted by orthopedic surgery. He is planned for surgical procedure tomorrow to prevent and closure of the injury site. Patient has underlying history of diabetes mellitus and COPD. Also has coronary artery disease with no symptoms of angina. He is doing well. His blood sugar was 40 this morning with no symptoms. History of hypertension with no symptoms. I have added losartan to his regimen. REVIEW OF SYSTEMS: Neuro: Denies any headaches dizziness. Psych: Denies anxiety depression feels oriented. Cardiac: Denies chest pain and angina palpitations. Respiratory: History of chronic shortness of breath and cough. GI: Denies nausea vomiting or abdominal pain. No diarrhea or constipation, no bowel movement yet. : Denies dysuria hematuria. Extremities: Denies pain. No edema. Skin: Intact. Constitutional: No fever, chills. Objective - Vital Signs Vital signs: Vital Signs Temp 97.8 F 10/01/17 01:51 Pulse 64 10/01/17 06:59 Resp 16 10/01/17 01:51 BP 169/51 10/01/17 01:51 Pulse Ox 98 10/01/17 01:51 Intake & Output 09/30/17 10/01/17 10/01/17 18:59 06:59 18:59 Intake Total 790 480 Output Total 200 820 Balance -200 -30 480 Weight 99.79 kg Intake: Intake, IV Titration 50 Amount ceFAZolin 1,000 mg In 50 Dextrose/Water 1 50ml.bag @ 100 mls/hr IVPB Q8HR [facility] Rx#:[id number] Oral 740 480 Output: Urine 200 820 Other: Voiding Method Toilet Urinal # Voids 300 PHYSICAL EXAMINATION: Cooperative, at present in no acute distress. HEENT: Neck supple. No JVD. Chest: Generalized mild decrease in flow occasional rhonchi clear with cough Cardiac: Normal S1-S2 no gallops no murmur . Abdomen: Soft bowel sounds present. Extremities: No edema no tenderness Neurologically: Awake, alert, oriented with well-coordinated movements. - Labs CBC & Chem 7: 09/30/17 16:00 09/30/17 16:00 Labs: Abnormal Lab Results - Last 24 Hours (Table) 09/30/17 09/30/17 09/30/17 Range/Units 16:00 16:00 16:00 RBC 3.34 L (4.30-5.90) m/uL Hgb 10.0 L (13.0-17.5) gm/dL Hct 30.9 L (39.0-53.0) % Lymphocytes # 0.9 L (1.0-4.8) k/uL APTT 21.9 L (22.0-30.0) sec BUN 35 H (9-20) mg/dL Glucose 71 L (74-99) mg/dL POC Glucose (mg/dL) (75-99) mg/dL Total Protein 6.0 L (6.3-8.2) g/dL 09/30/17 10/01/17 Range/Units 21:30 06:42 RBC (4.30-5.90) m/uL Hgb (13.0-17.5) gm/dL Hct (39.0-53.0) % Lymphocytes # (1.0-4.8) k/uL APTT (22.0-30.0) sec BUN (9-20) mg/dL Glucose (74-99) mg/dL POC Glucose (mg/dL) 236 H 40 L (75-99) mg/dL Total Protein (6.3-8.2) g/dL Assessment and Plan Assessment: ASSESSMENT: 1. Diabetes mellitus type 2 with episode of hypoglycemia this morning. 2. Hypertension. 3. Coronary artery disease. 4. COPD. 5. Chronic Respiratory failure]. 6. Left ring finger injury. 7. History of peripheral neuropathy. 8. Obesity. PLAN: Continue present medical regimen patient's condition discussed with the patient prognosis remains guarded he is scheduled to undergo surgical procedure. Is stable to undergo the surgical procedure. Insulin be decreased down to 30 units twice a day and continue coverage.
[2017-10-01] MEDS: INSULIN NPH/REG INSULIN 70/30 300 UNIT/3 ML VIAL SQ SCH ×2 (09:44→22:15)
[2017-10-01] MEDS: METOPROLOL TARTRATE 25 MG TAB PO SCH ×2 (09:45→22:15)
[2017-10-01] MEDS: CHOLECALCIFEROL 1,000 UNIT TAB PO SCH (09:45)
[2017-10-01] MEDS: ASCORBIC ACID 500 MG TAB PO SCH (09:46)
[2017-10-01] MEDS: SERTRALINE 100 MG TAB PO SCH (09:46)
[2017-10-01] MEDS: FERROUS SULFATE 325 MG TAB PO SCH (09:46)
[2017-10-01] MEDS: ASPIRIN 81 MG PO SCH (09:46)
[2017-10-01] MEDS: LOSARTAN 50 MG TAB PO SCH (11:15)
[2017-10-01 11:48] LABS: Glucose,Whole Blood 271 mg/dL (75-99)
[2017-10-01] MEDS ORDERED: MORPHINE ORAL SOLN 10 MG/5 ML CUP PO PRN (15:17)
[2017-10-01 16:54] LABS: Glucose,Whole Blood 106 mg/dL (75-99)
[2017-10-01] MEDS ORDERED: LISINOPRIL 5 MG TAB PO STA (17:32)
[2017-10-01 19:57] LABS: Glucose,Whole Blood 178 mg/dL (75-99)
[2017-10-01] MEDS: ATORVASTATIN 20 MG TAB PO SCH (22:15)
[2017-10-01] MEDS: LATANOPROST 0.005% OPHTH DROPS 2.5 ML BTL BOTH EYES SCH (22:19)
[2017-10-01] MEDS: Acetaminophen-Codeine 300-30mg TAB PO PRN (23:45)
[2017-10-02 07:02] LABS: Glucose,Whole Blood 55 mg/dL (75-99)
[2017-10-02] MEDS ORDERED: GLUCAGON 1 MG/ML VIAL ONE (07:04)
[2017-10-02] MEDS ORDERED: DEXTROSE 50%-WATER 50 ML SYRINGE IVP STA (07:04)
[2017-10-02] MEDS: INSULIN NPH/REG INSULIN 70/30 300 UNIT/3 ML VIAL SQ SCH (07:33)
[2017-10-02 07:35] LABS: Glucose,Whole Blood 124 mg/dL (75-99)
[2017-10-02] MEDS ORDERED: ceFAZolin 1,000 MG in SODIUM CHLORIDE 0.9% 1,000 ML IRRIGATION ONE (07:56)
[2017-10-02] MEDS: LOSARTAN 50 MG TAB PO SCH (07:58)
[2017-10-02] MEDS: METOPROLOL TARTRATE 25 MG TAB PO SCH (07:58)
[2017-10-02] MEDS ORDERED: PROPOFOL 10 MG/ML 20 ML VIAL IV ONE (08:13)
[2017-10-02] MEDS ORDERED: MIDAZOLAM 2 MG/2 ML VIAL ONE (08:13)
[2017-10-02] MEDS ORDERED: KETAMINE 10 MG/ML 20 ML VIAL ONE (08:13)
[2017-10-02] MEDS ORDERED: SODIUM CHLORIDE 0.9% 50 ML with ceFAZolin 1,000 MG IV ONE ×2 (08:15)
[2017-10-02] MEDS ORDERED: BUPIVACAINE (PF) 0.25% 30 ML VIAL SQ ONE ×2 (08:25)
[2017-10-02] MEDS: SYMBICORT 160-4.5 MCG INHALER INHALATION SCH (08:31)
[2017-10-02] MEDS: IPRATROPIUM-ALBUTEROL 3 ML NEB INHALATION SCH ×2 (08:31→11:51)
[2017-10-02] MEDS ORDERED: IV FLUID CONTINUATION 50 ML IV ONE (08:32)
[2017-10-02] MEDS ORDERED: LACTATED RINGERS 1,000 ML IV ONE ×2 (08:33)
--- NOTE | 2017-10-02 09:06 | P.OP ---
Date of Procedure: 10/02/17 Preoperative Diagnosis: Left fourth digit distal tip partial amputation Postoperative Diagnosis: Same Procedure(s) Performed: Irrigation and debridement left fourth digit distal tip/amputation revision left fourth digit Anesthesia: MAC, local Surgeon: Broderick Carreno Estimated Blood Loss (ml): 2 Pathology: none sent Condition: stable Disposition: PACU Indications for Procedure: The patient's a 77-year-old male who injured his left fourth digit recently partial amputating the tip or closing a door and his car. A discussion of the risks and benefits of operative intervention was made with the patient. He opted to proceed. Operative risks to include infection, wound healing complications, and possible need for subsequent procedures was discussed. Informed consent was obtained. Operative Findings: As below Description of Procedure: The patient was brought to the operating room, and after induction of IV sedation I placed a digital block in the left fourth digit utilizing 10 mL of quarter percent plain Marcaine. The left upper extremity was prepped and draped in normal fashion. A Jennifer drain was used as a tourniquet on the left fourth digit. The distal tip was explored. The amputation involved the entire nailbed. There was exposed distal phalanx. The distal phalanx was resected back in order to cover the exposed bone. A sagittal saw was utilized. The wound was irrigated copiously with normal saline. The wound edges were sharply debrided with a scalpel down to the level of the bone. The soft tissue over the distal tip was then reapproximated utilizing 4-0 simple Vicryl suture. The skin was reapproximated with simple 4-0 nylon suture. A sterile dressing was applied. The tourniquet was removed with less than 20 minutes total tourniquet time. The patient was awoken from sedation and transferred to recovery room in good condition. Blood loss was estimated 2 mL. No complications were incurred. Sponge and needle counts were correct at the end the case.
--- NOTE | 2017-10-02 09:10 | P.DS ---
Providers Date of admission: 09/30/17 15:55 Expected date of discharge: 10/02/17 Attending physician: Broderick Carreno Consults: 09/30/17 16:56 Consult Physician Routine Consulting Provider: Ford Altman Reason/Comments: Medical clearance/management Do you want consulting provider notified?: Yes Primary care physician: Ford Altman [facility] Course: Date of admission: 09/30/2017 Date of discharge: 10/02/2017 Admission diagnosis: Laceration with partial amputation left fourth digit Discharge diagnosis: Status post irrigation and debridement with revision amputation left fourth digit Attending physician: Dr. Carreno Surgical procedures: Irrigation and debridement with revision amputation left fourth digit Brief history: Patient is a 77-year-old male who presented to [facility] on 09/30/2017 with an injury to his left fourth digit. There is a partially petition noted upon arrival, emergency room staff contacted our service for evaluation. Patient was admitted to [facility] for surgical treatment. Surgery was scheduled for 10/02/[address] Carreno. Hospital course: Details of patient's surgery can be found in operative report. Patient tolerated the procedure well and was subsequently transported to orthopedic floor. Patient's orthopeidc and medical care was provided daily. Patient had daily laboratory tests performed for evaluation of overall blood counts. Patient was noted to have a relatively uneventful postoperative course. Patient reported satisfactory pain control with oral pain medications by postoperative day 0. Patient showed satisfactory progress with physical therapy. Patient moved steadily through the program and had no difficulty meeting the goals by postoperative day 0. Given patient's otherwise satisfactory course and having met physical therapy goals, plan is to discharge patient home on postoperative day 0. Discharge condition/disposition: Patient will be discharged home in stable condition. Discharge medications: Instructions are given on resumption of patient's normal daily medications per primary care recommendation, in addition patient will be prescribed Keflex 500 mg. Discharge instructions: 1. Do not remove the bandage, keep covered and dry while showering 2. Avoid strenuous activity with left hand 3. Ice and elevate when necessary. Do not exceed 20 minutes per hour with ice pack. 4. Follow-up at [facility] 1 week for wound check 5. Contact [facility] with any questions, . Patient Condition at Discharge: Stable Plan - Discharge Summary Discharge Rx Participant: No New Discharge Prescriptions: New Cephalexin [Keflex] 500 mg PO Q8HR #21 cap No Action Atorvastatin Calcium [Lipitor] 20 mg PO HS Aspirin EC [Ecotrin Low Dose] 81 mg PO DAILY Budesonide/Formoterol Fumarate [Symbicort 160-4.5 Mcg Inhaler] 2 puff INHALATION RT-BID Sertraline [Zoloft] 100 mg PO DAILY Cholecalciferol (Vitamin D3) [Vitamin D3] 2,000 unit PO DAILY Metoprolol Tartrate [Lopressor] 25 mg PO BID #100 tab Ipratropium-Albuterol Nebulize [Duoneb 0.5 mg-3 mg/3 ml Soln] 3 ml INHALATION RT-QID ampul.neb traMADol HCL [Ultram] 50 mg PO DAILY PRN PRN Reason: Pain Latanoprost Ophth [Xalatan 0.005%] 1 drops BOTH EYES HS Insulin NPH Hum/Reg Insulin Hm [Novolin 70-30 100 Unit/ml Vial] 40 unit SQ BID Ferrous Sulfate [Feosol] 325 mg PO DAILY Albuterol Inhaler [Ventolin Hfa Inhaler] 2 puff INHALATION RT-Q4H PRN PRN Reason: Shortness Of Breath Ascorbic Acid [Vitamin C] 500 mg PO DAILY Discharge Medication List Atorvastatin Calcium [Lipitor] 20 mg PO HS 05/19/16 [History] Aspirin EC [Ecotrin Low Dose] 81 mg PO DAILY 08/22/16 [History] Budesonide/Formoterol Fumarate [Symbicort 160-4.5 Mcg Inhaler] 2 puff INHALATION RT-BID 03/09/17 [History] Cholecalciferol (Vitamin D3) [Vitamin D3] 2,000 unit PO DAILY 03/10/17 [History] Sertraline [Zoloft] 100 mg PO DAILY 03/10/17 [History] Metoprolol Tartrate [Lopressor] 25 mg PO BID #100 tab 03/16/17 [Rx] Ipratropium-Albuterol Nebulize [Duoneb 0.5 mg-3 mg/3 ml Soln] 3 ml INHALATION RT -QID ampul.neb 04/07/17 [Rx] Albuterol Inhaler [Ventolin Hfa Inhaler] 2 puff INHALATION RT-Q4H PRN 09/30/17 [ History] Ascorbic Acid [Vitamin C] 500 mg PO DAILY 09/30/17 [History] Ferrous Sulfate [Feosol] 325 mg PO DAILY 09/30/17 [History] Insulin NPH Hum/Reg Insulin Hm [Novolin 70-30 100 Unit/ml Vial] 40 unit SQ BID 09/30/17 [History] Latanoprost Ophth [Xalatan 0.005%] 1 drops BOTH EYES HS 09/30/17 [History] traMADol HCL [Ultram] 50 mg PO DAILY PRN 09/30/17 [History] Cephalexin [Keflex] 500 mg PO Q8HR #21 cap 10/02/17 [Rx] Follow up Appointment(s)/Referral(s): Ford Altman MD [Primary Care Provider] - 1-2 days Graham Franco PAC [[employer]] - 2 Weeks Activity/Diet/Wound Care/Special Instructions: Discharge instructions: 1. Resume home medications after discharge 2. Do not remove bandage 3. Keep bandage covered while showering 4. Avoid strenuous use with hand 5. Follow up at [facility] in 1 week Discharge Disposition: HOME SELF-CARE
[2017-10-02 09:26] VITALS: RESP 16
[2017-10-02 09:50] LABS: Glucose,Whole Blood 67 mg/dL (75-99)
[2017-10-02] MEDS ORDERED: DEXTROSE 50%-WATER 50 ML SYRINGE IVP ONE (09:55)
[2017-10-02 10:03] LABS: Glucose,Whole Blood 136 mg/dL (75-99)
[2017-10-02 10:42] VITALS: TEMP 98.7
[2017-10-02 11:32] LABS: Glucose,Whole Blood 158 mg/dL (75-99)
[2017-10-02] MEDS: ASPIRIN 81 MG PO SCH (11:32)
[2017-10-02] MEDS: ASCORBIC ACID 500 MG TAB PO SCH (11:32)
[2017-10-02] MEDS: CHOLECALCIFEROL 1,000 UNIT TAB PO SCH (11:32)
[2017-10-02] MEDS: FERROUS SULFATE 325 MG TAB PO SCH (11:32)
[2017-10-02] MEDS: ceFAZolin 1,000 MG in DEXTROSE/WATER 1 50ML.BAG IVPB SCH (11:32)
[2017-10-02] MEDS: SERTRALINE 100 MG TAB PO SCH (11:33)
[2017-10-02 12:03] VITALS: BP 180/54; PULSE 57
== END 2017-10-02 13:47 | disposition home or self-care (01) | DRG 906 ==
LOC: EC 14:51 → 3SUR 15:55
PROVIDERS: ADMIT Orthopaedic Surgery; ATTEND Orthopaedic Surgery
PROC: 0X6T0Z3 Detachment at Left Ring Finger, Low, Open Approach (ICD-10-PCS; principal; 2017-09-30)
DX: S68.125A Partial traumatic metacarpophalangeal amputation of left ring finger, initial encounter (principal); J96.11 Chronic respiratory failure with hypoxia; W23.1XXA Caught, crushed, jammed, or pinched between stationary objects, initial encounter; D64.9 Anemia, unspecified; E11.319 Type 2 diabetes mellitus with unspecified diabetic retinopathy without macular edema; E11.42 Type 2 diabetes mellitus with diabetic polyneuropathy; E66.9 Obesity, unspecified; Z68.33 Body mass index [BMI] 33.0-33.9, adult; E78.5 Hyperlipidemia, unspecified; F32.9 Major depressive disorder, single episode, unspecified; F41.9 Anxiety disorder, unspecified; H40.9 Unspecified glaucoma; I11.0 Hypertensive heart disease with heart failure; I25.10 Atherosclerotic heart disease of native coronary artery without angina pectoris; I50.9 Heart failure, unspecified; J44.9 Chronic obstructive pulmonary disease, unspecified; N40.0 Benign prostatic hyperplasia without lower urinary tract symptoms; Z79.4 Long term (current) use of insulin; Z79.51 Long term (current) use of inhaled steroids; Z79.899 Other long term (current) drug therapy; Z80.3 Family history of malignant neoplasm of breast; Z85.038 Personal history of other malignant neoplasm of large intestine; Z87.891 Personal history of nicotine dependence; Z88.2 Allergy status to sulfonamides; G89.29 Other chronic pain; M54.9 Dorsalgia, unspecified; Z79.82 Long term (current) use of aspirin; Z98.42 Cataract extraction status, left eye; Z98.41 Cataract extraction status, right eye; E11.649 Type 2 diabetes mellitus with hypoglycemia without coma; Z90.49 Acquired absence of other specified parts of digestive tract
CPT/HCPCS: 36415; 80053; 82947; 85025; 85610; 85730; 90471; 90715; 93005; 94640; 94760; 96374; 96375; 99284

== ENCOUNTER 2017-12-13 18:56 | Emergency (ER) | payer MEDICARE, OTHER ==
[2017-12-13 19:13] VITALS: RESP 18
[2017-12-13 19:24] LABS: Glucose,Whole Blood 86 mg/dL (75-99)
--- NOTE | 2017-12-13 19:24 | ED ---
General Adult HPI - General Chief complaint: Recheck/Abnormal Lab/Rx Stated complaint: hypoglycemia Time Seen by Provider: 12/13/17 19:00 Source: patient, EMS, RN notes reviewed Mode of arrival: EMS Limitations: no limitations - History of Present Illness Initial comments: This is a 77-year-old male who presents emergency Department with a past medical history significant for diabetes. Patient was altered according to the called EMS when EMS arrived the patient's blood sugar was 32. EMS gave him half an amp of glucose and he became alert and oriented 3. Patient states he does not remember if he took his insulin or not but he did not eat dinner at his normal time at 5:00 in the next he remembers is at the ambulance is there working on them. Patient states he doesn't remember doing any else after that but he is pretty sure he did not eat any dinner. Patient denies being sick recently patient denies any recent fever chills. Patient denies any chest pain difficulty breathing shortness of breath. Patient denies any abdominal pain patient denies nausea vomiting diarrhea. Patient denies lightheadedness or dizziness. Patient denies any dysuria hematuria urinary frequency. Patient currently has no symptoms. Patient is very hungry at this time. - Related Data Home Medications Medication Instructions Recorded Confirmed Atorvastatin Calcium [Lipitor] 20 mg PO HS 05/19/16 12/13/17 Aspirin EC [Ecotrin Low Dose] 81 mg PO DAILY 08/22/16 12/13/17 Budesonide/Formoterol Fumarate 2 puff INHALATION RT-BID 03/09/17 12/13/17 [Symbicort 160-4.5 Mcg Inhaler] Cholecalciferol (Vitamin D3) 2,000 unit PO DAILY 03/10/17 12/13/17 [Vitamin D3] Sertraline [Zoloft] 100 mg PO DAILY 03/10/17 12/13/17 Albuterol Inhaler [Ventolin Hfa 2 puff INHALATION RT-Q4H PRN 09/30/17 12/13/17 Inhaler] Ascorbic Acid [Vitamin C] 500 mg PO DAILY 09/30/17 12/13/17 Ferrous Sulfate [Feosol] 325 mg PO DAILY 09/30/17 12/13/17 Insulin NPH Hum/Reg Insulin Hm 40 unit SQ BID 09/30/17 12/13/17 [Novolin 70-30 100 Unit/ml Vial] Latanoprost Ophth [Xalatan 0.005%] 1 drops BOTH EYES HS 09/30/17 12/13/17 traMADol HCL [Ultram] 50 mg PO DAILY PRN 09/30/17 12/13/17 Previous Rx's Medication Instructions Recorded Metoprolol Tartrate [Lopressor] 25 mg PO BID #100 tab 03/16/17 Ipratropium-Albuterol Nebulize 3 ml INHALATION RT-QID ampul.neb 04/07/17 [Duoneb 0.5 mg-3 mg/3 ml Soln] Allergies Allergy/AdvReac Type Severity Reaction Status Date / Time sulfamethoxazole AdvReac RAISES Verified 12/13/17 19:20 [From Bactrim] POTASSIUM trimethoprim [From Bactrim] AdvReac RAISES Verified 12/13/17 19:20 POTASSIUM Review of Systems ROS Statement: Those systems with pertinent positive or pertinent negative responses have been documented in the HPI. ROS Other: All systems not noted in ROS Statement are negative. Past Medical History Past Medical History: Cancer, Chest Pain / Angina, COPD, Diabetes Mellitus, Hyperlipidemia, Hypertension, Pneumonia, Prostate Disorder, Sleep Apnea/CPAP/ BIPAP Additional Past Medical History / Comment(s): BPH, peripheral neuropathy, glaucoma, retinal disease/detachment/retinopathy, colon cancer with a previous resection in 2005then ended up w/ peritonits had 2nd sx spent 30 days in icu, spinal stenosis with degenerative disc disease, recent hospitalization for respiratory complications that occurred in May 2016, Obesity, chronic hypoxic respiratory failure, nueropathy, unable to use cpap.abd hernia. had shingels and pne vaccines not sure of date and unable to verify at time of admit History of Any Multi-Drug Resistant Organisms: None Reported Past Surgical History: Appendectomy, Bowel Resection Additional Past Surgical History / Comment(s): bowel resection for colon cancer in 2005, previous colostomy with subsequent reversal due to complications of peritonitis following bowel surgery, cataracts surgery in both eyes, appendectomy, turp Past Anesthesia/Blood Transfusion Reactions: No Reported Reaction Past Psychological History: Anxiety, Depression Smoking Status: Former smoker Past Alcohol Use History: None Reported Past Drug Use History: None Reported - Past Family History Father Family Medical History: Renal Disease Mother Family Medical History: Cancer Additional Family Medical History / Comment(s): breast cancer, heart problems General Exam - General Exam Comments Initial Comments: GENERAL: Patient is well-developed and well-nourished. Patient is nontoxic and well- hydrated and is in no acute distress. ENT: Neck is soft and supple. No significant lymphadenopathy is noted. Oropharynx is clear. Moist mucous membranes. Neck has full range of motion without eliciting any pain. EYES: The sclera were anicteric and conjunctiva were pink and moist. Extraocular movements were intact and pupils were equal round and reactive to light. Eyelids were unremarkable. PULMONARY: Unlabored respirations. Good breath sounds bilaterally. No audible rales rhonchi or wheezing was noted. CARDIOVASCULAR: Patient is bradycardic. ABDOMEN: Soft and nontender with normal bowel sounds. SKIN: Skin is clear with no lesions or rashes and otherwise unremarkable. NEUROLOGIC: Patient is alert and oriented x3. Cranial nerves II through XII are grossly intact. Motor and sensory are also intact. Normal speech, volume and content. Symmetrical smile. MUSCULOSKELETAL: Normal extremities with adequate strength and full range of motion. No lower extremity swelling or edema. No calf tenderness. LYMPHATICS: No significant lymphadenopathy is noted PSYCHIATRIC: Normal psychiatric evaluation. Limitations: no limitations Course Vital Signs 12/13/17 12/13/17 12/13/17 19:09 20:05 20:31 Pulse Rate 49 L Respiratory 18 Rate Blood Pressure 230/95 203/86 175/71 O2 Sat by Pulse 99 98 Oximetry Medical Decision Making - Medical Decision Making EKG shows a sinus bradycardia at 45 bpm [place] interval 216 QRS is 96 Q-T intervals 46 QTC is 420. Patient's EKG shows no ST segment elevation or depression Patient was given hydralazine about the pressure down nicely. Patient was given food in the emergency department and was sugar was stabilized. Patient had no symptoms at this time. - Lab Data Result diagrams: 12/13/17 19:26 12/13/17 19:26 Lab Results 12/13/17 12/13/17 12/13/17 Range/Units 19:22 19:26 19:26 WBC 8.4 (3.8-10.6) k/uL RBC 3.91 L (4.30-5.90) m/uL Hgb 11.8 L (13.0-17.5) gm/dL Hct 35.8 L (39.0-53.0) % MCV 91.5 (80.0-100.0) fL MCH 30.3 (25.0-35.0) pg MCHC 33.1 (31.0-37.0) g/dL RDW 14.3 (11.5-15.5) % Plt Count 208 (150-450) k/uL Neutrophils % 82 % Lymphocytes % 7 % Monocytes % 5 % Eosinophils % 4 % Basophils % 1 % Neutrophils # 6.9 (1.3-7.7) k/uL Lymphocytes # 0.6 L (1.0-4.8) k/uL Monocytes # 0.4 (0-1.0) k/uL Eosinophils # 0.3 (0-0.7) k/uL Basophils # 0.0 (0-0.2) k/uL Sodium 140 (137-145) mmol/L Potassium 4.2 (3.5-5.1) mmol/L Chloride 106 (98-107) mmol/L Carbon Dioxide 26 (22-30) mmol/L Anion Gap 8 mmol/L BUN 32 H (9-20) mg/dL Creatinine 1.10 (0.66-1.25) mg/dL Est GFR (CKD-EPI)AfAm 74 (>60 ml/min/1.73 sqM) Est GFR (CKD-EPI)NonAf 64 (>60 ml/min/1.73 sqM) Glucose 59 L (74-99) mg/dL POC Glucose (mg/dL) 86 (75-99) mg/dL POC Glu Soft Water Mechanic ID Prerna Waterman Calcium 8.7 (8.4-10.2) mg/dL Total Bilirubin 0.4 (0.2-1.3) mg/dL AST 34 (17-59) U/L ALT 32 (21-72) U/L Alkaline Phosphatase 78 (38-126) U/L Total Protein 6.1 L (6.3-8.2) g/dL Albumin 3.7 (3.5-5.0) g/dL Urine Color Urine Appearance (Clear) Urine pH (5.0-8.0) Ur Specific [place] (1.001-1.035) Urine Protein (Negative) Urine Glucose (UA) (Negative) Urine Ketones (Negative) Urine Blood (Negative) Urine Nitrite (Negative) Urine Bilirubin (Negative) Urine Urobilinogen (<2.0) mg/dL Ur Leukocyte Esterase (Negative) Urine RBC (0-5) /hpf Urine WBC (0-5) /hpf Ur Squamous Epith Cells (0-4) /hpf Granular Casts (0) /lpf Urine Mucus (None) /hpf 12/13/17 12/13/17 12/13/17 Range/Units 19:52 20:13 20:30 WBC (3.8-10.6) k/uL RBC (4.30-5.90) m/uL Hgb (13.0-17.5) gm/dL Hct (39.0-53.0) % MCV (80.0-100.0) fL MCH (25.0-35.0) pg MCHC (31.0-37.0) g/dL RDW (11.5-15.5) % Plt Count (150-450) k/uL Neutrophils % % Lymphocytes % % Monocytes % % Eosinophils % % Basophils % % Neutrophils # (1.3-7.7) k/uL Lymphocytes # (1.0-4.8) k/uL Monocytes # (0-1.0) k/uL Eosinophils # (0-0.7) k/uL Basophils # (0-0.2) k/uL Sodium (137-145) mmol/L Potassium (3.5-5.1) mmol/L Chloride (98-107) mmol/L Carbon Dioxide (22-30) mmol/L Anion Gap mmol/L BUN (9-20) mg/dL Creatinine (0.66-1.25) mg/dL Est GFR (CKD-EPI)AfAm (>60 ml/min/1.73 sqM) Est GFR (CKD-EPI)NonAf (>60 ml/min/1.73 sqM) Glucose (74-99) mg/dL POC Glucose (mg/dL) 67 L 66 L (75-99) mg/dL POC Glu Soft Water Mechanic URIEL Fonseca, Corrine Storm, Corrine Calcium (8.4-10.2) mg/dL Total Bilirubin (0.2-1.3) mg/dL AST (17-59) U/L ALT (21-72) U/L Alkaline Phosphatase (38-126) U/L Total Protein (6.3-8.2) g/dL Albumin (3.5-5.0) g/dL Urine Color Yellow Urine Appearance Clear (Clear) Urine pH 6.0 (5.0-8.0) Ur Specific [place] 1.015 (1.001-1.035) Urine Protein 3+ H (Negative) Urine Glucose (UA) Negative (Negative) Urine Ketones Negative (Negative) Urine Blood Trace H (Negative) Urine Nitrite Negative (Negative) Urine Bilirubin Negative (Negative) Urine Urobilinogen <2.0 (<2.0) mg/dL Ur Leukocyte Esterase Negative (Negative) Urine RBC <1 (0-5) /hpf Urine WBC 1 (0-5) /hpf Ur Squamous Epith Cells <1 (0-4) /hpf Granular Casts 4 (0) /lpf Urine Mucus Rare H (None) /hpf 12/13/17 Range/Units 20:59 WBC (3.8-10.6) k/uL RBC (4.30-5.90) m/uL Hgb (13.0-17.5) gm/dL Hct (39.0-53.0) % MCV (80.0-100.0) fL MCH (25.0-35.0) pg MCHC (31.0-37.0) g/dL RDW (11.5-15.5) % Plt Count (150-450) k/uL Neutrophils % % Lymphocytes % % Monocytes % % Eosinophils % % Basophils % % Neutrophils # (1.3-7.7) k/uL Lymphocytes # (1.0-4.8) k/uL Monocytes # (0-1.0) k/uL Eosinophils # (0-0.7) k/uL Basophils # (0-0.2) k/uL Sodium (137-145) mmol/L Potassium (3.5-5.1) mmol/L Chloride (98-107) mmol/L Carbon Dioxide (22-30) mmol/L Anion Gap mmol/L BUN (9-20) mg/dL Creatinine (0.66-1.25) mg/dL Est GFR (CKD-EPI)AfAm (>60 ml/min/1.73 sqM) Est GFR (CKD-EPI)NonAf (>60 ml/min/1.73 sqM) Glucose (74-99) mg/dL POC Glucose (mg/dL) 130 H (75-99) mg/dL POC Glu Soft Water Mechanic ID Corrine Fonseca Calcium (8.4-10.2) mg/dL Total Bilirubin (0.2-1.3) mg/dL AST (17-59) U/L ALT (21-72) U/L Alkaline Phosphatase (38-126) U/L Total Protein (6.3-8.2) g/dL Albumin (3.5-5.0) g/dL Urine Color Urine Appearance (Clear) Urine pH (5.0-8.0) Ur Specific [place] (1.001-1.035) Urine Protein (Negative) Urine Glucose (UA) (Negative) Urine Ketones (Negative) Urine Blood (Negative) Urine Nitrite (Negative) Urine Bilirubin (Negative) Urine Urobilinogen (<2.0) mg/dL Ur Leukocyte Esterase (Negative) Urine RBC (0-5) /hpf Urine WBC (0-5) /hpf Ur Squamous Epith Cells (0-4) /hpf Granular Casts (0) /lpf Urine Mucus (None) /hpf Disposition Clinical Impression: Hypoglycemia, Hypertension Disposition: HOME SELF-CARE Condition: Good Instructions: Hypoglycemia in a Person with Diabetes (ED), Hypertension (ED) Is patient prescribed a controlled substance at d/c from ED?: No Referrals: Ford Altman MD [Primary Care Provider] - 1-2 days Time of Disposition: 21:31
[2017-12-13 19:34] LABS: Basophils % (A) 1 %; Eosinophils # (A) 0.3 k/uL (0-0.7); Eosinophils % (A) 4 %; HCT 35.8 % (39.0-53.0); HGB 11.8 gm/dL (13.0-17.5); Lymphocytes # (A) 0.6 k/uL (1.0-4.8); Lymphocytes % (A) 7 %; MCH 30.3 pg (25.0-35.0); MCHC 33.1 g/dL (31.0-37.0); MCV 91.5 fL (80.0-100.0); Mean Platelet Volume 7.8; Monocytes # (A) 0.4 k/uL (0-1.0); Monocytes % (A) 5 %; Neutrophils # (A) 6.9 k/uL (1.3-7.7); Neutrophils % (A) 82 %; Platelet Count 208 k/uL (150-450); RBC 3.91 m/uL (4.30-5.90); RDW 14.3 % (11.5-15.5); WBC 8.4 k/uL (3.8-10.6)
[2017-12-13] MEDS ORDERED: hydrALAZINE HCL 20 MG/ML 1 ML VIAL IVP STA (19:38)
[2017-12-13 19:46] LABS: Albumin 3.7 g/dL (3.5-5.0); Calcium 8.7 mg/dL (8.4-10.2); Potassium 4.2 mmol/L (3.5-5.1); Total Bilirubin 0.4 mg/dL (0.2-1.3); Total Protein 6.1 g/dL (6.3-8.2)
[2017-12-13 20:03] LABS: Glucose,Whole Blood 67 mg/dL (75-99)
[2017-12-13 20:24] LABS: Glucose,Whole Blood 66 mg/dL (75-99)
[2017-12-13 20:44] LABS: Appearance,Urine Clear (Clear); Bilirubin,Urine Negative (Negative); Blood,Urine Trace (Negative); Color,Urine Yellow; Glucose,Urine (UA) Negative (Negative); Granular Casts,Urine 4 /lpf (0); Ketones,Urine Negative (Negative); Leukocyte Esterase,Urine Negative (Negative); Mucus,Urine Rare /hpf; Nitrite,Urine Negative (Negative); Protein,Urine 3+ (Negative); RBC,Urine <1 /hpf (0-5); Specific Gravity,Urine 1.015 (1.001-1.035); Squamous Epithelial Cell,Urine <1 /hpf (0-4); Urobilinogen,Urine <2.0 mg/dL (<2.0); WBC,Urine 1 /hpf (0-5)
[2017-12-13 21:13] LABS: Glucose,Whole Blood 130 mg/dL (75-99)
[2017-12-13] MEDS ORDERED: KETOROLAC 30 MG/ML 1 ML VIAL IVP STA (21:30)
[2017-12-13 21:46] LABS: Glucose,Whole Blood 157 mg/dL (75-99)
[2017-12-13 23:14] VITALS: BP 182/74; PULSE 58; TEMP 97
== END 2017-12-13 22:26 | disposition home or self-care (01) ==
LOC: EC 18:56
DX: E11.649 Type 2 diabetes mellitus with hypoglycemia without coma (principal); J44.9 Chronic obstructive pulmonary disease, unspecified; E78.5 Hyperlipidemia, unspecified; E66.9 Obesity, unspecified; F41.9 Anxiety disorder, unspecified; F32.9 Major depressive disorder, single episode, unspecified; Z87.891 Personal history of nicotine dependence; Z85.038 Personal history of other malignant neoplasm of large intestine; Z68.31 Body mass index [BMI] 31.0-31.9, adult; Z90.49 Acquired absence of other specified parts of digestive tract; Z93.3 Colostomy status; Z98.890 Other specified postprocedural states; Z79.4 Long term (current) use of insulin; Z79.51 Long term (current) use of inhaled steroids; Z79.82 Long term (current) use of aspirin; Z79.899 Other long term (current) drug therapy; Z88.1 Allergy status to other antibiotic agents; Z88.2 Allergy status to sulfonamides
CPT/HCPCS: 36415; 93005; 80053; 85025; 81001; 99284; 96374; 96375; J0360; J1885

== ENCOUNTER 2018-05-26 19:08 | Emergency (ER) | payer MEDICARE, OTHER ==
[2018-05-26] MEDS ORDERED: SODIUM CHLORIDE 0.9% 1,000 ML IV STA (19:26)
[2018-05-26] MEDS ORDERED: IPRATROPIUM 0.5 MG/2.5 ML NEBU INHALATION STA (19:26)
[2018-05-26] MEDS ORDERED: ALBUTEROL NEBULIZED 2.5 MG/3 ML INHALATION STA (19:26)
--- NOTE | 2018-05-26 19:35 | ED ---
SOB HPI - General Chief Complaint: Shortness of Breath Stated Complaint: copd, problems with oxygen Time Seen by Provider: 05/26/18 19:26 Source: patient, RN notes reviewed, old records reviewed Mode of arrival: wheelchair Limitations: no limitations - History of Present Illness Initial Comments: This is a 69-year-old male to the ER for evaluation of shortness of breath. Patient states he's having some increased shortness of breath for a few weeks now, he did see Dr. Jain his orchid worker recently states that he seemed like his lungs were sounding much better with his numbers looked good. Patient states he then got the flu shot on that same visit and has not been feeling well for the past few days. She is single fatigued and weak with some muscle aches. No chest pain. Patient denies fevers no nausea vomiting or diarrhea. No other change in medications. Patient is not currently on antibiotics and steroids. Patient has no recent hospitalizations with last hospitalization being over a year ago MD Complaint: shortness of breath, cough -: days(s), week(s) Radiation: other (No pain) Severity: mild Quality: aching (Body) Consistency: intermittent Improves With: oxygen, rest, bronchodilators, medication Worsens With: exertion, movement Known History Of: COPD Context: recent URI Associated Symptoms: denies other symptoms - Related Data Home Medications Medication Instructions Recorded Confirmed Atorvastatin Calcium [Lipitor] 20 mg PO HS 05/19/16 05/26/18 Aspirin EC [Ecotrin Low Dose] 81 mg PO DAILY 08/22/16 05/26/18 Budesonide/Formoterol Fumarate 2 puff INHALATION RT-BID 03/09/17 05/26/18 [Symbicort 160-4.5 Mcg Inhaler] Cholecalciferol (Vitamin D3) 2,000 unit PO DAILY 03/10/17 05/26/18 [Vitamin D3] Sertraline [Zoloft] 50 mg PO HS 03/10/17 05/26/18 Ascorbic Acid [Vitamin C] 500 mg PO DAILY 09/30/17 05/26/18 Insulin NPH Hum/Reg Insulin Hm 40 unit SQ BID 09/30/17 05/26/18 [Novolin 70-30 100 Unit/ml Vial] Latanoprost Ophth [Xalatan 0.005%] 1 drops BOTH EYES HS 09/30/17 05/26/18 traMADol HCL [Ultram] 50 mg PO DAILY PRN 09/30/17 05/26/18 Albuterol Inhaler [Ventolin Hfa 2 puff INHALATION RT-Q4H PRN 05/26/18 05/26/18 Inhaler] Sertraline [Zoloft] 100 mg PO DAILY 05/26/18 05/26/18 Previous Rx's Medication Instructions Recorded Metoprolol Tartrate [Lopressor] 25 mg PO BID #100 tab 03/16/17 Ipratropium-Albuterol Nebulize 3 ml INHALATION RT-QID ampul.neb 04/07/17 [Duoneb 0.5 mg-3 mg/3 ml Soln] Allergies Allergy/AdvReac Type Severity Reaction Status Date / Time sulfamethoxazole AdvReac RAISES Verified 05/26/18 19:57 [From Bactrim] POTASSIUM trimethoprim [From Bactrim] AdvReac RAISES Verified 05/26/18 19:57 POTASSIUM Review of Systems ROS Statement: Those systems with pertinent positive or pertinent negative responses have been documented in the HPI. ROS Other: All systems not noted in ROS Statement are negative. Past Medical History Past Medical History: Cancer, Chest Pain / Angina, COPD, Diabetes Mellitus, Hyperlipidemia, Hypertension, Pneumonia, Prostate Disorder, Sleep Apnea/CPAP/ BIPAP Additional Past Medical History / Comment(s): BPH, peripheral neuropathy, glaucoma, retinal disease/detachment/retinopathy, colon cancer with a previous resection in 2005then ended up w/ peritonits had 2nd sx spent 30 days in icu, spinal stenosis with degenerative disc disease, recent hospitalization for respiratory complications that occurred in May 2016, Obesity, chronic hypoxic respiratory failure, nueropathy, unable to use cpap.abd hernia. had shingels and pne vaccines not sure of date and unable to verify at time of admit History of Any Multi-Drug Resistant Organisms: None Reported Past Surgical History: Appendectomy, Bowel Resection Additional Past Surgical History / Comment(s): bowel resection for colon cancer in 2005, previous colostomy with subsequent reversal due to complications of peritonitis following bowel surgery, cataracts surgery in both eyes, appendectomy, turp Past Anesthesia/Blood Transfusion Reactions: No Reported Reaction Past Psychological History: Anxiety, Depression Smoking Status: Former smoker Past Alcohol Use History: None Reported Past Drug Use History: None Reported - Past Family History Father Family Medical History: Renal Disease Mother Family Medical History: Cancer Additional Family Medical History / Comment(s): breast cancer, heart problems General Exam Limitations: no limitations Course Vital Signs 05/26/18 05/26/18 05/26/18 19:10 19:25 19:41 Temperature 98.3 F Pulse Rate 64 60 62 Respiratory 18 18 18 Rate Blood Pressure 199/64 147/60 O2 Sat by Pulse 97 100 Oximetry 05/26/18 05/26/18 19:51 20:15 Temperature Pulse Rate 57 L 64 Respiratory 22 18 Rate Blood Pressure O2 Sat by Pulse Oximetry - Reevaluation(s) Reevaluation #1: 05/26/18 21:30 Medical record is reviewed Reevaluation #2: 05/26/18 21:30 Patient is without significant symptoms, no significant shortness of breath currently. No pain. Medical Decision Making - Medical Decision Making 69 male with known history of COPD coming in for evaluation of not feeling well. Patient spoke with his orchid worker the ER for evaluation. Patient denies fever, he was under concern for pneumonia. X-rays clear patient's feeling well without difficulty breathing. Patient will be discharged home - Lab Data Result diagrams: 05/26/18 19:50 05/26/18 19:50 Lab Results 05/26/18 05/26/18 05/26/18 Range/Units 19:50 19:50 19:50 WBC 6.5 (3.8-10.6) k/uL RBC 3.10 L (4.30-5.90) m/uL Hgb 9.2 L (13.0-17.5) gm/dL Hct 28.0 L (39.0-53.0) % MCV 90.4 (80.0-100.0) fL MCH 29.7 (25.0-35.0) pg MCHC 32.9 (31.0-37.0) g/dL RDW 13.9 (11.5-15.5) % Plt Count 197 (150-450) k/uL Neutrophils % 79 % Lymphocytes % 8 % Monocytes % 6 % Eosinophils % 5 % Basophils % 1 % Neutrophils # 5.2 (1.3-7.7) k/uL Lymphocytes # 0.5 L (1.0-4.8) k/uL Monocytes # 0.4 (0-1.0) k/uL Eosinophils # 0.3 (0-0.7) k/uL Basophils # 0.0 (0-0.2) k/uL PT (9.0-12.0) sec INR (<1.2) APTT (22.0-30.0) sec Sodium 143 (137-145) mmol/L Potassium 4.5 (3.5-5.1) mmol/L Chloride 108 H (98-107) mmol/L Carbon Dioxide 31 H (22-30) mmol/L Anion Gap 4 mmol/L BUN 30 H (9-20) mg/dL Creatinine 1.13 (0.66-1.25) mg/dL Est GFR (CKD-EPI)AfAm 72 (>60 ml/min/1.73 sqM) Est GFR (CKD-EPI)NonAf 62 (>60 ml/min/1.73 sqM) Glucose 168 H (74-99) mg/dL POC Glucose (mg/dL) (75-99) mg/dL POC Glu Stamping Die Maker Bench ID Calcium 8.8 (8.4-10.2) mg/dL Magnesium 1.9 (1.6-2.3) mg/dL Total Bilirubin 0.5 (0.2-1.3) mg/dL AST 21 (17-59) U/L ALT 21 (21-72) U/L Alkaline Phosphatase 78 (38-126) U/L Total Creatine Kinase 102 (55-170) U/L CK-MB (CK-2) 1.9 (0.0-2.4) ng/mL CK-MB (CK-2) Rel Index 1.9 Troponin I 0.014 (0.000-0.034) ng/mL NT-Pro-B Natriuret Pep pg/mL Total Protein 5.6 L (6.3-8.2) g/dL Albumin 2.9 L (3.5-5.0) g/dL 05/26/18 05/26/18 05/26/18 Range/Units 19:50 19:50 21:11 WBC (3.8-10.6) k/uL RBC (4.30-5.90) m/uL Hgb (13.0-17.5) gm/dL Hct (39.0-53.0) % MCV (80.0-100.0) fL MCH (25.0-35.0) pg MCHC (31.0-37.0) g/dL RDW (11.5-15.5) % Plt Count (150-450) k/uL Neutrophils % % Lymphocytes % % Monocytes % % Eosinophils % % Basophils % % Neutrophils # (1.3-7.7) k/uL Lymphocytes # (1.0-4.8) k/uL Monocytes # (0-1.0) k/uL Eosinophils # (0-0.7) k/uL Basophils # (0-0.2) k/uL PT 10.1 (9.0-12.0) sec INR 0.9 (<1.2) APTT 22.7 (22.0-30.0) sec Sodium (137-145) mmol/L Potassium (3.5-5.1) mmol/L Chloride (98-107) mmol/L Carbon Dioxide (22-30) mmol/L Anion Gap mmol/L BUN (9-20) mg/dL Creatinine (0.66-1.25) mg/dL Est GFR (CKD-EPI)AfAm (>60 ml/min/1.73 sqM) Est GFR (CKD-EPI)NonAf (>60 ml/min/1.73 sqM) Glucose (74-99) mg/dL POC Glucose (mg/dL) 158 H (75-99) mg/dL POC Glu Stamping Die Maker Bench Tiffany Ariza Calcium (8.4-10.2) mg/dL Magnesium (1.6-2.3) mg/dL Total Bilirubin (0.2-1.3) mg/dL AST (17-59) U/L ALT (21-72) U/L Alkaline Phosphatase (38-126) U/L Total Creatine Kinase (55-170) U/L CK-MB (CK-2) (0.0-2.4) ng/mL CK-MB (CK-2) Rel Index Troponin I (0.000-0.034) ng/mL NT-Pro-B Natriuret Pep 3370 pg/mL Total Protein (6.3-8.2) g/dL Albumin (3.5-5.0) g/dL - EKG Data -: EKG Interpreted by Me (EKG shows sinus rhythm rate of 70, DE 190, QRS 90, QTc 432) - Radiology Data Radiology results: report reviewed (Chest x-rays negative for acute disease), image reviewed Disposition Clinical Impression: COPD (chronic obstructive pulmonary disease) Disposition: HOME SELF-CARE Condition: Good Instructions: Chronic Bronchitis (ED) Is patient prescribed a controlled substance at d/c from ED?: No Referrals: Ford Altman MD [Primary Care Provider] - 1-2 days
[2018-05-26 20:14] LABS: Basophils % (A) 1 %; Eosinophils # (A) 0.3 k/uL (0-0.7); Eosinophils % (A) 5 %; HGB 9.2 gm/dL (13.0-17.5); Lymphocytes # (A) 0.5 k/uL (1.0-4.8); Lymphocytes % (A) 8 %; MCH 29.7 pg (25.0-35.0); MCHC 32.9 g/dL (31.0-37.0); MCV 90.4 fL (80.0-100.0); Mean Platelet Volume 8.2; Monocytes # (A) 0.4 k/uL (0-1.0); Monocytes % (A) 6 %; Neutrophils # (A) 5.2 k/uL (1.3-7.7); Neutrophils % (A) 79 %; Platelet Count 197 k/uL (150-450); RDW 13.9 % (11.5-15.5); WBC 6.5 k/uL (3.8-10.6)
[2018-05-26 20:26] LABS: Albumin 2.9 g/dL (3.5-5.0); Calcium 8.8 mg/dL (8.4-10.2); Magnesium 1.9 mg/dL (1.6-2.3); Potassium 4.5 mmol/L (3.5-5.1); Total Bilirubin 0.5 mg/dL (0.2-1.3); Total Protein 5.6 g/dL (6.3-8.2)
[2018-05-26 20:34] LABS: INR 0.9 (<1.2); Partial Thromboplastin Time 22.7 sec (22.0-30.0); Prothrombin Time 10.1 sec (9.0-12.0)
[2018-05-26 20:41] LABS: Creatine Kinase MB 1.9 ng/mL (0.0-2.4); Troponin I 0.014 ng/mL (0.000-0.034)
--- NOTE | 2018-05-26 21:04 | XR ---
EXAMINATION TYPE: XR chest 2V DATE OF EXAM: 05/26/2018 COMPARISON: 04/06/2017 HISTORY: Short of breath TECHNIQUE: Frontal and lateral views of the chest are obtained. FINDINGS: Heart size is normal. There is blunting of both costophrenic angles with pleural thickenin g and fluid on the left side more than the right. There is no gross heart failure. There are no hilar masses. Mediastinum is normal. Bony thorax is intact. There are chest leads. IMPRESSION: There is chronic bilateral pleural effusions and pleural scarring without a significant change compared to old exam. No gross heart failure. Pulmonary congestion improved compared to last e xam.
[2018-05-26 21:12] LABS: Glucose,Whole Blood 158 mg/dL (75-99)
[2018-05-26] MEDS ORDERED: DEXAMETHASONE SOD PHOSPHATE 10 MG/ML 1 ML VIAL IV STA (21:31)
[2018-05-26 22:00] VITALS: BP 168/59; PULSE 70; RESP 20; TEMP 98.1
--- NOTE | 2018-05-29 01:54 | CDI ---
Documentation Clarification OP Dear Dr. Romain Drew Please do addendum to ED report for missing Physical examination. Thank you, Gisela Bates Php Engineer If you have any questions, please contact Loan Teller at [phone] [facility]
== END 2018-05-26 21:45 | disposition home or self-care (01) ==
LOC: EC 19:08
DX: J44.9 Chronic obstructive pulmonary disease, unspecified (principal); E11.40 Type 2 diabetes mellitus with diabetic neuropathy, unspecified; E11.319 Type 2 diabetes mellitus with unspecified diabetic retinopathy without macular edema; E78.5 Hyperlipidemia, unspecified; F32.9 Major depressive disorder, single episode, unspecified; F41.9 Anxiety disorder, unspecified; H40.9 Unspecified glaucoma; G47.30 Sleep apnea, unspecified; Z99.89 Dependence on other enabling machines and devices; E66.9 Obesity, unspecified; Z68.34 Body mass index [BMI] 34.0-34.9, adult; Z85.038 Personal history of other malignant neoplasm of large intestine; Z87.438 Personal history of other diseases of male genital organs; Z87.891 Personal history of nicotine dependence; Z79.82 Long term (current) use of aspirin; Z79.51 Long term (current) use of inhaled steroids; Z79.4 Long term (current) use of insulin; Z79.899 Other long term (current) drug therapy; Z88.2 Allergy status to sulfonamides
CPT/HCPCS: 36415; 71046; 80053; 82550; 82553; 83735; 83880; 84484; 85025; 85610; 85730; 87040; 94644; 99285

== ENCOUNTER 2018-06-27 12:33 | Inpatient (IN) | payer MEDICARE, OTHER ==
[2018-06-27] MEDS ORDERED: IPRATROPIUM 0.5 MG/2.5 ML NEBU INHALATION STA (13:40)
[2018-06-27] MEDS ORDERED: ALBUTEROL NEBULIZED 2.5 MG/3 ML INHALATION STA (13:40)
--- NOTE | 2018-06-27 13:49 | ED ---
General Adult HPI - General Chief complaint: Shortness of Breath Stated complaint: SOB Source: patient, EMS Mode of arrival: EMS Limitations: no limitations - Related Data Home Medications Medication Instructions Recorded Confirmed Atorvastatin Calcium [Lipitor] 20 mg PO HS 05/19/16 06/27/18 Aspirin EC [Ecotrin Low Dose] 81 mg PO DAILY 08/22/16 06/27/18 Budesonide/Formoterol Fumarate 2 puff INHALATION RT-BID 03/09/17 06/27/18 [Symbicort 160-4.5 Mcg Inhaler] Cholecalciferol (Vitamin D3) 2,000 unit PO DAILY 03/10/17 06/27/18 [Vitamin D3] Sertraline [Zoloft] 50 mg PO HS 03/10/17 06/27/18 Ascorbic Acid [Vitamin C] 500 mg PO DAILY 09/30/17 06/27/18 Insulin NPH Hum/Reg Insulin Hm 40 unit SQ BID 09/30/17 06/27/18 [Novolin 70-30 100 Unit/ml Vial] Latanoprost Ophth [Xalatan 0.005%] 1 drops BOTH EYES HS 09/30/17 06/27/18 traMADol HCL [Ultram] 50 mg PO DAILY PRN 09/30/17 06/27/18 Albuterol Inhaler [Ventolin Hfa 2 puff INHALATION RT-Q4H PRN 05/26/18 06/27/18 Inhaler] Sertraline [Zoloft] 100 mg PO DAILY 05/26/18 06/27/18 HYDROcodone/APAP 5-325MG [[place] 1 tab PO TID PRN 06/27/18 06/27/18 5-325] Previous Rx's Medication Instructions Recorded Metoprolol Tartrate [Lopressor] 25 mg PO BID #100 tab 03/16/17 Ipratropium-Albuterol Nebulize 3 ml INHALATION RT-QID ampul.neb 04/07/17 [Duoneb 0.5 mg-3 mg/3 ml Soln] Allergies Allergy/AdvReac Type Severity Reaction Status Date / Time sulfamethoxazole AdvReac RAISES Verified 06/27/18 13:44 [From Bactrim] POTASSIUM trimethoprim [From Bactrim] AdvReac RAISES Verified 06/27/18 13:44 POTASSIUM Review of Systems ROS Statement: Those systems with pertinent positive or pertinent negative responses have been documented in the HPI. ROS Other: All systems not noted in ROS Statement are negative. Past Medical History Past Medical History: Cancer, Chest Pain / Angina, COPD, Diabetes Mellitus, Hyperlipidemia, Hypertension, Pneumonia, Prostate Disorder, Sleep Apnea/CPAP/ BIPAP Additional Past Medical History / Comment(s): BPH, peripheral neuropathy, glaucoma, retinal disease/detachment/retinopathy, colon cancer with a previous resection in 2005then ended up w/ peritonits had 2nd sx spent 30 days in icu, spinal stenosis with degenerative disc disease, recent hospitalization for respiratory complications that occurred in May 2016, Obesity, chronic hypoxic respiratory failure, nueropathy, unable to use cpap.abd hernia. had shingels and pne vaccines not sure of date and unable to verify at time of admit History of Any Multi-Drug Resistant Organisms: None Reported Past Surgical History: Appendectomy, Bowel Resection Additional Past Surgical History / Comment(s): bowel resection for colon cancer in 2005, previous colostomy with subsequent reversal due to complications of peritonitis following bowel surgery, cataracts surgery in both eyes, appendectomy, turp Past Anesthesia/Blood Transfusion Reactions: No Reported Reaction Past Psychological History: Anxiety, Depression Smoking Status: Former smoker Past Alcohol Use History: None Reported Past Drug Use History: None Reported - Past Family History Father Family Medical History: Renal Disease Mother Family Medical History: Cancer Additional Family Medical History / Comment(s): breast cancer, heart problems General Exam Limitations: no limitations Course Vital Signs 06/27/18 06/27/18 06/27/18 12:48 13:53 14:08 Temperature 98.3 F Pulse Rate 80 81 88 Respiratory 18 Rate Blood Pressure 192/72 O2 Sat by Pulse 100 Oximetry Medical Decision Making - Medical Decision Making Dictation was produced using [employer] dictation software. please excuse any grammatical, word or spelling errors. Chief Complaint: 77-year-old male past medical history of chest pain, COPD, pneumonia, prostate cancer presents with dyspnea times one day. History of Present Illness: 77-year-old male with past medical history of COPD, multiple bouts of pneumonia presents with dyspnea 2 days. Patient states that last night he was at bedside and felt short of breath. Patient is set up and weight his symptoms resolve. Patient is severely history of pneumonia in the past. He is a language asst. Patient was worked to come to the emergency department sooner as opposed to waiting until his symptoms get really bad. Patient denies any constitutional symptoms. Denies any lower extremity pain. Patient is coughing up sputum. The ROS documented in this emergency department record has been reviewed and confirmed by me. Those systems with pertinent positive or negative responses have been documented in the HPI. All other systems are other negative and/or noncontributory. PHYSICAL EXAM: General Impression: Alert and oriented x3, not in acute distress HEENT: Normocephalic atraumatic, extra-ocular movements intact, pupils equal and reactive to light bilaterally, mucous membranes moist. Cardiovascular: Heart regular rate and rhythm, S1&S2 audible, no murmurs, rubs or gallops Chest: Bilateral wheezing worse in the right than the left Abdomen: Bowel sounds present, abdomen soft, non-tender, non-distended, no organomegaly Musculoskeletal: Pulses present and equal in all extremities, no peripheral edema Motor: no focal deficits noted Neurological: CN II-XII grossly intact, no focal motor or sensory deficits noted Skin: Intact with no visualized rashes Psych: Normal affect and mood ED course: 77-year-old male presents with chief complaint of dyspnea. Vital signs upon arrival shows blood pressure 192/72, pulse vital signs within acceptable limits. Laboratory evaluation obtained. CBC unremarkable. Metabolic panel is unremarkable. Patient is prematurity peptide of 2790. This appears to be higher than his usual. Chart review shows that lasts echocardiac and was 2017 showing an ejection fraction with good systolic function 55-60%. Given patient' s degree of weakness and dyspnea believe patient should be admitted to observation with cardiology consultation. Patient given Lasix 40 mg IV. Patient to be admitted for gentle diuresis. EKG interpretation: Ventricular rate 81, normal sinus rhythm, WY interval 186, QRS 80, QTc 436. No WY prolongation, no QTC prolongation, no ST or T-wave changes noted. EKG compared to 05/26/2018 showing no changes. Overall, this EKG is unremarkable - Lab Data Result diagrams: 06/27/18 14:03 06/27/18 14:03 Lab Results 06/27/18 06/27/18 06/27/18 Range/Units 14:03 14:03 14:03 WBC 7.5 (3.8-10.6) k/uL RBC 3.04 L (4.30-5.90) m/uL Hgb 8.6 L (13.0-17.5) gm/dL Hct 27.1 L (39.0-53.0) % MCV 89.3 (80.0-100.0) fL MCH 28.4 (25.0-35.0) pg MCHC 31.8 (31.0-37.0) g/dL RDW 13.9 (11.5-15.5) % Plt Count 231 (150-450) k/uL Neutrophils % 80 % Lymphocytes % 10 % Monocytes % 5 % Eosinophils % 3 % Basophils % 1 % Neutrophils # 6.0 (1.3-7.7) k/uL Lymphocytes # 0.7 L (1.0-4.8) k/uL Monocytes # 0.4 (0-1.0) k/uL Eosinophils # 0.3 (0-0.7) k/uL Basophils # 0.1 (0-0.2) k/uL Hypochromasia Slight Sodium 141 (137-145) mmol/L Potassium 4.7 (3.5-5.1) mmol/L Chloride 109 H (98-107) mmol/L Carbon Dioxide 28 (22-30) mmol/L Anion Gap 4 mmol/L BUN 32 H (9-20) mg/dL Creatinine 1.05 (0.66-1.25) mg/dL Est GFR (CKD-EPI)AfAm 79 (>60 ml/min/1.73 sqM) Est GFR (CKD-EPI)NonAf 68 (>60 ml/min/1.73 sqM) Glucose 201 H (74-99) mg/dL Calcium 8.7 (8.4-10.2) mg/dL Total Bilirubin 0.5 (0.2-1.3) mg/dL AST 22 (17-59) U/L ALT 29 (21-72) U/L Alkaline Phosphatase 87 (38-126) U/L NT-Pro-B Natriuret Pep 2790 pg/mL Total Protein 5.5 L (6.3-8.2) g/dL Albumin 3.1 L (3.5-5.0) g/dL Disposition Clinical Impression: CHF exacerbation Disposition: ADMITTED IP TO THIS HOSP Condition: Good Is patient prescribed a controlled substance at d/c from ED?: No Referrals: Ford Altman MD [Primary Care Provider] - 1-2 days Decision Time: 16:43
[2018-06-27 14:37] LABS: Basophils # (A) 0.1 k/uL (0-0.2); Basophils % (A) 1 %; Eosinophils # (A) 0.3 k/uL (0-0.7); Eosinophils % (A) 3 %; HCT 27.1 % (39.0-53.0); HGB 8.6 gm/dL (13.0-17.5); Hypochromasia Slight; Lymphocytes # (A) 0.7 k/uL (1.0-4.8); Lymphocytes % (A) 10 %; MCH 28.4 pg (25.0-35.0); MCHC 31.8 g/dL (31.0-37.0); MCV 89.3 fL (80.0-100.0); Mean Platelet Volume 7.4; Monocytes # (A) 0.4 k/uL (0-1.0); Monocytes % (A) 5 %; Neutrophils % (A) 80 %; Platelet Count 231 k/uL (150-450); RBC 3.04 m/uL (4.30-5.90); RDW 13.9 % (11.5-15.5); WBC 7.5 k/uL (3.8-10.6)
[2018-06-27 14:46] LABS: Albumin 3.1 g/dL (3.5-5.0); Calcium 8.7 mg/dL (8.4-10.2); Potassium 4.7 mmol/L (3.5-5.1); Total Bilirubin 0.5 mg/dL (0.2-1.3); Total Protein 5.5 g/dL (6.3-8.2)
--- NOTE | 2018-06-27 14:55 | XR ---
EXAMINATION TYPE: XR chest 2V DATE OF EXAM: 06/27/2018 COMPARISON: Chest x-ray May 26, 2018 HISTORY: History of COPD and hypertension with shortness of breath TECHNIQUE: Frontal and lateral views of the chest are obtained. FINDINGS: There is new cardiomegaly with small left greater than right bilateral pleural effusions a nd central vascular congestion on current study. There is associated left basilar compressive atelec tasis. The osseous structures are somewhat demineralized. IMPRESSION: Correlate for CHF exacerbation as there is mild cardiomegaly with new mild central vascu lar congestion and small left greater than right pleural effusions size seen on current study.
[2018-06-27] MEDS ORDERED: NALOXONE 0.4 MG/ML 1 ML VIAL IV PRN (16:38)
[2018-06-27] MEDS ORDERED: FUROSEMIDE 10 MG/ML 4 ML VIAL IV STA (16:38)
[2018-06-27] MEDS ORDERED: ALBUTEROL NEBULIZED 2.5 MG/3 ML INHALATION PRN (16:43)
[2018-06-27] MEDS ORDERED: NITROGLYCERIN SL TABS 0.4 MG TAB SUBLINGUAL STA (16:44)
[2018-06-27 17:50] LABS: Glucose,Whole Blood 250 mg/dL (75-99)
[2018-06-27] MEDS ORDERED: traMADol 50 MG TAB PO PRN (17:57)
[2018-06-27] MEDS ORDERED: HYDROcodone/APAP 5-325MG 1 EACH TAB PO PRN (17:57)
[2018-06-27] MEDS: IPRATROPIUM-ALBUTEROL 3 ML NEB INHALATION SCH (20:49)
[2018-06-27] MEDS: SYMBICORT 160-4.5 MCG INHALER INHALATION SCH (20:49)
[2018-06-27 21:07] LABS: Glucose,Whole Blood 313 mg/dL (75-99)
[2018-06-27] MEDS: FUROSEMIDE 10 MG/ML 4 ML VIAL IV SCH (21:08)
[2018-06-27] MEDS: ATORVASTATIN 20 MG TAB PO SCH (21:08)
[2018-06-27] MEDS: LATANOPROST 0.005% OPHTH DROPS 2.5 ML BTL BOTH EYES SCH (21:09)
[2018-06-27] MEDS: SERTRALINE 50 MG TAB PO SCH (21:09)
[2018-06-27] MEDS: METOPROLOL TARTRATE 25 MG TAB PO SCH (21:09)
[2018-06-27] MEDS: INSULN ASP PRT/INSULIN ASPART 100 UNIT/ML 10 ML VIAL SQ SCH (21:16)
[2018-06-28 04:40] LABS: Glucose,Whole Blood 55 mg/dL (75-99)
[2018-06-28 05:01] LABS: Glucose,Whole Blood 71 mg/dL (75-99)
[2018-06-28 06:07] LABS: Glucose,Whole Blood 204 mg/dL (75-99)
[2018-06-28] MEDS: INSULN ASP PRT/INSULIN ASPART 100 UNIT/ML 10 ML VIAL SQ SCH ×2 (07:29→17:33)
--- NOTE | 2018-06-28 07:34 | HP ---
HISTORY AND PHYSICAL DATE OF SERVICE: 06/27/2018 CHIEF COMPLAINT: Shortness of breath. HISTORY OF PRESENT ILLNESS: This 77-year-old gentleman presents to the emergency room by EMS. The patient had difficulty breathing. He says this has been progressively worsening for the past few days. Last night he had episodes of PND. The patient has a history of chronic respiratory failure and uses oxygen 24/7. He has underlying COPD and chronic congestive cardiac failure secondary to diastolic dysfunction. The patient denied any other symptoms of fever, chills, or worsening cough. He did have some chest discomfort associated with his shortness of breath. The patient has a history of diabetes mellitus, stable hypertension. In the emergency room, patient is evaluated. Chest x- ray suggests changes of congestive cardiac failure with small pleural effusions as well as the BNP is 2890. The patient was in view of this, admitted to the hospital with exacerbation of his chronic respiratory failure due to congestive cardiac failure. EKG did not reveal any acute myocardial changes. Following emergency room visit, patient is continued on oxygen, given Lasix. Patient is seen on the medical floor. PAST MEDICAL HISTORY: Primarily significant for as mentioned above. Past medical history significant for COPD. Patient also has a history of coronary artery disease with generalized diffuse coronary arthrosclerosis with no significant lesions. Left ventricular function evaluated back in February had revealed ejection fraction 55%-60%. Patient has history of diabetes mellitus with fair control. History of hypertension, labile. History of carcinoma of the colon more than 10 years now. History of obesity. History of peripheral neuropathy. History of BPH. Patient also has some degree of autonomic neuropathy related to his diabetes mellitus. PAST SURGICAL HISTORY: Significant for the colon resection and TURP. Also abdominal hernia wall repair with recurrence. PERSONAL HISTORY: Patient is an ex-smoker. Alcohol, none. ALLERGIES: To SULFA, which causes acute renal failure. VACCINATION HISTORY: Patient is up to date on his pneumonia and flu vaccine. MEDICATIONS: At present include: 1. NovoLog 70/30 25 units b.i.d. 2. Tramadol 50 mg p.r.n. t.i.d. 3. Vitamin D 2000 units daily. 4. Vitamin C 500 mg daily. 5. Metoprolol tartrate 25 mg b.i.d. 6. Xalatan 0.005% 1 drop both eyes at bedtime. 7. DuoNeb inhalation q.i.d. 8. Symbicort 2 puffs b.i.d. 9. Lipitor 20 mg at bedtime. 10.Aspirin 81 mg daily. 11.Sertraline 150 mg daily. 12.Albuterol inhaler p.r.n. SOCIAL HISTORY: Patient , lives with his spouse. FAMILY MEDICAL HISTORY: The patient has 2 daughters in adequate health, one daughter has a history of hypertension. REVIEW OF SYSTEMS: NEURO: Denies any headaches, dizziness. No double vision, blurred vision. No symptoms of TIA, syncope, seizures. PSYCH: No anxiety, history of chronic depression, controlled. CARDIAC: Mild chest discomfort, atypical. Present symptoms of shortness of breath, orthopnea, PND. RESPIRATORY: Chronic shortness of breath. Chronic cough, no hemoptysis. GI: No nausea, vomiting, abdominal pain, diarrhea, constipation, hematochezia, melena. : No symptoms of dysuria or hematuria, urgency. Does have frequency. EXTREMITIES: No pain, edema. CONSTITUTIONAL: No fever, chills. HEMATOLOGICAL: No anemia or bleeding disorder. ENDOCRINE: History of diabetes mellitus. SKIN: No breakdown or rash. MUSCULOSKELETAL: Chronic lower back pain. PHYSICAL EXAMINATION: Pleasant gentleman at present, resting comfortably. VITAL SIGNS: Reveal temperature 98.3, pulse 80, respirations 18, blood pressure 192/72, pulse ox 100% on 2 L. At the time of my evaluation, patient's blood pressure was 181/54. HEENT: Normocephalic. Neck is supple. Pupils reactive. Nostrils clear. Oral cavity is moist. Ears reveal no drainage. Neck reveals no carotid bruits on auscultation; 1+ JVD chest examination, minimal dullness to percussion right base otherwise generalized decreased air flow. Occasional rales in the bases. CARDIAC: Distant heart sounds S1, S2 with no gallops. Systolic murmur 2/6 left sternal border. Rhythm is regular. Abdomen is protuberant, soft. Bowel sounds active. Extremities reveal no edema. Good pulses both upper extremities. Decreased pedal pulses known also. Neurologically awake, alert, oriented x3 with well-coordinated movements both upper lower extremities. Does have known peripheral neuropathy affecting lower legs. LABORATORY ASSESSMENT: Hemoglobin is 8.6, BUN 32, creatinine 1.05, glucose 101, normal liver function. BNP is 2790, albumin 3.1. ASSESSMENT: 1. Acute congestive cardiac failure secondary to diastolic dysfunction. 2. Chronic obstructive pulmonary disease. 3. Chronic anemia. 4. Diabetes mellitus. 5. Obesity. PLAN: The patient is admitted to the hospital. Troponins to be checked, echocardiogram to be checked. The patient will be diuresed with Lasix 40 mg b.i.d. Prognosis remains guarded. Condition discussed with the patient. MMODL / IJN: [id number] /
[2018-06-28 07:41] LABS: HCT 25.1 % (39.0-53.0); HGB 8.3 gm/dL (13.0-17.5); Hypochromasia Slight; MCH 29.7 pg (25.0-35.0); MCV 90.1 fL (80.0-100.0); Mean Platelet Volume 8.4; Platelet Count 218 k/uL (150-450); RBC 2.79 m/uL (4.30-5.90); RDW 14.2 % (11.5-15.5); Reticulocyte % 2.5 % (0.5-2.0); WBC 6.6 k/uL (3.8-10.6)
[2018-06-28 07:54] LABS: Calcium 8.7 mg/dL (8.4-10.2)
[2018-06-28] MEDS: SERTRALINE 100 MG TAB PO SCH (08:25)
[2018-06-28] MEDS: FUROSEMIDE 10 MG/ML 4 ML VIAL IV SCH ×2 (08:25→20:36)
[2018-06-28] MEDS: ASPIRIN 81 MG PO SCH (08:25)
[2018-06-28] MEDS: METOPROLOL TARTRATE 25 MG TAB PO SCH ×2 (08:25→20:36)
[2018-06-28] MEDS: CHOLECALCIFEROL 1,000 UNIT TAB PO SCH (08:25)
[2018-06-28] MEDS: ASCORBIC ACID 500 MG TAB PO SCH (08:25)
[2018-06-28] MEDS: SYMBICORT 160-4.5 MCG INHALER INHALATION SCH ×2 (09:27→20:47)
[2018-06-28] MEDS: IPRATROPIUM-ALBUTEROL 3 ML NEB INHALATION SCH ×4 (09:27→20:47)
--- NOTE | 2018-06-28 10:08 | CDI ---
Documentation Clarification Form Date: 06/28/2018 10:00:28 AM From: Dee Dee GottiAlanizROBE allen, CCDS Admit Date: 06/27/2018 5:55:00 PM Patient Name: Ralph Krishna Visit Number: [id number] Discharge Date: ATTENTION: The Clinical Documentation Specialists (CDI) and [facility] Coding Staff appreciate your assistance in clarifying documentation. Please respond to the clarification below the line at the bottom and electronically sign. The CDI & [facility] Coding staff will review the response and follow-up if needed. Please note: Queries are made part of the Legal Health Record. If you have any questions, please contact the author of this message via ITS. Dr. Ford Altman: A diagnosis of chronic anemia lacks specificity to accurately reflect your patients severity of condition and clarification is needed. History/Risk Factors: Hypertensive heart disease with diastolic CHF, Chronic respiratory failure on home O2, COPD, Pneumonia, DM with peripheral neuropathy & retinopathy, former smoker. Clinical indicators: Presented via EMS with SOB, cough with sputum, bilateral wheezing, elevated troponins & weakness. Hemoglobin: 8.6 - 8.3* Hematocrit: 27.1 - 25.1* Treatment: H/H, IV Lasix, Albuterol INH, Atrovent INH, IV Narcan, Nitro sl, Insulin sq. Cardiology consulted. In order to capture the severity of condition, please clarify the type of anemia and etiology if known: Acute blood loss anemia Acute on chronic blood loss anemia Chronic blood loss anemia Iron deficiency anemia Hemolytic anemia Drug induced anemia Nutritional anemia Anemia of chronic kidney disease Unable to determine Other, please specify (Last Revision: March 2017) MTDD
[2018-06-28 11:19] VITALS: BMI 29.7
[2018-06-28 11:25] LABS: Glucose,Whole Blood 59 mg/dL (75-99)
[2018-06-28 11:30] LABS: Glucose,Whole Blood 78 mg/dL (75-99)
--- NOTE | 2018-06-28 12:01 | ECHOF ---
Referral Reason:chf MEASUREMENTS -------- HEIGHT: 172.7 cm WEIGHT: 88.5 kg BP: 182/76 IVSd: 1.1 cm (0.6 - 1.1) LVIDd: 4.0 cm (3.9 - 5.3) LVPWd: 1.2 cm (0.6 - 1.1) IVSs: 1.3 cm LVIDs: 2.9 cm LVPWs: 1.7 cm LAESV Index (A-L): 25.59 ml/m Ao Diam: 3.1 cm (2.0 - 3.7) AV Cusp: 2.2 cm (1.5 - 2.6) LA Diam: 4.1 cm (2.7 - 3.8) MV EXCURSION: 17.007 mm (> 18.000) MV EF SLOPE: 46 mm/s (70 - 150) EPSS: 0.6 cm MV E Selwyn: 1.06 m/s MV DecT: 261 ms MV A [place]: 1.01 m/s MV E/A Ratio: 1.04 RAP: 5.00 mmHg RVSP: 10.41 mmHg FINDINGS -------- Sinus rhythm. This was a technically good study. The left ventricular size is normal. There is mild concentric left ventricular hypertrophy. Overa ll left ventricular systolic function is normal with, an EF between 55 - 60 %. The right ventricle is normal in size and function. The left atrium is normal in size. The right atrium is normal in size. The aortic valve is trileaflet, and appears structurally normal. No aortic stenosis or regurgitation. The mitral valve leaflets are mildly thickened. Mild mitral regurgitation is present. Mild tricuspid regurgitation present. The right ventricular systolic pressure, as measured by Doppl er, is 10.41mmHg. Pulmonic valve appears structurally normal. The aortic root size is normal. Normal inferior vena cava with normal inspiratory collapse consistent with estimated right atrial pre ssure of 5 mmHg. The pericardium is normal. CONCLUSIONS -------- 1. Sinus rhythm. 2. This was a technically good study. 3. The left ventricular size is normal. 4. There is mild concentric left ventricular hypertrophy. 5. Overall left ventricular systolic function is normal with, an EF between 55 - 60 %. 6. The right ventricle is normal in size and function. 7. The left atrium is normal in size. 8. The right atrium is normal in size. 9. The aortic valve is trileaflet, and appears structurally normal. No aortic stenosis or regurgitati on. 10. The mitral valve leaflets are mildly thickened. 11. Mild mitral regurgitation is present. 12. Mild tricuspid regurgitation present. 13. The right ventricular systolic pressure, as measured by Doppler, is 10.41mmHg. 14. Pulmonic valve appears structurally normal. 15. The aortic root size is normal. 16. Normal inferior vena cava with normal inspiratory collapse consistent with estimated right atrial pressure of 5 mmHg. 17. The pericardium is normal. [employer]: Yuliet Sewell RDCS
[2018-06-28 12:29] LABS: Hemoglobin A1C 5.9 % (4.0-6.0)
[2018-06-28 17:05] LABS: Glucose,Whole Blood 306 mg/dL (75-99)
[2018-06-28 17:52] LABS: Iron Saturation 9.48 (15.00-50.00)
[2018-06-28] MEDS: ATORVASTATIN 20 MG TAB PO SCH (20:37)
[2018-06-28] MEDS: SERTRALINE 50 MG TAB PO SCH (20:37)
[2018-06-28 21:12] LABS: Glucose,Whole Blood 272 mg/dL (75-99)
[2018-06-28] MEDS: LATANOPROST 0.005% OPHTH DROPS 2.5 ML BTL BOTH EYES SCH (21:55)
--- NOTE | 2018-06-29 00:16 | PN ---
PROGRESS NOTE ATTENDING PHYSICIAN: Dr. Joo Altman. CHIEF COMPLAINT: Re-evaluation. HISTORY OF PRESENT ILLNESS: A 77-year-old gentleman was admitted to the hospital with shortness of breath with some orthopnea and PND. He is feeling better this morning after some diuresis. Denies any chest pain, palpitations, cough. Does have diabetes mellitus. Blood sugars are under adequate control. The patient has anemia with a hemoglobin of 8.3, stable, with an elevated retic count of 2.5 and serum iron of 29. The patient's ferritin also low at 24.5. REVIEW OF SYSTEMS: NEURO: Denies any headaches or dizziness. PSYCH: No anxiety. CARDIAC: Denies chest pain, angina, palpitations. RESPIRATORY: Denies shortness of breath with oxygen. Has minimal cough. No hemoptysis. GI: No nausea, vomiting, abdominal pain, diarrhea, constipation, hematochezia, melena. : No symptoms of dysuria or hematuria. Had some frequency. EXTREMITIES: Denies pain, edema. CONSTITUTIONAL: Ho fevers or chills. PHYSICAL EXAMINATION: Pleasant gentleman present in no distress. His breathing has improved compared to yesterday after diuresis. Vital signs reveal temperature related, temperature 97.8, pulse 64, respirations 20, blood pressure was 182/76, pulse ox 99 percent 3 L. HEENT: Normocephalic. NECK: No JVD. CHEST: Increased percussion bilateral. Generalized decreased air flow. A few crackles at the right base. CARDIAC: Distant heart sounds S1, S2 with no gallop. Systolic murmur 2/6 left sternal border. ABDOMEN: Protuberant, soft. Ventral hernia present. Bowel sounds active. EXTREMITIES: Reveal no edema. No tenderness. Decreased pedal pulses. NEUROLOGIC: Awake, alert, oriented with well-coordinated movements. Known to have peripheral neuropathy. LABORATORY ASSESSMENT: Hemoglobin of 8.3, MCV of 90, retic count 2.5. BUN 39, creatinine 1.36. Serum iron 29, iron saturation 9.48, ferritin 24.5, troponin 0.211. Blood sugar was 164 this morning. Echocardiogram reveals normal left ventricular function. ASSESSMENT: 1. Acute congestive cardiac failure secondary to diastolic dysfunction. 2. Anemia of iron deficiency with no evidence of acute blood loss. 3. Chronic obstructive pulmonary disease. 4. Diabetes mellitus. 5. Acute kidney injury with diuresis. PLAN: The patient is stable. Continue present medical regimen. Patient's condition discussed with the patient. Prognosis is guarded. Recheck BUN and creatinine in the morning. If symptoms remain stable and labs remained stable, patient could potentially be discharged home in the next 24 to 48 hours. Prognosis guarded. Condition discussed with the patient. The patient is going to require GI workup due to iron-deficiency anemia. MMODL / IJN: [id number] /
[2018-06-29 03:01] VITALS: TEMP 97.7
[2018-06-29 05:33] LABS: Glucose,Whole Blood 197 mg/dL (75-99)
[2018-06-29] MEDS: INSULN ASP PRT/INSULIN ASPART 100 UNIT/ML 10 ML VIAL SQ SCH (06:56)
[2018-06-29 07:09] LABS: Calcium 8.6 mg/dL (8.4-10.2); Potassium 4.3 mmol/L (3.5-5.1)
[2018-06-29] MEDS: SYMBICORT 160-4.5 MCG INHALER INHALATION SCH (07:29)
[2018-06-29] MEDS: IPRATROPIUM-ALBUTEROL 3 ML NEB INHALATION SCH ×2 (07:29→11:48)
[2018-06-29 08:03] VITALS: BP 158/79; RESP 16
[2018-06-29] MEDS: SERTRALINE 100 MG TAB PO SCH (08:18)
[2018-06-29] MEDS: CHOLECALCIFEROL 1,000 UNIT TAB PO SCH (08:18)
[2018-06-29] MEDS: METOPROLOL TARTRATE 25 MG TAB PO SCH (08:18)
[2018-06-29] MEDS: ASCORBIC ACID 500 MG TAB PO SCH (08:19)
[2018-06-29] MEDS: ASPIRIN 81 MG PO SCH (08:19)
[2018-06-29] MEDS ORDERED: SODIUM FERRIC GLUCONAT-SUCROSE 125 MG in SODIUM CHLORIDE 0.9% 100 ML IVPB SCH (09:00)
[2018-06-29 11:49] LABS: Glucose,Whole Blood 196 mg/dL (75-99)
[2018-06-29 11:51] VITALS: PULSE 72
== END 2018-06-29 14:00 | disposition home or self-care (01) | DRG 291 ==
LOC: EC 12:33 → 1SOBS 16:38 → OBSVTOIN 17:55 → 3SCARD 18:53
PROVIDERS: ADMIT Internal Medicine; ATTEND Internal Medicine
DX: I11.0 Hypertensive heart disease with heart failure (principal); I50.31 Acute diastolic (congestive) heart failure; J96.11 Chronic respiratory failure with hypoxia; N17.9 Acute kidney failure, unspecified; E66.9 Obesity, unspecified; Z68.29 Body mass index [BMI] 29.0-29.9, adult; E78.5 Hyperlipidemia, unspecified; G47.30 Sleep apnea, unspecified; E11.43 Type 2 diabetes mellitus with diabetic autonomic (poly)neuropathy; Z79.4 Long term (current) use of insulin; H40.9 Unspecified glaucoma; D50.9 Iron deficiency anemia, unspecified; E11.319 Type 2 diabetes mellitus with unspecified diabetic retinopathy without macular edema; I25.10 Atherosclerotic heart disease of native coronary artery without angina pectoris; J44.9 Chronic obstructive pulmonary disease, unspecified; N40.0 Benign prostatic hyperplasia without lower urinary tract symptoms; Z79.51 Long term (current) use of inhaled steroids; Z79.82 Long term (current) use of aspirin; Z80.3 Family history of malignant neoplasm of breast; Z82.49 Family history of ischemic heart disease and other diseases of the circulatory system; Z85.038 Personal history of other malignant neoplasm of large intestine; Z85.46 Personal history of malignant neoplasm of prostate; Z87.01 Personal history of pneumonia (recurrent); Z87.891 Personal history of nicotine dependence; R74.8 Abnormal levels of other serum enzymes; T50.1X5A Adverse effect of loop [high-ceiling] diuretics, initial encounter; Z90.79 Acquired absence of other genital organ(s); Z90.49 Acquired absence of other specified parts of digestive tract; Z79.899 Other long term (current) drug therapy; M48.00 Spinal stenosis, site unspecified; Z88.2 Allergy status to sulfonamides
CPT/HCPCS: 36415; 71046; 80048; 80053; 82728; 83036; 83540; 83550; 83880; 84484; 85025; 85027; 85045; 93005; 93306; 94640; 96374; 99285

== ENCOUNTER 2019-05-09 19:37 | Inpatient (IN) | payer MEDICARE, OTHER ==
[2019-05-09] MEDS ORDERED: IPRATROPIUM-ALBUTEROL 3 ML NEB INHALATION STA (20:14)
[2019-05-09] MEDS ORDERED: methylPREDNISolone SOD SUCCI 125 MG/2 ML VIAL IV STA (20:14)
[2019-05-09] MEDS ORDERED: MAGNESIUM SULFATE-D5W PMX 1 GM in DEXTROSE/WATER 1 100ML.BAG IVPB STA (20:14)
--- NOTE | 2019-05-09 20:17 | ED ---
General Adult HPI - General Chief complaint: Shortness of Breath Stated complaint: DENNYS Time Seen by Provider: 05/09/19 19:45 Source: patient, EMS Mode of arrival: EMS Limitations: no limitations - History of Present Illness Initial comments: The patient is a 78-year-old male with past medical history of COPD, hypertension, diabetes, hyperlipidemia and congestive heart failure who presents to the emergency room in with reported shortness of breath for the past week. He has a history of COPD and is on chronic oxygen. Normally wears 3 L during the day and 5 L at night. Reports that his shortness of breath is when he is exertional. He sees Dr. Moya in office. Family is at bedside and reports that the patient's pulse ox Was 79% at Home. He Also Admits to a History of Congestive Heart Failure. Denies Any Lower Extremity Swelling. Denies a H istory of DVT or PE. Has Been Using His Inhalers at Home However Has Not Been Helping. He Has Had to Increase His Oxygen Requirements Is Still Feels Short of Breath. Denies Fevers or Chills. Has a Mild Cough without Hemoptysis. Denies Chest Pain. No Abdominal Pain. No Changes in His Bowel or Bladder Habits. There Are No Alleviating, Precipitating or Modifying Factors - Related Data Home Medications Medication Instructions Recorded Confirmed Atorvastatin Calcium [Lipitor] 20 mg PO HS 05/19/16 05/09/19 Aspirin EC [Ecotrin Low Dose] 81 mg PO DAILY 08/22/16 05/09/19 Budesonide/Formoterol Fumarate 2 puff INHALATION RT-BID 03/09/17 05/09/19 [Symbicort 160-4.5 Mcg Inhaler] Cholecalciferol (Vitamin D3) 2,000 unit PO DAILY 03/10/17 05/09/19 [Vitamin D3] Sertraline [Zoloft] 50 mg PO HS 03/10/17 05/09/19 Ascorbic Acid [Vitamin C] 500 mg PO DAILY 09/30/17 05/09/19 Latanoprost Ophth [Xalatan 0.005%] 1 drops BOTH EYES HS 09/30/17 05/09/19 Sertraline [Zoloft] 100 mg PO DAILY 05/26/18 05/09/19 Clobetasol Propionate [Temovate 1 applic TOPICAL BID 05/09/19 05/09/19 0.05% Cream] Previous Rx's Medication Instructions Recorded Ipratropium-Albuterol Nebulize 3 ml INHALATION RT-QID ampul.neb 04/07/17 [Duoneb 0.5 mg-3 mg/3 ml Soln] Ferrous Sulfate [Feosol] 325 mg PO BID #60 tab 05/14/19 Hydrochlorothiazide [Hydrodiuril] 25 mg PO DAILY #30 tab 05/14/19 Insulin NPH Hum/Reg Insulin Hm 25 unit SQ BID #0 05/14/19 [NovoLIN 70-30 100 UNIT/ML VIAL] Metoprolol Tartrate [Lopressor] 50 mg PO BID #60 tab 05/14/19 amLODIPine [Norvasc] 10 mg PO HS #30 tab 05/14/19 predniSONE 40 mg PO DAILY #3 tab 05/14/19 Allergies Allergy/AdvReac Type Severity Reaction Status Date / Time sulfamethoxazole AdvReac RAISES Verified 05/09/19 21:05 [From Bactrim] POTASSIUM trimethoprim [From Bactrim] AdvReac RAISES Verified 05/09/19 21:05 POTASSIUM Review of Systems ROS Statement: Those systems with pertinent positive or pertinent negative responses have been documented in the HPI. ROS Other: All systems not noted in ROS Statement are negative. Past Medical History Past Medical History: Cancer, Chest Pain / Angina, Heart Failure, COPD, Diabetes Mellitus, Hyperlipidemia, Hypertension, Pneumonia, Prostate Disorder, Sleep Apnea/CPAP/BIPAP Additional Past Medical History / Comment(s): BPH, peripheral neuropathy, glaucoma, retinal disease/detachment/retinopathy, colon cancer with a previous resection in 2005then ended up w/ peritonits had 2nd sx spent 30 days in icu, spinal stenosis with degenerative disc disease, recent hospitalization for respiratory complications that occurred in May 2016, chronic hypoxic respiratory failure, unable to use cpap.abd hernia. had shingels vaccine and pne vaccines not sure of date and unable to verify at time of admit History of Any Multi-Drug Resistant Organisms: None Reported Past Surgical History: Appendectomy, Bowel Resection Additional Past Surgical History / Comment(s): bowel resection for colon cancer in 2005, previous colostomy with subsequent reversal due to complications of p eritonitis following bowel surgery, cataracts surgery in both eyes, appendectomy, turp Past Anesthesia/Blood Transfusion Reactions: No Reported Reaction Additional Past Anesthesia/Blood Transfusion Reaction / Comment(s): to pt's knowlege never had a blood transfusion Past Psychological History: Anxiety, Depression Smoking Status: Former smoker Past Alcohol Use History: None Reported Past Drug Use History: None Reported - Past Family History Father Family Medical History: Renal Disease Mother Family Medical History: Cancer Additional Family Medical History / Comment(s): breast cancer, heart problems General Exam Limitations: no limitations General appearance: alert, in no apparent distress Head exam: Present: atraumatic, normocephalic, normal inspection Eye exam: Present: normal appearance, PERRL, EOMI. Absent: scleral icterus, conjunctival injection, periorbital swelling ENT exam: Present: normal exam, mucous membranes moist Neck exam: Present: normal inspection. Absent: tenderness, meningismus, lymphadenopathy Respiratory exam: Present: wheezes, rales, accessory muscle use, decreased breath sounds. Absent: respiratory distress, rhonchi, stridor Cardiovascular Exam: Present: regular rate, normal rhythm, normal heart sounds. Absent: systolic murmur, diastolic murmur, rubs, gallop, clicks GI/Abdominal exam: Present: soft, normal bowel sounds. Absent: distended, tenderness, guarding, rebound, rigid Extremities exam: Present: normal inspection, full ROM, normal capillary refill. Absent: tenderness, pedal edema, joint swelling, calf tenderness Back exam: Present: normal inspection Neurological exam: Present: alert, oriented X3, CN II-XII intact Psychiatric exam: Present: normal affect, normal mood Skin exam: Present: warm, dry, intact, normal color. Absent: rash Course Vital Signs 05/09/19 05/09/19 05/09/19 19:45 20:45 20:52 Temperature 98.1 F Pulse Rate 90 87 89 Respiratory 18 18 18 Rate Blood Pressure 170/75 O2 Sat by Pulse 100 Oximetry 05/09/19 05/09/19 05/09/19 20:55 21:34 22:47 Temperature Pulse Rate 81 80 91 Respiratory 18 18 20 Rate Blood Pressure 170/64 152/75 151/54 O2 Sat by Pulse 100 97 99 Oximetry EKG Findings - EKG Comments: EKG Findings:: EKG demonstrates a normal sinus rhythm with a ventricular rate of 90. LA interval 192. QRS 92. QTC 418. There is minimal ST depression in leads 2, V3 through V6 Medical Decision Making - Medical Decision Making Upon arrival the patient is placed into room 9. A thorough history and physical exam is performed. He is currently on 5 L nasal cannula and appears comfortable. If he does have a history of COPD and does have audible wheeze. I do obtain peripheral IV access. The patient is given a DuoNeb breathing treatment, 1 g of magnesium and 125 mg solumedrol. I did recommend laboratory studies and a chest x-ray. Laboratory studies are remarkable for hemoglobin of 8.1. Chemistries show a glucose of 31. A BMP is 8080 and troponin elevated at 0.028. Chest x-ray is demonstrating bilateral pleural effusions with some loculation that is increased compared to last exam. Mild heart failure. The patient reports that he was on diuretics in the past however has not been on them in several months. Because of this I do order a dose of Lasix for the patient. He is given 40 mg. I did recommend hospital admission for which the patient did agree. Bridging orders were placed and the patient was transported to the floor - Lab Data Result diagrams: 05/14/19 07:59 05/14/19 07:59 Lab Results 05/09/19 05/09/19 05/09/19 Range/Units 19:50 19:50 19:50 WBC 9.1 (3.8-10.6) k/uL RBC 2.73 L (4.30-5.90) m/uL Hgb 8.1 L (13.0-17.5) gm/dL Hct 25.7 L (39.0-53.0) % MCV 94.2 (80.0-100.0) fL MCH 29.7 (25.0-35.0) pg MCHC 31.6 (31.0-37.0) g/dL RDW 14.3 (11.5-15.5) % Plt Count 351 (150-450) k/uL Neutrophils % 80 % Lymphocytes % 8 % Monocytes % 7 % Eosinophils % 3 % Basophils % 1 % Neutrophils # 7.3 (1.3-7.7) k/uL Lymphocytes # 0.7 L (1.0-4.8) k/uL Monocytes # 0.6 (0-1.0) k/uL Eosinophils # 0.3 (0-0.7) k/uL Basophils # 0.1 (0-0.2) k/uL Hypochromasia Slight PT (9.0-12.0) sec INR (<1.2) APTT (22.0-30.0) sec Sodium 141 (137-145) mmol/L Potassium 4.4 (3.5-5.1) mmol/L Chloride 106 (98-107) mmol/L Carbon Dioxide 30 (22-30) mmol/L Anion Gap 5 mmol/L BUN 30 H (9-20) mg/dL Creatinine 0.90 (0.66-1.25) mg/dL Est GFR (CKD-EPI)AfAm >90 (>60 ml/min/1.73 sqM) Est GFR (CKD-EPI)NonAf 81 (>60 ml/min/1.73 sqM) Glucose 31 L* (74-99) mg/dL POC Glucose (mg/dL) (75-99) mg/dL POC Glu Circuit Walker ID Calcium 8.7 (8.4-10.2) mg/dL Magnesium (1.6-2.3) mg/dL Total Bilirubin 0.6 (0.2-1.3) mg/dL AST 33 (17-59) U/L ALT 22 (21-72) U/L Alkaline Phosphatase 81 (38-126) U/L Troponin I (0.000-0.034) ng/mL NT-Pro-B Natriuret Pep 8080 pg/mL Total Protein 6.2 L (6.3-8.2) g/dL Albumin 3.3 L (3.5-5.0) g/dL Blood Type Blood Type Recheck Bld Type Recheck Status Antibody Screen Crossmatch Spec Expiration Date 05/09/19 05/09/19 05/09/19 Range/Units 19:50 19:50 21:26 WBC (3.8-10.6) k/uL RBC (4.30-5.90) m/uL Hgb (13.0-17.5) gm/dL Hct (39.0-53.0) % MCV (80.0-100.0) fL MCH (25.0-35.0) pg MCHC (31.0-37.0) g/dL RDW (11.5-15.5) % Plt Count (150-450) k/uL Neutrophils % % Lymphocytes % % Monocytes % % Eosinophils % % Basophils % % Neutrophils # (1.3-7.7) k/uL Lymphocytes # (1.0-4.8) k/uL Monocytes # (0-1.0) k/uL Eosinophils # (0-0.7) k/uL Basophils # (0-0.2) k/uL Hypochromasia PT 10.0 (9.0-12.0) sec INR 0.9 (<1.2) APTT 24.7 (22.0-30.0) sec Sodium (137-145) mmol/L Potassium (3.5-5.1) mmol/L Chloride (98-107) mmol/L Carbon Dioxide (22-30) mmol/L Anion Gap mmol/L BUN (9-20) mg/dL Creatinine (0.66-1.25) mg/dL Est GFR (CKD-EPI)AfAm (>60 ml/min/1.73 sqM) Est GFR (CKD-EPI)NonAf (>60 ml/min/1.73 sqM) Glucose (74-99) mg/dL POC Glucose (mg/dL) 56 L (75-99) mg/dL POC Glu Circuit Walker ID Camelia Wong Calcium (8.4-10.2) mg/dL Magnesium (1.6-2.3) mg/dL Total Bilirubin (0.2-1.3) mg/dL AST (17-59) U/L ALT (21-72) U/L Alkaline Phosphatase (38-126) U/L Troponin I 0.028 (0.000-0.034) ng/mL NT-Pro-B Natriuret Pep pg/mL Total Protein (6.3-8.2) g/dL Albumin (3.5-5.0) g/dL Blood Type Blood Type Recheck Bld Type Recheck Status Antibody Screen Crossmatch Spec Expiration Date 05/09/19 05/10/19 05/10/19 Range/Units 22:17 02:12 06:36 WBC (3.8-10.6) k/uL RBC (4.30-5.90) m/uL Hgb (13.0-17.5) gm/dL Hct (39.0-53.0) % MCV (80.0-100.0) fL MCH (25.0-35.0) pg MCHC (31.0-37.0) g/dL RDW (11.5-15.5) % Plt Count (150-450) k/uL Neutrophils % % Lymphocytes % % Monocytes % % Eosinophils % % Basophils % % Neutrophils # (1.3-7.7) k/uL Lymphocytes # (1.0-4.8) k/uL Monocytes # (0-1.0) k/uL Eosinophils # (0-0.7) k/uL Basophils # (0-0.2) k/uL Hypochromasia PT (9.0-12.0) sec INR (<1.2) APTT (22.0-30.0) sec Sodium (137-145) mmol/L Potassium (3.5-5.1) mmol/L Chloride (98-107) mmol/L Carbon Dioxide (22-30) mmol/L Anion Gap mmol/L BUN (9-20) mg/dL Creatinine (0.66-1.25) mg/dL Est GFR (CKD-EPI)AfAm (>60 ml/min/1.73 sqM) Est GFR (CKD-EPI)NonAf (>60 ml/min/1.73 sqM) Glucose (74-99) mg/dL POC Glucose (mg/dL) 134 H 388 H (75-99) mg/dL POC Glu Circuit Walker Camelia Bartholomew Nichole Calcium (8.4-10.2) mg/dL Magnesium (1.6-2.3) mg/dL Total Bilirubin (0.2-1.3) mg/dL AST (17-59) U/L ALT (21-72) U/L Alkaline Phosphatase (38-126) U/L Troponin I 0.081 H* (0.000-0.034) ng/mL NT-Pro-B Natriuret Pep pg/mL Total Protein (6.3-8.2) g/dL Albumin (3.5-5.0) g/dL Blood Type Blood Type Recheck Bld Type Recheck Status Antibody Screen Crossmatch Spec Expiration Date 05/10/19 05/10/19 05/10/19 Range/Units 08:06 08:06 08:06 WBC 4.9 (3.8-10.6) k/uL RBC 2.43 L (4.30-5.90) m/uL Hgb 7.2 L (13.0-17.5) gm/dL Hct 23.3 L (39.0-53.0) % MCV 95.9 (80.0-100.0) fL MCH 29.6 (25.0-35.0) pg MCHC 30.9 L (31.0-37.0) g/dL RDW 14.2 (11.5-15.5) % Plt Count 248 (150-450) k/uL Neutrophils % 95 % Lymphocytes % 3 % Monocytes % 2 % Eosinophils % 0 % Basophils % 0 % Neutrophils # 4.6 (1.3-7.7) k/uL Lymphocytes # 0.2 L (1.0-4.8) k/uL Monocytes # 0.1 (0-1.0) k/uL Eosinophils # 0.0 (0-0.7) k/uL Basophils # 0.0 (0-0.2) k/uL Hypochromasia Marked PT (9.0-12.0) sec INR (<1.2) APTT (22.0-30.0) sec Sodium 139 (137-145) mmol/L Potassium 4.9 (3.5-5.1) mmol/L Chloride 101 (98-107) mmol/L Carbon Dioxide 29 (22-30) mmol/L Anion Gap 9 mmol/L BUN 38 H (9-20) mg/dL Creatinine 1.27 H (0.66-1.25) mg/dL Est GFR (CKD-EPI)AfAm 62 (>60 ml/min/1.73 sqM) Est GFR (CKD-EPI)NonAf 53 (>60 ml/min/1.73 sqM) Glucose 393 H (74-99) mg/dL POC Glucose (mg/dL) (75-99) mg/dL POC Glu Circuit Walker ID Calcium 8.5 (8.4-10.2) mg/dL Magnesium (1.6-2.3) mg/dL Total Bilirubin (0.2-1.3) mg/dL AST (17-59) U/L ALT (21-72) U/L Alkaline Phosphatase (38-126) U/L Troponin I 0.878 H* (0.000-0.034) ng/mL NT-Pro-B Natriuret Pep pg/mL Total Protein (6.3-8.2) g/dL Albumin (3.5-5.0) g/dL Blood Type Blood Type Recheck Bld Type Recheck Status Antibody Screen Crossmatch Spec Expiration Date 05/10/19 05/10/19 05/10/19 Range/Units 11:30 11:32 16:36 WBC (3.8-10.6) k/uL RBC (4.30-5.90) m/uL Hgb (13.0-17.5) gm/dL Hct (39.0-53.0) % MCV (80.0-100.0) fL MCH (25.0-35.0) pg MCHC (31.0-37.0) g/dL RDW (11.5-15.5) % Plt Count (150-450) k/uL Neutrophils % % Lymphocytes % % Monocytes % % Eosinophils % % Basophils % % Neutrophils # (1.3-7.7) k/uL Lymphocytes # (1.0-4.8) k/uL Monocytes # (0-1.0) k/uL Eosinophils # (0-0.7) k/uL Basophils # (0-0.2) k/uL Hypochromasia PT (9.0-12.0) sec INR (<1.2) APTT (22.0-30.0) sec Sodium (137-145) mmol/L Potassium (3.5-5.1) mmol/L Chloride (98-107) mmol/L Carbon Dioxide (22-30) mmol/L Anion Gap mmol/L BUN (9-20) mg/dL Creatinine (0.66-1.25) mg/dL Est GFR (CKD-EPI)AfAm (>60 ml/min/1.73 sqM) Est GFR (CKD-EPI)NonAf (>60 ml/min/1.73 sqM) Glucose (74-99) mg/dL POC Glucose (mg/dL) 400 H 367 H 435 H (75-99) mg/dL POC Glu Circuit Walker ID Chattick, Siobhan Chattick, Siobhan Green, Reshma Calcium (8.4-10.2) mg/dL Magnesium (1.6-2.3) mg/dL Total Bilirubin (0.2-1.3) mg/dL AST (17-59) U/L ALT (21-72) U/L Alkaline Phosphatase (38-126) U/L Troponin I (0.000-0.034) ng/mL NT-Pro-B Natriuret Pep pg/mL Total Protein (6.3-8.2) g/dL Albumin (3.5-5.0) g/dL Blood Type Blood Type Recheck Bld Type Recheck Status Antibody Screen Crossmatch Spec Expiration Date 05/10/19 05/10/19 05/11/19 Range/Units 16:39 20:45 00:51 WBC (3.8-10.6) k/uL RBC (4.30-5.90) m/uL Hgb (13.0-17.5) gm/dL Hct (39.0-53.0) % MCV (80.0-100.0) fL MCH (25.0-35.0) pg MCHC (31.0-37.0) g/dL RDW (11.5-15.5) % Plt Count (150-450) k/uL Neutrophils % % Lymphocytes % % Monocytes % % Eosinophils % % Basophils % % Neutrophils # (1.3-7.7) k/uL Lymphocytes # (1.0-4.8) k/uL Monocytes # (0-1.0) k/uL Eosinophils # (0-0.7) k/uL Basophils # (0-0.2) k/uL Hypochromasia PT (9.0-12.0) sec INR (<1.2) APTT (22.0-30.0) sec Sodium (137-145) mmol/L Potassium (3.5-5.1) mmol/L Chloride (98-107) mmol/L Carbon Dioxide (22-30) mmol/L Anion Gap mmol/L BUN (9-20) mg/dL Creatinine (0.66-1.25) mg/dL Est GFR (CKD-EPI)AfAm (>60 ml/min/1.73 sqM) Est GFR (CKD-EPI)NonAf (>60 ml/min/1.73 sqM) Glucose (74-99) mg/dL POC Glucose (mg/dL) 430 H 288 H 104 H (75-99) mg/dL POC Glu Circuit Walker ID Siobhan Jordan, Yadi May Devon Calcium (8.4-10.2) mg/dL Magnesium (1.6-2.3) mg/dL Total Bilirubin (0.2-1.3) mg/dL AST (17-59) U/L ALT (21-72) U/L Alkaline Phosphatase (38-126) U/L Troponin I (0.000-0.034) ng/mL NT-Pro-B Natriuret Pep pg/mL Total Protein (6.3-8.2) g/dL Albumin (3.5-5.0) g/dL Blood Type Blood Type Recheck Bld Type Recheck Status Antibody Screen Crossmatch Spec Expiration Date 05/11/19 05/11/19 05/11/19 Range/Units 03:48 07:26 07:56 WBC 13.3 H (3.8-10.6) k/uL RBC 2.26 L (4.30-5.90) m/uL Hgb 6.7 L* (13.0-17.5) gm/dL Hct 21.0 L (39.0-53.0) % MCV 92.9 (80.0-100.0) fL MCH 29.8 (25.0-35.0) pg MCHC 32.1 (31.0-37.0) g/dL RDW 14.7 (11.5-15.5) % Plt Count 341 (150-450) k/uL Neutrophils % % Lymphocytes % % Monocytes % % Eosinophils % % Basophils % % Neutrophils # (1.3-7.7) k/uL Lymphocytes # (1.0-4.8) k/uL Monocytes # (0-1.0) k/uL Eosinophils # (0-0.7) k/uL Basophils # (0-0.2) k/uL Hypochromasia Slight PT (9.0-12.0) sec INR (<1.2) APTT (22.0-30.0) sec Sodium (137-145) mmol/L Potassium (3.5-5.1) mmol/L Chloride (98-107) mmol/L Carbon Dioxide (22-30) mmol/L Anion Gap mmol/L BUN (9-20) mg/dL Creatinine (0.66-1.25) mg/dL Est GFR (CKD-EPI)AfAm (>60 ml/min/1.73 sqM) Est GFR (CKD-EPI)NonAf (>60 ml/min/1.73 sqM) Glucose (74-99) mg/dL POC Glucose (mg/dL) 106 H 143 H (75-99) mg/dL POC Glu Circuit Walker ID Yadira Cid, Prudence Dawson Calcium (8.4-10.2) mg/dL Magnesium (1.6-2.3) mg/dL Total Bilirubin (0.2-1.3) mg/dL AST (17-59) U/L ALT (21-72) U/L Alkaline Phosphatase (38-126) U/L Troponin I (0.000-0.034) ng/mL NT-Pro-B Natriuret Pep pg/mL Total Protein (6.3-8.2) g/dL Albumin (3.5-5.0) g/dL Blood Type Blood Type Recheck Bld Type Recheck Status Antibody Screen Crossmatch Spec Expiration Date 05/11/19 05/11/19 05/11/19 Range/Units 07:56 09:13 12:19 WBC (3.8-10.6) k/uL RBC (4.30-5.90) m/uL Hgb (13.0-17.5) gm/dL Hct (39.0-53.0) % MCV (80.0-100.0) fL MCH (25.0-35.0) pg MCHC (31.0-37.0) g/dL RDW (11.5-15.5) % Plt Count (150-450) k/uL Neutrophils % % Lymphocytes % % Monocytes % % Eosinophils % % Basophils % % Neutrophils # (1.3-7.7) k/uL Lymphocytes # (1.0-4.8) k/uL Monocytes # (0-1.0) k/uL Eosinophils # (0-0.7) k/uL Basophils # (0-0.2) k/uL Hypochromasia PT (9.0-12.0) sec INR (<1.2) APTT (22.0-30.0) sec Sodium 136 L (137-145) mmol/L Potassium 5.2 H (3.5-5.1) mmol/L Chloride 100 (98-107) mmol/L Carbon Dioxide 31 H (22-30) mmol/L Anion Gap 5 mmol/L BUN 59 H (9-20) mg/dL Creatinine 1.56 H (0.66-1.25) mg/dL Est GFR (CKD-EPI)AfAm 48 (>60 ml/min/1.73 sqM) Est GFR (CKD-EPI)NonAf 42 (>60 ml/min/1.73 sqM) Glucose 152 H (74-99) mg/dL POC Glucose (mg/dL) 99 (75-99) mg/dL POC Glu Circuit Walker ID Emili Maza Calcium 8.9 (8.4-10.2) mg/dL Magnesium 2.3 (1.6-2.3) mg/dL Total Bilirubin (0.2-1.3) mg/dL AST (17-59) U/L ALT (21-72) U/L Alkaline Phosphatase (38-126) U/L Troponin I (0.000-0.034) ng/mL NT-Pro-B Natriuret Pep pg/mL Total Protein (6.3-8.2) g/dL Albumin (3.5-5.0) g/dL Blood Type A Positive Blood Type Recheck A Pos Bld Type Recheck Status No Antibody Screen NEGATIVE Crossmatch See Detail Spec Expiration Date 05/14/2019 - 2313 Disposition Clinical Impression: CHF exacerbation, Acute respiratory failure, Acute exacerbation of chronic obstructive airways disease Disposition: ADMITTED IP TO THIS [facility] Condition: Stable Is patient prescribed a controlled substance at d/c from ED?: No Decision to Admit Reason: Admit from EC Decision Date: 05/09/19 Decision Time: 22:02
[2019-05-09 20:41] LABS: Basophils # (A) 0.1 k/uL (0-0.2); Basophils % (A) 1 %; Eosinophils # (A) 0.3 k/uL (0-0.7); Eosinophils % (A) 3 %; HCT 25.7 % (39.0-53.0); HGB 8.1 gm/dL (13.0-17.5); Hypochromasia Slight; Lymphocytes # (A) 0.7 k/uL (1.0-4.8); Lymphocytes % (A) 8 %; MCH 29.7 pg (25.0-35.0); MCHC 31.6 g/dL (31.0-37.0); MCV 94.2 fL (80.0-100.0); Monocytes # (A) 0.6 k/uL (0-1.0); Monocytes % (A) 7 %; Neutrophils # (A) 7.3 k/uL (1.3-7.7); Neutrophils % (A) 80 %; Platelet Count 351 k/uL (150-450); RBC 2.73 m/uL (4.30-5.90); RDW 14.3 % (11.5-15.5); WBC 9.1 k/uL (3.8-10.6)
[2019-05-09 20:50] LABS: INR 0.9 (<1.2); Partial Thromboplastin Time 24.7 sec (22.0-30.0)
[2019-05-09 21:00] LABS: ALT 22 U/L (21-72); AST 33 U/L (17-59); African American GFR (CKD) >90 (>60 ml/min/1.73 sqM); Albumin 3.3 g/dL (3.5-5.0); Alkaline Phosphatase 81 U/L (38-126); Anion Gap 5 mmol/L; Blood Urea Nitrogen 30 mg/dL (9-20); Calcium 8.7 mg/dL (8.4-10.2); Carbon Dioxide 30 mmol/L (22-30); Chloride 106 mmol/L (98-107); Non-African American GFR(CKD) 81 (>60 ml/min/1.73 sqM); Sodium 141 mmol/L (137-145); Total Bilirubin 0.6 mg/dL (0.2-1.3); Total Protein 6.2 g/dL (6.3-8.2)
--- NOTE | 2019-05-09 21:13 | XR ---
EXAMINATION TYPE: XR chest 2V DATE OF EXAM: 05/09/2019 COMPARISON: 06/27/2018 HISTORY: Difficulty breathing TECHNIQUE: Frontal and lateral views of the chest are obtained. FINDINGS: There is pleural thickening on the left and right lateral chest wall and blunting of the c ostophrenic angles. There is mild pulmonary congestion. There are chest leads. Heart size is fairly n ormal. IMPRESSION: Bilateral pleural effusions with some loculation that is increased compared to last exam . There is probably mild heart failure. Pulmonary congestion increased compared to last exam.
[2019-05-09 21:23] LABS: Glucose 31 mg/dL (74-99); Potassium 4.4 mmol/L (3.5-5.1)
[2019-05-09 21:28] LABS: Glucose,Whole Blood 56 mg/dL (75-99)
[2019-05-09] MEDS ORDERED: FUROSEMIDE 10 MG/ML 4 ML VIAL IV STA (21:50)
[2019-05-09] MEDS ORDERED: NALOXONE 0.4 MG/ML 1 ML VIAL IV PRN (22:03)
[2019-05-09 22:20] LABS: Glucose,Whole Blood 134 mg/dL (75-99)
[2019-05-09] MEDS: HEPARIN SODIUM,PORCINE 5,000 UNIT/ML 1 ML VIAL SQ SCH (23:55)
[2019-05-09] MEDS: SERTRALINE 50 MG TAB PO SCH (23:55)
--- NOTE | 2019-05-10 00:25 | P.HPIM ---
History of Present Illness H&P Date: 05/09/19 Chief Complaint: Difficulty in breathing 78 year old male with advanced COPD on home oxygenn, and diastolic CHF patient comes in today due to progressive SOB ov er the past 2-3 weeks. he reports easy fatiguability , with exertional dyspnea on mild exertion, and improves immediately with rest , however, over the past few days , things started to get worse.. he reports chronic productive cough of whitish sputum (denies any blood) however it became hard to cough up his sputum, he is feeling increasingly congested, denies any leg swelling. he reports PND. he is not sure about orthopnea as he cant lay flat. denies any fever or chills. denies sick contacts or recetn travel. denies any chest pain. denies any abd pain , nausea vomiting , or any changes in his bowel or urinary habits. he reports that he stopped lasix couple months ago. in the ED, he was found hypoxic and hypoglycemic. CXR suggested bilateral pleural effusion admitted for diastolic CHF exacerbation resulting in acute on chronic hypoxic respiratory failure with copd exacerbation Review of Systems Pertinent positives as noted in HPI. All other systems were reviewed and are negative Past Medical History Past Medical History: Cancer, Chest Pain / Angina, Heart Failure, COPD, Diabetes Mellitus, Hyperlipidemia, Hypertension, Pneumonia, Prostate Disorder, Sleep Apnea/CPAP/BIPAP Additional Past Medical History / Comment(s): BPH, peripheral neuropathy, glaucoma, retinal disease/detachment/retinopathy, colon cancer with a previous resection in 2005then ended up w/ peritonits had 2nd sx spent 30 days in [facility], spinal stenosis with degenerative disc disease, recent hospitalization for respiratory complications that occurred in May 2016, chronic hypoxic respiratory failure, unable to use cpap.abd hernia. had shingels vaccine and pne vaccines not sure of date and unable to verify at time of admit History of Any Multi-Drug Resistant Organisms: None Reported Past Surgical History: Appendectomy, Bowel Resection Additional Past Surgical History / Comment(s): bowel resection for colon cancer in 2005, previous colostomy with subsequent reversal due to complications of peritonitis following bowel surgery, cataracts surgery in both eyes, appendectomy, turp Past Anesthesia/Blood Transfusion Reactions: No Reported Reaction Additional Past Anesthesia/Blood Transfusion Reaction / Comment(s): to pt's knowlege never had a blood transfusion Past Psychological History: Anxiety, Depression Smoking Status: Former smoker Past Alcohol Use History: None Reported Past Drug Use History: None Reported - Past Family History Father Family Medical History: Coronary Artery Disease (CAD), Renal Disease Mother Family Medical History: Cancer, Congestive Heart Failure (CHF) Additional Family Medical History / Comment(s): breast cancer, heart problems Medications and Allergies Home Medications Medication Instructions Recorded Confirmed Type Atorvastatin Calcium [Lipitor] 20 mg PO HS 05/19/16 05/09/19 History Aspirin EC [Ecotrin Low Dose] 81 mg PO DAILY 08/22/16 05/09/19 History Budesonide/Formoterol Fumarate 2 puff INHALATION RT-BID 03/09/17 05/09/19 History [Symbicort 160-4.5 Mcg Inhaler] Cholecalciferol (Vitamin D3) 2,000 unit PO DAILY 03/10/17 05/09/19 History [Vitamin D3] Sertraline [Zoloft] 50 mg PO HS 03/10/17 05/09/19 History Metoprolol Tartrate [Lopressor] 25 mg PO BID #100 tab 03/16/17 05/09/19 Rx Ipratropium-Albuterol Nebulize 3 ml INHALATION RT-QID ampul.neb 04/07/17 05/09/19 Rx [Duoneb 0.5 mg-3 mg/3 ml Soln] Ascorbic Acid [Vitamin C] 500 mg PO DAILY 09/30/17 05/09/19 History Insulin NPH Hum/Reg Insulin Hm 40 unit SQ BID 09/30/17 05/09/19 History [NovoLIN 70-30 100 UNIT/ML VIAL] Latanoprost Ophth [Xalatan 0.005%] 1 drops BOTH EYES HS 09/30/17 05/09/19 History Sertraline [Zoloft] 100 mg PO DAILY 05/26/18 05/09/19 History Ferrous Sulfate [Feosol] 325 mg PO DAILY #30 tab 06/29/18 05/09/19 Rx Clobetasol Propionate [Temovate 1 applic TOPICAL BID 05/09/19 05/09/19 History 0.05% Cream] Allergies Allergy/AdvReac Type Severity Reaction Status Date / Time sulfamethoxazole AdvReac RAISES Verified 05/09/19 21:05 [From Bactrim] POTASSIUM trimethoprim [From Bactrim] AdvReac RAISES Verified 05/09/19 21:05 POTASSIUM Physical Exam Vitals: Vital Signs Temp Pulse Resp BP Pulse Ox 05/09/19 22:47 91 20 151/54 99 05/09/19 21:34 80 18 152/75 97 05/09/19 20:55 81 18 170/64 100 05/09/19 20:52 89 18 05/09/19 20:45 87 18 05/09/19 19:45 98.1 F 90 18 170/75 100 Intake and Output 05/09/19 05/09/19 05/10/19 14:59 22:59 06:59 Other: Weight 86.183 kg Constitutional: Patient in mild respiratory distress able to talk but short sentences, patient is tripod position, with supplemental oxygen Eyes: Anicteric sclerae, moist conjunctiva, no lid-lag Pupils equal round reactive to light ENMT: NC/AT Oropharynx clear, no erythema, exudates Neck: Supple, FROM, no masses, or JVD No carotid bruits No thyromegaly Lungs: Decreased breath sounds at bilateral lung bases dull to percussion, diffuse respiratory neck surgery wheezes with prolonged expiratory phase in the upper and mid sections of the lungs Dull to percussion at lung basis Using accessory muscles of respiration Cardiovascular: Heart tachycardic No murmurs, gallops, or rubs No peripheral edema Abdominal: Soft Nontender, no guarding, rebound or rigidity Abdomen moving with respiration Normoactive bowel sounds No hepatomegaly, No splenomegaly No palpable mass No abdominal wall hernia noted Skin: Normal temperature, tone, texture, turgor No induration No subcutaneous nodules Her some dryness over bilateral legs and upper extremities, with skin darkening over bilateral upper extremities Extremities: No digital cyanosis No clubbing Pedal pulses intact and symmetrical Radial pulses intact and symmetrical No calf tenderness Psychiatric: Alert and oriented to person, place and time Appropriate affect fair judgement Neuro Muscles Strength 4/5 in all 4 extremities Sensation to light touch grossly present throughout Cranial nerves II-XII grossly intact No focal sensory deficits Lymphatics: no palpable cervical or supraclavicular , or inguinal lymph nodes Results CBC & Chem 7: 05/09/19 19:50 05/09/19 19:50 Labs: Abnormal Lab Results - Last 24 Hours (Table) 05/09/19 05/09/19 05/09/19 Range/Units 19:50 19:50 21:26 RBC 2.73 L (4.30-5.90) m/uL Hgb 8.1 L (13.0-17.5) gm/dL Hct 25.7 L (39.0-53.0) % Lymphocytes # 0.7 L (1.0-4.8) k/uL BUN 30 H (9-20) mg/dL Glucose 31 L* (74-99) mg/dL POC Glucose (mg/dL) 56 L (75-99) mg/dL Total Protein 6.2 L (6.3-8.2) g/dL Albumin 3.3 L (3.5-5.0) g/dL 05/09/19 Range/Units 22:17 RBC (4.30-5.90) m/uL Hgb (13.0-17.5) gm/dL Hct (39.0-53.0) % Lymphocytes # (1.0-4.8) k/uL BUN (9-20) mg/dL Glucose (74-99) mg/dL POC Glucose (mg/dL) 134 H (75-99) mg/dL Total Protein (6.3-8.2) g/dL Albumin (3.5-5.0) g/dL Assessment and Plan Assessment: 78 year old male with advanced COPD on home oxygenn, and diastolic CHF, diabetes admitted for diastolic CHF exacerbation resulting in acute on chronic hypoxic respiratory failure with copd exacerbation as an inpatient with anticipated length of stay more than 2 midnights Plan: Acute on chronic hypoxic respiratory failure secondary to exacerbation of chronic diastolic CHF and acute exacerbation of COPD Diastolic CHF exacerbation COPD exacerbation Plan Breathing treatments around the clock Lasix twice a day IV Continue home breathing treatments Systemic IV steroids Monitor vital signs Supplemental oxygen titrated touch of oxygen sat above 92% Hypoglycemia with history of diabetes Continue home dose of insulin Insulin sliding scale When necessary dextrose 50% if needed for hypoglycemia Hypertension continue home meds Chronic anemia Patient denies bleeding Continue with iron replacement Monitor hemoglobin CODE STATUS: No code DVT prophylaxis: Heparin subcu 3 times a day Discussed with: Patient, ER, RN Anticipated length of stay more than [address]: Home A total of 60 minutes was spent on the care of this complex patient more than 50% of the time was spent in counseling and care coordination.
[2019-05-10] MEDS ORDERED: ALPRAZolam 0.25 MG TAB PO STA (01:11)
[2019-05-10] MEDS: IPRATROPIUM-ALBUTEROL 3 ML NEB INHALATION PRN ×2 (01:52→04:57)
[2019-05-10] MEDS: methylPREDNISolone SOD SUCCI 40 MG/ML 1 ML VIAL IV SCH ×3 (05:21→17:20)
[2019-05-10 06:37] LABS: Glucose,Whole Blood 388 mg/dL (75-99)
[2019-05-10] MEDS: INSULIN ASPART (NovoLOG) 100 UNIT/ML VIAL SQ SCH ×4 (06:48→21:24)
[2019-05-10] MEDS: SYMBICORT 160-4.5 MCG INHALER INHALATION SCH ×2 (07:34→20:05)
[2019-05-10] MEDS: IPRATROPIUM-ALBUTEROL 3 ML NEB INHALATION SCH ×4 (07:34→19:56)
[2019-05-10 08:26] LABS: Basophils % (A) 0 %; Eosinophils % (A) 0 %; HCT 23.3 % (39.0-53.0); HGB 7.2 gm/dL (13.0-17.5); Hypochromasia Marked; Lymphocytes # (A) 0.2 k/uL (1.0-4.8); Lymphocytes % (A) 3 %; MCH 29.6 pg (25.0-35.0); MCHC 30.9 g/dL (31.0-37.0); MCV 95.9 fL (80.0-100.0); Mean Platelet Volume 7.5; Monocytes # (A) 0.1 k/uL (0-1.0); Monocytes % (A) 2 %; Neutrophils # (A) 4.6 k/uL (1.3-7.7); Neutrophils % (A) 95 %; Platelet Count 248 k/uL (150-450); RBC 2.43 m/uL (4.30-5.90); RDW 14.2 % (11.5-15.5); WBC 4.9 k/uL (3.8-10.6)
[2019-05-10 08:36] LABS: Calcium 8.5 mg/dL (8.4-10.2); Potassium 4.9 mmol/L (3.5-5.1)
[2019-05-10] MEDS ORDERED: CALCIUM CARBONATE 500 MG CHEWABLE PO PRN (08:41)
[2019-05-10] MEDS ORDERED: FUROSEMIDE 10 MG/ML 4 ML VIAL IVP SCH (09:00)
[2019-05-10] MEDS ORDERED: INSULN ASP PRT/INSULIN ASPART 100 UNIT/ML 10 ML VIAL SQ SCH ×3 (09:00→21:00)
[2019-05-10] MEDS: METOPROLOL TARTRATE 25 MG TAB PO SCH ×2 (09:12→21:24)
[2019-05-10] MEDS: HEPARIN SODIUM,PORCINE 5,000 UNIT/ML 1 ML VIAL SQ SCH ×3 (09:12→22:45)
[2019-05-10] MEDS: ASPIRIN 81 MG PO SCH (09:13)
[2019-05-10] MEDS: CLOBETASOL PROP 0.05% CR 15GM TOPICAL SCH ×2 (09:13→21:25)
[2019-05-10] MEDS: SERTRALINE 100 MG TAB PO SCH (09:13)
[2019-05-10] MEDS: FERROUS SULFATE 325 MG TAB PO SCH (09:13)
[2019-05-10] MEDS: PANTOPRAZOLE 40 MG TABLET PO SCH (09:14)
--- NOTE | 2019-05-10 09:59 | CONS ---
CONSULTATION CHIEF COMPLAINT: Difficulty in breathing. Ralph is a 78-year-old gentleman with history of COPD, diabetes, hypertension, dyslipidemia and sleep apnea who presented to hospital complaining of exertional fatigue, tiredness and shortness of breath. Patient had an echocardiogram at the beginning of the year that revealed normal LV systolic function. An EKG on this admission reveals sinus rhythm with nonspecific ST-T wave changes. His hemoglobin is low at 8.1. Troponin is mildly elevated at 0.08 and the BNP is elevated at 8080. His blood sugar was very low at 31. The patient had a cardiac catheterization in 2017 that revealed calcified coronaries with [id number] three-vessel coronary artery disease for which she was advised medical therapy. At the time of my evaluation this morning, patient appears comfortable at rest and states that his symptoms are getting better. He does not have any leg edema, PND or orthopnea. His shortness of breath seems to be due to a combination of problems including CHF and COPD exacerbation. The patient has been treated with DuoNeb and steroids along with diuretics with which his symptoms have improved. PAST MEDICAL HISTORY: Significant for COPD, coronary artery disease, hypertension, diabetes, dyslipidemia. MEDICATIONS: Medications at home include Zoloft, insulin, iron, vitamin, Lipitor, Lopressor, and aspirin. ALLERGIES: TO BACTRIM. FAMILY HISTORY: Negative for premature coronary artery disease. SOCIAL HISTORY: Negative for current smoking, EtOH abuse, or drug abuse. REVIEW OF SYSTEMS: HEENT is unremarkable. Cardiac as described above. Respiratory as described above. GI negative. Genitourinary negative. Allergy/Immunology: Negative. Skin negative. Musculoskeletal significant for arthritis. Psychosocial negative. CONSTITUTIONAL: Negative. ONCOLOGICAL negative. WEB SERVICES ARCHITECT negative. Rest of the system review is not relevant. PHYSICAL EXAMINATION: On exam, patient is afebrile. Heart rate is 76 per minute. Blood pressure is 134/62, respiratory 16, O2 sat is 99% on 5 L. There is no jugular venous distention. Carotid upstroke is diminished. Chest exam reveals diminished air entry at the bases. Heart exam reveals first and second heart sounds and a systolic murmur at the left lower sternal border. Abdomen is soft. Exam of the extremities reveals mild edema. Peripheral pulses are felt. ASSESSMENT: 1. Shortness of breath, probably due to combination of chronic obstructive pulmonary disease and congestive heart failure exacerbations, which seems to be in acute exacerbation of chronic diastolic heart failure. 2. Coronary artery disease. 3. Hypertension. 4. Dyslipidemia. 5. Diabetes. 6. Dyslipidemia. PLAN: We will treat the patient with optimal medical therapy with aspirin, Lipitor, IV Lasix and Lopressor. I am going to obtain a 2D echo on him to evaluate his LV function. There is mild troponin elevation, but we will hold off on any invasive procedures at this time. MMSELVIN / PRATIBHAN: [id number] /
[2019-05-10 11:41] LABS: Glucose,Whole Blood 400 mg/dL (75-99)
[2019-05-10 11:41] LABS: Glucose,Whole Blood 367 mg/dL (75-99)
--- NOTE | 2019-05-10 12:39 | ECHOF ---
Referral Reason:troponin MEASUREMENTS -------- HEIGHT: 170.2 cm WEIGHT: 82.1 kg BP: 138/57 RVIDd: 3.6 cm (< 3.3) IVSd: 1.5 cm (0.6 - 1.1) LVIDd: 4.9 cm (3.9 - 5.3) LVPWd: 1.3 cm (0.6 - 1.1) IVSs: 2.4 cm LVIDs: 3.2 cm LVPWs: 1.5 cm LAESV Index (A-L): 40.95 ml/m Ao Diam: 3.3 cm (2.0 - 3.7) AV Cusp: 2.1 cm (1.5 - 2.6) LA Diam: 4.6 cm (2.7 - 3.8) MV E Selwyn: 0.91 m/s MV DecT: 115 ms MV A Selwyn: 1.16 m/s MV E/A Ratio: 0.78 FINDINGS -------- Sinus rhythm. This was a technically adequate study. The left ventricular size is normal. There is mild concentric left ventricular hypertrophy. Overa ll left ventricular systolic function is normal with, an EF between 55 - 60 %. Increased Lap Grade II Diastolic Dysfunction. The right ventricle is mildly enlarged. LA is moderately dilated 34-39 ml/m2 The right atrium is mildly enlarged. Interatrial and interventricular septum intact. There is mild aortic valve sclerosis. There is no evidence of aortic regurgitation. There is no e vidence of aortic stenosis. Mild mitral annular calcification present. Ojxz-ay-hldzowka mitral regurgitation is present. Trace tricuspid regurgitation present. Unable to estimate RVSP due to inadequate TR jet spectral do ppler profile. There is no pulmonic regurgitation present. The aortic root size is normal. Normal inferior vena cava with normal inspiratory collapse consistent with estimated right atrial pre ssure of 5 mmHg. There is no pericardial effusion. CONCLUSIONS -------- 1. Sinus rhythm. 2. This was a technically adequate study. 3. The left ventricular size is normal. 4. There is mild concentric left ventricular hypertrophy. 5. Overall left ventricular systolic function is normal with, an EF between 55 - 60 %. 6. Increased Lap Grade II Diastolic Dysfunction. 7. The right ventricle is mildly enlarged. 8. LA is moderately dilated 34-39 ml/m2 9. The right atrium is mildly enlarged. 10. Interatrial and interventricular septum intact. 11. There is mild aortic valve sclerosis. 12. There is no evidence of aortic regurgitation. 13. There is no evidence of aortic stenosis. 14. Mild mitral annular calcification present. 15. [id number]-qcromlcd mitral regurgitation is present. 16. Trace tricuspid regurgitation present. 17. Unable to estimate RVSP due to inadequate TR jet spectral doppler profile. 18. There is no pulmonic regurgitation present. 19. The aortic root size is normal. 20. Normal inferior vena cava with normal inspiratory collapse consistent with estimated right atrial pressure of 5 mmHg. 21. There is no pericardial effusion. INCOME TAX MANAGER: Myrna Vickers RDCS
[2019-05-10 16:44] LABS: Glucose,Whole Blood 435 mg/dL (75-99)
[2019-05-10 17:14] LABS: Glucose,Whole Blood 430 mg/dL (75-99)
[2019-05-10] MEDS: INSULN ASP PRT/INSULIN ASPART 100 UNIT/ML 10 ML VIAL SQ SCH (17:21)
--- NOTE | 2019-05-10 18:36 | P.PN ---
Subjective Progress Note Date: 05/10/19 (delayed charting seen at 0915) Principal diagnosis: Shortness of breath Patient is a 78-year-old male to past medical history of diastolic congestive heart failure, advanced COPD on chronic oxygen at 3 L, diabetes mellitus, hypertension, and dyslipidemia who presented secondary to shortness of breath and increased fatigue over the last 2-3 weeks. In the ER he underwent an extensive evaluation. On arrival he was hypertensive with a blood pressure 170/75. Laboratory analysis showed anemia with hemoglobin of 8.1, hypoglycemia with a blood sugar of 31, normal troponin 0.028, an elevated BNP at 8080. Chest x-ray showed bilateral pleural effusions with possible loculation on the right. He was started on Lasix, bronchodilators, and steroids. He is admitted to the selective care unit for acute exacerbation of CHF and chronic hypoxic respiratory failure with COPD exacerbation. His troponin increased overnight. Cardiology was consulted. They recommended repeat echocardiogram and no invasive procedures at this point in time. He also was given glucose for his hypoglycemia in the ER and by the next morning had a glucose of greater than 300 secondary to use of IV steroids. Patient seen and examined at bedside. He reports that he was trying to put off going to seek medical attention until after Thanksgiving. He states that his breathing is much improved than yesterday. He still is feeling more short of breath is baseline. He denies any overt chest pain. No nausea or vomiting. Objective - Vital Signs Vital signs: Vital Signs Temp 97.8 F 05/10/19 16:01 Pulse 76 05/10/19 16:27 Resp 16 05/10/19 16:01 BP 162/70 05/10/19 16:01 Pulse Ox 92 L 05/10/19 16:09 Intake & Output 05/09/19 05/10/19 05/10/19 18:59 06:59 18:59 Intake Total 1060 Output Total 475 180 Balance -475 880 Weight 82.2 kg Intake: Oral 1060 Output: Urine 475 180 Other: Voiding Method Urinal Urinal # Voids 2 1 - Exam General: non toxic, no distress, appears at stated age Derm: warm, dry Head: atraumatic, normocephalic, symmetric Eyes: EOMI, no lid lag, anicteric sclera Mouth: no lip lesion, mucus membranes moist Cardiovascular: S1S2 reg, no murmur, positive posterior tibial pulse bilateral, Lungs: Crackles bilateral , no accessory muscle use Abdominal: soft, nontender to palpation, no guarding, no appreciable organomegaly Ext: no gross muscle atrophy, 2+ edema, no contractures Neuro: CN II-XI grossly intact, no focal neuro deficits Psych: Alert, oriented, appropriate affect - Labs CBC & Chem 7: 05/10/19 08:06 05/10/19 08:06 Labs: Abnormal Lab Results - Last 24 Hours (Table) 05/09/19 05/09/19 05/09/19 Range/Units 19:50 19:50 21:26 RBC 2.73 L (4.30-5.90) m/uL Hgb 8.1 L (13.0-17.5) gm/dL Hct 25.7 L (39.0-53.0) % MCHC (31.0-37.0) g/dL Lymphocytes # 0.7 L (1.0-4.8) k/uL BUN 30 H (9-20) mg/dL Creatinine (0.66-1.25) mg/dL Glucose 31 L* (74-99) mg/dL POC Glucose (mg/dL) 56 L (75-99) mg/dL Troponin I (0.000-0.034) ng/mL Total Protein 6.2 L (6.3-8.2) g/dL Albumin 3.3 L (3.5-5.0) g/dL 05/09/19 05/10/19 05/10/19 Range/Units 22:17 02:12 06:36 RBC (4.30-5.90) m/uL Hgb (13.0-17.5) gm/dL Hct (39.0-53.0) % MCHC (31.0-37.0) g/dL Lymphocytes # (1.0-4.8) k/uL BUN (9-20) mg/dL Creatinine (0.66-1.25) mg/dL Glucose (74-99) mg/dL POC Glucose (mg/dL) 134 H 388 H (75-99) mg/dL Troponin I 0.081 H* (0.000-0.034) ng/mL Total Protein (6.3-8.2) g/dL Albumin (3.5-5.0) g/dL 05/10/19 05/10/19 05/10/19 Range/Units 08:06 08:06 08:06 RBC 2.43 L (4.30-5.90) m/uL Hgb 7.2 L (13.0-17.5) gm/dL Hct 23.3 L (39.0-53.0) % MCHC 30.9 L (31.0-37.0) g/dL Lymphocytes # 0.2 L (1.0-4.8) k/uL BUN 38 H (9-20) mg/dL Creatinine 1.27 H (0.66-1.25) mg/dL Glucose 393 H (74-99) mg/dL POC Glucose (mg/dL) (75-99) mg/dL Troponin I 0.878 H* (0.000-0.034) ng/mL Total Protein (6.3-8.2) g/dL Albumin (3.5-5.0) g/dL 05/10/19 05/10/19 05/10/19 Range/Units 11:30 11:32 16:36 RBC (4.30-5.90) m/uL Hgb (13.0-17.5) gm/dL Hct (39.0-53.0) % MCHC (31.0-37.0) g/dL Lymphocytes # (1.0-4.8) k/uL BUN (9-20) mg/dL Creatinine (0.66-1.25) mg/dL Glucose (74-99) mg/dL POC Glucose (mg/dL) 400 H 367 H 435 H (75-99) mg/dL Troponin I (0.000-0.034) ng/mL Total Protein (6.3-8.2) g/dL Albumin (3.5-5.0) g/dL 05/10/19 Range/Units 16:39 RBC (4.30-5.90) m/uL Hgb (13.0-17.5) gm/dL Hct (39.0-53.0) % MCHC (31.0-37.0) g/dL Lymphocytes # (1.0-4.8) k/uL BUN (9-20) mg/dL Creatinine (0.66-1.25) mg/dL Glucose (74-99) mg/dL POC Glucose (mg/dL) 430 H (75-99) mg/dL Troponin I (0.000-0.034) ng/mL Total Protein (6.3-8.2) g/dL Albumin (3.5-5.0) g/dL Assessment and Plan Assessment: Acute exacerbation of diastolic congestive heart failure, ejection fraction 55- 60% with grade 2 diastolic dysfunction -Continue Lasix was decreased to once daily with increasing creatinine -Continue with beta chuck -Strict I's and O's, daily weights -Cardiology consultation -Telemetry -Follow electrolytes closely Acute kidney injury -Baseline creatinine 1 -Possibly secondary to forced diuresis but may also have component of cardiorenal syndrome -Repeat basic metabolic profile in a.m. -Avoid additional nephrotoxic agents -If creatinine increases in a.m. will obtain US kidneys Elevated troponins setting of known coronary artery disease -Underwent cardiac catheterization 03/15/17 which showed [id number]-[id number] triple- vessel coronary artery disease at that point in time recommendations were to maximize medical therapy -Cardiology recommendations appreciated -Echocardiogram ordered -Aspirin, beta chuck Acute exacerbation of COPD with acute on chronic hypoxic respiratory failure -Continue scheduled and as needed bronchodilators -Continue Symbicort -Continue with Solu-Medrol, decrease to 40 mg twice a day -Pulmonary hygiene Bilateral pleural effusion possible loculation on the right -Repeat chest x-ray in a.m. along with lateral decubitus. Diabetes mellitus type 2 with hypoglycemia on arrival and now hyperglycemia likely steroid induced -Continue a 70/30 and sliding scale insulin -Follow blood sugars -Checking Dyslipidemia -Statin therapy DVT prophylaxis: Heparin Discussed with: Patient, nursing Anticipated discharge: 1-[address]: home health with telehealth A total of 35 minutes was spent on the care of this complex patient more than 50% of the time was spent in counseling and care coordination.
[2019-05-10 20:46] LABS: Glucose,Whole Blood 288 mg/dL (75-99)
[2019-05-10] MEDS: ATORVASTATIN 20 MG TAB PO SCH (21:24)
[2019-05-10] MEDS: SERTRALINE 50 MG TAB PO SCH (21:24)
[2019-05-10] MEDS: LATANOPROST 0.005% OPHTH DROPS 2.5 ML BTL BOTH EYES SCH (21:24)
[2019-05-10] MEDS: MELATONIN 5 MG TABLET PO PRN (22:44)
[2019-05-11 00:57] LABS: Glucose,Whole Blood 104 mg/dL (75-99)
[2019-05-11 04:09] LABS: Glucose,Whole Blood 106 mg/dL (75-99)
[2019-05-11] MEDS: IPRATROPIUM-ALBUTEROL 3 ML NEB INHALATION SCH ×5 (07:44→20:57)
[2019-05-11] MEDS: SYMBICORT 160-4.5 MCG INHALER INHALATION SCH ×2 (07:45→20:57)
[2019-05-11] MEDS: INSULIN ASPART (NovoLOG) 100 UNIT/ML VIAL SQ SCH ×5 (07:47→21:53)
[2019-05-11] MEDS: INSULN ASP PRT/INSULIN ASPART 100 UNIT/ML 10 ML VIAL SQ SCH ×2 (07:47→17:20)
[2019-05-11] MEDS: methylPREDNISolone SOD SUCCI 40 MG/ML 1 ML VIAL IV SCH ×2 (08:03→20:16)
[2019-05-11] MEDS: SERTRALINE 100 MG TAB PO SCH (08:10)
[2019-05-11] MEDS: METOPROLOL TARTRATE 25 MG TAB PO SCH (08:11)
[2019-05-11] MEDS: FERROUS SULFATE 325 MG TAB PO SCH (08:11)
[2019-05-11] MEDS: PANTOPRAZOLE 40 MG TABLET PO SCH (08:11)
[2019-05-11] MEDS: ASPIRIN 81 MG PO SCH (08:11)
[2019-05-11] MEDS: HEPARIN SODIUM,PORCINE 5,000 UNIT/ML 1 ML VIAL SQ SCH (08:11)
[2019-05-11] MEDS: CLOBETASOL PROP 0.05% CR 15GM TOPICAL SCH ×2 (08:12→21:53)
--- NOTE | 2019-05-11 08:13 | XR ---
Chest x-ray with decubitus views HISTORY: Pleural effusion, loculation 4 views of the chest submitted There is bilateral blunting of the costophrenic angles. Thickening of the pleural margin is noted génesis aterally along the lateral pleural surfaces. No significant flow of the effusions noted on decubitus views. No evident pneumothorax. Heart size is stable. Question some perihilar airspace disease, promi nence of interstitium. IMPRESSION: Loculated pleural effusions. There may be a component of interstitial edema.
[2019-05-11 08:30] LABS: Hypochromasia Slight; MCH 29.8 pg (25.0-35.0); MCHC 32.1 g/dL (31.0-37.0); MCV 92.9 fL (80.0-100.0); Platelet Count 341 k/uL (150-450); RBC 2.26 m/uL (4.30-5.90); RDW 14.7 % (11.5-15.5); WBC 13.3 k/uL (3.8-10.6)
[2019-05-11 08:33] LABS: HGB 6.7 gm/dL (13.0-17.5)
[2019-05-11 08:36] LABS: Calcium 8.9 mg/dL (8.4-10.2); Magnesium 2.3 mg/dL (1.6-2.3); Potassium 5.2 mmol/L (3.5-5.1)
[2019-05-11] MEDS ORDERED: FUROSEMIDE 10 MG/ML 4 ML VIAL IVP SCH (09:00)
--- NOTE | 2019-05-11 10:28 | P.PN ---
Subjective Progress Note Date: 05/11/19 (delayed charting seen at 0900) Principal diagnosis: Shortness of breath Patient is a 78-year-old male to past medical history of diastolic congestive heart failure, advanced COPD on chronic oxygen at 3 L, diabetes mellitus, hypertension, and dyslipidemia who presented secondary to shortness of breath and increased fatigue over the last 2-3 weeks. In the ER he underwent an extensive evaluation. On arrival he was hypertensive with a blood pressure 170/75. Laboratory analysis showed anemia with hemoglobin of 8.1, hypoglycemia with a blood sugar of 31, normal troponin 0.028, an elevated BNP at 8080. Chest x-ray showed bilateral pleural effusions with possible loculation on the right. He was started on Lasix, bronchodilators, and steroids. He is admitted to the selective care unit for acute exacerbation of CHF and chronic hypoxic respiratory failure with COPD exacerbation. His troponin increased overnight. Cardiology was consulted. They recommended repeat echocardiogram and no invasive procedures at this point in time. He also was given glucose for his hypoglycemia in the ER and by the next morning had a glucose of greater than 300 secondary to use of IV steroids. He diuriesed well, but creatinine started to increase. His HgB dropped on 05/11 and one unit of pack RBC ordered. Patient seen and examined at bedside. Denies any chest pain. Shortness of breath improving. Lower extremity edema nonexistent. No nausea or vomiting. No diarrhea. Still feeling kind of winded. We discussed that his hemoglobin dropped today. He is wanting to get a colonoscopy secondary to his anemia and history of colon cancer. However, at this point in time he does not want to undergo any testing for secondary to his age and current medical conditions. We discussed that he could have a polyp or tumor that is bleeding however he is aware of this but does not want any further investigation. He is not having any bright red blood in the stools but does have dark stools however he takes oral iron. He only has a bowel movement once daily. He denies any blood in his urine or dark-looking urine. He is not having any nosebleeds. Of note he did undergo a chest x-ray today and suffered a skin tear on his left upper extremity the patient did bleed a lot. This may have worsened his chronic anemia. Objective - Vital Signs Vital signs: Vital Signs Temp 98.6 F 05/11/19 07:44 Pulse 72 05/11/19 08:00 Resp 18 05/11/19 08:00 BP 166/69 05/11/19 07:44 Pulse Ox 100 05/11/19 07:44 Intake & Output 05/10/19 05/11/19 05/11/19 18:59 06:59 18:59 Intake Total 1060 300 Output Total 1580 400 550 Balance -520 -400 -250 Weight 83.6 kg Intake: IV 40 Invasive Line 2 40 Oral 1060 260 Output: Urine 1580 400 550 Other: Voiding Method Urinal Toilet Toilet Urinal Urinal # Voids 2 - Exam General: non toxic, no distress, appears at stated age Derm: Skin tear left upper extremity with dressing in place and some sanguinous soaked through warm, dry Head: atraumatic, normocephalic, symmetric Eyes: EOMI, no lid lag, anicteric sclera Mouth: no lip lesion, mucus membranes moist Cardiovascular: S1S2 reg, no murmur, positive posterior tibial pulse bilateral, Lungs: Crackles right base, no accessory muscle use, 3 word conversational dyspnea as patient just returned from using the bathroom Abdominal: soft, nontender to palpation, no guarding, no appreciable organomegaly Ext: no gross muscle atrophy, 1+ edema, no contractures Neuro: CN II-XI grossly intact, no focal neuro deficits Psych: Alert, oriented, appropriate affect - Labs CBC & Chem 7: 05/11/19 07:56 05/11/19 07:56 Labs: Abnormal Lab Results - Last 24 Hours (Table) 05/10/19 05/10/19 05/10/19 Range/Units 11:30 11:32 16:36 WBC (3.8-10.6) k/uL RBC (4.30-5.90) m/uL Hgb (13.0-17.5) gm/dL Hct (39.0-53.0) % Sodium (137-145) mmol/L Potassium (3.5-5.1) mmol/L Carbon Dioxide (22-30) mmol/L BUN (9-20) mg/dL Creatinine (0.66-1.25) mg/dL Glucose (74-99) mg/dL POC Glucose (mg/dL) 400 H 367 H 435 H (75-99) mg/dL 1105/10/19 05/11/19 Range/Units 16:39 20:45 00:51 WBC (3.8-10.6) k/uL RBC (4.30-5.90) m/uL Hgb (13.0-17.5) gm/dL Hct (39.0-53.0) % Sodium (137-145) mmol/L Potassium (3.5-5.1) mmol/L Carbon Dioxide (22-30) mmol/L BUN (9-20) mg/dL Creatinine (0.66-1.25) mg/dL Glucose (74-99) mg/dL POC Glucose (mg/dL) 430 H 288 H 104 H (75-99) mg/dL 05/11/19 05/11/19 05/11/19 Range/Units 03:48 07:56 07:56 WBC 13.3 H (3.8-10.6) k/uL RBC 2.26 L (4.30-5.90) m/uL Hgb 6.7 L* (13.0-17.5) gm/dL Hct 21.0 L (39.0-53.0) % Sodium 136 L (137-145) mmol/L Potassium 5.2 H (3.5-5.1) mmol/L Carbon Dioxide 31 H (22-30) mmol/L BUN 59 H (9-20) mg/dL Creatinine 1.56 H (0.66-1.25) mg/dL Glucose 152 H (74-99) mg/dL POC Glucose (mg/dL) 106 H (75-99) mg/dL Assessment and Plan Assessment: Acute exacerbation of diastolic congestive heart failure, ejection fraction 55- 60% with grade 2 diastolic dysfunction -Continue Lasix was decreased to once daily 05/10 with increasing creatinine. We will get on 05/11 even though creatinine is increasing secondary need for 1 unit of packed red blood cells. -Continue with beta chuck -Strict I's and O's, daily weights -Cardiology recommendations appreciated -Telemetry -Follow electrolytes closely Acute blood loss anemia on top of chronic anemia -Patient does not want to undergo any invasive evaluation at this point in time -1 unit packed red blood cells -CBC every 6 hours -Continue ferrous sulfate Acute kidney injury -Baseline creatinine 1 -Possibly secondary to forced diuresis but may also have component of cardiorenal syndrome -Repeat basic metabolic profile in a.m. -Avoid additional nephrotoxic agents - kidneys Elevated troponins setting of known coronary artery disease -Underwent cardiac catheterization 03/15/17 which showed [id number] triple- vessel coronary artery disease at that point in time recommendations were to maximize medical therapy -Cardiology recommendations appreciated -Echocardiogram without significant wall motion abnormality, preserved EF -Aspirin, beta chuck Acute exacerbation of COPD with acute on chronic hypoxic respiratory failure -Continue scheduled and as needed bronchodilators -Continue Symbicort -Continue with Solu-Medrol, decrease to 40 mg twice a day -Pulmonary hygiene Bilateral pleural effusion possible loculation on the right -Consult Pulmonary Diabetes mellitus type 2 with hypoglycemia on arrival and now hyperglycemia likely steroid induced -Continue 70/30 and sliding scale insulin -Follow blood sugars -Checking Dyslipidemia -Statin therapy DVT prophylaxis: SCDs Discussed with: Patient, nursing Anticipated discharge: 1-[address]: home health with telehealth A total of 35 minutes was spent on the care of this complex patient more than 50% of the time was spent in counseling and care coordination.
--- NOTE | 2019-05-11 11:14 | US ---
EXAMINATION TYPE: US kidneys/renal and bladder DATE OF EXAM: 05/11/2019 COMPARISON: NONE CLINICAL HISTORY: TOM. Acute kidney injury, renal failure EXAM MEASUREMENTS: Right Kidney: 10.4 x 6.2 x 4.6 cm Left Kidney: 11.0 x 5.6 x 4.5 cm Right Kidney: no evidence of hydronephrosis Left Kidney: no evidence of hydronephrosis Bladder: diverticulum noted at the left lateral margin of the urinary bladder Bilateral Jets seen: no There is no ascites. Cortical medullary differentiation is maintained. There is thought to be cortical thinning bilaterally, question some increased cortical echogenicity. IMPRESSION: Hutch Diverticulum. Suspect medical renal disease.
[2019-05-11 11:49] LABS: Glucose,Whole Blood 143 mg/dL (75-99)
[2019-05-11 12:20] LABS: Glucose,Whole Blood 99 mg/dL (75-99)
--- NOTE | 2019-05-11 14:45 | PN ---
PROGRESS NOTE Ralph is a 78-year-old gentleman who is admitted to hospital with exertional fatigue and tiredness. This morning he continues to have same symptoms. Hemoglobin had dropped to 6.7 and he is receiving a blood transfusion. His symptoms may be related to blood loss. I am stopping the aspirin. On exam, he is comfortable at rest, afebrile. Heart rate is 70 beats per minute. Blood pressure is 137/70, respiratory rate is 18. Chest exam reveals good air entry bilaterally. I do not hear any crackles or rhonchi. Heart exam reveals first and second heart sounds and an ejection systolic murmur in the aortic area. Abdomen is soft. Exam of extremities did not reveal any edema. An echocardiogram on this admission revealed normal LV function. ASSESSMENT: 1. Shortness of breath, probably multifactorial in origin, but primarily seems to be related to anemia. 2. Anemia, status post blood transfusion. 3. Hypertension. 4. Diabetes. 5. Dyslipidemia. PLAN: The patient is doing better. I am going to switch his Lasix to p.o. at this time. He received blood transfusion. Hopefully home in the next 24-48 hours. MMODL / IJN: [id number] /
--- NOTE | 2019-05-11 15:30 | P.CNPUL ---
History of Present Illness Consult date: 05/11/19 Reason for consult: dyspnea, pleural effusion History of present illness: A 78-year-old male patient with known history of COPD was hospitalized for worsening shortness of breath. The patient was hospitalized 2 days ago and I was consulted because of bilateral pleural effusion ongoing shortness of breath. Noted the patient had increased dyspnea. Minimal congestion. No significant wheezing or bronchospasm. No pleurisy or hemoptysis. He was short of breath a week probably prior to him coming to the hospital. The patient was diagnosed having CHF with diastolic dysfunction. The patient was given diuretics. During the course of the treatment the patient was was found to have a troponin of 0.0 28 with a BNP level of 8080. Chest x-ray showed a loculated right-sided pleural effusion and a small loculated left-sided pleural effusion. The patient was subjected to the IV diuretics. The patient was subjected IV steroids. The dunia ent developed an acute kidney injury in the creatinine came up to 1.5. At this point, a pulmonary consultation was requested. The echocardiogram was done and it showed an ejection fraction of 55-60% with mild concentric LVH, [id number] MR, no significant pulmonary hypertension, normal collap sibility of the right atrium consistent with normal right atrial pressures. No evidence of any pericardial effusion. The patient is known to have CAD, hyperlipidemia, BPH, remote history of colon cancer that was treated back in 2005 requiring colectomy and diverting colostomy with subsequent reversal, diabetes mellitus and COPD with chronic hypoxic respiratory failure and is demented on oxygen 3 L and he has chronic anxiety. Note that the patient came in with a baseline anemia. During this current hospital stay, he had a progressive drop in hemoglobin and the patient's hemoglobin today is at 6.7. Creatinine is at 1.56. The patient will be given a unit of packed RBC. No evidence of any acute GI bleed. Review of Systems Constitutional: Reports fatigue, Reports weakness Eyes: right as per HPI Ears: deny: decreased hearing, ear discharge, earache, tinnitus Ears, nose, mouth and throat: Denies headache, Denies sore throat Cardiovascular: Reports decreased exercise tolerance, Reports dyspnea on exertion Respiratory: Reports cough, Reports dyspnea, Reports home oxygen Gastrointestinal: Reports as per HPI (Previous history of colon cancer. No reported GI bleed.) Genitourinary: Reports as per HPI Musculoskeletal: Reports as per HPI Musculoskeletal: absent: ankle pain, ankle stiffness, ankle swelling Integumentary: Denies pruritus, Denies rash Neurological: Reports as per HPI Psychiatric: Reports as per HPI Endocrine: Reports as per HPI, Reports fatigue Hematologic/Lymphatic: Reports as per HPI Allergic/Immunologic: Reports as per HPI Past Medical History Past Medical History: Cancer, Chest Pain / Angina, Heart Failure, COPD, Diabetes Mellitus, Hyperlipidemia, Hypertension, Pneumonia, Prostate Disorder, Sleep Apnea/CPAP/BIPAP Additional Past Medical History / Comment(s): BPH, peripheral neuropathy, glaucoma, retinal disease/detachment/retinopathy, colon cancer with a previous resection in 2005then ended up w/ peritonits had 2nd sx spent 30 days in ic[facility], spinal stenosis with degenerative disc disease, recent hospitalization for respiratory complications that occurred in May 2016, chronic hypoxic respiratory failure, unable to use cpap.abd hernia. had shingels vaccine and pne vaccines not sure of date and unable to verify at time of admit History of Any Multi-Drug Resistant Organisms: None Reported Past Surgical History: Appendectomy, Bowel Resection Additional Past Surgical History / Comment(s): bowel resection for colon cancer in 2005, previous colostomy with subsequent reversal due to complications of peritonitis following bowel surgery, cataracts surgery in both eyes, appendectomy, turp Past Anesthesia/Blood Transfusion Reactions: No Reported Reaction Additional Past Anesthesia/Blood Transfusion Reaction / Comment(s): to pt's knowlege never had a blood transfusion Past Psychological History: Anxiety, Depression Smoking Status: Former smoker Past Alcohol Use History: None Reported Past Drug Use History: None Reported - Past Family History Father Family Medical History: Renal Disease Mother Family Medical History: Cancer Additional Family Medical History / Comment(s): breast cancer, heart problems Medications and Allergies Home Medications Medication Instructions Recorded Confirmed Type Atorvastatin Calcium [Lipitor] 20 mg PO HS 05/19/16 05/09/19 History Aspirin EC [Ecotrin Low Dose] 81 mg PO DAILY 08/22/16 05/09/19 History Budesonide/Formoterol Fumarate 2 puff INHALATION RT-BID 03/09/17 05/09/19 History [Symbicort 160-4.5 Mcg Inhaler] Cholecalciferol (Vitamin D3) 2,000 unit PO DAILY 03/10/17 05/09/19 History [Vitamin D3] Sertraline [Zoloft] 50 mg PO HS 03/10/17 05/09/19 History Metoprolol Tartrate [Lopressor] 25 mg PO BID #100 tab 03/16/17 05/09/19 Rx Ipratropium-Albuterol Nebulize 3 ml INHALATION RT-QID ampul.neb 04/07/17 05/09/19 Rx [Duoneb 0.5 mg-3 mg/3 ml Soln] Ascorbic Acid [Vitamin C] 500 mg PO DAILY 09/30/17 05/09/19 History Insulin NPH Hum/Reg Insulin Hm 40 unit SQ BID 09/30/17 05/09/19 History [NovoLIN 70-30 100 UNIT/ML VIAL] Latanoprost Ophth [Xalatan 0.005%] 1 drops BOTH EYES HS 09/30/17 05/09/19 Histor y Sertraline [Zoloft] 100 mg PO DAILY 05/26/18 05/09/19 History Ferrous Sulfate [Feosol] 325 mg PO DAILY #30 tab 06/29/18 05/09/19 Rx Clobetasol Propionate [Temovate 1 applic TOPICAL BID 05/09/19 05/09/19 History 0.05% Cream] Allergies Allergy/AdvReac Type Severity Reaction Status Date / Time sulfamethoxazole AdvReac RAISES Verified 05/09/19 21:05 [From Bactrim] POTASSIUM trimethoprim [From Bactrim] AdvReac RAISES Verified 05/09/19 21:05 POTASSIUM Physical Exam Vitals: Vital Signs Temp Pulse Pulse Resp BP BP Pulse Ox 05/11/19 13:12 98.7 F 73 16 157/70 100 05/11/19 12:42 97.8 F 65 18 157/67 98 05/11/19 12:32 97.6 F 56 L 65 18 152/64 152/64 96 05/11/19 12:00 65 18 05/11/19 11:32 96 05/11/19 11:23 92 05/11/19 08:00 72 18 05/11/19 07:56 96 05/11/19 07:46 92 05/11/19 07:44 98.6 F 72 18 166/69 100 05/11/19 05:05 97.9 F 65 18 123/63 99 05/10/19 23:09 88 18 164/70 97 05/10/19 21:05 98.6 F 95 18 165/79 93 L 05/10/19 20:06 91 05/10/19 19:56 91 05/10/19 16:27 76 05/10/19 16:09 76 92 L 05/10/19 16:01 97.8 F 74 16 162/70 98 Intake and Output 05/11/19 05/11/19 05/11/19 06:59 14:59 22:59 Intake Total 570 Output Total 400 550 Balance -400 20 Intake: IV 50 Invasive Line 2 50 Oral 520 Blood Product 0 Rc As-1 Unit 0 [id number] Output: Urine 400 550 Other: Voiding Method Toilet Urinal Weight 83.6 kg Gen. appearance, comfortable likely distress. The patient is currently suppleme nted oxygen at 3 L. Head exam was generally normal. There was no scleral icterus or corneal arcus. M ucous membranes were moist. There is conjunctival pallor no icterus. Neck was supple and without jugular venous distension, thyromegaly, or carotid bruits. Carotids were easily palpable bilaterally. There was no adenopathy. Lungs sounds are diminished in lung bases especially in the right lung base. Few scattered extremity wheezes otherwise clear. The patient has a barrel chest. Cardiac exam revealed the PMI to be normally situated and sized. The rhythm was regular and no extrasystoles were noted during several minutes of auscultation. The first and second heart sounds were normal and physiologic splitting of the second heart sound was noted. There were no murmurs, rubs, clicks, or gallops. Abdominal exam revealed normal bowel sounds. The abdomen was soft, non-tender, and without masses, organomegaly, or appreciable enlargement of the abdominal aorta. Extremities are free of any edema. Diminished pulses. There is no cyanosis or clubbing. Examination of the skin revealed no evidence of significant rashes, suspicious appearing nevi or other concerning lesions. Neurologically awake and alert and there is no focal neurological deficit. Psychiatric it is likely depression with anxiety. Results - Laboratory Findings CBC and BMP: 05/11/19 07:56 05/11/19 07:56 PT/INR, D-dimer PT 10.0 sec (9.0-12.0) 05/09/19 19:50 INR 0.9 (<1.2) 05/09/19 19:50 Abnormal lab findings: Abnormal Labs 05/09/19 05/09/19 05/09/19 19:50 19:50 21:26 WBC RBC 2.73 L Hgb 8.1 L Hct 25.7 L MCHC Lymphocytes # 0.7 L Sodium Potassium Carbon Dioxide BUN 30 H Creatinine Glucose 31 L* POC Glucose (mg/dL) 56 L Troponin I Total Protein 6.2 L Albumin 3.3 L Crossmatch 05/09/19 05/10/19 05/10/19 22:17 02:12 06:36 WBC RBC Hgb Hct MCHC Lymphocytes # Sodium Potassium Carbon Dioxide BUN Creatinine Glucose POC Glucose (mg/dL) 134 H 388 H Troponin I 0.081 H* Total Protein Albumin Crossmatch 05/10/19 05/10/19 05/10/19 08:06 08:06 08:06 WBC RBC 2.43 L Hgb 7.2 L Hct 23.3 L MCHC 30.9 L Lymphocytes # 0.2 L Sodium Potassium Carbon Dioxide BUN 38 H Creatinine 1.27 H Glucose 393 H POC Glucose (mg/dL) Troponin I 0.878 H* Total Protein Albumin Crossmatch 05/10/19 05/10/19 05/10/19 11:30 11:32 16:36 WBC RBC Hgb Hct MCHC Lymphocytes # Sodium Potassium Carbon Dioxide BUN Creatinine Glucose POC Glucose (mg/dL) 400 H 367 H 435 H Troponin I Total Protein Albumin Crossmatch 05/10/19 05/10/19 05/11/19 16:39 20:45 00:51 WBC RBC Hgb Hct MCHC Lymphocytes # Sodium Potassium Carbon Dioxide BUN Creatinine Glucose POC Glucose (mg/dL) 430 H 288 H 104 H Troponin I Total Protein Albumin Crossmatch 05/11/19 05/11/19 05/11/19 03:48 07:26 07:56 WBC 13.3 H RBC 2.26 L Hgb 6.7 L* Hct 21.0 L MCHC Lymphocytes # Sodium Potassium Carbon Dioxide BUN Creatinine Glucose POC Glucose (mg/dL) 106 H 143 H Troponin I Total Protein Albumin Crossmatch 05/11/19 05/11/19 07:56 09:13 WBC RBC Hgb Hct MCHC Lymphocytes # Sodium 136 L Potassium 5.2 H Carbon Dioxide 31 H BUN 59 H Creatinine 1.56 H Glucose 152 H POC Glucose (mg/dL) Troponin I Total Protein Albumin Crossmatch See Detail - Diagnostic Findings Chest x-ray: image reviewed Assessment and Plan Plan: 1 loculated right-sided pleural effusion and a smaller left-sided pleural effusion, exact etiology is not clear. Doubt CHF knowing that the fluid itself is not free-flowing and seems to be loculated on chest x-ray. Rule out parapneumonic effusion. Rule out malignant effusion. Rule out hemothorax 2 chronic dyspnea with interval worsening shortness of breath currently under investigation 3 COPD with chronic hypoxic respiratory failure currently on 3 L of oxygen by nasal cannula 4 hypertensive heart disease with mild concentric LVH, preserved LV function without any significant valvular heart disease or pulmonary hypertension 5 acute kidney injury, likely secondary to diuretic use 6 acute on chronic anemia. Consider blood loss anemia. Hemoglobin is down to 6.7 7 history of colon cancer with previous colectomy and diverting colostomy with subsequent reversal back in 2005 8 diabetes mellitus 9 hypertension 10 hyperlipidemia 11 BPH 12 history of spinal stenosis with degenerative disc disease 13 history of obstructive sleep apnea unable to use CPAP therapy Plan Stop Lasix. Suggest gentle hydration. Monitor renal function. Ultrasound the kidney was done. Proceed with a CAT scan of the chest without contrast to characterize the pleural fluid and decide if there is any role for drainage. 2 bronchodilators. Continue steroids. We'll continue to follow and will communicate with the rest of the team regarding any treatment plan. While, the patient is going to receive units of packed RBC for the hemoglobin of 6.7. Watch for any signs of GI bleeding.
--- NOTE | 2019-05-11 15:41 | CT ---
EXAMINATION TYPE: CT chest wo con DATE OF EXAM: 05/11/2019 COMPARISON: 05/19/2016 HISTORY: Shortness of breath CT DLP: 463.[address] of the chest was performed with lung and mediastinal window settings submitted. The la ck of contrast limits evaluation of the vascular, mediastinal and parenchymal structures including th e upper abdomen. LUNGS: Loculated right-sided pneumothorax with maximal AP dimension of 3.7 cm. Small left-sided pleur al effusions which measuring 1.6 cm AP dimension. Basilar atelectasis noted right greater than left. No pulmonary nodules or masses identified. MEDIASTINUM/PENNY: Thoracic aorta is of normal caliber with limited evaluation given lack of contrast . The heart is enlarged. Coronary artery calcifications identified. No evidence for mediastinal mas s. No lymph nodes greater than 1cm. UPPER ABDOMEN: No significant abnormality is seen. OTHER: Thyroid nodularity is redemonstrated. IMPRESSION: 1. Bilateral pleural effusion with the right-sided effusion being loculated. Basilar compressive ate lectasis right greater than left.
[2019-05-11 16:11] LABS: Basophils % (A) 0 %; Eosinophils % (A) 0 %; HCT 24.9 % (39.0-53.0); HGB 7.8 gm/dL (13.0-17.5); Hypochromasia Slight; Lymphocytes # (A) 0.3 k/uL (1.0-4.8); Lymphocytes % (A) 2 %; MCH 28.6 pg (25.0-35.0); MCHC 31.2 g/dL (31.0-37.0); MCV 91.5 fL (80.0-100.0); Mean Platelet Volume 7.9; Monocytes # (A) 0.5 k/uL (0-1.0); Monocytes % (A) 4 %; Neutrophils # (A) 11.8 k/uL (1.3-7.7); Neutrophils % (A) 93 %; Platelet Count 326 k/uL (150-450); RBC 2.72 m/uL (4.30-5.90); WBC 12.6 k/uL (3.8-10.6)
[2019-05-11 16:54] LABS: Glucose,Whole Blood 252 mg/dL (75-99)
[2019-05-11] MEDS: SERTRALINE 50 MG TAB PO SCH (20:16)
[2019-05-11] MEDS: LATANOPROST 0.005% OPHTH DROPS 2.5 ML BTL BOTH EYES SCH (20:16)
[2019-05-11] MEDS: METOPROLOL TARTRATE 50 MG TAB PO SCH (20:16)
[2019-05-11] MEDS: ATORVASTATIN 20 MG TAB PO SCH (20:16)
[2019-05-11 21:07] LABS: Glucose,Whole Blood 273 mg/dL (75-99)
[2019-05-11 22:53] LABS: Anisocytosis Slight; Basophils % (A) 0 %; Eosinophils % (A) 0 %; HCT 25.5 % (39.0-53.0); HGB 8.4 gm/dL (13.0-17.5); Hypochromasia Slight; Lymphocytes # (A) 0.3 k/uL (1.0-4.8); Lymphocytes % (A) 2 %; MCH 30.3 pg (25.0-35.0); MCHC 33.1 g/dL (31.0-37.0); MCV 91.6 fL (80.0-100.0); Mean Platelet Volume 7.8; Monocytes # (A) 0.6 k/uL (0-1.0); Monocytes % (A) 5 %; Neutrophils # (A) 10.8 k/uL (1.3-7.7); Neutrophils % (A) 91 %; Platelet Count 332 k/uL (150-450); RBC 2.78 m/uL (4.30-5.90); RDW 16.2 % (11.5-15.5); WBC 11.9 k/uL (3.8-10.6)
[2019-05-11] MEDS: MELATONIN 5 MG TABLET PO PRN (23:11)
[2019-05-12 02:41] LABS: Anisocytosis Slight; Basophils % (A) 0 %; Eosinophils % (A) 0 %; HCT 24.7 % (39.0-53.0); HGB 7.9 gm/dL (13.0-17.5); Hypochromasia Slight; Lymphocytes # (A) 0.3 k/uL (1.0-4.8); Lymphocytes % (A) 3 %; MCH 29.3 pg (25.0-35.0); MCHC 32.1 g/dL (31.0-37.0); MCV 91.3 fL (80.0-100.0); Mean Platelet Volume 7.7; Monocytes # (A) 0.4 k/uL (0-1.0); Monocytes % (A) 4 %; Neutrophils # (A) 11.4 k/uL (1.3-7.7); Neutrophils % (A) 93 %; Platelet Count 315 k/uL (150-450); RDW 16.2 % (11.5-15.5); WBC 12.3 k/uL (3.8-10.6)
[2019-05-12 03:04] LABS: Calcium 8.6 mg/dL (8.4-10.2)
[2019-05-12 04:15] LABS: Potassium 5.1 mmol/L (3.5-5.1)
[2019-05-12 06:19] LABS: Hypochromasia Slight; MCH 28.9 pg (25.0-35.0); MCHC 31.9 g/dL (31.0-37.0); MCV 90.5 fL (80.0-100.0); Mean Platelet Volume 7.1; Platelet Count 263 k/uL (150-450); RBC 2.43 m/uL (4.30-5.90); WBC 10.5 k/uL (3.8-10.6)
[2019-05-12 06:50] LABS: Glucose,Whole Blood 160 mg/dL (75-99)
[2019-05-12] MEDS: INSULN ASP PRT/INSULIN ASPART 100 UNIT/ML 10 ML VIAL SQ SCH ×2 (07:05→17:41)
[2019-05-12] MEDS: PANTOPRAZOLE 40 MG TABLET PO SCH (07:06)
[2019-05-12] MEDS: INSULIN ASPART (NovoLOG) 100 UNIT/ML VIAL SQ SCH ×4 (07:06→20:50)
[2019-05-12] MEDS: IPRATROPIUM-ALBUTEROL 3 ML NEB INHALATION SCH ×4 (08:58→19:25)
[2019-05-12] MEDS: SYMBICORT 160-4.5 MCG INHALER INHALATION SCH ×2 (08:58→19:25)
[2019-05-12] MEDS ORDERED: FUROSEMIDE 40 MG TAB PO SCH (09:00)
[2019-05-12] MEDS: METOPROLOL TARTRATE 50 MG TAB PO SCH ×2 (09:40→20:50)
[2019-05-12] MEDS: methylPREDNISolone SOD SUCCI 40 MG/ML 1 ML VIAL IV SCH ×2 (09:40→20:51)
[2019-05-12] MEDS: SERTRALINE 100 MG TAB PO SCH (09:40)
[2019-05-12] MEDS: FERROUS SULFATE 325 MG TAB PO SCH (09:40)
[2019-05-12] MEDS: CLOBETASOL PROP 0.05% CR 15GM TOPICAL SCH ×2 (09:41→22:12)
[2019-05-12] MEDS ORDERED: amLODIPine 5 MG TAB PO SCH (10:00)
--- NOTE | 2019-05-12 10:21 | PN ---
PROGRESS NOTE FOLLOW-UP NOTE: Mr. Krishna is a 78-year-old gentleman who was admitted to hospital with shortness of breath, exertional fatigue and tiredness. He had anemia and received blood transfusion, following which he felt somewhat better. Patient has pleural effusion, more on the right than on the left, went on to have a CT scan of the chest that showed a loculated pleural effusion. He is currently waiting to undergo a thoracentesis. This morning patient appears comfortable at rest. He is not short of breath and is hemodynamically stable. Blood pressure is elevated at 166/79. There is no jugular venous distention. Chest exam reveals diminished air entry at the right base. Heart exam reveals first and second heart sounds. No gallop. He has a systolic murmur at the left lower sternal border. Abdomen is soft. Examination of the extremities reveals trace edema. Peripheral pulses are palpable. Labs show a hemoglobin of 7. Potassium is 5.1, BUN is 71, creatinine 1.5. Patient is currently on Lipitor, insulin, Lopressor 50 b.i.d. along with the rest of his medications. ASSESSMENT: 1. Uncontrolled hypertension. 2. Loculated pleural effusion. PLAN: Patient's blood pressure is poorly controlled. I will add amlodipine 10 mg daily to his current medical regimen. MMODL / IJN: [id number] /
--- NOTE | 2019-05-12 11:35 | P.PN ---
Subjective Progress Note Date: 05/12/19 Principal diagnosis: Patient is a 78-year-old male to past medical history of diastolic congestive heart failure, advanced COPD on chronic oxygen at 3 L, diabetes mellitus, hypertension, and dyslipidemia who presented secondary to shortness of breath and increased fatigue over the last 2-3 weeks. In the ER he underwent an extensive evaluation. On arrival he was hypertensive with a blood pressure 170/75. Laboratory analysis showed anemia with hemoglobin of 8.1, hypoglycemia with a blood sugar of 31, normal troponin 0.028, an elevated BNP at 8080. Chest x-ray showed bilateral pleural effusions with possible loculation on the right. He was started on Lasix, bronchodilators, and steroids. He is admitted to the selective care unit for acute exacerbation of CHF and chronic hypoxic respiratory failure with COPD exacerbation. His troponin increased overnight. Cardiology was consulted. They recommended repeat echocardiogram and no invasive procedures at this point in time. He also was given glucose for his hypoglycemia in the ER and by the next morning had a glucose of greater than 300 secondary to use of IV steroids. He diuriesed well, but creatinine started to increase. His HgB dropped on 05/11 and one unit of pack RBC ordered. Patient seen and examined at bedside recently back from ambulating the halls with physical therapy currently on 4 L via nasal cannula. Patient doing well. Her hemoglobin 7.0 today. Creatinine 1.5.CT of the chest yesterday showing bilateral pleural effusion with right-sided effusion being loculated basilar compressive atelectasis right greater than left Objective - Vital Signs Vital signs: Vital Signs Temp 97.9 F 05/12/19 03:59 Pulse 74 05/12/19 09:10 Resp 16 05/12/19 03:59 BP 166/79 05/12/19 03:59 Pulse Ox 98 05/12/19 03:59 Intake & Output 05/11/19 05/12/19 05/12/19 18:59 06:59 18:59 Intake Total 1750 30 120 Output Total 1360 700 Balance 390 -670 120 Weight 83.6 kg Intake: IV 60 30 Invasive Line 2 60 30 Oral 1380 120 Blood Product 310 Rc As-1 Unit 310 [id number] Output: Urine 1360 700 Other: Voiding Method Toilet Urinal # Voids 2 - Exam Constitutional: No acute distress, conversant, pleasant Eyes: Anicteric sclerae, moist conjunctiva, no lid-lag, PERRLA ENMT: NC/AT,Oropharynx clear, no erythema, exudates Neck:Supple, FROM, no masses, or JVD, No carotid bruits; No thyromegaly Lungs: Clear to auscultation, Clear to percussion, Normal respiratory effort, no accessory muscle use Cardiovascular: Heart regular in rate and rhythm, No murmurs, gallops, or rubs no peripheral edema Abdominal: Soft Nontender, nom distended, no guarding, no rebound or rigidity, Normoactive bowel sounds No hepatomegaly, No splenomegaly, No palpable mass No abdominal wall hernia noted Skin: Normal temperature, tone, texture, turgor, No induration No subcutaneous nodules, No rash, lesions, No ulcers Extremities:No digital cyanosis No clubbing, Pedal pulses intact and symmetrical Radial pulses intact and symmetrical Normal gait and station, No calf tenderness Psychiatric: Alert and oriented to person, place and time, Appropriate affect Intact judgement Neuro: Muscles Strength 5/5 in all 4 extremities, Sensation to light touch grossly present throughout, Cranial nerves II-XII grossly intact. No focal sensory deficits - Labs CBC & Chem 7: 05/12/19 05:34 05/12/19 02:05 Labs: Abnormal Lab Results - Last 24 Hours (Table) 05/11/19 05/11/19 05/11/19 Range/Units 07:26 09:13 15:58 WBC 12.6 H (3.8-10.6) k/uL RBC 2.72 L (4.30-5.90) m/uL Hgb 7.8 L (13.0-17.5) gm/dL Hct 24.9 L (39.0-53.0) % RDW 16.0 H (11.5-15.5) % Neutrophils # 11.8 H (1.3-7.7) k/uL Lymphocytes # 0.3 L (1.0-4.8) k/uL Carbon Dioxide (22-30) mmol/L BUN (9-20) mg/dL Creatinine (0.66-1.25) mg/dL Glucose (74-99) mg/dL POC Glucose (mg/dL) 143 H (75-99) mg/dL Crossmatch See Detail 05/11/19 05/11/19 05/11/19 Range/Units 16:51 20:51 22:11 WBC 11.9 H (3.8-10.6) k/uL RBC 2.78 L (4.30-5.90) m/uL Hgb 8.4 L (13.0-17.5) gm/dL Hct 25.5 L (39.0-53.0) % RDW 16.2 H (11.5-15.5) % Neutrophils # 10.8 H (1.3-7.7) k/uL Lymphocytes # 0.3 L (1.0-4.8) k/uL Carbon Dioxide (22-30) mmol/L BUN (9-20) mg/dL Creatinine (0.66-1.25) mg/dL Glucose (74-99) mg/dL POC Glucose (mg/dL) 252 H 273 H (75-99) mg/dL Crossmatch 05/12/19 05/12/19 05/12/19 Range/Units 02:05 02:05 05:34 WBC 12.3 H (3.8-10.6) k/uL RBC 2.70 L 2.43 L (4.30-5.90) m/uL Hgb 7.9 L 7.0 L (13.0-17.5) gm/dL Hct 24.7 L 22.0 L (39.0-53.0) % RDW 16.2 H 16.0 H (11.5-15.5) % Neutrophils # 11.4 H (1.3-7.7) k/uL Lymphocytes # 0.3 L (1.0-4.8) k/uL Carbon Dioxide 31 H (22-30) mmol/L BUN 71 H (9-20) mg/dL Creatinine 1.50 H (0.66-1.25) mg/dL Glucose 101 H (74-99) mg/dL POC Glucose (mg/dL) (75-99) mg/dL Crossmatch 05/12/19 Range/Units 06:36 WBC (3.8-10.6) k/uL RBC (4.30-5.90) m/uL Hgb (13.0-17.5) gm/dL Hct (39.0-53.0) % RDW (11.5-15.5) % Neutrophils # (1.3-7.7) k/uL Lymphocytes # (1.0-4.8) k/uL Carbon Dioxide (22-30) mmol/L BUN (9-20) mg/dL Creatinine (0.66-1.25) mg/dL Glucose (74-99) mg/dL POC Glucose (mg/dL) 160 H (75-99) mg/dL Crossmatch Assessment and Plan Assessment: Acute exacerbation of diastolic congestive heart failure, ejection fraction 55- 60% with grade 2 diastolic dysfunction -Continue Lasix was decreased to once daily 05/10 with increasing creatinine. We will get on 05/11 even though creatinine is increasing secondary need for 1 unit of packed red blood cells. -Continue with beta chuck -Strict I's and O's, daily weights -Cardiology recommendations appreciated -Telemetry -Follow electrolytes closely Acute blood loss anemia on top of chronic anemia -Patient does not want to undergo any invasive evaluation at this point in time -1 unit packed red blood cells -CBC every 6 hours -Continue ferrous sulfate Acute kidney injury -Baseline creatinine 1 -Possibly secondary to forced diuresis but may also have component of cardiorenal syndrome -Repeat basic metabolic profile in a.m. -Avoid additional nephrotoxic agents - US kidneys Elevated troponins setting of known coronary artery disease -Underwent cardiac catheterization 03/15/17 which showed [id number] triple- vessel coronary artery disease at that point in time recommendations were to maximize medical therapy -Cardiology recommendations appreciated -Echocardiogram without significant wall motion abnormality, preserved EF -Aspirin, beta chuck Acute exacerbation of COPD with acute on chronic hypoxic respiratory failure -Continue scheduled and as needed bronchodilators -Continue Symbicort -Continue with Solu-Medrol, decrease to 40 mg twice a day -Pulmonary hygiene Bilateral pleural effusion possible loculation on the right -Consult Pulmonary Diabetes mellitus type 2 with hypoglycemia on arrival and now hyperglycemia likely steroid induced -Continue 70/30 and sliding scale insulin -Follow blood sugars -Checking Dyslipidemia -Statin therapy DVT prophylaxis: SCDs Discussed with: Patient, nursing Anticipated discharge: 1-[address]: home health with telehealth A total of 35 minutes was spent on the care of this complex patient more than 50% of the time was spent in counseling and care coordination.
[2019-05-12 12:09] LABS: Glucose,Whole Blood 88 mg/dL (75-99)
[2019-05-12 14:07] LABS: Hemoglobin A1C 4.9 % (4.0-6.0)
--- NOTE | 2019-05-12 15:30 | P.PN ---
Subjective Progress Note Date: 05/12/19 A 78-year-old male patient with known history of COPD was hospitalized for wor sening shortness of breath. The patient was hospitalized 2 days ago and I was consulted because of bilateral pleural effusion ongoing shortness of breath. Noted the patient had increased dyspnea. Minimal congestion. No significant wheezing or bronchospasm. No pleurisy or hemoptysis. He was short of breath a week probably prior to him coming to the hospital. The patient was diagnosed having CHF with diastolic dysfunction. The patient was given diuretics. During the course of the treatment the patient was was found to have a troponin of 0.0 28 with a BNP level of 8080. Chest x-ray showed a loculated right-sided pleural effusion and a small loculated left-sided pleural effusion. The patient was subjected to the IV diuretics. The patient was subjected IV steroids. The patient developed an acute kidney injury in the creatinine came up to 1.5. At this point, a pulmonary consultation was requested. The echocardiogram was done and it showed an ejection fraction of 55-60% with mild concentric LVH, [id number] MR, no significant pulmonary hypertension, normal collapsibility of the right atrium consistent with normal right atrial pressures. No evidence of any pericardial effusion. The patient is known to have CAD, hyperlipidemia, BPH, remote history of colon cancer that was treated back in 2005 requiring colectomy and diverting colostomy with subsequent reversal, diabetes mellitus and COPD with chronic hypoxic respiratory failure and is demented on oxygen 3 L and he has chronic anxiety. Note that the patient came in with a baseline anemia. During this current hospital stay, he had a progressive drop in hemoglobin and the patient's hemoglobin today is at 6.7. Creatinine is at 1.56. The patient will be given a unit of packed RBC. No evidence of any acute GI bleed. On today's evaluation of 05/12/2019 I'm seeing Ralph for a follow-up. He is feeling okay. His condition is stable. I performed a CAT scan of the chest and the patient was found to have a loculated right-sided pleural effusion and a small lacunar left-sided pleural effusion. This is unlikely to be related to congestion heart failure and further investigation will be needed. I stopped the patient's diuretics. His creatinine stabilized at 1.5. No chest pain. No fever. No chills. No other complaints otherwise for now. I have consulted interventional radiology to perform a ultrasound-guided thoracentesis of the lung. Objective - Vital Signs Vital signs: Vital Signs Temp 97.1 F L 05/12/19 08:00 Pulse 76 05/12/19 13:01 Resp 18 05/12/19 11:37 BP 184/76 05/12/19 08:00 Pulse Ox 99 05/12/19 08:00 Intake & Output 05/11/19 05/12/19 05/12/19 18:59 06:59 18:59 Intake Total 1750 30 380 Output Total 1360 700 Balance 390 -670 380 Weight 83.6 kg Intake: IV 60 30 20 Invasive Line 2 60 30 20 Oral 1380 360 Blood Product 310 Rc As-1 Unit 310 [id number] Output: Urine 1360 700 Other: Voiding Method Toilet Toilet Urinal Urinal # Voids 2 # Bowel Movements 0 - Exam Gen. appearance, comfortable likely distress. The patient is currently supplemented oxygen at 3 L. Head exam was generally normal. There was no scleral icterus or corneal arcus. Mucous membranes were moist. There is conjunctival pallor no icterus. Neck was supple and without jugular venous distension, thyromegaly, or carotid bruits. Carotids were easily palpable bilaterally. There was no adenopathy. Lungs sounds are diminished in lung bases especially in the right lung base. Few scattered extremity wheezes otherwise clear. The patient has a barrel chest. Cardiac exam revealed the PMI to be normally situated and sized. The rhythm was regular and no extrasystoles were noted during several minutes of auscultation. The first and second heart sounds were normal and physiologic splitting of the second heart sound was noted. There were no murmurs, rubs, clicks, or gallops. Abdominal exam revealed normal bowel sounds. The abdomen was soft, non-tender, and without masses, organomegaly, or appreciable enlargement of the abdominal aorta. Extremities are free of any edema. Diminished pulses. There is no cyanosis or clubbing. Examination of the skin revealed no evidence of significant rashes, suspicious appearing nevi or other concerning lesions. Neurologically awake and alert and there is no focal neurological deficit. Psychiatric it is likely depression with anxiety. - Labs CBC & Chem 7: 05/12/19 05:34 05/12/19 02:05 Labs: Abnormal Lab Results - Last 24 Hours (Table) 05/11/19 05/11/19 05/11/19 Range/Units 09:13 15:58 16:51 WBC 12.6 H (3.8-10.6) k/uL RBC 2.72 L (4.30-5.90) m/uL Hgb 7.8 L (13.0-17.5) gm/dL Hct 24.9 L (39.0-53.0) % RDW 16.0 H (11.5-15.5) % Neutrophils # 11.8 H (1.3-7.7) k/uL Lymphocytes # 0.3 L (1.0-4.8) k/uL Carbon Dioxide (22-30) mmol/L BUN (9-20) mg/dL Creatinine (0.66-1.25) mg/dL Glucose (74-99) mg/dL POC Glucose (mg/dL) 252 H (75-99) mg/dL Crossmatch See Detail 05/11/19 05/11/19 05/12/19 Range/Units 20:51 22:11 02:05 WBC 11.9 H (3.8-10.6) k/uL RBC 2.78 L (4.30-5.90) m/uL Hgb 8.4 L (13.0-17.5) gm/dL Hct 25.5 L (39.0-53.0) % RDW 16.2 H (11.5-15.5) % Neutrophils # 10.8 H (1.3-7.7) k/uL Lymphocytes # 0.3 L (1.0-4.8) k/uL Carbon Dioxide 31 H (22-30) mmol/L BUN 71 H (9-20) mg/dL Creatinine 1.50 H (0.66-1.25) mg/dL Glucose 101 H (74-99) mg/dL POC Glucose (mg/dL) 273 H (75-99) mg/dL Crossmatch 05/12/19 05/12/19 05/12/19 Range/Units 02:05 05:34 06:36 WBC 12.3 H (3.8-10.6) k/uL RBC 2.70 L 2.43 L (4.30-5.90) m/uL Hgb 7.9 L 7.0 L (13.0-17.5) gm/dL Hct 24.7 L 22.0 L (39.0-53.0) % RDW 16.2 H 16.0 H (11.5-15.5) % Neutrophils # 11.4 H (1.3-7.7) k/uL Lymphocytes # 0.3 L (1.0-4.8) k/uL Carbon Dioxide (22-30) mmol/L BUN (9-20) mg/dL Creatinine (0.66-1.25) mg/dL Glucose (74-99) mg/dL POC Glucose (mg/dL) 160 H (75-99) mg/dL Crossmatch Assessment and Plan Plan: 1 loculated right-sided pleural effusion and a smaller left-sided pleural e ffusion, exact etiology is not clear. Doubt CHF knowing that the fluid itself is not free-flowing and seems to be loculated on chest x-ray. Rule out parapneumonic effusion. Rule out malignant effusion. 2 chronic dyspnea with interval worsening shortness of breath currently under investigation 3 COPD with chronic hypoxic respiratory failure currently on 3 L of oxygen by nasal cannula 4 hypertensive heart disease with mild concentric LVH, preserved LV function without any significant valvular heart disease or pulmonary hypertension 5 acute kidney injury, likely secondary to diuretic use 6 acute on chronic anemia. Consider blood loss anemia. Hemoglobin is down to 6.7 7 history of colon cancer with previous colectomy and diverting colostomy with subsequent reversal back in 2005 8 diabetes mellitus 9 hypertension 10 hyperlipidemia 11 BPH 12 history of spinal stenosis with degenerative disc disease 13 history of obstructive sleep apnea unable to use CPAP therapy Plan Stop Lasix. Monitor kidney function. Proceed with ultrasound-guided thoracentesis of the right lung regarding the loculated right-sided pleural effusion as confirmed by a CAT scan of the chest.
[2019-05-12 17:16] LABS: Glucose,Whole Blood 245 mg/dL (75-99)
[2019-05-12 20:14] LABS: Glucose,Whole Blood 248 mg/dL (75-99)
[2019-05-12] MEDS: SERTRALINE 50 MG TAB PO SCH (20:50)
[2019-05-12] MEDS: ATORVASTATIN 20 MG TAB PO SCH (20:51)
[2019-05-12] MEDS: LATANOPROST 0.005% OPHTH DROPS 2.5 ML BTL BOTH EYES SCH (22:12)
[2019-05-13 04:05] LABS: Glucose,Whole Blood 175 mg/dL (75-99)
[2019-05-13 06:29] LABS: Basophils % (A) 0 %; Eosinophils % (A) 0 %; HCT 26.9 % (39.0-53.0); HGB 8.3 gm/dL (13.0-17.5); Hypochromasia Slight; Lymphocytes # (A) 0.3 k/uL (1.0-4.8); Lymphocytes % (A) 3 %; MCH 28.6 pg (25.0-35.0); MCV 92.5 fL (80.0-100.0); Mean Platelet Volume 8.6; Monocytes # (A) 0.5 k/uL (0-1.0); Monocytes % (A) 5 %; Neutrophils # (A) 9.7 k/uL (1.3-7.7); Neutrophils % (A) 91 %; Platelet Count 338 k/uL (150-450); RBC 2.91 m/uL (4.30-5.90); RDW 15.7 % (11.5-15.5); WBC 10.7 k/uL (3.8-10.6)
[2019-05-13 06:45] LABS: Calcium 8.8 mg/dL (8.4-10.2); Potassium 5.5 mmol/L (3.5-5.1)
[2019-05-13 06:53] LABS: Glucose,Whole Blood 221 mg/dL (75-99)
[2019-05-13] MEDS: INSULN ASP PRT/INSULIN ASPART 100 UNIT/ML 10 ML VIAL SQ SCH ×2 (07:01→17:21)
[2019-05-13] MEDS: INSULIN ASPART (NovoLOG) 100 UNIT/ML VIAL SQ SCH ×4 (07:01→20:35)
[2019-05-13] MEDS: PANTOPRAZOLE 40 MG TABLET PO SCH (07:02)
[2019-05-13] MEDS: IPRATROPIUM-ALBUTEROL 3 ML NEB INHALATION SCH ×4 (07:26→19:26)
[2019-05-13] MEDS: SYMBICORT 160-4.5 MCG INHALER INHALATION SCH ×2 (07:26→19:26)
[2019-05-13] MEDS: METOPROLOL TARTRATE 50 MG TAB PO SCH ×2 (09:08→19:58)
[2019-05-13] MEDS: methylPREDNISolone SOD SUCCI 40 MG/ML 1 ML VIAL IV SCH (09:08)
[2019-05-13] MEDS: CLOBETASOL PROP 0.05% CR 15GM TOPICAL SCH ×2 (09:08→19:59)
[2019-05-13] MEDS: SERTRALINE 100 MG TAB PO SCH (09:08)
[2019-05-13] MEDS: FERROUS SULFATE 325 MG TAB PO SCH (09:08)
--- NOTE | 2019-05-13 09:23 | PN ---
PROGRESS NOTE This is a 78-year-old gentleman that is admitted to hospital with shortness of breath and has a loculated pleural effusion. He also had anemia and required blood transfusion. This morning, he appears comfortable at rest. Shortness of breath has improved and he is awaiting thoracentesis. On exam, comfortable at rest. Heart rate is 57 beats per minute. Blood pressure is 160/70. Respirations 18. Chest exam reveals diminished air entry at the bases. Heart exam reveals first and second heart sounds and a systolic murmur at the apex. Abdomen is soft. Examination of the extremities did not reveal any edema. Peripheral pulses are felt. ASSESSMENT: 1. Uncontrolled hypertension. 2. Coronary artery disease. 3. Shortness of breath secondary to loculated effusion. 4. Dyslipidemia. PLAN: I am going to increase the dose of Norvasc to 10 mg daily to better control his blood pressure. We should be able to discharge him home tomorrow after the thoracentesis. MMODL / IJN: [id number] /
[2019-05-13] MEDS ORDERED: hydrALAZINE HCL 25 MG TAB PO PRN (09:45)
--- NOTE | 2019-05-13 09:55 | P.PN ---
Subjective Progress Note Date: 05/13/19 Principal diagnosis: Patient is a 78-year-old male to past medical history of diastolic congestive heart failure, advanced COPD on chronic oxygen at 3 L, diabetes mellitus, hypertension, and dyslipidemia who presented secondary to shortness of breath and increased fatigue over the last 2-3 weeks. In the ER he underwent an extensive evaluation. On arrival he was hypertensive with a blood pressure 170/75. Laboratory analysis showed anemia with hemoglobin of 8.1, hypoglycemia with a blood sugar of 31, normal troponin 0.028, an elevated BNP at 8080. Chest x-ray showed bilateral pleural effusions with possible loculation on the right. He was started on Lasix, bronchodilators, and steroids. He is admitted to the selective care unit for acute exacerbation of CHF and chronic hypoxic respiratory failure with COPD exacerbation. His troponin increased overnight. Cardiology was consulted. They recommended repeat echocardiogram and no invasive procedures at this point in time. He also was given glucose for his hypoglycemia in the ER and by the next morning had a glucose of greater than 300 secondary to use of IV steroids. He diuriesed well, but creatinine started to increase. His HgB dropped on 05/11 and one unit of pack RBC ordered. The patient seen and examined at bedside, not was sleeping well, no acute events overnight. This morning his blood pressure has been elevated as high 193/79. Hemoglobin up to 8.3 g after 1 unit packed RBC transfusion yesterday. creatinine 1.57 serum potassium 5.5. A.m. blood sugars elevated to 21. breathing appears unlabored. CT of the chest yesterday showing bilateral pleural effusion with right-sided effusion being loculated basilar compressive atelectasis right greater than left Objective - Vital Signs Vital signs: Vital Signs Temp 97.0 F L 05/13/19 04:00 Pulse 62 05/13/19 07:39 Resp 20 05/13/19 04:00 BP 167/70 05/13/19 04:00 Pulse Ox 98 05/13/19 07:26 Intake & Output 05/12/19 05/13/19 05/13/19 18:59 06:59 18:59 Intake Total 620 30 480 Output Total 1150 Balance 620 -1120 480 Weight 83.7 kg Intake: IV 20 30 Invasive Line 2 20 30 Oral 600 480 Output: Urine 1150 Other: Voiding Method Toilet Toilet Urinal Urinal # Voids 1 1 # Bowel Movements 0 - Exam Constitutional: No acute distress, conversant, pleasant Eyes: Anicteric sclerae, moist conjunctiva, no lid-lag, PERRLA ENMT: NC/AT,Oropharynx clear, no erythema, exudates Neck:Supple, FROM, no masses, or JVD, No carotid bruits; No thyromegaly Lungs: diminsihed in bases R > L, barrel chest, unlabored Cardiovascular: Heart regular in rate and rhythm, No murmurs, gallops, or rubs no peripheral edema Abdominal: Soft Nontender, nom distended, no guarding, no rebound or rigidity, Normoactive bowel sounds No hepatomegaly, No splenomegaly, No palpable mass No abdominal wall hernia noted Skin: Normal temperature, tone, texture, turgor, No induration No subcutaneous nodules, No rash, lesions, No ulcers Extremities:No digital cyanosis No clubbing, Pedal pulses intact and symmetrical Radial pulses intact and symmetrical Normal gait and station, No calf tenderness Psychiatric: Alert and oriented to person, place and time, Appropriate affect Intact judgement Neuro: Muscles Strength 5/5 in all 4 extremities, Sensation to light touch grossly present throughout, Cranial nerves II-XII grossly intact. No focal sensory deficits - Labs CBC & Chem 7: 05/13/19 05:26 05/13/19 05:26 Labs: Abnormal Lab Results - Last 24 Hours (Table) 05/12/19 05/12/19 05/13/19 Range/Units 17:14 20:12 04:03 WBC (3.8-10.6) k/uL RBC (4.30-5.90) m/uL Hgb (13.0-17.5) gm/dL Hct (39.0-53.0) % RDW (11.5-15.5) % Neutrophils # (1.3-7.7) k/uL Lymphocytes # (1.0-4.8) k/uL Potassium (3.5-5.1) mmol/L BUN (9-20) mg/dL Creatinine (0.66-1.25) mg/dL Glucose (74-99) mg/dL POC Glucose (mg/dL) 245 H 248 H 175 H (75-99) mg/dL 05/13/19 05/13/19 05/13/19 Range/Units 05:26 05:26 06:52 WBC 10.7 H (3.8-10.6) k/uL RBC 2.91 L (4.30-5.90) m/uL Hgb 8.3 L (13.0-17.5) gm/dL Hct 26.9 L (39.0-53.0) % RDW 15.7 H (11.5-15.5) % Neutrophils # 9.7 H (1.3-7.7) k/uL Lymphocytes # 0.3 L (1.0-4.8) k/uL Potassium 5.5 H (3.5-5.1) mmol/L BUN 72 H (9-20) mg/dL Creatinine 1.57 H (0.66-1.25) mg/dL Glucose 169 H (74-99) mg/dL POC Glucose (mg/dL) 221 H (75-99) mg/dL Assessment and Plan Assessment: Acute exacerbation of diastolic congestive heart failure, ejection fraction 55- 60% with grade 2 diastolic dysfunction -LASIX discontinued We will get on 05/11 even though creatinine is increasing secondary need for 1 unit of packed red blood cells. -Continue with beta chuck -Strict I's and O's, daily weights -Cardiology recommendations appreciated -Telemetry Acute exacerbation of COPD with acute on chronic hypoxic respiratory failure -Continue scheduled and as needed bronchodilators -Continue Symbicort -Continue with Solu-Medrol, continue with 40 mg IV twice a day -Pulmonary hygiene Acute blood loss anemia on top of chronic anemia * Hemoglobin 8.3 status post 1 unit packed RBCs -Patient does not want to undergo any invasive evaluation at this point in time - s/p 1 unit packed red blood cells -CBC every 6 hours -Continue ferrous sulfate Uncontrolled hypertension * Continue regimen of metoprolol and Norvasc will add HCTZ and prn hydralazine * Continue to monitor closely Acute kidney injury -Baseline creatinine 1 now up to 1.5 -Possibly secondary to forced diuresis but may also have component of cardiorenal syndrome -Repeat basic metabolic profile in a.m. -Avoid additional nephrotoxic agents - kidneys Elevated troponins setting of known coronary artery disease -Underwent cardiac catheterization 03/15/17 which showed [id number] triple- vessel coronary artery disease at that point in time recommendations were to maximize medical therapy -Cardiology recommendations appreciated -Echocardiogram without significant wall motion abnormality, preserved EF -Aspirin, beta chuck Bilateral pleural effusion possible loculation on the right * Parapneumonic versus malignant -Appreciate recommendations plan for CT-guided thoracentesis by IR tomorrow Diabetes mellitus type 2 with hyperglycemia likely steroid induced -Continue 70/30 and sliding scale insulin -Follow blood sugars -Checking Dyslipidemia -Statin therapy DVT prophylaxis: SCDs Discussed with: Patient, nursing Anticipated discharge: 1-[address]: home health with telehealth A total of 35 minutes was spent on the care of this complex patient more than 50% of the time was spent in counseling and care coordination.
[2019-05-13 11:55] LABS: Glucose,Whole Blood 129 mg/dL (75-99)
--- NOTE | 2019-05-13 12:06 | P.PN ---
Subjective Progress Note Date: 05/13/19 A 78-year-old male patient with known history of COPD was hospitalized for wor sening shortness of breath. The patient was hospitalized 2 days ago and I was consulted because of bilateral pleural effusion ongoing shortness of breath. Noted the patient had increased dyspnea. Minimal congestion. No significant wheezing or bronchospasm. No pleurisy or hemoptysis. He was short of breath a week probably prior to him coming to the hospital. The patient was diagnosed having CHF with diastolic dysfunction. The patient was given diuretics. During the course of the treatment the patient was was found to have a troponin of 0.0 28 with a BNP level of 8080. Chest x-ray showed a loculated right-sided pleural effusion and a small loculated left-sided pleural effusion. The patient was subjected to the IV diuretics. The patient was subjected IV steroids. The patient developed an acute kidney injury in the creatinine came up to 1.5. At this point, a pulmonary consultation was requested. The echocardiogram was done and it showed an ejection fraction of 55-60% with mild concentric LVH, [id number] MR, no significant pulmonary hypertension, normal collapsibility of the right atrium consistent with normal right atrial pressures. No evidence of any pericardial effusion. The patient is known to have CAD, hyperlipidemia, BPH, remote history of colon cancer that was treated back in 2005 requiring colectomy and diverting colostomy with subsequent reversal, diabetes mellitus and COPD with chronic hypoxic respiratory failure and is demented on oxygen 3 L and he has chronic anxiety. Note that the patient came in with a baseline anemia. During this current hospital stay, he had a progressive drop in hemoglobin and the patient's hemoglobin today is at 6.7. Creatinine is at 1.56. The patient will be given a unit of packed RBC. No evidence of any acute GI bleed. On today's evaluation of 05/12/2019 I'm seeing Ralph for a follow-up. He is feeling okay. His condition is stable. I performed a CAT scan of the chest and the patient was found to have a loculated right-sided pleural effusion and a small left-sided pleural effusion. This is unlikely to be related to congestion heart failure and further investigation will be needed. I stopped the patient's diuretics. His creatinine stabilized at 1.5. No chest pain. No fever. No chills. No other complaints otherwise for now. I have consulted interventional radiology to perform a ultrasound-guided thoracentesis of the lung. On 05/13/2019 patient's condition is stable. No new complaints. Awaiting a ultrasound-guided thoracentesis of the loculated right-sided pleural effusion by interventional radiology and I'm hoping this will be done tomorrow. No fever. No chills. No chest pain. He has no complaints. Is a good appetite. Eating well. No nausea or vomiting. He is off the diuretics and the creatinine today is at 1.57. Objective - Vital Signs Vital signs: Vital Signs Temp 97.7 F 05/13/19 08:00 Pulse 60 05/13/19 11:26 Resp 20 05/13/19 08:00 BP 193/79 05/13/19 08:00 Pulse Ox 99 05/13/19 08:00 Intake & Output 05/12/19 05/13/19 05/13/19 18:59 06:59 18:59 Intake Total 620 30 490 Output Total 1150 Balance 620 -1120 490 Weight 83.7 kg Intake: IV 20 30 10 Invasive Line 2 20 30 10 Oral 600 480 Output: Urine 1150 Other: Voiding Method Toilet Toilet Toilet Urinal Urinal Urinal # Voids 1 1 # Bowel Movements 0 - Exam Gen. appearance, comfortable likely distress. The patient is currently supplemented oxygen at 3 L. Head exam was generally normal. There was no scleral icterus or corneal arcus. Mucous membranes were moist. There is conjunctival pallor no icterus. Neck was supple and without jugular venous distension, thyromegaly, or carotid bruits. Carotids were easily palpable bilaterally. There was no adenopathy. Lungs sounds are diminished in lung bases especially in the right lung base. Few scattered extremity wheezes otherwise clear. The patient has a barrel chest . Cardiac exam revealed the PMI to be normally situated and sized. The rhythm was regular and no extrasystoles were noted during several minutes of auscultation. The first and second heart sounds were normal and physiologic splitting of the second heart sound was noted. There were no murmurs, rubs, clicks, or gallops. Abdominal exam revealed normal bowel sounds. The abdomen was soft, non-tender, a nd without masses, organomegaly, or appreciable enlargement of the abdominal aorta. Extremities are free of any edema. Diminished pulses. There is no cyanosis or clubbing. Examination of the skin revealed no evidence of significant rashes, suspicious appearing nevi or other concerning lesions. Neurologically awake and alert and there is no focal neurological deficit. Psychiatric it is likely depression with anxiety. - Labs CBC & Chem 7: 05/13/19 05:26 05/13/19 05:26 Labs: Abnormal Lab Results - Last 24 Hours (Table) 05/12/19 05/12/19 05/13/19 Range/Units 17:14 20:12 04:03 WBC (3.8-10.6) k/uL RBC (4.30-5.90) m/uL Hgb (13.0-17.5) gm/dL Hct (39.0-53.0) % RDW (11.5-15.5) % Neutrophils # (1.3-7.7) k/uL Lymphocytes # (1.0-4.8) k/uL Potassium (3.5-5.1) mmol/L BUN (9-20) mg/dL Creatinine (0.66-1.25) mg/dL Glucose (74-99) mg/dL POC Glucose (mg/dL) 245 H 248 H 175 H (75-99) mg/dL 05/13/19 05/13/19 05/13/19 Range/Units 05:26 05:26 06:52 WBC 10.7 H (3.8-10.6) k/uL RBC 2.91 L (4.30-5.90) m/uL Hgb 8.3 L (13.0-17.5) gm/dL Hct 26.9 L (39.0-53.0) % RDW 15.7 H (11.5-15.5) % Neutrophils # 9.7 H (1.3-7.7) k/uL Lymphocytes # 0.3 L (1.0-4.8) k/uL Potassium 5.5 H (3.5-5.1) mmol/L BUN 72 H (9-20) mg/dL Creatinine 1.57 H (0.66-1.25) mg/dL Glucose 169 H (74-99) mg/dL POC Glucose (mg/dL) 221 H (75-99) mg/dL 05/13/19 Range/Units 11:51 WBC (3.8-10.6) k/uL RBC (4.30-5.90) m/uL Hgb (13.0-17.5) gm/dL Hct (39.0-53.0) % RDW (11.5-15.5) % Neutrophils # (1.3-7.7) k/uL Lymphocytes # (1.0-4.8) k/uL Potassium (3.5-5.1) mmol/L BUN (9-20) mg/dL Creatinine (0.66-1.25) mg/dL Glucose (74-99) mg/dL POC Glucose (mg/dL) 129 H (75-99) mg/dL Assessment and Plan Plan: 1 loculated right-sided pleural effusion and a smaller left-sided pleural eff usion, exact etiology is not clear. Doubt CHF knowing that the fluid itself is not free-flowing and seems to be loculated on chest x-ray. Rule out parapneumonic effusion. Rule out malignant effusion. 2 chronic dyspnea with interval worsening shortness of breath currently under investigation 3 COPD with chronic hypoxic respiratory failure currently on 3 L of oxygen by nasal cannula 4 hypertensive heart disease with mild concentric LVH, preserved LV function without any significant valvular heart disease or pulmonary hypertension 5 acute kidney injury, likely secondary to diuretic use him a creatinine this at 1.57 in stable for now. 6 acute on chronic anemia. Consider blood loss anemia. Hemoglobin is up to 8.3 on today's evaluation. 7 history of colon cancer with previous colectomy and diverting colostomy with subsequent reversal back in 2005 8 diabetes mellitus 9 hypertension 10 hyperlipidemia 11 BPH 12 history of spinal stenosis with degenerative disc disease 13 history of obstructive sleep apnea unable to use CPAP therapy Plan Hold the diuretics. Monitor renal function. Ultrasound guided thoracentesis of the loculated right-sided pleural effusion for tomorrow. Continue the bronchodilators. Continue Symbicort. Adequate blood pressure control. Use IV Solu-Medrol to once a day.
[2019-05-13] MEDS: HYDROCHLOROTHIAZIDE 25 MG TAB PO SCH (12:15)
[2019-05-13 17:02] LABS: Glucose,Whole Blood 181 mg/dL (75-99)
[2019-05-13 17:07] LABS: Glucose,Whole Blood 170 mg/dL (75-99)
[2019-05-13] MEDS: ATORVASTATIN 20 MG TAB PO SCH (19:58)
[2019-05-13] MEDS: LATANOPROST 0.005% OPHTH DROPS 2.5 ML BTL BOTH EYES SCH (19:59)
[2019-05-13] MEDS: SERTRALINE 50 MG TAB PO SCH (19:59)
[2019-05-13 20:32] LABS: Glucose,Whole Blood 149 mg/dL (75-99)
[2019-05-13] MEDS ORDERED: amLODIPine 10 MG TAB PO SCH (21:00)
[2019-05-14 06:49] LABS: Glucose,Whole Blood 76 mg/dL (75-99)
[2019-05-14] MEDS: INSULIN ASPART (NovoLOG) 100 UNIT/ML VIAL SQ SCH ×2 (06:49→12:21)
[2019-05-14] MEDS: PANTOPRAZOLE 40 MG TABLET PO SCH (06:53)
[2019-05-14] MEDS: IPRATROPIUM-ALBUTEROL 3 ML NEB INHALATION SCH ×2 (07:35→11:26)
[2019-05-14] MEDS: SYMBICORT 160-4.5 MCG INHALER INHALATION SCH (07:36)
[2019-05-14 08:12] LABS: HCT 25.1 % (39.0-53.0); Hypochromasia Moderate; MCH 29.4 pg (25.0-35.0); MCHC 31.8 g/dL (31.0-37.0); MCV 92.7 fL (80.0-100.0); Platelet Count 261 k/uL (150-450); RBC 2.71 m/uL (4.30-5.90); RDW 15.3 % (11.5-15.5); WBC 8.8 k/uL (3.8-10.6)
[2019-05-14 08:29] LABS: Albumin 2.7 g/dL (3.5-5.0); Calcium 8.5 mg/dL (8.4-10.2); Potassium 4.8 mmol/L (3.5-5.1); Total Bilirubin 0.4 mg/dL (0.2-1.3); Total Protein 5.2 g/dL (6.3-8.2)
[2019-05-14 08:41] VITALS: TEMP 97.8
[2019-05-14] MEDS ORDERED: methylPREDNISolone SOD SUCCI 40 MG/ML 1 ML VIAL IV SCH (09:00)
[2019-05-14 09:36] LABS: Glucose,Whole Blood 156 mg/dL (75-99)
[2019-05-14] MEDS: INSULN ASP PRT/INSULIN ASPART 100 UNIT/ML 10 ML VIAL SQ SCH (09:44)
[2019-05-14] MEDS: SERTRALINE 100 MG TAB PO SCH (09:45)
[2019-05-14] MEDS: METOPROLOL TARTRATE 50 MG TAB PO SCH (09:45)
[2019-05-14] MEDS: HYDROCHLOROTHIAZIDE 25 MG TAB PO SCH (09:45)
[2019-05-14] MEDS: FERROUS SULFATE 325 MG TAB PO SCH (09:45)
--- NOTE | 2019-05-14 10:33 | P.PN ---
Subjective Progress Note Date: 05/14/19 This is a pleasant 78-year-old gentleman who was admitted to the hospital with worsening shortness of breath and found to have loculated pleural effusion. He is being followed by pulmonary and is scheduled to undergo ultrasound-guided thoracentesis today. She had some anemia and was given transfusion of packed red blood cells. Hemoglobin is stable around 8. Other labs remained stable with a BUN of 67 and creatinine 1.48. The pressure was elevated and his amlodipine was increased to 10 mg daily yesterday. Blood pressure this morning is 121/54 with a heart rate in the 50s. He remains on 3 L nasal cannula oxygen with an oxygen saturation of 94%. Upon examination, patient is resting comfortably in bed. He continues to complain of dyspnea on exertion but otherwise feels his breathing is somewhat better compared to admission. He denies complaints of chest discomfort, palpitations, dizziness, lightheadedness, edema, orthopnea or PND. Objective - Vital Signs Vital signs: Vital Signs Temp 97.8 F 05/14/19 08:20 Pulse 57 L 05/14/19 08:20 Resp 18 05/14/19 08:20 BP 121/54 05/14/19 08:20 Pulse Ox 94 L 05/14/19 08:20 Intake & Output 05/13/19 05/14/19 05/14/19 18:59 06:59 18:59 Intake Total 860 Output Total 900 375 Balance -40 -375 Weight 83.9 kg Intake: IV 20 Invasive Line 2 20 Oral 840 Output: Urine 900 375 Other: Voiding Method Toilet Urinal # Voids 1 1 # Bowel Movements 1 - Exam PHYSICAL EXAMINATION: HEENT: Head is atraumatic, normocephalic. Pupils equal, round. Neck is supple. There is no elevated jugular venous pressure. HEART EXAMINATION: Heart sounds regular, S1 and S2 with a systolic murmur. CHEST EXAMINATION: Lungs reveal diminished air entry to bilateral lower lobes. No chest wall tenderness is noted on palpation or with deep breathing. ABDOMEN: Soft, nontender. Bowel sounds are heard. No organomegaly noted. EXTREMITIES: 2+ peripheral pulses with no evidence of peripheral edema and no calf tenderness noted. NEUROLOGIC patient is awake, alert and oriented x3. . - Labs CBC & Chem 7: 05/14/19 07:59 05/14/19 07:59 Labs: Abnormal Lab Results - Last 24 Hours (Table) 05/13/19 05/13/19 05/13/19 Range/Units 11:51 16:59 17:04 RBC (4.30-5.90) m/uL Hgb (13.0-17.5) gm/dL Hct (39.0-53.0) % BUN (9-20) mg/dL Creatinine (0.66-1.25) mg/dL Glucose (74-99) mg/dL POC Glucose (mg/dL) 129 H 181 H 170 H (75-99) mg/dL Total Protein (6.3-8.2) g/dL Albumin (3.5-5.0) g/dL 05/13/19 05/14/19 05/14/19 Range/Units 20:31 07:59 07:59 RBC 2.71 L (4.30-5.90) m/uL Hgb 8.0 L (13.0-17.5) gm/dL Hct 25.1 L (39.0-53.0) % BUN 67 H (9-20) mg/dL Creatinine 1.48 H (0.66-1.25) mg/dL Glucose 138 H (74-99) mg/dL POC Glucose (mg/dL) 149 H (75-99) mg/dL Total Protein 5.2 L (6.3-8.2) g/dL Albumin 2.7 L (3.5-5.0) g/dL 05/14/19 Range/Units 09:34 RBC (4.30-5.90) m/uL Hgb (13.0-17.5) gm/dL Hct (39.0-53.0) % BUN (9-20) mg/dL Creatinine (0.66-1.25) mg/dL Glucose (74-99) mg/dL POC Glucose (mg/dL) 156 H (75-99) mg/dL Total Protein (6.3-8.2) g/dL Albumin (3.5-5.0) g/dL Assessment and Plan Assessment: #1 uncontrolled hypertension, improved #2 CAD #3 symptoms or shortness of breath secondary to loculated pleural effusion #4 dyslipidemia Plan: From cardiology's perspective, medications were reviewed and we will continue the same. From our standpoint, patient may be discharged home today after thoracentesis and follow up as an outpatient. W[employer]ER note has been reviewed, I agree with a documented findings and plan of care. Patient was seen and examined.
--- NOTE | 2019-05-14 12:09 | XR ---
EXAMINATION TYPE: XR chest 1V portable DATE OF EXAM: 05/14/2019 CLINICAL HISTORY: Right-sided thoracentesis. TECHNIQUE: Single AP portable upright view of the chest is obtained. COMPARISON: Chest x-ray from May 09, 2019. CT thorax May 11, 2019. FINDINGS: There is persistent small right greater than left pleural effusions or fluid collections w ith associated bibasilar atelectasis and/or infiltrate. No pneumothorax noted after right-sided thora centesis. Cardiac silhouette size is stable and mildly enlarged. Osseous structures are intact. Overl jessica EKG leads are seen. IMPRESSION: No pneumothorax after right-sided thoracentesis. Persistent small right pleural effusion diminished in size after procedure.
[2019-05-14] MEDS: CLOBETASOL PROP 0.05% CR 15GM TOPICAL SCH (12:22)
--- NOTE | 2019-05-14 12:22 | US ---
Ultrasound-guided therapeutic and diagnostic thoracentesis DATE OF EXAM: 05/14/2019 CLINICAL HISTORY: Loculated right pleural effusion The procedure was discussed with the patient. The risks, complications, benefits, and alternatives we re discussed and any questions were answered. Informed consent was obtained. The patient was placed supine on the ultrasound table and prepped and draped in the usual sterile fas hion. All elements of maximal barrier and sterile technique were utilized. Under ultrasound guidance, access into the pleural space was obtained, via the thoracentesis catheter system and direct ultrasound guidance. Ap proximately 325 mL of fluid was removed. Sample sent to pathology for analysis. The patient was stable throughout the procedure and remained stable upon discharge from Department of Radiology. IMPRESSION: 1. Successful therapeutic and diagnostic thoracentesis under ultrasound guidance.
[2019-05-14 12:35] VITALS: PULSE 55
[2019-05-14 12:37] LABS: Glucose,Whole Blood 55 mg/dL (75-99)
[2019-05-14 12:50] LABS: Glucose,Whole Blood 70 mg/dL (75-99)
[2019-05-14 13:15] LABS: Glucose,Whole Blood 108 mg/dL (75-99)
--- NOTE | 2019-05-14 13:33 | P.PN ---
Subjective Progress Note Date: 05/14/19 Principal diagnosis: Loculated right-sided pleural effusion and a smaller left-sided pleural effusion On patient seen in follow-up on selective care unit, he sitting up on the bed, in no acute distress, he is on 2 L of oxygen, his pulse ox of 94%, he is afebrile, no complaints of cough or congestion, lung sounds reveal diminished breath sounds over right mid and lower lobe, a few basilar crackles over left posterior base, no complaints of chest pain, no fever or chills. He has been diuresed, and his Lasix has been on hold, his hydrochlorothiazide was restarted yesterday, today's labs have been reviewed, renal profile is stable, slightly improved. Remains on IV steroids. Patient has been scheduled for ultrasound-guided thoracentesis of the loculated right pleural effusion, and approximately 325 ML of pleural fluid was removed and sent to the lab for anal ysis, cytology and cultures. Objective - Vital Signs Vital signs: Vital Signs Temp 97.8 F 05/14/19 08:20 Pulse 55 L 05/14/19 12:30 Resp 18 05/14/19 12:30 BP 117/60 05/14/19 12:30 Pulse Ox 94 L 05/14/19 12:30 Intake & Output 05/13/19 05/14/19 05/14/19 18:59 06:59 18:59 Intake Total 860 Output Total 900 375 Balance -40 -375 Weight 83.9 kg Intake: IV 20 Invasive Line 2 20 Oral 840 Output: Urine 900 375 Other: Voiding Method Toilet Toilet Urinal Urinal # Voids 1 1 # Bowel Movements 1 - Exam GENERAL EXAM: Alert, pleasant, 78-year-old white male, liters of oxygen with a pulse ox of 94% comfortable in no apparent distress. HEAD: Normocephalic/atraumatic. EYES: Normal reaction of pupils, equal size. Conjunctiva pink, sclera white. NOSE: Clear with pink turbinates. THROAT: No erythema or exudates. NECK: No masses, no JVD, no thyroid enlargement, no adenopathy. CHEST: No chest wall deformity. Symmetrical expansion. LUNGS: Equal air entry with diminished breath sounds over right mid and lower lobe, and basilar crackles on the left CVS: Regular rate and rhythm, normal S1 and S2, no gallops, no murmurs, no rubs ABDOMEN: Soft, nontender. No hepatosplenomegaly, normal bowel sounds, no gu arding or rigidity. EXTREMITIES: No clubbing, no edema, no cyanosis, 2+ pulses and upper and lower e xtremities. MUSCULOSKELETAL: Muscle strength and tone normal. SPINE: No scoliosis or deformity SKIN: No rashes CENTRAL NERVOUS SYSTEM: Alert and oriented -3. No focal deficits, tone is normal in all 4 extremities. PSYCHIATRIC: Alert and oriented -3. Appropriate affect. Intact judgment and insight. - Labs CBC & Chem 7: 05/14/19 07:59 05/14/19 07:59 Labs: Abnormal Lab Results - Last 24 Hours (Table) 05/13/19 05/13/19 05/13/19 Range/Units 16:59 17:04 20:31 RBC (4.30-5.90) m/uL Hgb (13.0-17.5) gm/dL Hct (39.0-53.0) % BUN (9-20) mg/dL Creatinine (0.66-1.25) mg/dL Glucose (74-99) mg/dL POC Glucose (mg/dL) 181 H 170 H 149 H (75-99) mg/dL Total Protein (6.3-8.2) g/dL Albumin (3.5-5.0) g/dL 05/14/19 05/14/19 05/14/19 Range/Units 07:59 07:59 09:34 RBC 2.71 L (4.30-5.90) m/uL Hgb 8.0 L (13.0-17.5) gm/dL Hct 25.1 L (39.0-53.0) % BUN 67 H (9-20) mg/dL Creatinine 1.48 H (0.66-1.25) mg/dL Glucose 138 H (74-99) mg/dL POC Glucose (mg/dL) 156 H (75-99) mg/dL Total Protein 5.2 L (6.3-8.2) g/dL Albumin 2.7 L (3.5-5.0) g/dL 05/14/19 05/14/19 05/14/19 Range/Units 12:18 12:37 13:14 RBC (4.30-5.90) m/uL Hgb (13.0-17.5) gm/dL Hct (39.0-53.0) % BUN (9-20) mg/dL Creatinine (0.66-1.25) mg/dL Glucose (74-99) mg/dL POC Glucose (mg/dL) 55 L 70 L 108 H (75-99) mg/dL Total Protein (6.3-8.2) g/dL Albumin (3.5-5.0) g/dL Assessment and Plan Plan: 1 loculated right-sided pleural effusion and a smaller left-sided pleural effusion, exact etiology is not clear. Doubt CHF knowing that the fluid itself is not free-flowing and seems to be loculated on chest x-ray. Rule out p arapneumonic effusion. Rule out malignant effusion. 2 chronic dyspnea with interval worsening shortness of breath currently under investigation 3 COPD with chronic hypoxic respiratory failure currently on 3 L of oxygen by nasal cannula 4 hypertensive heart disease with mild concentric LVH, preserved LV function without any significant valvular heart disease or pulmonary hypertension 5 acute kidney injury, likely secondary to diuretic use him a creatinine this at 1.57 in stable for now. 6 acute on chronic anemia. Consider blood loss anemia. Hemoglobin is up to 8.3 on today's evaluation. 7 history of colon cancer with previous colectomy and diverting colostomy with subsequent reversal back in 2005 8 diabetes mellitus 9 hypertension 10 hyperlipidemia 11 BPH 12 history of spinal stenosis with degenerative disc disease 13 history of obstructive sleep apnea unable to use CPAP therapy Plan: Will await the results of the pleural fluid analysis, cultures and cytology, clinically patient is stable, no fever or chills, no worsening dyspnea. Renal profile is slightly improved, if remains stable, patient is hoping to be discharged home today. He will need outpatient follow-up in regards to the results of his pleural fluid analysis cultures and cytology. I performed a history & physical examination of the patient and discussed their management with my nurse practitioner, Brenda Armstrong. I reviewed the nurse practitioner's note and agree with the documented findings and plan of care. Lung sounds are positive for diminished sounds over right mid and lower lobe. The findings and the impression was discussed with the patient. I attest to the documentation by the nurse practitioner. Time with Patient: Less than 30
[2019-05-14 14:59] VITALS: BP 137/62; RESP 16
[2019-05-14 15:04] LABS: Glucose,Whole Blood 254 mg/dL (75-99)
[2019-05-14 15:05] LABS: Appearance,BF Blood Tinged; Color,BF Red; RBC, Body Fluid 14650 /uL
[2019-05-14 15:06] LABS: Nucleated Cells, Body Fluid 60 /uL
[2019-05-14 15:10] LABS: Mononuclear WBC,Body Fluid 92 %; Polynuclear WBC,Body Fluid 8 %; Total Cells Counted,Body Fluid 100
--- NOTE | 2019-05-14 15:26 | P.DS ---
Providers Date of admission: 05/11/19 13:27 Expected date of discharge: 05/14/19 Attending physician: Lucinda Willson MD Consults: 05/09/19 22:10 Consult Physician Urgent Consulting Provider: [facility] Consult Reason/Comments: AECHF Do you want consulting provider notified?: Yes 05/11/19 10:26 Consult Physician Routine Consulting Provider: Josiah Vaughn Consult Reason/Comments: loculated pleural effuion Do you want consulting provider notified?: Yes Primary care physician: Ford Altman Hospital Course: Discharge Diagnosis: Acute exacerbation of diastolic CHF, EF Acute exacerbation of COPD Acute on chronic hypoxic respiratory failure Loculated right sided pleural effusion TOM Hypertensive urgency DM2 with both hyper and hypoglycemia Dyslipidemia BPH ROSY, unable to use CPAP Hospital Course: Patient is a 78-year-old male to past medical history of diastolic congestive heart failure, advanced COPD on chronic oxygen at 3 L, diabetes mellitus, hypertension, and dyslipidemia who presented secondary to shortness of breath and increased fatigue over the last 2-3 weeks. In the ER he underwent an extensive evaluation. On arrival he was hypertensive with a blood pressure 170/75. Laboratory analysis showed anemia with hemoglobin of 8.1, hypoglycemia with a blood sugar of 31, normal troponin 0.028, an elevated BNP at 8080. Chest x-ray showed bilateral pleural effusions with possible loculation on the right. He was started on Lasix, bronchodilators, and steroids. He is admitted to the selective care unit for acute exacerbation of CHF and chronic hypoxic respiratory failure with COPD exacerbation. His troponin increased overnight. Cardiology was consulted. They recommended repeat echocardiogram and no invasive procedures at this point in time. Repeat echo showed EF 55-60% with increased diastolic dysfunction. He also was given glucose for his hypoglycemia in the ER and by the next morning had a glucose of greater than 300 secondary to use of IV steroids. He diuriesed well, but creatinine started to increase. His HgB dropped on 05/11 and one unit of pack RBC ordered. He did not want an extensive evaluation for this and after transfusion HgB remained stable. His effusion was found to be loculated. Pulmonary was consulted. He ultimately underwent by ultrasound-guided thoracentesis on 05/14 with removal of 350 mL of fluid. Pathology was pending at time of discharge. He had improvement in his dyspnea and edema he was determined stable for discharge home. Home health with telehealth was ordered. He has also elected for palliative care services on discharge. He will have a repeat CBC and basic metabolic profile in 3 days. He will follow-up with Dr. Altman on 05/21 at 11:30 AM, Dr. Webber on 05/29 at 2:30 PM, and Dr. Meneses on 05/24. He is aware that pathology is pending at time of discharge and follow-up. He has also been started on increased atenolol dosing, Norvasc, and hydrochlorothiazide during his hospital stay and his blood pressure will need to be followed closely. He did have one episode of hypoglycemia on 05/14 after being given his insulin therapy and having lunch delayed secondary to his thoracentesis. This resolved with eating. He will resume his home 7030 dose at 20-25 units twice daily. Patient seen and examined at bedside. Breathing is improved but still having some dyspnea with exertion. No chest pain, nausea, or vomiting. No change in bowel habits. Vital signs reviewed and stable. General: non toxic, no distress, appears at stated age Derm: multiple episodes of ecchymosis, skin abrasion left forearm healing without erythema, warm, dry Head: atraumatic, normocephalic, symmetric Eyes: EOMI, no lid lag, anicteric sclera Mouth: no lip lesion, mucus membranes moist Cardiovascular: S1S2 reg, no murmur, positive posterior tibial pulse bilateral, Lungs: Decreased breath sounds right base, no rhonchi, no rales , no accessory muscle use Abdominal: soft, nontender to palpation, no guarding, no appreciable organomegaly Ext: no gross muscle atrophy, no edema, no contractures Neuro: CN II-XI grossly intact, no focal neuro deficits Psych: Alert, oriented, appropriate affect A total of 25 minutes of time were spent preparing this complex discharge summary . Patient Condition at Discharge: Stable Plan - Discharge Summary Discharge Rx Participant: No New Discharge Prescriptions: New Hydrochlorothiazide [Hydrodiuril] 25 mg PO DAILY #30 tab Metoprolol Tartrate [Lopressor] 50 mg PO BID #60 tab amLODIPine [Norvasc] 10 mg PO HS #30 tab predniSONE 40 mg PO DAILY #3 tab Continue Atorvastatin Calcium [Lipitor] 20 mg PO HS Aspirin EC [Ecotrin Low Dose] 81 mg PO DAILY Budesonide/Formoterol Fumarate [Symbicort 160-4.5 Mcg Inhaler] 2 puff INHALATION RT-BID Sertraline [Zoloft] 50 mg PO HS Cholecalciferol (Vitamin D3) [Vitamin D3] 2,000 unit PO DAILY Ipratropium-Albuterol Nebulize [Duoneb 0.5 mg-3 mg/3 ml Soln] 3 ml INHALATION RT-QID ampul.neb Latanoprost Ophth [Xalatan 0.005%] 1 drops BOTH EYES HS Ascorbic Acid [Vitamin C] 500 mg PO DAILY Sertraline [Zoloft] 100 mg PO DAILY Clobetasol Propionate [Temovate 0.05% Cream] 1 applic TOPICAL BID Changed Ferrous Sulfate [Feosol] 325 mg PO BID #60 tab Insulin NPH Hum/Reg Insulin Hm [NovoLIN 70-30 100 UNIT/ML VIAL] 25 unit SQ BID #0 Discontinued Metoprolol Tartrate [Lopressor] 25 mg PO BID #100 tab Discharge Medication List Atorvastatin Calcium [Lipitor] 20 mg PO HS 05/19/16 [History] Aspirin EC [Ecotrin Low Dose] 81 mg PO DAILY 08/22/16 [History] Budesonide/Formoterol Fumarate [Symbicort 160-4.5 Mcg Inhaler] 2 puff INHALATION RT-BID 03/09/17 [History] Cholecalciferol (Vitamin D3) [Vitamin D3] 2,000 unit PO DAILY 03/10/17 [History] Sertraline [Zoloft] 50 mg PO HS 03/10/17 [History] Ipratropium-Albuterol Nebulize [Duoneb 0.5 mg-3 mg/3 ml Soln] 3 ml INHALATION RT-QID ampul.neb 04/07/17 [Rx] Ascorbic Acid [Vitamin C] 500 mg PO DAILY 09/30/17 [History] Latanoprost Ophth [Xalatan 0.005%] 1 drops BOTH EYES HS 09/30/17 [History] Sertraline [Zoloft] 100 mg PO DAILY 05/26/18 [History] Clobetasol Propionate [Temovate 0.05% Cream] 1 applic TOPICAL BID 05/09/19 [History] Ferrous Sulfate [Feosol] 325 mg PO BID #60 tab 05/14/19 [Rx] Hydrochlorothiazide [Hydrodiuril] 25 mg PO DAILY #30 tab 05/14/19 [Rx] Insulin NPH Hum/Reg Insulin Hm [NovoLIN 70-30 100 UNIT/ML VIAL] 25 unit SQ BID #0 05/14/19 [Rx] Metoprolol Tartrate [Lopressor] 50 mg PO BID #60 tab 05/14/19 [Rx] amLODIPine [Norvasc] 10 mg PO HS #30 tab 05/14/19 [Rx] predniSONE 40 mg PO DAILY #3 tab 05/14/19 [Rx] Follow up Appointment(s)/Referral(s): Ford Altman MD [Primary Care Provider] - 05/21/19 11:30 am (Tuesday) Frank Moya DO [Doctor of Osteopathic Medicine] - 05/29/19 2:30 pm (Tuesday) Francisco Meneses MD [STAFF PHYSICIAN] - 05/24/19 3:45 pm () [facility] Visiting Nurse, [NON-STAFF] - 1-2 Days Ambulatory/Diagnostic Orders: Basic Metabolic Panel [LAB.AMB] Time Frame: 3 Days, Location: None Selected Complete Blood Count w/diff [LAB.AMB] Time Frame: 3 Days, Location: None Selecte d Patient Instructions/Handouts: Heart Failure (DC), COPD (Chronic Obstructive Pulmonary Disease) (DC), Thoracentesis (DC) Activity/Diet/Wound Care/Special Instructions: CHF 1. Weigh yourself every morning after you urinate. If you gain 2-3 pounds overnight or 5 pounds in one week, call your primary physician for guidance on your medications. Keep a log of your weights. 2. Avoid salt, or foods with hidden salt. Extra salt makes your heart work harder and traps the fluid in your body for longer. 3. Take all of your medications as directed, especially your water pills. NEVER skip a dose. 4. Elevate your legs when you are not up moving around to help with circulation and prevent swelling. 5. Call your physician if you notice any extra swelling in your legs, ankles, feet or abdomen, if you have a new dry cough, if your shortness of breath worsens with activity or at rest, or if you feel more fatigued. Care Plan Goals (MU): Activity: as tolerated Diet: Carb consistent Special Instructions: Repeat blood work in 3 days with home health Please call and follow up with your primary doctors and consults within the time frames on your paperwork.
[2019-05-14 20:38] LABS: Glucose, BF Source Pleural Fluid; Glucose, Body Fluid 87 mg/dL; LDH, Body Fluid Source Pleural Fluid; Total Protein, Body Fluid 700 mg/dL
== END 2019-05-14 16:25 | disposition home health service (06) | DRG 291 ==
LOC: EC 19:37 → INTOOBSV 22:04 → 3SCARD 22:04 → OBSVTOIN 05-11 13:27
PROVIDERS: ADMIT Internal Medicine; ATTEND Internal Medicine
PROC: 30233N1 Transfusion of Nonautologous Red Blood Cells into Peripheral Vein, Percutaneous Approach (ICD-10-PCS; 2019-05-11)
PROC: 0W993ZZ Drainage of Right Pleural Cavity, Percutaneous Approach (ICD-10-PCS; principal; 2019-05-14)
DX: I11.0 Hypertensive heart disease with heart failure (principal); J96.21 Acute and chronic respiratory failure with hypoxia; J44.1 Chronic obstructive pulmonary disease with (acute) exacerbation; N17.9 Acute kidney failure, unspecified; D62 Acute posthemorrhagic anemia; J98.11 Atelectasis; J90 Pleural effusion, not elsewhere classified; I50.33 Acute on chronic diastolic (congestive) heart failure; E78.5 Hyperlipidemia, unspecified; Z66 Do not resuscitate; F32.9 Major depressive disorder, single episode, unspecified; G47.33 Obstructive sleep apnea (adult) (pediatric); N40.0 Benign prostatic hyperplasia without lower urinary tract symptoms; E11.42 Type 2 diabetes mellitus with diabetic polyneuropathy; E11.319 Type 2 diabetes mellitus with unspecified diabetic retinopathy without macular edema; M48.00 Spinal stenosis, site unspecified; E11.649 Type 2 diabetes mellitus with hypoglycemia without coma; F41.9 Anxiety disorder, unspecified; I25.10 Atherosclerotic heart disease of native coronary artery without angina pectoris; I16.0 Hypertensive urgency; T50.2X5A Adverse effect of carbonic-anhydrase inhibitors, benzothiadiazides and other diuretics, initial encounter; E11.65 Type 2 diabetes mellitus with hyperglycemia; T38.0X5A Adverse effect of glucocorticoids and synthetic analogues, initial encounter; Z99.81 Dependence on supplemental oxygen; Z79.899 Other long term (current) drug therapy; Z79.4 Long term (current) use of insulin; Z90.49 Acquired absence of other specified parts of digestive tract; Z85.038 Personal history of other malignant neoplasm of large intestine; Z86.19 Personal history of other infectious and parasitic diseases; Z98.42 Cataract extraction status, left eye; Z98.41 Cataract extraction status, right eye; Z98.890 Other specified postprocedural states; Z87.891 Personal history of nicotine dependence; Z84.1 Family history of disorders of kidney and ureter; Z80.3 Family history of malignant neoplasm of breast; Z82.49 Family history of ischemic heart disease and other diseases of the circulatory system; Z79.51 Long term (current) use of inhaled steroids; Z79.82 Long term (current) use of aspirin; Z88.2 Allergy status to sulfonamides; Z87.01 Personal history of pneumonia (recurrent)
CPT/HCPCS: 32555; 36415; 71045; 71046; 71047; 71250; 76770; 80048; 80053; 82945; 83036; 83615; 83735; 83880; 84157; 84484; 85025; 85027; 85610; 85730; 86850; 86900; 86901; 86920; 87070; 87102; 87116; 87205; 87206; 88108; 88305; 89050; 93005; 93306; 94640; 94760; 96365; 96375; 99285

== ENCOUNTER 2019-05-28 02:13 | Inpatient (IN) | payer MEDICARE, OTHER ==
[2019-05-28] MEDS ORDERED: MORPHINE SULFATE 4 MG/ML SYRINGE IV STA (02:31)
--- NOTE | 2019-05-28 02:35 | ED ---
Abdominal Pain HPI - General Chief Complaint: Shortness of Breath Stated Complaint: DENNYS Time Seen by Provider: 05/28/19 02:15 Source: EMS Mode of arrival: EMS Limitations: no limitations - History of Present Illness MD Complaint: abdominal pain -: hour(s) Location: periumbilical Radiation: none Migration to: no migration Severity: moderate Quality: aching Consistency: constant Improves With: nothing Worsens With: nothing Associated Symptoms: nausea, vomiting - Related Data Home Medications Medication Instructions Recorded Confirmed Atorvastatin Calcium [Lipitor] 20 mg PO HS 05/19/16 05/09/19 Aspirin EC [Ecotrin Low Dose] 81 mg PO DAILY 08/22/16 05/09/19 Budesonide/Formoterol Fumarate 2 puff INHALATION RT-BID 03/09/17 05/09/19 [Symbicort 160-4.5 Mcg Inhaler] Cholecalciferol (Vitamin D3) 2,000 unit PO DAILY 03/10/17 05/09/19 [Vitamin D3] Sertraline [Zoloft] 50 mg PO HS 03/10/17 05/09/19 Ascorbic Acid [Vitamin C] 500 mg PO DAILY 09/30/17 05/09/19 Latanoprost Ophth [Xalatan 0.005%] 1 drops BOTH EYES HS 09/30/17 05/09/19 Sertraline [Zoloft] 100 mg PO DAILY 05/26/18 05/09/19 Clobetasol Propionate [Temovate 1 applic TOPICAL BID 05/09/19 05/09/19 0.05% Cream] Previous Rx's Medication Instructions Recorded Ipratropium-Albuterol Nebulize 3 ml INHALATION RT-QID ampul.neb 04/07/17 [Duoneb 0.5 mg-3 mg/3 ml Soln] Ferrous Sulfate [Feosol] 325 mg PO BID #60 tab 05/14/19 Hydrochlorothiazide [Hydrodiuril] 25 mg PO DAILY #30 tab 05/14/19 Insulin NPH Hum/Reg Insulin Hm 25 unit SQ BID #0 05/14/19 [NovoLIN 70-30 100 UNIT/ML VIAL] Metoprolol Tartrate [Lopressor] 50 mg PO BID #60 tab 05/14/19 amLODIPine [Norvasc] 10 mg PO HS #30 tab 05/14/19 predniSONE 40 mg PO DAILY #3 tab 05/14/19 Allergies Allergy/AdvReac Type Severity Reaction Status Date / Time sulfamethoxazole AdvReac RAISES Verified 05/09/19 21:05 [From Bactrim] POTASSIUM trimethoprim [From Bactrim] AdvReac RAISES Verified 05/09/19 21:05 POTASSIUM Review of Systems ROS Statement: Those systems with pertinent positive or pertinent negative responses have been documented in the HPI. ROS Other: All systems not noted in ROS Statement are negative. Constitutional: Denies: fever, chills Respiratory: Denies: cough, dyspnea Cardiovascular: Denies: chest pain, palpitations Gastrointestinal: Reports: abdominal pain, nausea, vomiting, constipation. Denies: diarrhea, melena, hematochezia Genitourinary: Denies: dysuria, frequency, hematuria, testicular pain Musculoskeletal: Denies: back pain Skin: Denies: rash Neurological: Denies: headache, weakness, numbness Past Medical History Past Medical History: Cancer, Chest Pain / Angina, Heart Failure, COPD, Diabetes Mellitus, Hyperlipidemia, Hypertension, Pneumonia, Prostate Disorder, Sleep Apnea/CPAP/BIPAP Additional Past Medical History / Comment(s): BPH, peripheral neuropathy, glaucoma, retinal disease/detachment/retinopathy, colon cancer with a previous resection in 2005then ended up w/ peritonits had 2nd sx spent 30 days in icu, spinal stenosis with degenerative disc disease, recent hospitalization for respiratory complications that occurred in May 2016, chronic hypoxic re spiratory failure, unable to use cpap.abd hernia. had shingels vaccine and pne vaccines not sure of date and unable to verify at time of admit History of Any Multi-Drug Resistant Organisms: None Reported Past Surgical History: Appendectomy, Bowel Resection Additional Past Surgical History / Comment(s): bowel resection for colon cancer in 2005, previous colostomy with subsequent reversal due to complications of peritonitis following bowel surgery, cataracts surgery in both eyes, appendectomy, turp Past Anesthesia/Blood Transfusion Reactions: No Reported Reaction Additional Past Anesthesia/Blood Transfusion Reaction / Comment(s): to pt's knowlege never had a blood transfusion Past Psychological History: Anxiety, Depression Smoking Status: Former smoker Past Alcohol Use History: None Reported Past Drug Use History: None Reported - Past Family History Father Family Medical History: Renal Disease Mother Family Medical History: Cancer Additional Family Medical History / Comment(s): breast cancer, heart problems General Exam Limitations: no limitations General appearance: alert, in no apparent distress Head exam: Present: atraumatic, normocephalic Eye exam: Present: normal appearance. Absent: scleral icterus, conjunctival injection ENT exam: Present: normal oropharynx Respiratory exam: Present: normal lung sounds bilaterally. Absent: respiratory distress, wheezes, rales, rhonchi, stridor Cardiovascular Exam: Present: regular rate, normal rhythm, normal heart sounds. Absent: systolic murmur, diastolic murmur, rubs, gallop GI/Abdominal exam: Present: soft, tenderness, hernia. Absent: distended, guarding, rebound, rigid, mass, pulsatile mass Extremities exam: Present: normal inspection, normal capillary refill. Absent: pedal edema, calf tenderness Back exam: Present: normal inspection Neurological exam: Present: alert Skin exam: Present: warm, dry, intact, normal color. Absent: rash Course Vital Signs 05/28/19 05/28/19 05/28/19 02:50 03:10 03:40 Pulse Rate 46 L 39 L 44 L Respiratory 19 21 20 Rate Blood Pressure 97/36 91/41 93/29 O2 Sat by Pulse 98 100 100 Oximetry 05/28/19 04:20 Pulse Rate 46 L Respiratory 18 Rate Blood Pressure 75/42 O2 Sat by Pulse 100 Oximetry - Reevaluation(s) Reevaluation #1: 05/28/19 04:22 CT results discussed case with Dr. Ovalles covering surgery. his treatment recommendations are incorporated. Medical Decision Making - Lab Data Result diagrams: 05/28/19 02:23 05/28/19 02:23 Lab Results 05/28/19 05/28/19 05/28/19 Range/Units 02:23 02:23 02:23 WBC 7.1 (3.8-10.6) k/uL RBC 3.27 L (4.30-5.90) m/uL Hgb 9.4 L (13.0-17.5) gm/dL Hct 29.7 L (39.0-53.0) % MCV 90.7 (80.0-100.0) fL MCH 28.7 (25.0-35.0) pg MCHC 31.7 (31.0-37.0) g/dL RDW 14.6 (11.5-15.5) % Plt Count 224 (150-450) k/uL Neutrophils % 88 % Lymphocytes % 8 % Monocytes % 2 % Eosinophils % 1 % Basophils % 0 % Neutrophils # 6.3 (1.3-7.7) k/uL Lymphocytes # 0.6 L (1.0-4.8) k/uL Monocytes # 0.2 (0-1.0) k/uL Eosinophils # 0.1 (0-0.7) k/uL Basophils # 0.0 (0-0.2) k/uL Sodium 138 (137-145) mmol/L Potassium 5.2 H (3.5-5.1) mmol/L Chloride 104 (98-107) mmol/L Carbon Dioxide 29 (22-30) mmol/L Anion Gap 5 mmol/L BUN 47 H (9-20) mg/dL Creatinine 1.40 H (0.66-1.25) mg/dL Est GFR (CKD-EPI)AfAm 55 (>60 ml/min/1.73 sqM) Est GFR (CKD-EPI)NonAf 48 (>60 ml/min/1.73 sqM) Glucose 192 H (74-99) mg/dL Plasma Lactic Acid Tarik 1.0 (0.7-2.0) mmol/L Calcium 9.1 (8.4-10.2) mg/dL Total Bilirubin 0.4 (0.2-1.3) mg/dL AST 24 (17-59) U/L ALT 17 (4-49) U/L Alkaline Phosphatase 75 (38-126) U/L Troponin I (0.000-0.034) ng/mL Total Protein 5.5 L (6.3-8.2) g/dL Albumin 3.0 L (3.5-5.0) g/dL Amylase 32 (30-110) U/L Lipase 18 L (23-300) U/L Urine Color Urine Appearance (Clear) Urine pH (5.0-8.0) Ur Specific Aurora (1.001-1.035) Urine Protein (Negative) Urine Glucose (UA) (Negative) Urine Ketones (Negative) Urine Blood (Negative) Urine Nitrite (Negative) Urine Bilirubin (Negative) Urine Urobilinogen (<2.0) mg/dL Ur Leukocyte Esterase (Negative) Urine WBC (0-5) /hpf Ur Squamous Epith Cells (0-4) /hpf Urine Bacteria (None) /hpf Hyaline Casts (0-2) /lpf Urine Mucus (None) /hpf 05/28/19 05/28/19 Range/Units 02:23 03:39 WBC (3.8-10.6) k/uL RBC (4.30-5.90) m/uL Hgb (13.0-17.5) gm/dL Hct (39.0-53.0) % MCV (80.0-100.0) fL MCH (25.0-35.0) pg MCHC (31.0-37.0) g/dL RDW (11.5-15.5) % Plt Count (150-450) k/uL Neutrophils % % Lymphocytes % % Monocytes % % Eosinophils % % Basophils % % Neutrophils # (1.3-7.7) k/uL Lymphocytes # (1.0-4.8) k/uL Monocytes # (0-1.0) k/uL Eosinophils # (0-0.7) k/uL Basophils # (0-0.2) k/uL Sodium (137-145) mmol/L Potassium (3.5-5.1) mmol/L Chloride (98-107) mmol/L Carbon Dioxide (22-30) mmol/L Anion Gap mmol/L BUN (9-20) mg/dL Creatinine (0.66-1.25) mg/dL Est GFR (CKD-EPI)AfAm (>60 ml/min/1.73 sqM) Est GFR (CKD-EPI)NonAf (>60 ml/min/1.73 sqM) Glucose (74-99) mg/dL Plasma Lactic Acid Tarik (0.7-2.0) mmol/L Calcium (8.4-10.2) mg/dL Total Bilirubin (0.2-1.3) mg/dL AST (17-59) U/L ALT (4-49) U/L Alkaline Phosphatase (38-126) U/L Troponin I 0.022 (0.000-0.034) ng/mL Total Protein (6.3-8.2) g/dL Albumin (3.5-5.0) g/dL Amylase (30-110) U/L Lipase (23-300) U/L Urine Color Yellow Urine Appearance Clear (Clear) Urine pH 7.0 (5.0-8.0) Ur Specific [place] 1.015 (1.001-1.035) Urine Protein 2+ H (Negative) Urine Glucose (UA) Negative (Negative) Urine Ketones Negative (Negative) Urine Blood Negative (Negative) Urine Nitrite Negative (Negative) Urine Bilirubin Negative (Negative) Urine Urobilinogen <2.0 (<2.0) mg/dL Ur Leukocyte Esterase Negative (Negative) Urine WBC 1 (0-5) /hpf Ur Squamous Epith Cells <1 (0-4) /hpf Urine Bacteria Rare H (None) /hpf Hyaline Casts 4 H (0-2) /lpf Urine Mucus Rare H (None) /hpf - EKG Data -: EKG Interpreted by Ms EKG shows normal: sinus rhythm, axis, intervals (normal), QRS complexes (normal) Rate: bradycardia (rate 41 bpm) Interpretation: nonspecific ST-T wave changes, LVH Disposition Clinical Impression: Abdominal pain, Incarcerated hernia Disposition: ADMITTED IP TO THIS [facility] Condition: Serious Referrals: Ford Altman MD [Primary Care Provider] - 1-2 days
[2019-05-28] MEDS ORDERED: ONDANSETRON 4 MG/2 ML VIAL IVP STA ×2 (02:46→02:48)
[2019-05-28 03:01] LABS: Basophils % (A) 0 %; Eosinophils # (A) 0.1 k/uL (0-0.7); Eosinophils % (A) 1 %; HCT 29.7 % (39.0-53.0); HGB 9.4 gm/dL (13.0-17.5); Lymphocytes # (A) 0.6 k/uL (1.0-4.8); Lymphocytes % (A) 8 %; MCH 28.7 pg (25.0-35.0); MCHC 31.7 g/dL (31.0-37.0); MCV 90.7 fL (80.0-100.0); Mean Platelet Volume 8.7; Monocytes # (A) 0.2 k/uL (0-1.0); Monocytes % (A) 2 %; Neutrophils # (A) 6.3 k/uL (1.3-7.7); Neutrophils % (A) 88 %; Platelet Count 224 k/uL (150-450); RBC 3.27 m/uL (4.30-5.90); RDW 14.6 % (11.5-15.5); WBC 7.1 k/uL (3.8-10.6)
[2019-05-28 03:11] LABS: Calcium 9.1 mg/dL (8.4-10.2); Potassium 5.2 mmol/L (3.5-5.1); Total Bilirubin 0.4 mg/dL (0.2-1.3); Total Protein 5.5 g/dL (6.3-8.2)
[2019-05-28 03:51] LABS: Appearance,Urine Clear (Clear); Bacteria,Urine Rare /hpf; Bilirubin,Urine Negative (Negative); Blood,Urine Negative (Negative); Color,Urine Yellow; Glucose,Urine (UA) Negative (Negative); Hyaline Casts,Urine 4 /lpf (0-2); Ketones,Urine Negative (Negative); Leukocyte Esterase,Urine Negative (Negative); Mucus,Urine Rare /hpf; Nitrite,Urine Negative (Negative); Protein,Urine 2+ (Negative); Specific Gravity,Urine 1.015 (1.001-1.035); Squamous Epithelial Cell,Urine <1 /hpf (0-4); Urobilinogen,Urine <2.0 mg/dL (<2.0); WBC,Urine 1 /hpf (0-5)
--- NOTE | 2019-05-28 04:02 | CT ---
EXAMINATION TYPE: CT abdomen pelvis wo con DATE OF EXAM: 05/28/2019 COMPARISON: 12/18/2011 HISTORY: Periumbilical pain CT DLP: mGycm Automated exposure control for dose reduction was used. Multiple axial sections were obtained from the diaphragm to the floor the pelvis with no contrast. FINDINGS: There are bilateral pleural effusions with some loculation. Pleural fluid is more on the right side. There is also air bubbles in the pleural space on the right side. Heart size is fairly normal. There is atherosclerotic vascular calcification. There is airspace consolidation and atelectasis with calci fication at the posterior lung bases that could relate to scarring and old granulomatous disease. Stomach is intact. Liver shows no focal defect. Spleen is intact. There is some pancreatic atrophy. T here is no adrenal mass. Kidneys have normal size. There is no hydronephrosis. Ureters are not dilate d. There is no retroperitoneal adenopathy. Bladder is almost empty. There is no inguinal hernia. Ther e is no free fluid in the pelvis. There is no ascites. There is large lower abdominal ventral hernia that contains multiple loops of bowel. There are multiple dilated air and fluid-filled loops of small bowel in the anterior abdomen. The large hernia is broad-based. I see no sign of incarceration in th e large hernia. The distal ileum is not dilated. Small bowel is dilated up to 4 cm. There are a few s igmoid diverticula. There is no sign of diverticulitis. Large bowel is not distended. The sagittal images show 2 smaller lower anterior abdominal wall ventral hernias. There is Incarcerat ed loops of small bowel in the smaller hernias that is inferior to the larger hernia. This appears to be the transition point. There is multilevel spondylotic changes in the lower lumbar spine. There is degenerative disc space n arrowing with sclerosis and vacuum disc. There is no compression fracture. The bony pelvis is intact. There is moderately severe multilevel bony spinal stenosis involving all levels from L2 to S1. IMPRESSION: Multiple anterior abdominal wall ventral hernias. There are some incarcerated loops of small bowel in the lower smaller hernias that are transition point of mechanical small bowel obstruction. Hernia is best demonstrated on the sagittal images. Severe multilevel spondylosis with severe multilevel lumbar bony spinal stenosis. Pleural effusions with some loculation. Pulmonary atelectasis and consolidation with calcification co nsistent with old inflammatory disease. Small bowel obstruction is new compared to old exam. Hernia is significantly worse than old exam. Pleural effusions and only abnormality compared to old exam.
[2019-05-28] MEDS ORDERED: SODIUM CHLORIDE 0.9% 1,000 ML IV STA (04:07)
[2019-05-28] MEDS ORDERED: HYDROmorphone 0.5 MG/0.5 ML SYRINGE IVP PRN (04:30)
[2019-05-28] MEDS ORDERED: NALOXONE 0.4 MG/ML 1 ML VIAL IV PRN (04:30)
[2019-05-28] MEDS ORDERED: ONDANSETRON 4 MG/2 ML VIAL IVP PRN (04:30)
--- NOTE | 2019-05-28 07:02 | P.HPIM ---
History of Present Illness H&P Date: 05/28/19 Chief Complaint: abdominal pain 78-year-old male with complex past medical history including diabetes, chronic CHF diastolic, COPD on home oxygen Patient comes in today due to an onset abdominal pain, patient described it as intermittent sharp severe pain in the lower belly 10 out of 10 in severity and then goes down to 5 out of 10 in severity happened after dinner associated with nausea and vomited once upon arrival of EMS. Described it as nonbloody nonbilious. Patient also had a bowel movement last night described it as nonbloody non-melena. No diarrhea. No changes in his urine habits. Patient is aware that he has multiple abdominal ventral wall hernia on when he was checking the site of pain he notes that there are some palpable nodules felt hard at the site of the hernias for which grew concerned. Due to severity of his symptoms decided that he should go to the hospital and called EMS. He denies any associated fevers or chills denies any associated chest pain or trouble breathing denies any similar symptoms in the past. He recalls having surgery for bowel cancer back in 2005 since then he never had any issues. In the ED computed tomography scan of the abdomen suggested small bowel obstruction with possible multiple incarcerated ventral wall hernias rest of his blood work showed chronic stable anemia, slightly elevated creatinine at 1.4 slightly above his baseline. general surgery notified patient admitted for further evaluation and care. NG tube was inserted in the ED Upon my interview patient reports improvement in his symptoms denies any pain at this time and reports that the nodule cyst disappeared in the lower belly and hi s belly feels softer Review of Systems Pertinent positives as noted in HPI. All other systems were reviewed and are negative Past Medical History Past Medical History: Cancer, Chest Pain / Angina, Heart Failure, COPD, Diabetes Mellitus, Hyperlipidemia, Hypertension, Pneumonia, Prostate Disorder, Sleep Apnea/CPAP/BIPAP Additional Past Medical History / Comment(s): BPH, peripheral neuropathy, glauco ma, retinal disease/detachment/retinopathy, colon cancer with a previous resection in 2005then ended up w/ peritonits had 2nd sx spent 30 days in icu, spinal stenosis with degenerative disc disease, recent hospitalization for respiratory complications that occurred in May 2016, chronic hypoxic respiratory failure, unable to use cpap.abd hernia. had shingels vaccine and pne vaccines not sure of date and unable to verify at time of admit History of Any Multi-Drug Resistant Organisms: None Reported Past Surgical History: Appendectomy, Bowel Resection Additional Past Surgical History / Comment(s): bowel resection for colon cancer in 2006, previous colostomy with subsequent reversal due to complications of peritonitis following bowel surgery, cataracts surgery in both eyes, appendectomy, turp Past Anesthesia/Blood Transfusion Reactions: No Reported Reaction Additional Past Anesthesia/Blood Transfusion Reaction / Comment(s): to pt's knowlege never had a blood transfusion Past Psychological History: Anxiety, Depression Additional Psychological History / Comment(s): lives with of 54 years. own home. no home care services.uses walker, home 02 4-5 liters , nebulizer Smoking Status: Former smoker Past Alcohol Use History: None Reported Additional Past Alcohol Use History / Comment(s): started smoking age 13(4) and quit 1982 smoked 3 ppd Past Drug Use History: None Reported - Past Family History Father Family Medical History: Renal Disease Mother Family Medical History: Cancer Additional Family Medical History / Comment(s): breast cancer, heart problems Medications and Allergies Home Medications Medication Instructions Recorded Confirmed Type Atorvastatin Calcium [Lipitor] 20 mg PO HS 05/19/16 05/09/19 History Aspirin EC [Ecotrin Low Dose] 81 mg PO DAILY 08/22/16 05/09/19 History Budesonide/Formoterol Fumarate 2 puff INHALATION RT-BID 03/09/17 05/09/19 History [Symbicort 160-4.5 Mcg Inhaler] Cholecalciferol (Vitamin D3) 2,000 unit PO DAILY 03/10/17 05/09/19 History [Vitamin D3] Sertraline [Zoloft] 50 mg PO HS 03/10/17 05/09/19 History Ipratropium-Albuterol Nebulize 3 ml INHALATION RT-QID ampul.neb 04/07/17 05/09/19 Rx [Duoneb 0.5 mg-3 mg/3 ml Soln] Ascorbic Acid [Vitamin C] 500 mg PO DAILY 09/30/17 05/09/19 History Latanoprost Ophth [Xalatan 0.005%] 1 drops BOTH EYES HS 09/30/17 05/09/19 H istory Sertraline [Zoloft] 100 mg PO DAILY 05/26/18 05/09/19 History Clobetasol Propionate [Temovate 1 applic TOPICAL BID 05/09/19 05/09/19 History 0.05% Cream] Ferrous Sulfate [Feosol] 325 mg PO BID #60 tab 05/14/19 Rx Hydrochlorothiazide [Hydrodiuril] 25 mg PO DAILY #30 tab 05/14/19 Rx Insulin NPH Hum/Reg Insulin Hm 25 unit SQ BID #0 05/14/19 05/09/19 Rx [NovoLIN 70-30 100 UNIT/ML VIAL] Metoprolol Tartrate [Lopressor] 50 mg PO BID #60 tab 05/14/19 Rx amLODIPine [Norvasc] 10 mg PO HS #30 tab 05/14/19 Rx predniSONE 40 mg PO DAILY #3 tab 05/14/19 Rx Allergies Allergy/AdvReac Type Severity Reaction Status Date / Time sulfamethoxazole AdvReac RAISES Verified 05/09/19 21:05 [From Bactrim] POTASSIUM trimethoprim [From Bactrim] AdvReac RAISES Verified 05/09/19 21:05 POTASSIUM Physical Exam Vitals: Vital Signs Temp Pulse Pulse Resp BP BP Pulse Ox 05/28/19 05:37 97.6 F 49 L 16 161/67 100 05/28/19 05:13 97.8 F 50 L 18 122/41 100 05/28/19 05:00 47 L 18 118/45 100 05/28/19 04:50 51 L 18 143/50 100 05/28/19 04:20 46 L 18 75/42 100 05/28/19 03:40 44 L 20 93/29 100 05/28/19 03:10 39 L 21 91/41 100 05/28/19 02:50 46 L 19 97/36 98 Intake and Output 05/27/19 05/27/19 05/28/19 14:59 22:59 06:59 Intake Total 999 Balance 999 Intake: Intake, IV Titration 999 Amount Sodium Chloride 0.9% 1, 999 000 ml @ 999 mls/hr IV . Q1H1M STA Rx#:[id number] Other: Weight 80.739 kg Constitutional: No acute distress, conversant, pleasant, NG tube in place connected to low intermittent wall suctioning, nonbloody nonbilious Eyes: Anicteric sclerae, moist conjunctiva, no lid-lag Pupils equal round reactive to light ENMT: NC/AT Oropharynx clear, no erythema, exudates Neck: Supple, FROM, no masses, or JVD No carotid bruits No thyromegaly Lungs: good breath sounds bilaterally, decreased breath sounds over right lung base Clear to percussion Normal respiratory effort, no accessory muscle use Cardiovascular: Heart regular in rate and rhythm, systolic murmurs, nogallops, or rubs No peripheral edema Abdominal: Soft, big ventral hernia soft touch, no warmth to touch, no erythema no skin changes Nontender, no guarding, rebound or rigidity Abdomen moving with respiration sluggish bowel sounds No hepatomegaly, No splenomegaly No palpable mass Skin: Normal temperature, tone, texture, turgor No induration No subcutaneous nodules No rash, lesions No ulcers Extremities: No digital cyanosis No clubbing Pedal pulses intact and symmetrical Radial pulses intact and symmetrical No calf tenderness Psychiatric: Alert and oriented to person, place and time Appropriate affect fair judgment Neuro Muscles Strength 4/5 in all 4 extremities Sensation to light touch grossly present throughout Cranial nerves II-XII grossly intact No focal sensory deficits Lymphatics: no palpable cervical or supraclavicular , or inguinal lymph nodes Results CBC & Chem 7: 05/28/19 02:23 05/28/19 02:23 Labs: Abnormal Lab Results - Last 24 Hours (Table) 05/28/19 05/28/19 05/28/19 Range/Units 02:23 02:23 03:39 RBC 3.27 L (4.30-5.90) m/uL Hgb 9.4 L (13.0-17.5) gm/dL Hct 29.7 L (39.0-53.0) % Lymphocytes # 0.6 L (1.0-4.8) k/uL Potassium 5.2 H (3.5-5.1) mmol/L BUN 47 H (9-20) mg/dL Creatinine 1.40 H (0.66-1.25) mg/dL Glucose 192 H (74-99) mg/dL Total Protein 5.5 L (6.3-8.2) g/dL Albumin 3.0 L (3.5-5.0) g/dL Lipase 18 L (23-300) U/L Urine Protein 2+ H (Negative) Urine Bacteria Rare H (None) /hpf Hyaline Casts 4 H (0-2) /lpf Urine Mucus Rare H (None) /hpf Thrombosis Risk Factor Assmnt - Choose All That Apply Any of the Below Risk Factors Present?: No Other Risk Factors: Yes Each Risk Factor Represents 3 Points: Age 75 years or older Thrombosis Risk Factor Assessment Total Risk Factor Score: 3 Thrombosis Risk Factor Assessment Level: Moderate Risk Assessment and Plan Assessment: 78-year-old male with history of diastolic CHF COPD on 3 L and diabetes mellitus. Comes in today for lower abdominal pain nausea and vomiting. Was found to have small bowel obstruction with incarcerated loops of bowel into the ventral hernia admitted for surgical evaluation. Patient is admitted as an inpatient with anticipated length of stay more than 2 midnight Plan: incarcerated hernia Small bowel obstruction Supportive care NG tube inserted, low intermittent wall suction General surgery consult IV fluid hydration Pain control Nothing by mouth PPI Chronic Loculated right pleural effusion RIGHT PLEURAL FLUID, THORACENTESIS: Hemorrhagic pleural fluid with occasional reactive mesothelial cells and chronic inflammatory cells. Cells cytologically diagnostic of neoplasm are not identified. chronic conditions CK D stage III Hypertension, continue home meds Chronic diastolic heart failure Diabetes mellitus, insulin sliding scale Chronic hypoxic respiratory failure 3 L oxygen COPD currently compensated, Bx Tx Preformed a thorough record review from recent hospitalization acute on chronic diastolic heart failure exacerbation and acute COPD exacerbation also found to have right loculated pleural effusion CODE STATUS:no code DVT prophylaxis: mechanical Discussed with: Patient, ER, RN Anticipated length of stay > than [address]: pending clinical course A total of 60 minutes was spent on the care of this complex patient more than 50% of the time was spent in counseling and care coordination.
[2019-05-28] MEDS: IPRATROPIUM-ALBUTEROL 3 ML NEB INHALATION SCH ×4 (07:12→20:19)
[2019-05-28] MEDS: SYMBICORT 160-4.5 MCG INHALER INHALATION SCH ×2 (07:12→20:19)
[2019-05-28 07:31] LABS: Glucose,Whole Blood 202 mg/dL (75-99)
[2019-05-28] MEDS: SERTRALINE 100 MG TAB PO SCH (07:32)
[2019-05-28] MEDS: METOPROLOL TARTRATE 50 MG TAB PO SCH ×2 (07:32→21:13)
[2019-05-28] MEDS: PANTOPRAZOLE 40 MG/10 ML VIAL IV SCH (07:45)
[2019-05-28] MEDS: SODIUM CHLORIDE 0.9% 1,000 ML IV SCH ×2 (07:45→15:52)
[2019-05-28] MEDS: INSULIN ASPART (NovoLOG) 100 UNIT/ML VIAL SQ SCH ×4 (07:45→20:47)
--- NOTE | 2019-05-28 08:46 | P.GSCN ---
History of Present Illness Consult date: 05/28/19 History of present illness: 78-year-old male presented to the emergency department with complaints of significant pain in his lower abdomen. He states that the pain started suddenly and became worse and he was brought to the emergency department by EMS. He states that while he was in the ER, he did have flatus episode. He is known to have a history of colon cancer for which he did undergo colectomy in 2005. He states that approximately 2 or 3 days after the surgery, he did develop a complication and developed peritonitis. At that point, he states he did have to undergo a another operation and this resulted with an ostomy. He states 6 months after that procedure the ostomy was reversed. He states along that time, he did develop ventral hernias and he has had them for over 10 years. He states he has never had any issues with the hernias and has not wanted repair in the past. On arrival to the emergency department, he states that the hernia was rockhard to palpation. The emergency department physician was able to reduce the hernia and since that time, the hernia site is palpably soft and is no longer painful. On my discussion with the emergency department physician, he did state that he was able to reduce the hernia. Due to the finding of small bowel obstruction on CT, nasogastric tube was placed. Currently, the patient denies any pain and states he is feeling much better. He denies any fevers, chills, chest pain or shortness of breath. He is noted to have a history of diabetes and COPD and is on oxygen at home. Review of Systems All systems: negative Past Medical History Past Medical History: Cancer, Chest Pain / Angina, Heart Failure, COPD, Diabetes Mellitus, Hyperlipidemia, Hypertension, Pneumonia, Prostate Disorder, Sleep Apnea/CPAP/BIPAP Additional Past Medical History / Comment(s): BPH, peripheral neuropathy, glauco ma, retinal disease/detachment/retinopathy, colon cancer with a previous resection in 2005then ended up w/ peritonits had 2nd sx spent 30 days in icu, spinal stenosis with degenerative disc disease, recent hospitalization for respiratory complications that occurred in May 2016, chronic hypoxic respiratory failure, unable to use cpap.abd hernia. had shingels vaccine and pne vaccines not sure of date and unable to verify at time of admit History of Any Multi-Drug Resistant Organisms: None Reported Past Surgical History: Appendectomy, Bowel Resection Additional Past Surgical History / Comment(s): bowel resection for colon cancer in 2006, previous colostomy with subsequent reversal due to complications of peritonitis following bowel surgery, cataracts surgery in both eyes, appendectomy, turp Past Anesthesia/Blood Transfusion Reactions: No Reported Reaction Additional Past Anesthesia/Blood Transfusion Reaction / Comm: to pt's knowlege never had a blood transfusion Past Psychological History: Anxiety, Depression Additional Psychological History / Comment(s): lives with of 54 years. own home. no home care services.uses walker, home 02 4-5 liters , nebulizer Smoking Status: Former smoker Past Alcohol Use History: None Reported Additional Past Alcohol Use History / Comment(s): started smoking age 13(1954) and quit 1982 smoked 3 ppd Past Drug Use History: None Reported - Past Family History Father Family Medical History: Renal Disease Mother Family Medical History: Cancer Additional Family Medical History / Comment(s): breast cancer, heart problems Medications and Allergies Home Medications Medication Instructions Recorded Confirmed Type Atorvastatin Calcium [Lipitor] 20 mg PO HS 05/19/16 05/09/19 History Aspirin EC [Ecotrin Low Dose] 81 mg PO DAILY 08/22/16 05/09/19 History Budesonide/Formoterol Fumarate 2 puff INHALATION RT-BID 03/09/17 05/09/19 History [Symbicort 160-4.5 Mcg Inhaler] Cholecalciferol (Vitamin D3) 2,000 unit PO DAILY 03/10/17 05/09/19 History [Vitamin D3] Sertraline [Zoloft] 50 mg PO HS 03/10/17 05/09/19 History Ipratropium-Albuterol Nebulize 3 ml INHALATION RT-QID ampul.neb 04/07/17 1 07/09/18 Rx [Duoneb 0.5 mg-3 mg/3 ml Soln] Ascorbic Acid [Vitamin C] 500 mg PO DAILY 09/30/17 05/09/19 History Latanoprost Ophth [Xalatan 0.005%] 1 drops BOTH EYES HS 09/30/17 05/09/19 History Sertraline [Zoloft] 100 mg PO DAILY 05/26/18 05/09/19 History Clobetasol Propionate [Temovate 1 applic TOPICAL BID 05/09/19 05/09/19 History 0.05% Cream] Ferrous Sulfate [Feosol] 325 mg PO BID #60 tab 05/14/19 Rx Hydrochlorothiazide [Hydrodiuril] 25 mg PO DAILY #30 tab 05/14/19 Rx Insulin NPH Hum/Reg Insulin Hm 25 unit SQ BID #0 05/14/19 05/09/19 Rx [NovoLIN 70-30 100 UNIT/ML VIAL] Metoprolol Tartrate [Lopressor] 50 mg PO BID #60 tab 05/14/19 Rx amLODIPine [Norvasc] 10 mg PO HS #30 tab 05/14/19 Rx predniSONE 40 mg PO DAILY #3 tab 05/14/19 Rx Allergies Allergy/AdvReac Type Severity Reaction Status Date / Time sulfamethoxazole AdvReac RAISES Verified 05/09/19 21:05 [From Bactrim] POTASSIUM trimethoprim [From Bactrim] AdvReac RAISES Verified 05/09/19 21:05 POTASSIUM Surgical - Exam Osteopathic Statement: *. No significant issues noted on an osteopathic structural exam other than those noted in the History and Physical/Consult. Vital Signs Pulse Resp BP Pulse Ox 46 L 19 97/36 98 05/28/19 02:50 05/28/19 02:50 05/28/19 02:50 05/28/19 02:50 - General well nourished, no distress - Eyes PERRL - Neck trachea midline - Respiratory No difficulty with respiration - Abdomen Soft, nontender, nondistended, no rebound, no guarding, easily palpable and reducible large ventral hernia - Psychiatric oriented to time, oriented to person, oriented to place Results - Labs 05/28/19 02:23 05/28/19 02:23 Abnormal Lab Results - Last 24 Hours (Table) 05/28/19 05/28/19 05/28/19 Range/Units 02:23 02:23 03:39 RBC 3.27 L (4.30-5.90) m/uL Hgb 9.4 L (13.0-17.5) gm/dL Hct 29.7 L (39.0-53.0) % Lymphocytes # 0.6 L (1.0-4.8) k/uL Potassium 5.2 H (3.5-5.1) mmol/L BUN 47 H (9-20) mg/dL Creatinine 1.40 H (0.66-1.25) mg/dL Glucose 192 H (74-99) mg/dL POC Glucose (mg/dL) (75-99) mg/dL Total Protein 5.5 L (6.3-8.2) g/dL Albumin 3.0 L (3.5-5.0) g/dL Lipase 18 L (23-300) U/L Urine Protein 2+ H (Negative) Urine Bacteria Rare H (None) /hpf Hyaline Casts 4 H (0-2) /lpf Urine Mucus Rare H (None) /hpf 05/28/19 Range/Units 07:30 RBC (4.30-5.90) m/uL Hgb (13.0-17.5) gm/dL Hct (39.0-53.0) % Lymphocytes # (1.0-4.8) k/uL Potassium (3.5-5.1) mmol/L BUN (9-20) mg/dL Creatinine (0.66-1.25) mg/dL Glucose (74-99) mg/dL POC Glucose (mg/dL) 202 H (75-99) mg/dL Total Protein (6.3-8.2) g/dL Albumin (3.5-5.0) g/dL Lipase (23-300) U/L Urine Protein (Negative) Urine Bacteria (None) /hpf Hyaline Casts (0-2) /lpf Urine Mucus (None) /hpf Diabetes panel 05/28/19 Range/Units 02:23 Sodium 138 (137-145) mmol/L Potassium 5.2 H (3.5-5.1) mmol/L Chloride 104 (98-107) mmol/L Carbon Dioxide 29 (22-30) mmol/L BUN 47 H (9-20) mg/dL Creatinine 1.40 H (0.66-1.25) mg/dL Glucose 192 H (74-99) mg/dL Calcium 9.1 (8.4-10.2) mg/dL AST 24 (17-59) U/L ALT 17 (4-49) U/L Alkaline Phosphatase 75 (38-126) U/L Total Protein 5.5 L (6.3-8.2) g/dL Albumin 3.0 L (3.5-5.0) g/dL Calcium panel 05/28/19 Range/Units 02:23 Calcium 9.1 (8.4-10.2) mg/dL Albumin 3.0 L (3.5-5.0) g/dL Pituitary panel 05/28/19 Range/Units 02:23 Sodium 138 (137-145) mmol/L Potassium 5.2 H (3.5-5.1) mmol/L Chloride 104 (98-107) mmol/L Carbon Dioxide 29 (22-30) mmol/L BUN 47 H (9-20) mg/dL Creatinine 1.40 H (0.66-1.25) mg/dL Glucose 192 H (74-99) mg/dL Calcium 9.1 (8.4-10.2) mg/dL Adrenal panel 05/28/19 Range/Units 02:23 Sodium 138 (137-145) mmol/L Potassium 5.2 H (3.5-5.1) mmol/L Chloride 104 (98-107) mmol/L Carbon Dioxide 29 (22-30) mmol/L BUN 47 H (9-20) mg/dL Creatinine 1.40 H (0.66-1.25) mg/dL Glucose 192 H (74-99) mg/dL Calcium 9.1 (8.4-10.2) mg/dL Total Bilirubin 0.4 (0.2-1.3) mg/dL AST 24 (17-59) U/L ALT 17 (4-49) U/L Alkaline Phosphatase 75 (38-126) U/L Total Protein 5.5 L (6.3-8.2) g/dL Albumin 3.0 L (3.5-5.0) g/dL Assessment and Plan (1) Incarcerated hernia Narrative/Plan: I did have a long discussion with the patient and the patient's daughter. He is noted to have a significant widemouth hernia that has been asymptomatic until this current episode of a small bowel obstruction. It does appear that the obstructed bowel has been reduced as his symptoms have greatly improved and he no longer is having any pain, however due to this finding he may require surgical intervention. Due to the chronicity of the hernia and the amount of abdominal surgeries, it is likely that he would require an abdominal wall reconstruction and possible component separation. Due to his findings of diabetes and COPD, this procedure would likely require some planning and would best be served in a tertiary care center. I did discuss this in depth with the patient and he did state that he is unsure if he would want to undergo any type of surgery at this time. At this point, we will treat the obstruction with a nasogastric tube for decompression and possible transfer to tertiary care center if the patient is agreeable. Current Visit: Yes Status: Acute Code(s): K46.0 - UNSP ABDOMINAL HERNIA WITH OBSTRUCTION, WITHOUT GANGRENE SNOMED Code(s): 40147100
[2019-05-28] MEDS ORDERED: BENZOCAINE SPRAY 1 CAN MUCOUS MEM PRN (09:27)
[2019-05-28 11:20] LABS: Glucose,Whole Blood 192 mg/dL (75-99)
[2019-05-28 17:09] LABS: Glucose,Whole Blood 165 mg/dL (75-99)
[2019-05-28 20:45] LABS: Glucose,Whole Blood 142 mg/dL (75-99)
[2019-05-28] MEDS: ATORVASTATIN 20 MG TAB PO SCH (21:13)
[2019-05-28] MEDS: amLODIPine 10 MG TAB PO SCH (21:13)
[2019-05-28] MEDS: SERTRALINE 50 MG TAB PO SCH (21:13)
[2019-05-28] MEDS: LATANOPROST 0.005% OPHTH DROPS 2.5 ML BTL BOTH EYES SCH (21:14)
[2019-05-29] MEDS: IPRATROPIUM-ALBUTEROL 3 ML NEB INHALATION PRN (03:10)
[2019-05-29] MEDS: SODIUM CHLORIDE 0.9% 1,000 ML IV SCH ×3 (03:35→20:07)
[2019-05-29 06:58] LABS: Glucose,Whole Blood 154 mg/dL (75-99)
[2019-05-29] MEDS: IPRATROPIUM-ALBUTEROL 3 ML NEB INHALATION SCH ×4 (07:16→20:55)
[2019-05-29] MEDS: SYMBICORT 160-4.5 MCG INHALER INHALATION SCH ×2 (07:16→20:56)
[2019-05-29] MEDS: SERTRALINE 100 MG TAB PO SCH (07:42)
[2019-05-29] MEDS: METOPROLOL TARTRATE 50 MG TAB PO SCH ×2 (07:42→20:06)
[2019-05-29] MEDS: INSULIN ASPART (NovoLOG) 100 UNIT/ML VIAL SQ SCH ×4 (07:43→20:06)
[2019-05-29] MEDS: PANTOPRAZOLE 40 MG/10 ML VIAL IV SCH (07:43)
[2019-05-29 11:30] LABS: Glucose,Whole Blood 139 mg/dL (75-99)
--- NOTE | 2019-05-29 16:51 | P.PN ---
Subjective Progress Note Date: 05/29/19 Patient seen and examined at bedside. He did pull his NG tube out yesterday. It did remain out. He did tolerate ice chips and states that he has been having flatus. He denies any nausea or vomiting episodes. Objective - Vital Signs Vital signs: Vital Signs Temp 97.9 F 05/29/19 14:36 Pulse 60 05/29/19 16:42 Resp 16 05/29/19 14:36 BP 142/71 05/29/19 14:36 Pulse Ox 100 05/29/19 16:30 Intake & Output 05/28/19 05/29/19 05/29/19 18:59 06:59 18:59 Intake Total 1150 Output Total 200 Balance 950 Weight 81 kg Intake: Intake, IV Titration 1150 Amount Sodium Chloride 0.9% 1, 1150 000 ml @ 100 mls/hr IV . Q10H EIELEN Rx#:[id number] Output: Urine 200 Other: # Voids 3 3 - Constitutional General appearance: Present: cooperative, no acute distress - Respiratory Details: No difficulty with respiration - Gastrointestinal Gastrointestinal Comment(s): Soft, nontender, nondistended, no rebound, no guarding, ventral hernia is soft to the touch and reducible and nonpainful - Musculoskeletal Musculoskeletal: Present: generalized weakness - Psychiatric Psychiatric: Present: A&O x's 3 - Labs CBC & Chem 7: 05/28/19 02:23 05/28/19 02:23 Labs: Abnormal Lab Results - Last 24 Hours (Table) 05/28/19 05/28/19 05/29/19 Range/Units 17:08 20:41 06:57 POC Glucose (mg/dL) 165 H 142 H 154 H (75-99) mg/dL 05/29/19 Range/Units 11:29 POC Glucose (mg/dL) 139 H (75-99) mg/dL Assessment and Plan (1) Incarcerated hernia Narrative/Plan: I did have a long discussion with the patient and the patient's daughter that was at bedside again today. He continues to want to attempt nonsurgical a pproach to management. He has been having flatus so we will begin clear liquid diet. He is aware that the recommendation due to the history of obstruction would be a surgical abdominal wall reconstruction, however he does not want to opt for this at this time. Current Visit: Yes Status: Acute Code(s): K46.0 - UNSP ABDOMINAL HERNIA WITH OBSTRUCTION, WITHOUT GANGRENE SNOMED Code(s): 04473242
[2019-05-29 17:05] LABS: Glucose,Whole Blood 139 mg/dL (75-99)
--- NOTE | 2019-05-29 18:34 | P.PN ---
Subjective Progress Note Date: 05/29/19 patient seen and examined at bedside, the NG tube out apparently he pulled it out last evening, and has apparently been doing well with ice chips and is reporting passing gas. Objective - Vital Signs Vital signs: Vital Signs Temp 97.9 F 05/29/19 14:36 Pulse 60 05/29/19 16:42 Resp 16 05/29/19 14:36 BP 142/71 05/29/19 14:36 Pulse Ox 100 05/29/19 16:30 Intake & Output 05/28/19 05/29/19 05/29/19 18:59 06:59 18:59 Intake Total 1150 Output Total 200 Balance 950 Weight 81 kg Intake: Intake, IV Titration 1150 Amount Sodium Chloride 0.9% 1, 1150 000 ml @ 100 mls/hr IV . Q10H EILEEN Rx#:[id number] Output: Urine 200 Other: # Voids 3 3 - Exam Constitutional: No acute distress, conversant, pleasant Eyes: Anicteric sclerae, moist conjunctiva, no lid-lag, PERRLA ENMT: NC/AT,Oropharynx clear, no erythema, exudates Neck:Supple, FROM, no masses, or JVD, No carotid bruits; No thyromegaly Lungs: Clear to auscultation, Clear to percussion, Normal respiratory effort, no accessory muscle use Cardiovascular: Heart regular in rate and rhythm, No murmurs, gallops, or rubs no peripheral edema Abdominal: Soft Nontender, nom distended, large ventral hernia Skin: Normal temperature, tone, texture, turgor, No induration No subcutaneous nodules, No rash, lesions, No ulcers Extremities:No digital cyanosis No clubbing, Pedal pulses intact and symmetrical Radial pulses intact and symmetrical Normal gait and station, No calf tenderness Psychiatric: Alert and oriented to person, place and time, Appropriate affect Intact judgement Neuro: Muscles Strength 5/5 in all 4 extremities, Sensation to light touch grossly present throughout, Cranial nerves II-XII grossly intact. No focal sensory deficits - Labs CBC & Chem 7: 05/28/19 02:23 05/28/19 02:23 Labs: Abnormal Lab Results - Last 24 Hours (Table) 05/28/19 05/29/19 05/29/19 Range/Units 20:41 06:57 11:29 POC Glucose (mg/dL) 142 H 154 H 139 H (75-99) mg/dL 05/29/19 Range/Units 17:03 POC Glucose (mg/dL) 139 H (75-99) mg/dL Assessment and Plan Assessment: small bowel obstruction secondary to incarcerated hernia * Dr. Ovalles discussed options with the patient who is opting for conservative management at this time despite recommendations * despite recommendations that the patient would need abdominal ventral wall reconstruction and possible component separation that would need to be performed at a tertiary care facility chronic diastolic CHF * stable without any acute exacerbation COPD with chronic respiratory failure * patient continues on baseline O2 requirement 3 L via nasal cannula * COPD stable without any acute exacerbation at this time Type 2 diabetes * Blood sugar is stable and controlled * continue Sliding scale coverage Disposition * Patient requesting to eat will defer to surgery
[2019-05-29 20:01] LABS: Glucose,Whole Blood 220 mg/dL (75-99)
[2019-05-29] MEDS: LATANOPROST 0.005% OPHTH DROPS 2.5 ML BTL BOTH EYES SCH (20:06)
[2019-05-29] MEDS: ATORVASTATIN 20 MG TAB PO SCH (20:06)
[2019-05-29] MEDS: amLODIPine 10 MG TAB PO SCH (20:06)
[2019-05-29] MEDS: SERTRALINE 50 MG TAB PO SCH (20:07)
[2019-05-30 07:08] LABS: Glucose,Whole Blood 151 mg/dL (75-99)
[2019-05-30] MEDS: METOPROLOL TARTRATE 50 MG TAB PO SCH ×2 (07:25→20:54)
[2019-05-30] MEDS: SERTRALINE 100 MG TAB PO SCH (07:25)
[2019-05-30] MEDS: SODIUM CHLORIDE 0.9% 1,000 ML IV SCH ×2 (07:25→17:02)
[2019-05-30] MEDS: INSULIN ASPART (NovoLOG) 100 UNIT/ML VIAL SQ SCH ×4 (07:25→20:54)
[2019-05-30] MEDS: PANTOPRAZOLE 40 MG/10 ML VIAL IV SCH (07:26)
[2019-05-30 07:41] LABS: Basophils % (A) 0 %; Eosinophils # (A) 0.2 k/uL (0-0.7); Eosinophils % (A) 3 %; HCT 26.1 % (39.0-53.0); Hypochromasia Marked; Lymphocytes # (A) 0.5 k/uL (1.0-4.8); Lymphocytes % (A) 8 %; MCH 28.7 pg (25.0-35.0); MCV 95.6 fL (80.0-100.0); Mean Platelet Volume 9.4; Monocytes # (A) 0.3 k/uL (0-1.0); Monocytes % (A) 4 %; Neutrophils # (A) 5.8 k/uL (1.3-7.7); Neutrophils % (A) 83 %; Platelet Count 182 k/uL (150-450); RBC 2.73 m/uL (4.30-5.90); RDW 14.6 % (11.5-15.5); WBC 7.1 k/uL (3.8-10.6)
[2019-05-30 07:53] LABS: HGB 7.8 gm/dL (13.0-17.5)
[2019-05-30 07:59] LABS: Calcium 7.7 mg/dL (8.4-10.2); Potassium 4.7 mmol/L (3.5-5.1)
[2019-05-30] MEDS: SYMBICORT 160-4.5 MCG INHALER INHALATION SCH ×2 (08:50→19:02)
[2019-05-30] MEDS: IPRATROPIUM-ALBUTEROL 3 ML NEB INHALATION SCH ×4 (08:50→19:02)
[2019-05-30 11:09] LABS: Glucose,Whole Blood 144 mg/dL (75-99)
--- NOTE | 2019-05-30 12:10 | P.PN ---
Subjective Progress Note Date: 05/30/19 patient seen and examined at bedside. No acute events. States he is passing an increasing amount of flatus. Denies bowel movement. Denies nausea or vomiting with clear liquid diet. Objective - Vital Signs Vital signs: Vital Signs Temp 97.9 F 05/30/19 07:00 Pulse 62 05/30/19 09:01 Resp 18 05/30/19 07:00 BP 128/54 05/30/19 07:00 Pulse Ox 97 05/30/19 07:00 Intake & Output 05/29/19 05/30/19 05/30/19 18:59 06:59 18:59 Intake Total 100 Output Total 100 Balance 0 Weight 81 kg 84.3 kg Intake: Oral 100 Output: Urine 100 Other: # Voids 3 1 - Constitutional General appearance: Present: cooperative, no acute distress - Gastrointestinal Gastrointestinal Comment(s): soft, nontender, nondistended, no rebound, no guarding, large reducible ventral hernia unchanged from previous exam - Musculoskeletal Musculoskeletal: Present: generalized weakness - Labs CBC & Chem 7: 05/30/19 06:57 05/30/19 06:57 Labs: Abnormal Lab Results - Last 24 Hours (Table) 05/29/19 05/29/19 05/30/19 Range/Units 17:03 19:51 06:57 RBC 2.73 L (4.30-5.90) m/uL Hgb 7.8 L D (13.0-17.5) gm/dL Hct 26.1 L (39.0-53.0) % MCHC 30.0 L (31.0-37.0) g/dL Lymphocytes # 0.5 L (1.0-4.8) k/uL Chloride (98-107) mmol/L BUN (9-20) mg/dL Creatinine (0.66-1.25) mg/dL Glucose (74-99) mg/dL POC Glucose (mg/dL) 139 H 220 H (75-99) mg/dL Calcium (8.4-10.2) mg/dL 05/30/19 05/30/19 05/30/19 Range/Units 06:57 07:06 11:08 RBC (4.30-5.90) m/uL Hgb (13.0-17.5) gm/dL Hct (39.0-53.0) % MCHC (31.0-37.0) g/dL Lymphocytes # (1.0-4.8) k/uL Chloride 109 H (98-107) mmol/L BUN 47 H (9-20) mg/dL Creatinine 1.29 H (0.66-1.25) mg/dL Glucose 131 H (74-99) mg/dL POC Glucose (mg/dL) 151 H 144 H (75-99) mg/dL Calcium 7.7 L (8.4-10.2) mg/dL Assessment and Plan (1) Incarcerated hernia Narrative/Plan: the patient continues to appear to be improving from the small bowel obstruction from the incarcerated ventral hernia. He is passing flatus. We will advance to full liquid diet. He would like to continue conservative and medical management for this issue. Current Visit: Yes Status: Acute Code(s): K46.0 - UNSP ABDOMINAL HERNIA WITH OBSTRUCTION, WITHOUT GANGRENE SNOMED Code(s): 61230726
--- NOTE | 2019-05-30 12:21 | P.PN ---
Subjective Progress Note Date: 05/30/19 patient seen and examined at bedside, patient passing gasdenies any bowel movement would like to eat denies any nausea or vomiting with clear liquids and soft diet Objective - Vital Signs Vital signs: Vital Signs Temp 97.9 F 05/30/19 07:00 Pulse 62 05/30/19 09:01 Resp 18 05/30/19 07:00 BP 128/54 05/30/19 07:00 Pulse Ox 97 05/30/19 07:00 Intake & Output 05/29/19 05/30/19 05/30/19 18:59 06:59 18:59 Intake Total 100 Output Total 100 Balance 0 Weight 81 kg 84.3 kg Intake: Oral 100 Output: Urine 100 Other: # Voids 3 1 - Exam Constitutional: No acute distress, conversant, pleasant Eyes: Anicteric sclerae, moist conjunctiva, no lid-lag, PERRLA ENMT: NC/AT,Oropharynx clear, no erythema, exudates Neck:Supple, FROM, no masses, or JVD, No carotid bruits; No thyromegaly Lungs: Clear to auscultation, Clear to percussion, Normal respiratory effort, no accessory muscle use Cardiovascular: Heart regular in rate and rhythm, No murmurs, gallops, or rubs no peripheral edema Abdominal: Soft Nontender, nom distended, large ventral hernia Skin: Normal temperature, tone, texture, turgor, No induration No subcutaneous nodules, No rash, lesions, No ulcers Extremities:No digital cyanosis No clubbing, Pedal pulses intact and symmetrical Radial pulses intact and symmetrical Normal gait and station, No calf tenderness Psychiatric: Alert and oriented to person, place and time, Appropriate affect Intact judgement Neuro: Muscles Strength 5/5 in all 4 extremities, Sensation to light touch grossly present throughout, Cranial nerves II-XII grossly intact. No focal sensory deficits - Labs CBC & Chem 7: 05/30/19 06:57 05/30/19 06:57 Labs: Abnormal Lab Results - Last 24 Hours (Table) 05/29/19 05/29/19 05/30/19 Range/Units 17:03 19:51 06:57 RBC 2.73 L (4.30-5.90) m/uL Hgb 7.8 L D (13.0-17.5) gm/dL Hct 26.1 L (39.0-53.0) % MCHC 30.0 L (31.0-37.0) g/dL Lymphocytes # 0.5 L (1.0-4.8) k/uL Chloride (98-107) mmol/L BUN (9-20) mg/dL Creatinine (0.66-1.25) mg/dL Glucose (74-99) mg/dL POC Glucose (mg/dL) 139 H 220 H (75-99) mg/dL Calcium (8.4-10.2) mg/dL 05/30/19 05/30/19 05/30/19 Range/Units 06:57 07:06 11:08 RBC (4.30-5.90) m/uL Hgb (13.0-17.5) gm/dL Hct (39.0-53.0) % MCHC (31.0-37.0) g/dL Lymphocytes # (1.0-4.8) k/uL Chloride 109 H (98-107) mmol/L BUN 47 H (9-20) mg/dL Creatinine 1.29 H (0.66-1.25) mg/dL Glucose 131 H (74-99) mg/dL POC Glucose (mg/dL) 151 H 144 H (75-99) mg/dL Calcium 7.7 L (8.4-10.2) mg/dL Assessment and Plan Assessment: small bowel obstruction secondary to incarcerated hernia * Dr. Ovalles discussed options with the patient who is opting for conservative management at this time despite recommendations * despite recommendations that the patient would need abdominal ventral wall reconstruction and possible component separation that would need to be performed at a tertiary care facility * general surgery advancing diet today chronic diastolic CHF * stable without any acute exacerbation COPD with chronic respiratory failure * patient continues on baseline O2 requirement 3 L via nasal cannula * COPD stable without any acute exacerbation at this time Type 2 diabetes * Blood sugar is stable and controlled * continue Sliding scale coverage Disposition * anticipate discharge in 1-2 days
[2019-05-30 16:48] LABS: Glucose,Whole Blood 256 mg/dL (75-99)
[2019-05-30 20:21] LABS: Glucose,Whole Blood 241 mg/dL (75-99)
[2019-05-30] MEDS: ATORVASTATIN 20 MG TAB PO SCH (20:54)
[2019-05-30] MEDS: LATANOPROST 0.005% OPHTH DROPS 2.5 ML BTL BOTH EYES SCH (20:54)
[2019-05-30] MEDS: amLODIPine 10 MG TAB PO SCH (20:54)
[2019-05-30] MEDS: SERTRALINE 50 MG TAB PO SCH (20:55)
[2019-05-30] MEDS: IPRATROPIUM-ALBUTEROL 3 ML NEB INHALATION PRN (23:41)
[2019-05-31 00:51] VITALS: RESP 16
[2019-05-31] MEDS: SODIUM CHLORIDE 0.9% 1,000 ML IV SCH ×2 (03:03→12:23)
[2019-05-31 06:45] LABS: Glucose,Whole Blood 162 mg/dL (75-99)
[2019-05-31] MEDS: METOPROLOL TARTRATE 50 MG TAB PO SCH (07:29)
[2019-05-31] MEDS: PANTOPRAZOLE 40 MG/10 ML VIAL IV SCH (07:29)
[2019-05-31] MEDS: INSULIN ASPART (NovoLOG) 100 UNIT/ML VIAL SQ SCH ×2 (07:29→12:26)
[2019-05-31] MEDS: SERTRALINE 100 MG TAB PO SCH (07:29)
[2019-05-31] MEDS: IPRATROPIUM-ALBUTEROL 3 ML NEB INHALATION SCH ×2 (07:50→11:39)
[2019-05-31] MEDS: SYMBICORT 160-4.5 MCG INHALER INHALATION SCH (07:50)
[2019-05-31 08:01] VITALS: BP 116/48; TEMP 98.4
[2019-05-31 11:57] VITALS: PULSE 72
[2019-05-31 12:00] LABS: Glucose,Whole Blood 217 mg/dL (75-99)
--- NOTE | 2019-05-31 14:03 | P.PN ---
Subjective Progress Note Date: 05/31/19 patient seen and examined at bedside. He states that he is going home today. Tolerating diet and having bowel movements. Objective - Vital Signs Vital signs: Vital Signs Temp 98.4 F 05/31/19 07:00 Pulse 72 05/31/19 11:56 Resp 16 05/31/19 07:00 BP 116/48 05/31/19 07:00 Pulse Ox 97 05/31/19 07:00 Intake & Output 05/30/19 05/31/19 05/31/19 18:59 06:59 18:59 Output Total 250 Balance -250 Weight 86.3 kg Output: Urine 250 Other: Voiding Method Toilet # Voids 2 1 # Bowel Movements 1 1 - Constitutional General appearance: Present: cooperative, no acute distress - Gastrointestinal Gastrointestinal Comment(s): soft, nontender, nondistended, no rebound, no guarding, unchanged ventral hernia that is reducible - Musculoskeletal Musculoskeletal: Present: generalized weakness - Psychiatric Psychiatric: Present: A&O x's 3 - Labs CBC & Chem 7: 05/30/19 06:57 05/30/19 06:57 Labs: Abnormal Lab Results - Last 24 Hours (Table) 05/30/19 05/30/19 05/31/19 Range/Units 16:46 20:16 06:42 POC Glucose (mg/dL) 256 H 241 H 162 H (75-99) mg/dL 05/31/19 Range/Units 11:48 POC Glucose (mg/dL) 217 H (75-99) mg/dL Assessment and Plan (1) Incarcerated hernia Narrative/Plan: the patient is having bowel function and does not appear to have any small bowel obstruction with no strangulation of his hernia at this time. He is surgically stable for discharge. However, I did once again discussed the importance of a surgical evaluation for abdominal wall reconstruction due to this recent obstructive process. The patient was agreeable and states that he will look into it after the hol. Current Visit: Yes Status: Acute Code(s): K46.0 - UNSP ABDOMINAL HERNIA WITH OBSTRUCTION, WITHOUT GANGRENE SNOMED Code(s): 58550497
[2019-06-01] MEDS ORDERED: PANTOPRAZOLE 40 MG TABLET PO SCH (07:30)
--- NOTE | 2019-06-05 15:52 | P.DS ---
Providers Date of admission: 05/28/19 04:30 Expected date of discharge: 06/05/19 Attending physician: Lucinda Willson MD Consults: 05/28/19 04:30 Consult Physician Stat Consulting Provider: Clive Ovalles Consult Reason/Comments: bowel obstruction. Incarcerated ventral hernia. Abdominal pain. Do you want consulting provider notified?: Already Contacted Primary care physician: Ford Altman Hospital Course: Discharge diagnosis small bowel obstruction Incarcerated ventral hernia Chronic diastolic CHF COPD without acute exacerbation Chronic respiratory failure Type 2 diabetes Hospital course Patient is a 78-year-old male that presented with abdominal pain nausea and vomiting as found to have a small bowel obstruction on imaging of the CT abdomen and pelvis with noted incarcerated ventral hernia, the patient was made NPO, placed on NG tube with low to intermittent suctioning with supportive therapies including IV antiemetics IV analgesics. Gen. surgery was consulted, Dr. Ovalles discussed the case with the patient and his daughter and recommended that the patient be transferred to [facility] as a patient would need abdominal wall reconstruction and possible component separation of the large open mouth ventral hernia, however the patient opted for conservative management and refused surgery. Patient was managed conservatively and his diet was advanced slowly as he transitioned from passing gas and having bowel movements. The patient was tolerating a full diet on discharge and was sent home in stable condition. This discharge process took approximately 35 minutes. Focused exam Abdominal: Soft nontender nondistended, open-mouth ventral hernia, nonacute abdomen Patient Condition at Discharge: Fair Plan - Discharge Summary Discharge Rx Participant: Yes New Discharge Prescriptions: Continue Atorvastatin Calcium [Lipitor] 20 mg PO HS Aspirin EC [Ecotrin Low Dose] 81 mg PO DAILY Budesonide/Formoterol Fumarate [Symbicort 160-4.5 Mcg Inhaler] 2 puff INHALATION RT-BID Cholecalciferol (Vitamin D3) [Vitamin D3] 2,000 unit PO DAILY Ipratropium-Albuterol Nebulize [Duoneb 0.5 mg-3 mg/3 ml Soln] 3 ml INHALATION RT-QID ampul.neb Latanoprost Ophth [Xalatan 0.005%] 1 drops BOTH EYES HS Ascorbic Acid [Vitamin C] 500 mg PO DAILY Sertraline [Zoloft] 150 mg PO DAILY Clobetasol Propionate [Temovate 0.05% Cream] 1 applic TOPICAL BID Hydrochlorothiazide [Hydrodiuril] 25 mg PO DAILY #30 tab Metoprolol Tartrate [Lopressor] 50 mg PO BID #60 tab amLODIPine [Norvasc] 10 mg PO HS #30 tab Ferrous Sulfate [Feosol] 325 mg PO BID #60 tab Glucagon Emergency Kit 1 mg PO ONCE PRN PRN Reason: LOW BLOOD SUGAR Insulin NPH Hum/Reg Insulin Hm [NovoLIN 70-30 100 UNIT/ML VIAL] 20 unit SQ BID Discharge Medication List Atorvastatin Calcium [Lipitor] 20 mg PO HS 05/19/16 [History] Aspirin EC [Ecotrin Low Dose] 81 mg PO DAILY 08/22/16 [History] Budesonide/Formoterol Fumarate [Symbicort 160-4.5 Mcg Inhaler] 2 puff INHALATION RT-BID 03/09/17 [History] Cholecalciferol (Vitamin D3) [Vitamin D3] 2,000 unit PO DAILY 03/10/17 [History] Ipratropium-Albuterol Nebulize [Duoneb 0.5 mg-3 mg/3 ml Soln] 3 ml INHALATION RT-QID ampul.neb 04/07/17 [Rx] Ascorbic Acid [Vitamin C] 500 mg PO DAILY 09/30/17 [History] Latanoprost Ophth [Xalatan 0.005%] 1 drops BOTH EYES HS 09/30/17 [History] Sertraline [Zoloft] 150 mg PO DAILY 05/26/18 [History] Clobetasol Propionate [Temovate 0.05% Cream] 1 applic TOPICAL BID 05/09/19 [History] Ferrous Sulfate [Feosol] 325 mg PO BID #60 tab 05/14/19 [Rx] Hydrochlorothiazide [Hydrodiuril] 25 mg PO DAILY #30 tab 05/14/19 [Rx] Metoprolol Tartrate [Lopressor] 50 mg PO BID #60 tab 05/14/19 [Rx] amLODIPine [Norvasc] 10 mg PO HS #30 tab 05/14/19 [Rx] Glucagon Emergency Kit 1 mg PO ONCE PRN 05/28/19 [History] Insulin NPH Hum/Reg Insulin Hm [NovoLIN 70-30 100 UNIT/ML VIAL] 20 unit SQ BID 05/28/19 [History] Follow up Appointment(s)/Referral(s): Ford Altman MD [Primary Care Provider] - 06/04/19 3:00 pm [facility], [NON-STAFF] - (Palliative Care Nurse Practioner will see you at home.) [facility], [NON-STAFF] - (Home Care with Nursing, PT/OT, home health aide) Patient Instructions/Handouts: Bowel Obstruction (DC) Discharge Disposition: HOME WITH HOME HEALTH SERVICES
== END 2019-05-31 14:15 | disposition home health service (06) | DRG 394 ==
LOC: EC 02:13 → 4SSUR 04:30
PROVIDERS: ADMIT Internal Medicine; ATTEND Internal Medicine
DX: K43.6 Other and unspecified ventral hernia with obstruction, without gangrene (principal); I13.0 Hypertensive heart and chronic kidney disease with heart failure and stage 1 through stage 4 chronic kidney disease, or unspecified chronic kidney disease; I50.32 Chronic diastolic (congestive) heart failure; J96.11 Chronic respiratory failure with hypoxia; D64.9 Anemia, unspecified; E11.319 Type 2 diabetes mellitus with unspecified diabetic retinopathy without macular edema; Z99.81 Dependence on supplemental oxygen; E78.5 Hyperlipidemia, unspecified; F32.9 Major depressive disorder, single episode, unspecified; F41.9 Anxiety disorder, unspecified; N18.3 Chronic kidney disease, stage 3 (moderate); E11.22 Type 2 diabetes mellitus with diabetic chronic kidney disease; Z79.4 Long term (current) use of insulin; E11.42 Type 2 diabetes mellitus with diabetic polyneuropathy; J44.9 Chronic obstructive pulmonary disease, unspecified; N40.0 Benign prostatic hyperplasia without lower urinary tract symptoms; Z79.51 Long term (current) use of inhaled steroids; Z79.82 Long term (current) use of aspirin; Z79.899 Other long term (current) drug therapy; Z80.3 Family history of malignant neoplasm of breast; Z85.038 Personal history of other malignant neoplasm of large intestine; Z87.891 Personal history of nicotine dependence; Z90.79 Acquired absence of other genital organ(s); Z98.42 Cataract extraction status, left eye; Z98.41 Cataract extraction status, right eye; Z88.2 Allergy status to sulfonamides; M48.00 Spinal stenosis, site unspecified; H40.9 Unspecified glaucoma
CPT/HCPCS: 36415; 74176; 80048; 80053; 81001; 82150; 83605; 83690; 84484; 85025; 94640; 94760; 96361; 96374; 96375; 99285

== ENCOUNTER 2019-06-01 09:50 | Inpatient (IN) | payer MEDICARE, OTHER ==
[2019-06-01] MEDS ORDERED: IPRATROPIUM-ALBUTEROL 3 ML NEB INHALATION STA ×2 (10:11→13:03)
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
--- NOTE | 2019-06-01 10:45 | XR ---
EXAMINATION TYPE: XR chest 2V DATE OF EXAM: 06/01/2019 COMPARISON: 05/14/2019 INDICATION: Short of breath COPD TECHNIQUE: Frontal and lateral views of the chest are obtained. FINDINGS: The heart size is normal. The pulmonary vasculature is normal. There is a right lower lobe consolidation present previously. Small effusion may be present, better v isualized on the lateral view.. IMPRESSION: 1. Right lower lobe infiltrate with a small right pleural effusion. Findings remain present from 05/14
[2019-06-01 11:22] LABS: Basophils % (A) 0 %; Eosinophils # (A) 0.1 k/uL (0-0.7); Eosinophils % (A) 1 %; HGB 7.9 gm/dL (13.0-17.5); Hypochromasia Moderate; Lymphocytes # (A) 0.3 k/uL (1.0-4.8); Lymphocytes % (A) 4 %; MCH 28.9 pg (25.0-35.0); MCHC 31.7 g/dL (31.0-37.0); MCV 91.2 fL (80.0-100.0); Mean Platelet Volume 8.9; Monocytes # (A) 0.5 k/uL (0-1.0); Monocytes % (A) 7 %; Neutrophils # (A) 5.7 k/uL (1.3-7.7); Neutrophils % (A) 87 %; Platelet Count 227 k/uL (150-450); RBC 2.75 m/uL (4.30-5.90); RDW 13.9 % (11.5-15.5); WBC 6.6 k/uL (3.8-10.6)
[2019-06-01 11:31] LABS: INR 0.9 (<1.2); Partial Thromboplastin Time 24.6 sec (22.0-30.0); Prothrombin Time 10.1 sec (9.0-12.0)
[2019-06-01 11:46] LABS: Albumin 2.8 g/dL (3.5-5.0); Calcium 8.6 mg/dL (8.4-10.2); Magnesium 2.2 mg/dL (1.6-2.3); Potassium 4.4 mmol/L (3.5-5.1); Total Bilirubin 0.5 mg/dL (0.2-1.3); Total Protein 5.3 g/dL (6.3-8.2)
[2019-06-01 12:03] LABS: T4, Free (Free Thyroxine) 1.57 ng/dL (0.78-2.19)
[2019-06-01] MEDS ORDERED: FUROSEMIDE 10 MG/ML 4 ML VIAL IV STA (13:14)
[2019-06-01] MEDS ORDERED: LEVOFLOXACIN 750MG-D5W PMX 750 MG in DEXTROSE/WATER 1 150ML.BAG IVPB STA (13:18)
[2019-06-01] MEDS ORDERED: PIPERACILLIN-TAZOBACTAM 3.375 GM in SODIUM CHLORIDE 0.9% 100 ML IVPB STA (13:18)
[2019-06-01] MEDS ORDERED: IPRATROPIUM-ALBUTEROL 3 ML NEB INHALATION PRN (13:18)
[2019-06-01] MEDS ORDERED: ASPIRIN 325 MG TAB PO STA (13:18)
[2019-06-01] MEDS ORDERED: PNEUMONIA PROTOCOL UTILIZED 1 EACH MISC PO PRN (13:18)
[2019-06-01] MEDS ORDERED: HEPARIN SODIUM,PORCINE 5,000 UNIT/ML 1 ML VIAL IV ONE (13:24)
[2019-06-01] MEDS ORDERED: NALOXONE 0.4 MG/ML 1 ML VIAL IV PRN (14:47)
[2019-06-01] MEDS ORDERED: ACETAMINOPHEN TAB 325 MG TAB PO PRN (14:47)
[2019-06-01] MEDS: HEPARIN SOD,PORK IN 0.45% NACL 25,000 UNIT in 0.45% NACL 1 250ML.BAG IV SCH (15:03)
--- NOTE | 2019-06-01 15:07 | P.HPIM ---
History of Present Illness H&P Date: 06/01/19 Chief Complaint: sob 78-year-old male presenting to the emergency Department with complaints of sob and palpitations. No chest pain. patient does have dyspnea at baseline which is chronic but has been getting worse over the last several days. Has dry cough currently but was productive of white phlegm up until a week ago. Patient also started having some leg/ankle swelling over the last several days. He denied fevers, chills, nausea or vomiting. No abdominal pain. Patient is on 4 L of oxygen at home. Patient was recently in the hospital with bowel obstruction sec to incarcerated hernia. Patient was treated conservatively and did not need any surgical correction. Before early this month that he was admitted to the hospital for fluid overload and acute exacerbation of diastolic congestive heart failure. He was found to have loculated pleural effusion as well as, he underwent thoracentesis which showed bloody pleural fluid that was negative for malignant cells. In the ER he was noted to be working hard to breath, his O2 sats were dropping into the early 90s and he was started on bipap. Currently feeling better. CXR showed possible PNA vs. CHF. EKG showing a-fib with slight RVR, new onset. He was started on abx and lasix and admitted for further evaluation and treatment. Review of Systems complete review of system performed, pertinent positives per HPI otherwise negative. Past Medical History Past Medical History: Cancer, Chest Pain / Angina, Heart Failure, COPD, Diabetes Mellitus, Hyperlipidemia, Hypertension, Pneumonia, Prostate Disorder, Sleep Apnea/CPAP/BIPAP Additional Past Medical History / Comment(s): BPH, peripheral neuropathy, glaucoma, retinal disease/detachment/retinopathy, colon cancer with a previous resection in 2005then ended up w/ peritonits had 2nd sx spent 30 days in icu, spinal stenosis with degenerative disc disease, recent hospitalization for respiratory complications that occurred in May 2016, chronic hypoxic respiratory failure, unable to use cpap.abd hernia. had shingels vaccine and pne vaccines not sure of date and unable to verify at time of admit History of Any Multi-Drug Resistant Organisms: None Reported Past Surgical History: Appendectomy, Bowel Resection Additional Past Surgical History / Comment(s): bowel resection for colon cancer in 2005, previous colostomy with subsequent reversal due to complications of peritonitis following bowel surgery, cataracts surgery in both eyes, appendectomy, turp Past Anesthesia/Blood Transfusion Reactions: No Reported Reaction Additional Past Anesthesia/Blood Transfusion Reaction / Comment(s): to pt's knowlege never had a blood transfusion Past Psychological History: Anxiety, Depression Smoking Status: Former smoker Past Alcohol Use History: None Reported Past Drug Use History: None Reported - Past Family History Father Family Medical History: Renal Disease Mother Family Medical History: Cancer Additional Family Medical History / Comment(s): breast cancer, heart problems Medications and Allergies Home Medications Medication Instructions Recorded Confirmed Type Atorvastatin Calcium [Lipitor] 20 mg PO HS 05/19/16 06/01/19 History Aspirin EC [Ecotrin Low Dose] 81 mg PO DAILY 08/22/16 06/01/19 History Budesonide/Formoterol Fumarate 2 puff INHALATION RT-BID 03/09/17 06/01/19 History [Symbicort 160-4.5 Mcg Inhaler] Cholecalciferol (Vitamin D3) 2,000 unit PO DAILY 03/10/17 06/01/19 History [Vitamin D3] Ipratropium-Albuterol Nebulize 3 ml INHALATION RT-QID ampul.neb 04/07/17 06/01/19 Rx [Duoneb 0.5 mg-3 mg/3 ml Soln] Ascorbic Acid [Vitamin C] 500 mg PO DAILY 09/30/17 06/01/19 History Latanoprost Ophth [Xalatan 0.005%] 1 drops BOTH EYES HS 09/30/17 06/01/19 History Sertraline [Zoloft] 150 mg PO DAILY 05/26/18 06/01/19 History Clobetasol Propionate [Temovate 1 applic TOPICAL BID 05/09/19 06/01/19 History 0.05% Cream] Ferrous Sulfate [Feosol] 325 mg PO BID #60 tab 05/14/19 06/01/19 Rx Hydrochlorothiazide [Hydrodiuril] 25 mg PO DAILY #30 tab 05/14/19 06/01/19 Rx Metoprolol Tartrate [Lopressor] 50 mg PO BID #60 tab 05/14/19 06/01/19 Rx amLODIPine [Norvasc] 10 mg PO HS #30 tab 05/14/19 06/01/19 Rx Glucagon Emergency Kit 1 mg PO ONCE PRN 05/28/19 06/01/19 History Insulin NPH Hum/Reg Insulin Hm 20 unit SQ BID 05/28/19 06/01/19 History [NovoLIN 70-30 100 UNIT/ML VIAL] Allergies Allergy/AdvReac Type Severity Reaction Status Date / Time sulfamethoxazole AdvReac RAISES Verified 06/01/19 11:39 [From Bactrim] POTASSIUM trimethoprim [From Bactrim] AdvReac RAISES Verified 06/01/19 11:39 POTASSIUM Physical Exam Vitals: Vital Signs Temp Pulse Resp BP Pulse Ox 06/01/19 13:18 104 H 06/01/19 13:08 101 H 06/01/19 11:42 101 H 20 144/62 100 06/01/19 11:09 87 06/01/19 10:57 90 06/01/19 10:34 109 H 18 126/65 97 06/01/19 10:00 98.1 F 99 20 99/81 99 Intake and Output 05/31/19 06/01/19 06/01/19 22:59 06:59 14:59 Other: Weight 86.183 kg Constitutional: mild respiratory distress, conversant, pleasant Eyes:Anicteric sclerae, moist conjunctiva, no lid-lag, PERRLA, ENMT: Oropharynx clear, no erythema, exudates Neck: Supple, FROM, no masses, or JVD, No carotid bruits, No thyromegaly Lungs: bilateral rhonchi, scattered, no wheezing, Clear to percussion, Normal respiratory effort, no accessory muscle use Cardiovascular: slightly tachycardic, irregularly irregular, no murmurs, gallops, or rubs, 1+ peripheral edema Abdominal: Soft, Nontender, abdominal hernia. no guarding, rebound or rigidity, Normoactive bowel sounds, No hepatomegaly, No splenomegaly, No palpable mass Skin: Normal temperature, tone, texture, turgor, no induration, No subcutaneous nodules, No rash, lesions, No ulcers Extremities: No digital cyanosis, No clubbing, Pedal pulses intact and symmetrical, Radial pulses intact and symmetrical, No calf tenderness Psychiatric: Alert and oriented to person, place and time, appropriate affect, intact judgement Neuro: Muscles Strength 5/5 in all 4 extremities, Sensation to light touch gross ly present throughout, Cranial nerves II-XII grossly intact, no focal sensory deficits Results CBC & Chem 7: 06/01/19 10:30 06/01/19 10:30 Labs: Abnormal Lab Results - Last 24 Hours (Table) 06/01/19 06/01/19 06/01/19 Range/Units 10:30 10:30 10:30 RBC 2.75 L (4.30-5.90) m/uL Hgb 7.9 L (13.0-17.5) gm/dL Hct 25.0 L (39.0-53.0) % Lymphocytes # 0.3 L (1.0-4.8) k/uL Chloride 111 H (98-107) mmol/L BUN 33 H (9-20) mg/dL Troponin I 0.064 H* (0.000-0.034) ng/mL Total Protein 5.3 L (6.3-8.2) g/dL Albumin 2.8 L (3.5-5.0) g/dL Free T3 pg/mL 6.1 H (2.8-5.3) pg/ml Assessment and Plan Plan: Acute on chronic hypoxic respiratory failure, likely secondary to healthcare associated pneumonia, acute exacerbation of diastolic congestive heart failure Start broad-spectrum antibiotics with Levaquin and Zosyn Lasix IV 40 mg twice a day DuoNebs every 6 hours and every 4 hours when necessary Monitor I's and O's Consult pulmonary and cardiology New-onset atrial fibrillation Goal is rate controlled, no anticoagulation is indicated due to history of recent hemorrhagic pleural effusion Resume home dose of metoprolol Monitor heart rate, just metoprolol accordingly Chronic conditions CK D stage III Hypertension Diabetes mellitus, insulin sliding scale COPD currently compensated Continue home meds CODE STATUS: no code DVT prophylaxis: mechanical Discussed with: Patient, ER, RN Anticipated length of stay > than [address]: pending clinical course A total of 60 minutes was spent on the care of this complex patient more than 50% of the time was spent in counseling and care coordination.
[2019-06-01] MEDS: NITROGLYCERIN OINT 1 INCH/GM PACKET TOPICAL SCH ×3 (15:10→23:18)
[2019-06-01] MEDS ORDERED: IPRATROPIUM-ALBUTEROL 3 ML NEB INHALATION SCH (16:00)
[2019-06-01] MEDS ORDERED: FUROSEMIDE 10 MG/ML 4 ML VIAL IV SCH (16:00)
--- NOTE | 2019-06-01 17:01 | P.CNPUL ---
History of Present Illness Consult date: 06/01/19 Reason for consult: dyspnea History of present illness: 78-year-old male patient came into the ED with worsening shortness of breath. He was found to be new onset atrial fibrillation with rapid ventricular response. While in ED, he became progressively more short of breath and currently is on a BiPAP. Initially was on 4 L of oxygen by nasal cannula and he currently is on a BiPAP at a pressure of 12/5 cm of water which is tolerating well. He has also noted some increased lower extremity edema. He has history of diastolic heart failure. He has had previous pleural effusion that was somewhat loculated on the right and drainage was done back in April 2019 was a transudate consistent with CHF. During this current admission, his proBNP level is above 20,000. Upon is at 0.064. No significant leukocytosis. No chest pain. No cough or sputum production. He has increased lower extremity edema. No altered mentation. His previous echocardiogram from an earlier admission showed an ejection fraction of 55-60% with concentric LVH, [id number] MR, no pulmonary hypertension. He is known to have coronary artery disease, hyperlipidemia and BPH and remote history of colon cancer that was treated back in 2015 with colectomy and diverting colostomy with subsequent reversal. He has large anterior abdominal wall hernia and he was hospitalized around 10 days ago for a bowel obstruction and he was found to have an incarcera diana hernia that was reduced. He did not require any surgical intervention. He is diabetic and has also COPD and chronic hypoxic respiratory failure with he was maintained on 3 L about 2 by nasal cannula. Review of Systems Constitutional: Reports fatigue, Reports weakness Eyes: right as per HPI Ears: deny: decreased hearing, ear discharge, earache, tinnitus Ears, nose, mouth and throat: Denies headache, Denies sore throat Cardiovascular: Reports decreased exercise tolerance, Reports dyspnea on exertion Respiratory: Reports cough, Reports dyspnea, Reports home oxygen Gastrointestinal: Reports as per HPI (Previous history of colon cancer. No reported GI bleed.) Genitourinary: Reports as per HPI Musculoskeletal: Reports as per HPI Musculoskeletal: absent: ankle pain, ankle stiffness, ankle swelling Integumentary: Denies pruritus, Denies rash Neurological: Reports as per HPI Psychiatric: Reports as per HPI Endocrine: Reports as per HPI, Reports fatigue Hematologic/Lymphatic: Reports as per HPI Allergic/Immunologic: Reports as per HPI Past Medical History Past Medical History: Cancer, Chest Pain / Angina, Heart Failure, COPD, Diabetes Mellitus, Hyperlipidemia, Hypertension, Pneumonia, Prostate Disorder, Sleep Apnea/CPAP/BIPAP Additional Past Medical History / Comment(s): Artery disease, diastolic heart failure, previous history of colon cancer requiring colectomy with colostomy and subsequent reversal, COPD, chronic hypoxic respiratory failure, diabetes mellitus, hyperlipidemia, BPH, previous history of bowel obstruction, anterior abdominal wall hernia, peripheral neuropathy, glaucoma, retinal disease/detachment/retinopathy, spinal stenosis with degenerative disc disease, History of Any Multi-Drug Resistant Organisms: None Reported Past Surgical History: Appendectomy, Bowel Resection Additional Past Surgical History / Comment(s): bowel resection for colon cancer in 2005, previous colostomy with subsequent reversal due to complications of peritonitis following bowel surgery, cataracts surgery in both eyes, appendectomy, turp Past Anesthesia/Blood Transfusion Reactions: No Reported Reaction Additional Past Anesthesia/Blood Transfusion Reaction / Comment(s): to pt's knowlege never had a blood transfusion Past Psychological History: Anxiety, Depression Smoking Status: Former smoker Past Alcohol Use History: None Reported Past Drug Use History: None Reported - Past Family History Father Family Medical History: Renal Disease Mother Family Medical History: Cancer Additional Family Medical History / Comment(s): breast cancer, heart problems Medications and Allergies Home Medications Medication Instructions Recorded Confirmed Type Atorvastatin Calcium [Lipitor] 20 mg PO HS 05/19/16 06/01/19 History Aspirin EC [Ecotrin Low Dose] 81 mg PO DAILY 08/22/16 06/01/19 History Budesonide/Formoterol Fumarate 2 puff INHALATION RT-BID 03/09/17 06/01/19 History [Symbicort 160-4.5 Mcg Inhaler] Cholecalciferol (Vitamin D3) 2,000 unit PO DAILY 03/10/17 06/01/19 History [Vitamin D3] Ipratropium-Albuterol Nebulize 3 ml INHALATION RT-QID ampul.neb 04/07/17 Rx [Duoneb 0.5 mg-3 mg/3 ml Soln] Ascorbic Acid [Vitamin C] 500 mg PO DAILY 09/30/17 06/01/19 History Latanoprost Ophth [Xalatan 0.005%] 1 drops BOTH EYES HS 09/30/17 06/01/19 History Sertraline [Zoloft] 150 mg PO DAILY 05/26/18 06/01/19 History Clobetasol Propionate [Temovate 1 applic TOPICAL BID 05/09/19 06/01/19 History 0.05% Cream] Ferrous Sulfate [Feosol] 325 mg PO BID #60 tab 05/14/19 06/01/19 Rx Hydrochlorothiazide [Hydrodiuril] 25 mg PO DAILY #30 tab 05/14/19 06/01/19 Rx Metoprolol Tartrate [Lopressor] 50 mg PO BID #60 tab 05/14/19 06/01/19 Rx amLODIPine [Norvasc] 10 mg PO HS #30 tab 05/14/19 06/01/19 Rx Glucagon Emergency Kit 1 mg PO ONCE PRN 05/28/19 06/01/19 History Insulin NPH Hum/Reg Insulin Hm 20 unit SQ BID 05/28/19 06/01/19 History [NovoLIN 70-30 100 UNIT/ML VIAL] Allergies Allergy/AdvReac Type Severity Reaction Status Date / Time sulfamethoxazole AdvReac RAISES Verified 06/01/19 11:39 [From Bactrim] POTASSIUM trimethoprim [From Bactrim] AdvReac RAISES Verified 06/01/19 11:39 POTASSIUM Physical Exam Vitals: Vital Signs Temp Pulse Resp BP Pulse Ox 06/01/19 15:10 100 22 144/90 100 06/01/19 13:18 104 H 06/01/19 13:08 101 H 06/01/19 11:42 101 H 20 144/62 100 06/01/19 11:09 87 06/01/19 10:57 90 06/01/19 10:34 109 H 18 126/65 97 06/01/19 10:00 98.1 F 99 20 99/81 99 Intake and Output 06/01/19 06/01/19 06/01/19 06:59 14:59 22:59 Other: Weight 86.183 kg Gen. appearance, comfortable is a mild degree of respiratory distress currently on BiPAP which she is able to tolerate without any major difficulties Head exam was generally normal. There was no scleral icterus or corneal arcus. Mucous membranes were moist. There is conjunctival pallor no icterus. Neck was supple and without jugular venous distension, thyromegaly, or carotid bruits. Carotids were easily palpable bilaterally. There was no adenopathy. Lungs sounds are diminished in lung bases especially in the right lung base. Few scattered extremity wheezes otherwise clear. The patient has a barrel chest. Cardiac exam revealed the PMI to be normally situated and sized. The rhythm are consistent with atrial fibrillation and the patient is some rapid ventricular response with a heart rate being in the low 110, and no extrasystoles were noted during several minutes of auscultation. The first and second heart sounds were normal and physiologic splitting of the second heart sound was noted. There were no murmurs, rubs, clicks, or gallops. Abdominal exam revealed normal bowel sounds. The abdomen was soft, non-tender, and without masses, organomegaly, or appreciable enlargement of the abdominal aorta. the patient has anterior abdominal wall hernia which is easily reducible. No direct tenderness amount tensile guarding. Extremities +1 pitting edema. Diminished pulses. There is no cyanosis or clubbing. Examination of the skin revealed no evidence of significant rashes, suspicious appearing nevi or other concerning lesions. Neurologically awake and alert and there is no focal neurological deficit. Psychiatric it is likely depression with anxiety. Results - Laboratory Findings CBC and BMP: 06/01/19 10:30 06/01/19 10:30 ABG WBC 6.6 k/uL (3.8-10.6) 06/01/19 10:30 RBC 2.75 m/uL (4.30-5.90) L 06/01/19 10:30 Hgb 7.9 gm/dL (13.0-17.5) L 06/01/19 10:30 Hct 25.0 % (39.0-53.0) L 06/01/19 10:30 MCV 91.2 fL (80.0-100.0) 06/01/19 10:30 MCH 28.9 pg (25.0-35.0) 06/01/19 10:30 MCHC 31.7 g/dL (31.0-37.0) 06/01/19 10:30 RDW 13.9 % (11.5-15.5) 06/01/19 10:30 Plt Count 227 k/uL (150-450) 06/01/19 10:30 Neutrophils % 87 % 06/01/19 10:30 Lymphocytes % 4 % 06/01/19 10:30 Monocytes % 7 % 06/01/19 10:30 Eosinophils % 1 % 06/01/19 10:30 Basophils % 0 % 06/01/19 10:30 Neutrophils # 5.7 k/uL (1.3-7.7) 06/01/19 10:30 Lymphocytes # 0.3 k/uL (1.0-4.8) L 06/01/19 10:30 Monocytes # 0.5 k/uL (0-1.0) 06/01/19 10:30 Eosinophils # 0.1 k/uL (0-0.7) 06/01/19 10:30 Basophils # 0.0 k/uL (0-0.2) 06/01/19 10:30 Hypochromasia Moderate 06/01/19 10:30 PT 10.1 sec (9.0-12.0) 06/01/19 10:30 INR 0.9 (<1.2) 06/01/19 10:30 APTT 24.6 sec (22.0-30.0) 06/01/19 10:30 Sodium 141 mmol/L (137-145) 06/01/19 10:30 Potassium 4.4 mmol/L (3.5-5.1) 06/01/19 10:30 Chloride 111 mmol/L (98-107) H 06/01/19 10:30 Carbon Dioxide 25 mmol/L (22-30) 06/01/19 10:30 Anion Gap 5 mmol/L 06/01/19 10:30 BUN 33 mg/dL (9-20) H 06/01/19 10:30 Creatinine 1.17 mg/dL (0.66-1.25) 06/01/19 10:30 Est GFR (CKD-EPI)AfAm 68 (>60 ml/min/1.73 sqM) 06/01/19 10:30 Est GFR (CKD-EPI)NonAf 59 (>60 ml/min/1.73 sqM) 06/01/19 10:30 Glucose 89 mg/dL (74-99) 06/01/19 10:30 Calcium 8.6 mg/dL (8.4-10.2) 06/01/19 10:30 Magnesium 2.2 mg/dL (1.6-2.3) 06/01/19 10:30 Total Bilirubin 0.5 mg/dL (0.2-1.3) 06/01/19 10:30 AST 24 U/L (17-59) 06/01/19 10:30 ALT 20 U/L (4-49) 06/01/19 10:30 Alkaline Phosphatase 93 U/L (38-126) 06/01/19 10:30 Troponin I 0.064 ng/mL (0.000-0.034) H* 06/01/19 10:30 NT-Pro-B Natriuret Pep 09013 pg/mL 06/01/19 10:30 Total Protein 5.3 g/dL (6.3-8.2) L 06/01/19 10:30 Albumin 2.8 g/dL (3.5-5.0) L 06/01/19 10:30 TSH 2.220 mIU/L (0.465-4.680) 06/01/19 10:30 Free T4 1.57 ng/dL (0.78-2.19) 06/01/19 10:30 Free T3 pg/mL 6.1 pg/ml (2.8-5.3) H 06/01/19 10:30 PT/INR, D-dimer PT 10.1 sec (9.0-12.0) 06/01/19 10:30 INR 0.9 (<1.2) 06/01/19 10:30 Abnormal lab findings: Abnormal Labs 06/01/19 06/01/19 06/01/19 10:30 10:30 10:30 RBC 2.75 L Hgb 7.9 L Hct 25.0 L Lymphocytes # 0.3 L Chloride 111 H BUN 33 H Troponin I 0.064 H* Total Protein 5.3 L Albumin 2.8 L Free T3 pg/mL 6.1 H - Diagnostic Findings Chest x-ray: image reviewed Assessment and Plan Plan: 1 new onset atrial fibrillation with rapid ventricle response. Currently the patient is on oral Cardizem. The patient was also started on IV heparin. 2 acute on chronic CHF with diastolic dysfunction. The patient decompensated due to A. fib/RVR and developed increased pulmonary vascular congestion and edema and acute hypoxic respiratory failure and currently the patient on BiPAP. The patient is being diuresis IV Lasix. 3 COPD with chronic hypoxic respiratory failure currently on 3 L of oxygen by nasal cannula 4 hypertensive heart disease with mild concentric LVH, preserved LV function without any significant valvular heart disease or pulmonary hypertension 5 recent hospitalization for a bowel obstruction and the patient large anterior abdominal wall hernia that was reduced and is able to pass bowel movement without any major difficulties 6 Anemia of chronic disease 7 history of colon cancer with previous colectomy and diverting colostomy with subsequent reversal back in 2005 8 diabetes mellitus 9 hypertension 10 hyperlipidemia 11 BPH 12 history of spinal stenosis with degenerative disc disease 13 history of obstructive sleep apnea unable to use CPAP therapy plan Admit to the ICU Continue BiPAP IV Lasix 40 mg every 12 hours Repeat checks is a within next 24 hours Discontinue the Zosyn as there is no indication for any clear pneumonia and the patient be kept on oral Levaquin Metoprolol for rate control. Consider addition of Cardizem drip if continues to be tachycardic IV heparin Repeat echocardiogram we'll continue to follow.
[2019-06-01] MEDS: IPRATROPIUM-ALBUTEROL 3 ML NEB INHALATION SCH ×2 (17:02→20:20)
[2019-06-01 17:05] LABS: Glucose,Whole Blood 156 mg/dL (75-99)
[2019-06-01] MEDS: INSULN ASP PRT/INSULIN ASPART 100 UNIT/ML 10 ML VIAL SQ SCH (18:24)
[2019-06-01] MEDS: INSULIN ASPART (NovoLOG) 100 UNIT/ML VIAL SQ SCH ×2 (18:26→20:51)
[2019-06-01 20:20] LABS: Glucose,Whole Blood 232 mg/dL (75-99)
[2019-06-01] MEDS: SYMBICORT 160-4.5 MCG INHALER INHALATION SCH (20:20)
[2019-06-01] MEDS: FERROUS SULFATE 325 MG TAB PO SCH (20:48)
[2019-06-01] MEDS: ATORVASTATIN 20 MG TAB PO SCH (20:48)
[2019-06-01] MEDS: FUROSEMIDE 10 MG/ML 4 ML VIAL IV SCH (20:48)
[2019-06-01] MEDS ORDERED: amLODIPine 10 MG TAB PO SCH (21:00)
[2019-06-01] MEDS ORDERED: METOPROLOL TARTRATE 50 MG TAB PO SCH (21:00)
[2019-06-01 22:23] LABS: Glucose,Whole Blood 209 mg/dL (75-99)
[2019-06-01] MEDS: HEPARIN SODIUM,PORCINE 5,000 UNIT/ML 1 ML VIAL IV PRN (23:38)
[2019-06-01] MEDS: LATANOPROST 0.005% OPHTH DROPS 2.5 ML BTL BOTH EYES SCH (23:41)
[2019-06-02] MEDS ORDERED: PIPERACILLIN-TAZOBACTAM 3.375 GM in SODIUM CHLORIDE 0.9% 100 ML IVPB SCH ×2
[2019-06-02 05:25] LABS: Basophils % (A) 0 %; Eosinophils # (A) 0.2 k/uL (0-0.7); Eosinophils % (A) 3 %; HCT 23.2 % (39.0-53.0); HGB 7.2 gm/dL (13.0-17.5); Hypochromasia Moderate; Lymphocytes # (A) 0.4 k/uL (1.0-4.8); Lymphocytes % (A) 6 %; MCH 28.8 pg (25.0-35.0); MCHC 31.2 g/dL (31.0-37.0); MCV 92.1 fL (80.0-100.0); Mean Platelet Volume 9.1; Monocytes # (A) 0.4 k/uL (0-1.0); Monocytes % (A) 7 %; Neutrophils # (A) 4.8 k/uL (1.3-7.7); Neutrophils % (A) 82 %; Platelet Count 209 k/uL (150-450); RBC 2.51 m/uL (4.30-5.90); WBC 5.9 k/uL (3.8-10.6)
[2019-06-02 05:32] LABS: Albumin 2.8 g/dL (3.5-5.0); Calcium 8.7 mg/dL (8.4-10.2); Magnesium 1.8 mg/dL (1.6-2.3); Phosphorus 3.5 mg/dL (2.5-4.5); Total Bilirubin 0.5 mg/dL (0.2-1.3); Total Protein 5.5 g/dL (6.3-8.2)
--- NOTE | 2019-06-02 06:01 | XR ---
EXAMINATION TYPE: XR chest 1V portable DATE OF EXAM: 06/02/2019 HISTORY: SOB. REFERENCE: Previous study dated 06/01/2019. FINDINGS: There continues to be a wide lower lobe infiltrate. There is developed a left pleural infil trate. There are bilateral effusions. The heart is enlarged. IMPRESSION: WORSENING BIBASILAR BASILAR INFILTRATES.
[2019-06-02] MEDS: HEPARIN SODIUM,PORCINE 5,000 UNIT/ML 1 ML VIAL IV PRN (06:27)
[2019-06-02 06:56] LABS: Glucose,Whole Blood 198 mg/dL (75-99)
[2019-06-02] MEDS: INSULN ASP PRT/INSULIN ASPART 100 UNIT/ML 10 ML VIAL SQ SCH ×2 (07:14→17:24)
[2019-06-02] MEDS: INSULIN ASPART (NovoLOG) 100 UNIT/ML VIAL SQ SCH ×4 (07:15→21:29)
[2019-06-02] MEDS: IPRATROPIUM-ALBUTEROL 3 ML NEB INHALATION SCH (07:39)
[2019-06-02] MEDS: SYMBICORT 160-4.5 MCG INHALER INHALATION SCH ×3 (07:39→19:15)
--- NOTE | 2019-06-02 08:27 | P.PN ---
Subjective Progress Note Date: 06/02/19 78-year-old male patient came into the ED with worsening shortness of breath. He was found to be new onset atrial fibrillation with rapid ventricular response. While in ED, he became progressively more short of breath and currently is on a BiPAP. Initially was on 4 L of oxygen by nasal cannula and he currently is on a BiPAP at a pressure of 12/5 cm of water which is tolerating well. He has also noted some increased lower extremity edema. He has history of diastolic heart failure. He has had previous pleural effusion that was somewhat loculated on the right and drainage was done back in April 2019 was a transudate consistent with CHF. During this current admission, his proBNP level is above 20,000. Upon is at 0.064. No significant leukocytosis. No chest pain. No cough or sputum production. He has increased lower extremity edema. No altered mentation. His previous echocardiogram from an earlier admission showed an ejection fraction of 55-60% with concentric LVH, [id number] MR, no pulmonary hypertension. He is known to have coronary artery disease, hyperlipidemia and BPH and remote history of colon cancer that was treated back in 2015 with colectomy and diverting colostomy with subsequent reversal. He has large anterior abdominal wall hernia and he was hospitalized around 10 days ago for a bowel obstruction and he was found to have an incarcerated hernia that was reduced. He did not require any surgical intervention. He is diabetic and has also COPD and chronic hypoxic respiratory failure with he was maintained on 3 L about 2 by nasal cannula. On 06/02/2019Patient is being seen in follow-up. Currently is in the intensive care unit. I saw him in the ED yesterday and I'm moved into the intensive care unit where he was kept on BiPAP initially and later on was placed on 12 L of oxygen by nasal cannula. According to the nursing staff he did well throughout the night and he was quite comfortable and he was able to have dinner. Earlier this morning after the breathing treatment, the patient became short of breath on 12 L of oxygen and his pulse ox dropped down to the low 80s. He became also tachycardic with a heart rate ranging between 110 and 120 of regular in A. fib. At that point, the patient was placed back on BiPAP at a pressure of 10 #4 with an FiO2 of 50%. His pulse ox is currently back up to 90%. He is receiving Lasix 40 mg IV every 12 hours. The net fluid balance is negative. The patient is producing approximately 1700 of urine output over the past 24 hours. In terms of his blood work, the patient's has a hemoglobin of 7.2, white cell count is at 5.9, BUN is at 37 with a creatinine of 1.3, his serum bicarbonate 28, his troponin was 0.063 respectively, proBNP level was 22,000 and time of admission with a TSH being within normal at 2.2. No fever. No chills. Objective - Vital Signs Vital signs: Vital Signs Temp 98.1 F 06/02/19 04:00 Pulse 118 H 06/02/19 07:50 Resp 23 06/02/19 07:00 BP 141/71 06/02/19 07:00 Pulse Ox 99 06/02/19 07:40 Intake & Output 06/01/19 06/02/19 06/02/19 18:59 06:59 18:59 Intake Total 10 284.908 10 Output Total 250 1700 200 Balance -240 -1415.092 -190 Weight 86.183 kg 83.5 kg Intake: IV 10 120 10 kvo 10 120 10 Intake, IV Titration 164.908 Amount Heparin Sod,Pork in 0.45% 164.908 NaCl 25,000 unit In 0.45 % NaCl 1 250ml.bag @ 11.6 UNITS/KG/HR 9.997 mls/hr IV .Q24H [facility] Rx#: [id number] Output: Urine 250 1500 Other 200 200 Other: Voiding Method Urinal - Exam Gen. appearance, comfortable is a mild degree of respiratory distress currently on BiPAP which she is able to tolerate without any major difficulties, currently on a BiPAP pressure of 10 over 4 cm of water with an FiO2 of 50% Head exam was generally normal. There was no scleral icterus or corneal arcus. Mucous membranes were moist. There is conjunctival pallor no icterus. Neck was supple and without jugular venous distension, thyromegaly, or carotid bruits. Carotids were easily palpable bilaterally. There was no adenopathy. Lungs sounds are diminished in lung bases especially in the right lung base. Few scattered extremity wheezes otherwise clear. The patient has a barrel ches t. Cardiac exam revealed the PMI to be normally situated and sized. The rhythm are consistent with atrial fibrillation and the patient is some rapid ventricular response with a heart rate being in the low 110, and no extrasystoles were noted during several minutes of auscultation. The first and second heart sounds were normal and physiologic splitting of the second heart sound was noted. There were no murmurs, rubs, clicks, or gallops. Abdominal exam revealed normal bowel sounds. The abdomen was soft, non-tender, and without masses, organomegaly, or appreciable enlargement of the abdominal aorta. the patient has anterior abdominal wall hernia which is easily reducible. No direct tenderness amount tensile guarding. Extremities +1 pitting edema. Diminished pulses. There is no cyanosis or clubbing. Examination of the skin revealed no evidence of significant rashes, suspicious appearing nevi or other concerning lesions. Neurologically awake and alert and there is no focal neurological deficit. Psychiatric it is likely depression with anxiety. - Labs CBC & Chem 7: 06/02/19 05:06 06/02/19 05:06 Labs: Abnormal Lab Results - Last 24 Hours (Table) 06/01/19 06/01/19 06/01/19 Range/Units 10:30 10:30 10:30 RBC 2.75 L (4.30-5.90) m/uL Hgb 7.9 L (13.0-17.5) gm/dL Hct 25.0 L (39.0-53.0) % Lymphocytes # 0.3 L (1.0-4.8) k/uL APTT (22.0-30.0) sec Chloride 111 H (98-107) mmol/L BUN 33 H (9-20) mg/dL Creatinine (0.66-1.25) mg/dL Glucose (74-99) mg/dL POC Glucose (mg/dL) (75-99) mg/dL Troponin I 0.064 H* (0.000-0.034) ng/mL Total Protein 5.3 L (6.3-8.2) g/dL Albumin 2.8 L (3.5-5.0) g/dL Free T3 pg/mL 6.1 H (2.8-5.3) pg/ml 06/01/19 06/01/19 06/01/19 Range/Units 17:03 17:38 20:19 RBC (4.30-5.90) m/uL Hgb (13.0-17.5) gm/dL Hct (39.0-53.0) % Lymphocytes # (1.0-4.8) k/uL APTT (22.0-30.0) sec Chloride (98-107) mmol/L BUN (9-20) mg/dL Creatinine (0.66-1.25) mg/dL Glucose (74-99) mg/dL POC Glucose (mg/dL) 156 H 232 H (75-99) mg/dL Troponin I 0.061 H* (0.000-0.034) ng/mL Total Protein (6.3-8.2) g/dL Albumin (3.5-5.0) g/dL Free T3 pg/mL (2.8-5.3) pg/ml 06/01/19 06/01/19 06/01/19 Range/Units 20:47 22:21 22:46 RBC (4.30-5.90) m/uL Hgb (13.0-17.5) gm/dL Hct (39.0-53.0) % Lymphocytes # (1.0-4.8) k/uL APTT 43.5 H (22.0-30.0) sec Chloride (98-107) mmol/L BUN (9-20) mg/dL Creatinine (0.66-1.25) mg/dL Glucose (74-99) mg/dL POC Glucose (mg/dL) 209 H (75-99) mg/dL Troponin I 0.064 H* (0.000-0.034) ng/mL Total Protein (6.3-8.2) g/dL Albumin (3.5-5.0) g/dL Free T3 pg/mL (2.8-5.3) pg/ml 06/02/19 06/02/19 06/02/19 Range/Units 05:06 05:06 05:06 RBC 2.51 L (4.30-5.90) m/uL Hgb 7.2 L (13.0-17.5) gm/dL Hct 23.2 L (39.0-53.0) % Lymphocytes # 0.4 L (1.0-4.8) k/uL APTT 44.2 H (22.0-30.0) sec Chloride (98-107) mmol/L BUN 37 H (9-20) mg/dL Creatinine 1.33 H (0.66-1.25) mg/dL Glucose 185 H (74-99) mg/dL POC Glucose (mg/dL) (75-99) mg/dL Troponin I (0.000-0.034) ng/mL Total Protein 5.5 L (6.3-8.2) g/dL Albumin 2.8 L (3.5-5.0) g/dL Free T3 pg/mL (2.8-5.3) pg/ml 06/02/19 Range/Units 06:55 RBC (4.30-5.90) m/uL Hgb (13.0-17.5) gm/dL Hct (39.0-53.0) % Lymphocytes # (1.0-4.8) k/uL APTT (22.0-30.0) sec Chloride (98-107) mmol/L BUN (9-20) mg/dL Creatinine (0.66-1.25) mg/dL Glucose (74-99) mg/dL POC Glucose (mg/dL) 198 H (75-99) mg/dL Troponin I (0.000-0.034) ng/mL Total Protein (6.3-8.2) g/dL Albumin (3.5-5.0) g/dL Free T3 pg/mL (2.8-5.3) pg/ml Assessment and Plan Plan: 1 new onset atrial fibrillation with rapid ventricle response. Currently the patient is on a combination of metoprolol and IV heparin. Metoprolol was given rack washer knowing that his heart rate was adequate. The patient's heart rate slowed down throughout the night and earlier this morning. However subsequently fluctuating to 110 and 120. We'll given metoprolol 25 mg rack washer and will monitor his blood pressure response and will consider either Cardizem drip or amiodarone drip depending his heart rate and blood pressure response. Continue IV Lasix for now a dose of 40 mg every 12 hours. 2 acute on chronic CHF with diastolic dysfunction. The patient decompensated due to A. fib/RVR and developed increased pulmonary vascular congestion and edema and acute hypoxic respiratory failure and currently the patient on BiPAP. The patient is being diuresis IV Lasix. 3 COPD with chronic hypoxic respiratory failure currently on 3 L of oxygen by nasal cannula 4 hypertensive heart disease with mild concentric LVH, preserved LV function without any significant valvular heart disease or pulmonary hypertension 5 recent hospitalization for a bowel obstruction and the patient large anterior abdominal wall hernia that was reduced and is able to pass bowel movement without any major difficulties 6 Anemia of chronic disease 7 history of colon cancer with previous colectomy and diverting colostomy with subsequent reversal back in 2005 8 diabetes mellitus 9 hypertension 10 hyperlipidemia 11 BPH 12 history of spinal stenosis with degenerative disc disease 13 history of obstructive sleep apnea unable to use CPAP therapy plan Keep the patient ICU Continue BiPAP at a pressure of 10 over 4 cm with an FiO2 of 50% Oral metoprolol 25 mg by mouth twice a day and stop the Norvasc IV Lasix 40 mg every 12 hours Repeat echo IV heparin Cardiology consultation Oral Levaquin Monitor electrolytes Monitor urine output We'll continue to follow.
--- NOTE | 2019-06-02 08:47 | P.CRDCN ---
History of Present Illness Consult date: 06/02/19 History of present illness: This is a 78-year-old gentleman with history of hypertension, hyperlipidemia and also of mild coronary artery disease and chronic diastolic CHF, who was admitted to the hospital with complaints of increasing shortness of breath. He was found to be in atrial fibrillation with a rapid ventricular response. Patient is initiated on warmer Cardizem along with the metoprolol and also diuretics. She is also on IV heparin. Patient has a chronic anemia and also chronic renal failure with hemoglobin usually between 7-9. His hemoglobin on admission was about 7.3. He is feeling better since admission. Echocardiogram in the past showed normal LV function. We'll continue with the current medical therapy and may increase the dose of the oral Cardizem for better control of his heart rate. Long-term anticoagulation could be an issue because of known chronic anemia. Probably ,we'll make switch to Eliquis 5 mg by mouth twice daily. If bleeding and anemia becomes a problem, patient could be constricted for watchman procedure. His troponins are mildly elevated but not consistent with acute coronary injury pattern. Review of Systems REVIEW OF SYSTEMS: CONSTITUTIONAL:. Patient is in moderate respiratory distress. No complaints of fever or chills EYES: Denies diplopia, blurring of vision EARS, NOSE, MOUTH, THROAT: Denies headaches, denies sore throat. CARDIOVASCULAR: As per HPI, RESPIRATORY: As per HPI GASTROINTESTINAL: Denies change in appetite, denies abdominal pain, denies diarrhea GENITOURINARY: Denies hematuria, denies infections. MUSKULOSKELETAL: Denies pain, denies swelling. Denies any cramps or claudication INTEGUMENTARY: Denies rash, denies eczema. NEUROLOGICAL: Denies focal weakness, or visual disturbance. Denies any dizziness or syncope PSYCHIATRIC: Denies anxiety, denies depression. HEMATOLOGIC/LYMPHATIC: Denies any bleeding, denies enlarged lymph nodes. Past Medical History Past Medical History: Cancer, Chest Pain / Angina, Heart Failure, COPD, Diabetes Mellitus, Hyperlipidemia, Hypertension, Pneumonia, Prostate Disorder, Sleep Apnea/CPAP/BIPAP Additional Past Medical History / Comment(s): Artery disease, diastolic heart failure, previous history of colon cancer requiring colectomy with colostomy and subsequent reversal, COPD, chronic hypoxic respiratory failure, diabetes mellitus, hyperlipidemia, BPH, previous history of bowel obstruction, anterior abdominal wall hernia, peripheral neuropathy, glaucoma, retinal disease/detachment/retinopathy, spinal stenosis with degenerative disc disease, History of Any Multi-Drug Resistant Organisms: None Reported Past Surgical History: Appendectomy, Bowel Resection Additional Past Surgical History / Comment(s): bowel resection for colon cancer in 2006, previous colostomy with subsequent reversal due to complications of peritonitis following bowel surgery, cataracts surgery in both eyes, appendectomy, turp Past Anesthesia/Blood Transfusion Reactions: No Reported Reaction Additional Past Anesthesia/Blood Transfusion Reaction / Comment(s): to pt's knowlege never had a blood transfusion Past Psychological History: Anxiety, Depression Additional Psychological History / Comment(s): lives with of 54 years. own home. no home care services.uses walker, home 02 4-5 liters , nebulizer Smoking Status: Former smoker Past Alcohol Use History: None Reported Additional Past Alcohol Use History / Comment(s): started smoking age 13(1953) and quit 1982 smoked 3 ppd Past Drug Use History: None Reported - Past Family History Father Family Medical History: Renal Disease Mother Family Medical History: Cancer Additional Family Medical History / Comment(s): breast cancer, heart problems Medications and Allergies Home Medications Medication Instructions Recorded Confirmed Type Atorvastatin Calcium [Lipitor] 20 mg PO HS 05/19/16 06/01/19 History Aspirin EC [Ecotrin Low Dose] 81 mg PO DAILY 08/22/16 06/01/19 History Budesonide/Formoterol Fumarate 2 puff INHALATION RT-BID 03/09/17 06/01/19 History [Symbicort 160-4.5 Mcg Inhaler] Cholecalciferol (Vitamin D3) 2,000 unit PO DAILY 03/10/17 06/01/19 History [Vitamin D3] Ipratropium-Albuterol Nebulize 3 ml INHALATION RT-QID ampul.neb 04/07/17 06/01/19 Rx [Duoneb 0.5 mg-3 mg/3 ml Soln] Ascorbic Acid [Vitamin C] 500 mg PO DAILY 09/30/17 06/01/19 History Latanoprost Ophth [Xalatan 0.005%] 1 drops BOTH EYES HS 09/30/17 06/01/19 History Sertraline [Zoloft] 150 mg PO DAILY 05/26/18 06/01/19 History Clobetasol Propionate [Temovate 1 applic TOPICAL BID 05/09/19 06/01/19 History 0.05% Cream] Ferrous Sulfate [Feosol] 325 mg PO BID #60 tab 05/14/19 06/01/19 Rx Hydrochlorothiazide [Hydrodiuril] 25 mg PO DAILY #30 tab 05/14/19 06/01/19 Rx Metoprolol Tartrate [Lopressor] 50 mg PO BID #60 tab 05/14/19 06/01/19 Rx amLODIPine [Norvasc] 10 mg PO HS #30 tab 05/14/19 06/01/19 Rx Glucagon Emergency Kit 1 mg PO ONCE PRN 05/28/19 06/01/19 History Insulin NPH Hum/Reg Insulin Hm 20 unit SQ BID 05/28/19 06/01/19 History [NovoLIN 70-30 100 UNIT/ML VIAL] Allergies Allergy/AdvReac Type Severity Reaction Status Date / Time sulfamethoxazole AdvReac RAISES Verified 06/01/19 11:39 [From Bactrim] POTASSIUM trimethoprim [From Bactrim] AdvReac RAISES Verified 06/01/19 11:39 POTASSIUM Physical Exam Vitals: Vital Signs Temp Pulse Pulse Pulse Pulse Resp BP 06/02/19 07:50 118 H 06/02/19 07:40 109 H 06/02/19 07:00 95 23 141/71 06/02/19 06:00 96 16 121/86 06/02/19 05:00 98 21 125/71 06/02/19 04:00 98.1 F 82 75 18 126/77 06/02/19 03:00 103 H 80 16 113/63 06/02/19 02:00 101 H 78 17 114/102 06/02/19 01:00 108 H 97 26 H 105/57 06/02/19 00:00 97.7 F 104 H 77 27 H 117/64 06/01/19 23:36 112 H 06/01/19 23:24 100 06/01/19 23:00 101 H 86 14 101/60 06/01/19 22:26 121 H 21 101/60 06/01/19 22:00 110 H 72 15 103/58 06/01/19 21:00 103 H 87 87 16 111/66 06/01/19 20:32 120 H 06/01/19 20:22 114 H 06/01/19 20:00 98.5 F 121 H 98 18 98/58 06/01/19 19:00 123 H 25 H 106/61 06/01/19 18:00 115 H 21 136/88 06/01/19 17:42 118 H 20 06/01/19 17:32 97.9 F 118 H 20 06/01/19 17:30 117 H 06/01/19 17:17 101 H 18 143/79 06/01/19 17:02 107 H 06/01/19 15:10 100 22 144/90 06/01/19 13:18 104 H 06/01/19 13:08 101 H 06/01/19 11:42 101 H 20 144/62 06/01/19 11:09 87 06/01/19 10:57 90 06/01/19 10:34 109 H 18 126/65 06/01/19 10:00 98.1 F 99 20 99/81 BP Pulse Ox 06/02/19 07:50 06/02/19 07:40 99 06/02/19 07:00 100 06/02/19 06:00 100 06/02/19 05:00 99 06/02/19 04:00 145/74 99 06/02/19 03:00 127/77 99 06/02/19 02:00 145/84 97 06/02/19 01:00 155/90 97 06/02/19 00:00 127/84 98 06/01/19 23:36 06/01/19 23:24 06/01/19 23:00 174/92 98 06/01/19 22:26 99 06/01/19 22:00 161/93 98 06/01/19 21:00 164/98 99 06/01/19 20:32 06/01/19 20:22 06/01/19 20:00 176/107 98 06/01/19 19:00 100 06/01/19 18:00 100 06/01/19 17:42 06/01/19 17:32 136/88 99 06/01/19 17:30 06/01/19 17:17 99 06/01/19 17:02 06/01/19 15:10 100 06/01/19 13:18 06/01/19 13:08 06/01/19 11:42 100 06/01/19 11:09 06/01/19 10:57 06/01/19 10:34 97 06/01/19 10:00 99 Intake and Output 06/01/19 06/02/19 06/02/19 22:59 06:59 14:59 Intake Total 50 244.908 10 Output Total 750 1200 200 Balance -700 -955.092 -190 Intake: IV 50 80 10 kvo 50 80 10 Intake, IV Titration 164.908 Amount Heparin Sod,Pork in 0.45% 164.908 NaCl 25,000 unit In 0.45 % NaCl 1 250ml.bag @ 11.6 UNITS/KG/HR 9.997 mls/hr IV .Q24H [facility] Rx#: [id number] Output: Urine 750 1000 Other 200 200 Other: Voiding Method Urinal Urinal Weight 86.183 kg 83.5 kg GENERAL EXAM: Patient is alert and oriented and appears to be in moderate acute distress HEENT: Normocephalic. Normal reaction of pupils, equal size, normal range of extraocular motion. No erythema or exudates in the throat. NECK: No masses, no nuchal rigidity. CHEST: No chest wall deformity. LUNGS: Diminished air exchange HEART: S1 and S2 normal with no audible mumurs or gallops. Irregular rhythm, femorals equal on both sides.. ABDOMEN: No hepatosplenomegaly, normal bowel sounds, no guarding or rigidity. SKIN: No rashes CENTRAL NERVOUS SYSTEM: No focal deficits. EXTREMITIES: No cyanosis, clubbing or edema. Results 06/02/19 05:06 06/02/19 05:06 Cardiac Enzymes 06/01/19 06/01/19 06/01/19 Range/Units 10:30 10:30 17:38 AST 24 (17-59) U/L Troponin I 0.064 H* 0.061 H* (0.000-0.034) ng/mL 06/01/19 06/02/19 Range/Units 22:46 05:06 AST 22 (17-59) U/L Troponin I 0.064 H* (0.000-0.034) ng/mL Coagulation 06/01/19 06/01/19 06/02/19 Range/Units 10:30 20:47 05:06 PT 10.1 (9.0-12.0) sec APTT 24.6 43.5 H 44.2 H (22.0-30.0) sec CBC 06/01/19 06/02/19 Range/Units 10:30 05:06 WBC 6.6 5.9 (3.8-10.6) k/uL RBC 2.75 L 2.51 L (4.30-5.90) m/uL Hgb 7.9 L 7.2 L (13.0-17.5) gm/dL Hct 25.0 L 23.2 L (39.0-53.0) % Plt Count 227 209 (150-450) k/uL Comprehensive Metabolic Panel 06/01/19 06/02/19 Range/Units 10:30 05:06 Sodium 141 139 (137-145) mmol/L Potassium 4.4 4.0 (3.5-5.1) mmol/L Chloride 111 H 106 (98-107) mmol/L Carbon Dioxide 25 28 (22-30) mmol/L BUN 33 H 37 H (9-20) mg/dL Creatinine 1.17 1.33 H (0.66-1.25) mg/dL Glucose 89 185 H (74-99) mg/dL Calcium 8.6 8.7 (8.4-10.2) mg/dL AST 24 22 (17-59) U/L ALT 20 19 (4-49) U/L Alkaline Phosphatase 93 85 (38-126) U/L Total Protein 5.3 L 5.5 L (6.3-8.2) g/dL Albumin 2.8 L 2.8 L (3.5-5.0) g/dL Current Medications Generic Name Dose Route Start Last Admin Trade Name Freq PRN Reason Stop Dose Admin Acetaminophen 650 mg 06/01/19 14:47 Tylenol Tab PO Q6HR PRN Mild Pain or Fever > 100.5 Albuterol/Ipratropium 3 ml 06/01/19 16:00 06/02/19 07:39 Duoneb 0.5 Mg-3 Mg/3 Ml Soln INHALATION 3 ml RT-QID EILEEN Administration Albuterol/Ipratropium 3 ml 06/01/19 13:18 06/01/19 23:24 Duoneb 0.5 Mg-3 Mg/3 Ml Soln INHALATION 3 ml RT-Q4H PRN Administration shortness of breath Aspirin 81 mg 06/02/19 09:00 Aspirin PO DAILY EILEEN Atorvastatin Calcium 20 mg 06/01/19 21:00 06/01/19 20:48 Lipitor PO 20 mg HS EILEEN Administration Budesonide/Formoterol Fumarate 2 puff 06/01/19 20:00 06/02/19 07:39 Symbicort 160-4.5 Mcg Inhaler INHALATION 2 puff RT-BID EILEEN Administration Ferrous Sulfate 325 mg 06/01/19 21:00 06/01/19 20:48 Feosol PO 325 mg BID EILEEN Administration Furosemide 40 mg 06/01/19 21:00 06/01/19 20:48 Lasix IV 40 mg Q12HR EILEEN Administration Heparin Sodium (Porcine) 0 unit 06/01/19 13:24 06/02/19 06:27 Heparin IV 2,150 unit PER PROTOCOL PRN Administration Low PTT Protocol Hydrochlorothiazide 25 mg 06/02/19 09:00 Hydrodiuril PO DAILY EILEEN Levofloxacin 750 mg/ IV 150 mls @ 100 mls/hr 06/02/19 14:00 Solution IVPB 06/14/19 14:01 Q24H EILEEN Heparin Sodium/Sodium Chloride 250 mls @ 9.997 mls/hr 06/01/19 13:30 06/02/19 06:21 25,000 unit/ Sodium Chloride IV 15.6 units/kg/hr .Q24H [facility] 13.445 mls/hr Titration Protocol 11.6 UNITS/KG/HR Insulin Aspart 20 unit 06/01/19 17:30 06/02/19 07:14 Novolog Mix 70-30 Vial SQ 20 unit AC-BID EILEEN Administration Insulin Aspart 0 unit 06/01/19 17:30 06/02/19 07:15 Novolog SQ 2 unit ACHS EILEEN Administration Protocol Latanoprost 1 drops 06/01/19 21:00 06/01/19 23:41 Xalatan 0.005% BOTH EYES 1 drops HS EILEEN Administration Metoprolol Tartrate 25 mg 06/02/19 09:00 Lopressor PO BID EILEEN Miscellaneous Information 1 each 06/01/19 13:18 Pneumonia Protocol Utilized PO ONCE PRN Per Protocol Naloxone HCl 0.2 mg 06/01/19 14:47 Narcan IV Q2M PRN Opioid Reversal Nitroglycerin 1 inch 06/01/19 13:30 06/01/19 23:18 Nitro-Bid Oint TOPICAL 1 inch QID EILEEN Administration Sertraline HCl 150 mg 06/02/19 09:00 Zoloft PO DAILY EILEEN Sodium Chloride 10 ml 06/01/19 21:00 06/01/19 23:20 Saline Flush IV 10 ml BID EILEEN Administration Intake and Output 06/01/19 06/02/19 06/02/19 22:59 06:59 14:59 Intake Total 50 244.908 10 Output Total 750 1200 200 Balance -700 -955.092 -190 Intake: IV 50 80 10 kvo 50 80 10 Intake, IV Titration 164.908 Amount Heparin Sod,Pork in 0.45% 164.908 NaCl 25,000 unit In 0.45 % NaCl 1 250ml.bag @ 11.6 UNITS/KG/HR 9.997 mls/hr IV .Q24H [facility] Rx#: [id number] Output: Urine 750 1000 Other 200 200 Other: Voiding Method Urinal Urinal Weight 86.183 kg 83.5 kg 06/02/19 05:06 06/02/19 05:06 EKG Interpretations (text) atrial fibrillation with moderately rapid ventricular response Assessment and Plan (1) Atrial fibrillation Current Visit: Yes Status: Acute Code(s): I48.91 - UNSPECIFIED ATRIAL FIBRILLATION SNOMED Code(s): 83832949 (2) Congestive heart failure Current Visit: Yes Status: Acute Code(s): I50.9 - HEART FAILURE, UNSPECIFIED SNOMED Code(s): 71241464 (3) COPD (chronic obstructive pulmonary disease) Current Visit: No Status: Acute Code(s): J44.9 - CHRONIC OBSTRUCTIVE PULMONARY DISEASE, UNSPECIFIED SNOMED Code(s): 17674242 (4) Colon cancer Current Visit: No Status: Acute Code(s): C18.9 - MALIGNANT NEOPLASM OF COLON, UNSPECIFIED SNOMED Code(s): 169874467 (5) Diabetes Current Visit: No Status: Acute Code(s): E11.9 - TYPE 2 DIABETES MELLITUS WITHOUT COMPLICATIONS SNOMED Code(s): 64055094 (6) Elevated troponin Current Visit: No Status: Acute Code(s): R74.8 - ABNORMAL LEVELS OF OTHER SERUM ENZYMES SNOMED Code(s): 207264122 Plan: continue current medical therapy. Increase the dose of either metoprolol or Cardizem for better control of heart rate. Continue heparin. May switch to by mouth Eliquis 5 mg by mouth twice a day. Echocardiogram is pending. Troponin elevation is not consistent with acute coronary syndrome.
[2019-06-02] MEDS: FUROSEMIDE 10 MG/ML 4 ML VIAL IV SCH ×2 (08:48→21:28)
[2019-06-02] MEDS: ASPIRIN 81 MG PO SCH (08:49)
[2019-06-02] MEDS: NITROGLYCERIN OINT 1 INCH/GM PACKET TOPICAL SCH ×4 (08:49→21:27)
[2019-06-02] MEDS: METOPROLOL TARTRATE 25 MG TAB PO SCH ×2 (08:49→21:27)
[2019-06-02] MEDS: FERROUS SULFATE 325 MG TAB PO SCH ×2 (08:49→21:27)
[2019-06-02] MEDS: SERTRALINE 50 MG TAB PO SCH (09:34)
[2019-06-02] MEDS: DILTIAZEM ORAL 60 MG TAB PO SCH ×2 (09:35→21:28)
[2019-06-02] MEDS ORDERED: IPRATROPIUM-ALBUTEROL 3 ML NEB INHALATION PRN (09:57)
--- NOTE | 2019-06-02 09:59 | P.PN ---
Subjective Progress Note Date: 06/02/19 Principal diagnosis: Pneumonia Patient states that he felt worse after the breathing treatment this am. No cp or palpitations. Objective - Vital Signs Vital signs: Vital Signs Temp 98.1 F 06/02/19 04:00 Pulse 118 H 06/02/19 07:50 Resp 23 06/02/19 07:00 BP 141/71 06/02/19 07:00 Pulse Ox 99 06/02/19 07:40 Intake & Output 06/01/19 06/02/19 06/02/19 18:59 06:59 18:59 Intake Total 10 284.908 10 Output Total 250 1700 200 Balance -240 -1415.092 -190 Weight 86.183 kg 83.5 kg Intake: IV 10 120 10 kvo 10 120 10 Intake, IV Titration 164.908 Amount Heparin Sod,Pork in 0.45% 164.908 NaCl 25,000 unit In 0.45 % NaCl 1 250ml.bag @ 11.6 UNITS/KG/HR 9.997 mls/hr IV .Q24H [facility] Rx#: [id number] Output: Urine 250 1500 Other 200 200 Other: Voiding Method Urinal - Exam Constitutional: mild respiratory distress, conversant, pleasant Eyes:Anicteric sclerae, moist conjunctiva, no lid-lag, PERRLA, ENMT: Oropharynx clear, no erythema, exudates Neck: Supple, FROM, no masses, or JVD, No carotid bruits, No thyromegaly Lungs: bilateral rhonchi, scattered, no wheezing, Clear to percussion, Normal respiratory effort, no accessory muscle use Cardiovascular: slightly tachycardic, irregularly irregular, no murmurs, gallops, or rubs, 1+ peripheral edema Abdominal: Soft, Nontender, abdominal hernia. no guarding, rebound or rigidity, Normoactive bowel sounds, No hepatomegaly, No splenomegaly, No palpable mass Skin: Normal temperature, tone, texture, turgor, no induration, No subcutaneous nodules, No rash, lesions, No ulcers Extremities: No digital cyanosis, No clubbing, Pedal pulses intact and symmetrical, Radial pulses intact and symmetrical, No calf tenderness Psychiatric: Alert and oriented to person, place and time, appropriate affect, intact judgement Neuro: Muscles Strength 5/5 in all 4 extremities, Sensation to light touch grossly present throughout, Cranial nerves II-XII grossly intact, no focal sensory deficits - Labs CBC & Chem 7: 06/02/19 05:06 06/02/19 05:06 Labs: Abnormal Lab Results - Last 24 Hours (Table) 06/01/19 06/01/19 06/01/19 Range/Units 10:30 10:30 10:30 RBC 2.75 L (4.30-5.90) m/uL Hgb 7.9 L (13.0-17.5) gm/dL Hct 25.0 L (39.0-53.0) % Lymphocytes # 0.3 L (1.0-4.8) k/uL APTT (22.0-30.0) sec Chloride 111 H (98-107) mmol/L BUN 33 H (9-20) mg/dL Creatinine (0.66-1.25) mg/dL Glucose (74-99) mg/dL POC Glucose (mg/dL) (75-99) mg/dL Troponin I 0.064 H* (0.000-0.034) ng/mL Total Protein 5.3 L (6.3-8.2) g/dL Albumin 2.8 L (3.5-5.0) g/dL Free T3 pg/mL 6.1 H (2.8-5.3) pg/ml 06/01/19 06/01/19 06/01/19 Range/Units 17:03 17:38 20:19 RBC (4.30-5.90) m/uL Hgb (13.0-17.5) gm/dL Hct (39.0-53.0) % Lymphocytes # (1.0-4.8) k/uL APTT (22.0-30.0) sec Chloride (98-107) mmol/L BUN (9-20) mg/dL Creatinine (0.66-1.25) mg/dL Glucose (74-99) mg/dL POC Glucose (mg/dL) 156 H 232 H (75-99) mg/dL Troponin I 0.061 H* (0.000-0.034) ng/mL Total Protein (6.3-8.2) g/dL Albumin (3.5-5.0) g/dL Free T3 pg/mL (2.8-5.3) pg/ml 06/01/19 06/01/19 06/01/19 Range/Units 20:47 22:21 22:46 RBC (4.30-5.90) m/uL Hgb (13.0-17.5) gm/dL Hct (39.0-53.0) % Lymphocytes # (1.0-4.8) k/uL APTT 43.5 H (22.0-30.0) sec Chloride (98-107) mmol/L BUN (9-20) mg/dL Creatinine (0.66-1.25) mg/dL Glucose (74-99) mg/dL POC Glucose (mg/dL) 209 H (75-99) mg/dL Troponin I 0.064 H* (0.000-0.034) ng/mL Total Protein (6.3-8.2) g/dL Albumin (3.5-5.0) g/dL Free T3 pg/mL (2.8-5.3) pg/ml 06/02/19 06/02/19 06/02/19 Range/Units 05:06 05:06 05:06 RBC 2.51 L (4.30-5.90) m/uL Hgb 7.2 L (13.0-17.5) gm/dL Hct 23.2 L (39.0-53.0) % Lymphocytes # 0.4 L (1.0-4.8) k/uL APTT 44.2 H (22.0-30.0) sec Chloride (98-107) mmol/L BUN 37 H (9-20) mg/dL Creatinine 1.33 H (0.66-1.25) mg/dL Glucose 185 H (74-99) mg/dL POC Glucose (mg/dL) (75-99) mg/dL Troponin I (0.000-0.034) ng/mL Total Protein 5.5 L (6.3-8.2) g/dL Albumin 2.8 L (3.5-5.0) g/dL Free T3 pg/mL (2.8-5.3) pg/ml 06/02/19 Range/Units 06:55 RBC (4.30-5.90) m/uL Hgb (13.0-17.5) gm/dL Hct (39.0-53.0) % Lymphocytes # (1.0-4.8) k/uL APTT (22.0-30.0) sec Chloride (98-107) mmol/L BUN (9-20) mg/dL Creatinine (0.66-1.25) mg/dL Glucose (74-99) mg/dL POC Glucose (mg/dL) 198 H (75-99) mg/dL Troponin I (0.000-0.034) ng/mL Total Protein (6.3-8.2) g/dL Albumin (3.5-5.0) g/dL Free T3 pg/mL (2.8-5.3) pg/ml Assessment and Plan Plan: Acute on chronic hypoxic respiratory failure, likely secondary to healthcare associated pneumonia, acute exacerbation of diastolic congestive heart failure Requiring BiPAP on and off Continue Levaquin Continue lasix IV 40 mg twice a day DuoNebs every 6 hours and every 4 hours when necessary Monitor I's and O's Discussed with pulmonary service New-onset atrial fibrillation Seen by cardiology Heparin drip Vaishnavi added for rate control, continue metoprolol Chronic conditions CK D stage III Hypertension Diabetes mellitus, insulin sliding scale COPD currently compensated Continue home meds CODE STATUS: no code DVT prophylaxis: mechanical Discussed with: Patient, Dr. Vaughn Anticipated discharge place: pending clinical course A total of 35 minutes was spent on the care of this complex patient more than 50% of the time was spent in counseling and care coordination.
[2019-06-02 11:24] VITALS: BMI 25.7
[2019-06-02 11:52] LABS: Glucose,Whole Blood 113 mg/dL (75-99)
[2019-06-02] MEDS ORDERED: ASPIRIN 325 MG TAB PO SCH (13:19)
[2019-06-02] MEDS ORDERED: LEVOFLOXACIN 750MG-D5W PMX 750 MG in DEXTROSE/WATER 1 150ML.BAG IVPB SCH (14:00)
[2019-06-02] MEDS: HEPARIN SOD,PORK IN 0.45% NACL 25,000 UNIT in 0.45% NACL 1 250ML.BAG IV SCH (14:21)
[2019-06-02] MEDS ORDERED: VANCOMYCIN 1,500 MG in SODIUM CHLORIDE 0.9% 250 ML IVPB ONE (15:00)
[2019-06-02] MEDS: LEVOFLOXACIN 750 MG TAB PO SCH (16:24)
[2019-06-02] MEDS: HYDROCHLOROTHIAZIDE 25 MG TAB PO SCH (16:26)
[2019-06-02 17:10] LABS: Glucose,Whole Blood 141 mg/dL (75-99)
[2019-06-02 20:37] LABS: Glucose,Whole Blood 87 mg/dL (75-99)
[2019-06-02] MEDS: ATORVASTATIN 20 MG TAB PO SCH (21:27)
[2019-06-02] MEDS: LATANOPROST 0.005% OPHTH DROPS 2.5 ML BTL BOTH EYES SCH (21:28)
[2019-06-03 04:53] LABS: Basophils % (A) 0 %; Eosinophils # (A) 0.2 k/uL (0-0.7); Eosinophils % (A) 3 %; HCT 22.3 % (39.0-53.0); Hypochromasia Moderate; Lymphocytes # (A) 0.5 k/uL (1.0-4.8); Lymphocytes % (A) 9 %; MCH 28.9 pg (25.0-35.0); MCHC 31.4 g/dL (31.0-37.0); Mean Platelet Volume 9.1; Monocytes # (A) 0.3 k/uL (0-1.0); Monocytes % (A) 7 %; Neutrophils # (A) 4.2 k/uL (1.3-7.7); Neutrophils % (A) 79 %; Platelet Count 222 k/uL (150-450); RBC 2.42 m/uL (4.30-5.90); RDW 14.2 % (11.5-15.5); WBC 5.3 k/uL (3.8-10.6)
[2019-06-03 05:05] LABS: Calcium 8.5 mg/dL (8.4-10.2); Magnesium 1.7 mg/dL (1.6-2.3); Phosphorus 3.3 mg/dL (2.5-4.5); Potassium 3.8 mmol/L (3.5-5.1)
[2019-06-03] MEDS ORDERED: Potassium Replacement Protocol 1 EACH MISC MISCELLANE PRN (05:57)
[2019-06-03] MEDS ORDERED: POTASSIUM CHLORIDE ER 20 MEQ TAB.ER PO SCH (06:00)
--- NOTE | 2019-06-03 06:23 | XR ---
EXAMINATION TYPE: XR chest 1V portable DATE OF EXAM: 06/03/2019 HISTORY: shortness of breath . REFERENCE: Previous study dated 06/02/2019. FINDINGS: There continues to be bibasilar airspace disease, worse on the right the left. There are bi lateral effusions. Effusion on the right appears loculated. The heart is enlarged. IMPRESSION: 1. CONTINUING BIBASILAR AIRSPACE DISEASE. 2. BILATERAL EFFUSIONS WHICH MAY BE LOCULATED ON THE RIGHT.
[2019-06-03 06:58] LABS: Glucose,Whole Blood 140 mg/dL (75-99)
[2019-06-03] MEDS: SYMBICORT 160-4.5 MCG INHALER INHALATION SCH (07:05)
[2019-06-03] MEDS: INSULIN ASPART (NovoLOG) 100 UNIT/ML VIAL SQ SCH ×3 (07:17→16:57)
[2019-06-03] MEDS: ASPIRIN 81 MG PO SCH (09:05)
[2019-06-03] MEDS: METOPROLOL TARTRATE 25 MG TAB PO SCH (09:05)
[2019-06-03] MEDS: FUROSEMIDE 10 MG/ML 4 ML VIAL IV SCH (09:05)
[2019-06-03] MEDS: FERROUS SULFATE 325 MG TAB PO SCH (09:05)
[2019-06-03] MEDS: NITROGLYCERIN OINT 1 INCH/GM PACKET TOPICAL SCH ×2 (09:05→14:34)
[2019-06-03] MEDS: SERTRALINE 50 MG TAB PO SCH (09:06)
[2019-06-03] MEDS: HYDROCHLOROTHIAZIDE 25 MG TAB PO SCH (09:07)
[2019-06-03] MEDS: DILTIAZEM ORAL 60 MG TAB PO SCH (09:07)
--- NOTE | 2019-06-03 11:28 | P.PN ---
Subjective Progress Note Date: 06/03/19 This is a 78-year-old gentleman with history of COPD and diastolic CHF and preserved LV function is admitted to the hospital with increasing shortness of breath. Patient is also [place] fibrillation. His rate is better controlled today. He still complaining of shortness of breath. His chest x-ray showed bilateral effusion with a right-sided loculated fluid. Denies any chest pain. His proBNP is elevated. Chest x-ray doesn't show much vascular congestion. Patient is on IV Lasix. We'll continue current medical therapy. His symptoms are mostly pulmonary rather than cardiac Objective - Vital Signs Vital signs: Vital Signs Temp 98 F 06/03/19 08:00 Pulse 85 06/03/19 10:00 Resp 24 06/03/19 10:00 BP 112/53 06/03/19 10:00 Pulse Ox 98 06/03/19 10:00 Intake & Output 06/02/19 06/03/19 06/03/19 18:59 06:59 18:59 Intake Total 205.092 120 40 Output Total 1300 1550 400 Balance -1094.908 -1430 -360 Weight 83.5 kg 81.8 kg Intake: IV 120 120 40 kvo 120 120 40 Intake, IV Titration 85.092 Amount Heparin Sod,Pork in 0.45% 85.092 NaCl 25,000 unit In 0.45 % NaCl 1 250ml.bag @ 11.6 UNITS/KG/HR 9.997 mls/hr IV .Q24H [facility] Rx#: [id number] Output: Urine 1100 1550 400 Other 200 Other: Voiding Method Urinal Urinal Urinal # Voids 1 - Exam GENERAL EXAM: Patient is alert and oriented and doesn't appear to be in moderate respiratory distress HEENT: Normocephalic. Normal reaction of pupils, equal size, normal range of extraocular motion. No erythema or exudates in the throat. NECK: No masses, no nuchal rigidity. CHEST: No chest wall deformity. LUNGS: Diminished breath sounds HEART: S1 and S2 normal with no audible mumurs or gallops. Regular rhythm, femorals equal on both sides.. ABDOMEN: No hepatosplenomegaly, normal bowel sounds, no guarding or rigidity. SKIN: No rashes CENTRAL NERVOUS SYSTEM: No focal deficits. EXTREMITIES: No cyanosis, clubbing or edema. - Labs CBC & Chem 7: 06/03/19 04:20 06/03/19 04:20 Labs: Abnormal Lab Results - Last 24 Hours (Table) 06/02/19 06/02/19 06/02/19 Range/Units 11:49 13:03 17:08 RBC (4.30-5.90) m/uL Hgb (13.0-17.5) gm/dL Hct (39.0-53.0) % Lymphocytes # (1.0-4.8) k/uL APTT 48.4 H (22.0-30.0) sec BUN (9-20) mg/dL Creatinine (0.66-1.25) mg/dL Glucose (74-99) mg/dL POC Glucose (mg/dL) 113 H 141 H (75-99) mg/dL 06/03/19 06/03/19 06/03/19 Range/Units 04:20 04:20 04:20 RBC 2.42 L (4.30-5.90) m/uL Hgb 7.0 L (13.0-17.5) gm/dL Hct 22.3 L (39.0-53.0) % Lymphocytes # 0.5 L (1.0-4.8) k/uL APTT 53.2 H (22.0-30.0) sec BUN 36 H (9-20) mg/dL Creatinine 1.42 H (0.66-1.25) mg/dL Glucose 123 H (74-99) mg/dL POC Glucose (mg/dL) (75-99) mg/dL 06/03/19 Range/Units 06:56 RBC (4.30-5.90) m/uL Hgb (13.0-17.5) gm/dL Hct (39.0-53.0) % Lymphocytes # (1.0-4.8) k/uL APTT (22.0-30.0) sec BUN (9-20) mg/dL Creatinine (0.66-1.25) mg/dL Glucose (74-99) mg/dL POC Glucose (mg/dL) 140 H (75-99) mg/dL Microbiology - Last 24 Hours (Table) 06/02/19 10:40 Gram Stain - Preliminary Sputum Sputum Culture - Preliminary 12/20/19 10:38 Blood Culture Gram Stain - Preliminary Blood Blood Culture - Preliminary Coagulase Negative Staph 06/01/19 10:38 Blood Culture - Final Blood Assessment and Plan (1) Atrial fibrillation Current Visit: Yes Status: Acute Code(s): I48.91 - UNSPECIFIED ATRIAL FIBRILLATION SNOMED Code(s): 44651836 (2) Congestive heart failure Current Visit: Yes Status: Acute Code(s): I50.9 - HEART FAILURE, UNSPECIFIED SNOMED Code(s): 44114951 (3) COPD (chronic obstructive pulmonary disease) Current Visit: No Status: Acute Code(s): J44.9 - CHRONIC OBSTRUCTIVE PULMONARY DISEASE, UNSPECIFIED SNOMED Code(s): 53875041 (4) Colon cancer Current Visit: No Status: Acute Code(s): C18.9 - MALIGNANT NEOPLASM OF COLON, UNSPECIFIED SNOMED Code(s): 818599502 (5) Diabetes Current Visit: No Status: Acute Code(s): E11.9 - TYPE 2 DIABETES MELLITUS WITHOUT COMPLICATIONS SNOMED Code(s): 92377712 (6) Elevated troponin Current Visit: No Status: Acute Code(s): R74.8 - ABNORMAL LEVELS OF OTHER SERUM ENZYMES SNOMED Code(s): 402116875 Plan: continue current medical therapy. Increase the dose of either metoprolol or Cardizem for better control of heart rate. Continue heparin. May switch to by mouth Eliquis 5 mg by mouth twice a day. Echocardiogram is pending. Troponin elevation is not consistent with acute coronary syndrome. 06/03/2019: Patient is still complaining of shortness of breath. His heart rate is better controlled. Start him on Eliquis 5 mg by mouth twice a day for anticoagulation. Continue with IV Lasix and test of the medication. Prognosis is guarded
[2019-06-03 11:52] LABS: Glucose,Whole Blood 135 mg/dL (75-99)
--- NOTE | 2019-06-03 12:12 | P.PN ---
Subjective Progress Note Date: 06/03/19 78-year-old male patient came into the ED with worsening shortness of breath. He was found to be new onset atrial fibrillation with rapid ventricular response. While in ED, he became progressively more short of breath and currently is on a BiPAP. Initially was on 4 L of oxygen by nasal cannula and he currently is on a BiPAP at a pressure of 12/5 cm of water which is tolerating well. He has also noted some increased lower extremity edema. He has history of diastolic heart failure. He has had previous pleural effusion that was somewhat loculated on the right and drainage was done back in April 2019 was a transudate consistent with CHF. During this current admission, his proBNP level is above 20,000. Upon is at 0.064. No significant leukocytosis. No chest pain. No cough or sputum production. He has increased lower extremity edema. No altered mentation. His previous echocardiogram from an earlier admission showed an ejection fraction of 55-60% with concentric LVH, [id number] MR, no pulmonary hypertension. He is known to have coronary artery disease, hyperlipidemia and BPH and remote history of colon cancer that was treated back in 2015 with colectomy and diverting colostomy with subsequent reversal. He has large anterior abdominal wall hernia and he was hospitalized around 10 days ago for a bowel obstruction and he was found to have an incarcerated hernia that was reduced. He did not require any surgical intervention. He is diabetic and has also COPD and chronic hypoxic respiratory failure with he was maintained on 3 L about 2 by nasal cannula. On 06/02/2019Patient is being seen in follow-up. Currently is in the intensive care unit. I saw him in the ED yesterday and I'm moved into the intensive care unit where he was kept on BiPAP initially and later on was placed on 12 L of oxygen by nasal cannula. According to the nursing staff he did well throughout the night and he was quite comfortable and he was able to have dinner. Earlier this morning after the breathing treatment, the patient became short of breath on 12 L of oxygen and his pulse ox dropped down to the low 80s. He became also tachycardic with a heart rate ranging between 110 and 120 of regular in A. fib. At that point, the patient was placed back on BiPAP at a pressure of 10 #4 with an FiO2 of 50%. His pulse ox is currently back up to 90%. He is receiving Lasix 40 mg IV every 12 hours. The net fluid balance is negative. The patient is producing approximately 1700 of urine output over the past 24 hours. In terms of his blood work, the patient's has a hemoglobin of 7.2, white cell count is at 5.9, BUN is at 37 with a creatinine of 1.3, his serum bicarbonate 28, his troponin was 0.063 respectively, proBNP level was 22,000 and time of admission with a TSH being within normal at 2.2. No fever. No chills. on 06/03/2019, the patient is still on a BiPAP. The patient is struggling with his breathing. Unable to come off the BiPAP for now as the patient is quite s hort of breathand he seems to be BiPAP dependent for now. I have him on IV Lasix Abdomen is up to 1.4 with a BUN of 36. His chest x-ray shows no acute abnormalities. There is a loculated left-sided pleural effusion which has drained in the past and that do not to be transferred here to [facility]. The patient was a bit anxious. Certainly with his breathing while on the BiPAP. He is on IV heparin. He is on a oral Cardizem 60 mg by mouth twice a day. No fever. No chills. No altered mentation. He is also in atrial fibrillation. Objective - Vital Signs Vital signs: Vital Signs Temp 98 F 06/03/19 08:00 Pulse 85 06/03/19 10:00 Resp 24 06/03/19 10:00 BP 112/53 06/03/19 10:00 Pulse Ox 98 06/03/19 10:00 Intake & Output 06/02/19 06/03/19 06/03/19 18:59 06:59 18:59 Intake Total 205.092 120 40 Output Total 1300 1550 400 Balance -2634.908 -4530 -380 Weight 83.5 kg 81.8 kg Intake: IV 120 120 40 kvo 120 120 40 Intake, IV Titration 85.092 Amount Heparin Sod,Pork in 0.45% 85.092 NaCl 25,000 unit In 0.45 % NaCl 1 250ml.bag @ 11.6 UNITS/KG/HR 9.997 mls/hr IV .Q24H [facility] Rx#: [id number] Output: Urine 1100 1550 400 Other 200 Other: Voiding Method Urinal Urinal Urinal # Voids 1 - Exam Gen. appearance, comfortable is a mild degree of respiratory distress currently on BiPAP which she is able to tolerate without any major difficulties, currently on a BiPAP pressure of 10 over 4 cm of water with an FiO2 of 50% Head exam was generally normal. There was no scleral icterus or corneal arcus. Mucous membranes were moist. There is conjunctival pallor no icterus. Neck was supple and without jugular venous distension, thyromegaly, or carotid bruits. Carotids were easily palpable bilaterally. There was no adenopathy. Lungs sounds are diminished in lung bases especially in the right lung base. Few scattered extremity wheezes otherwise clear. The patient has a barrel chest. Cardiac exam revealed the PMI to be normally situated and sized. The rhythm are consistent with atrial fibrillation and the patient is some rapid ventricular response with a heart rate being in the low 110, and no extrasystoles were noted during several minutes of auscultation. The first and second heart sounds were normal and physiologic splitting of the second heart sound was noted. There were no murmurs, rubs, clicks, or gallops. Abdominal exam revealed normal bowel sounds. The abdomen was soft, non-tender, and without masses, organomegaly, or appreciable enlargement of the abdominal aorta. the patient has anterior abdominal wall hernia which is easily reducible. No direct tenderness amount tensile guarding. Extremities +1 pitting edema. Diminished pulses. There is no cyanosis or clubbing. Examination of the skin revealed no evidence of significant rashes, suspicious appearing nevi or other concerning lesions. Neurologically awake and alert and there is no focal neurological deficit. Psychiatric it is likely depression with anxiety. - Labs CBC & Chem 7: 06/03/19 04:20 06/03/19 04:20 Labs: Abnormal Lab Results - Last 24 Hours (Table) 06/02/19 06/02/19 06/03/19 Range/Units 13:03 17:08 04:20 RBC 2.42 L (4.30-5.90) m/uL Hgb 7.0 L (13.0-17.5) gm/dL Hct 22.3 L (39.0-53.0) % Lymphocytes # 0.5 L (1.0-4.8) k/uL APTT 48.4 H (22.0-30.0) sec BUN (9-20) mg/dL Creatinine (0.66-1.25) mg/dL Glucose (74-99) mg/dL POC Glucose (mg/dL) 141 H (75-99) mg/dL 06/03/19 06/03/19 06/03/19 Range/Units 04:20 04:20 06:56 RBC (4.30-5.90) m/uL Hgb (13.0-17.5) gm/dL Hct (39.0-53.0) % Lymphocytes # (1.0-4.8) k/uL APTT 53.2 H (22.0-30.0) sec BUN 36 H (9-20) mg/dL Creatinine 1.42 H (0.66-1.25) mg/dL Glucose 123 H (74-99) mg/dL POC Glucose (mg/dL) 140 H (75-99) mg/dL 06/03/19 Range/Units 11:51 RBC (4.30-5.90) m/uL Hgb (13.0-17.5) gm/dL Hct (39.0-53.0) % Lymphocytes # (1.0-4.8) k/uL APTT (22.0-30.0) sec BUN (9-20) mg/dL Creatinine (0.66-1.25) mg/dL Glucose (74-99) mg/dL POC Glucose (mg/dL) 135 H (75-99) mg/dL Microbiology - Last 24 Hours (Table) 06/02/19 10:40 Gram Stain - Preliminary Sputum Sputum Culture - Preliminary 06/01/19 10:38 Blood Culture Gram Stain - Preliminary Blood Blood Culture - Preliminary Coagulase Negative Staph 06/01/19 10:38 Blood Culture - Final Blood Assessment and Plan Plan: 1 new onset atrial fibrillation with rapid ventricle response. patient is still in atrial fibrillation. He is on IV heparin. Is on oral metoprolol and Cardizem for now. 2 acute on chronic CHF with diastolic dysfunction. The patient decompensated due to A. fib/RVR and developed increased pulmonary vascular congestion and edema and acute hypoxic respiratory failure and currently the patient on BiPAP. The patient is being diuresis IV Lasix. 3 COPD with chronic hypoxic respiratory failure currently At apressure of 10 over 4 cm of water and FiO2 of 35% 4 hypertensive heart disease with mild concentric LVH, preserved LV function without any significant valvular heart disease or pulmonary hypertension 5 recent hospitalization for a bowel obstruction and the patient large anterior abdominal wall hernia that was reduced and is able to pass bowel movement without any major difficulties 6 Anemia of chronic disease 7 history of colon cancer with previous colectomy and diverting colostomy with subsequent reversal back in 2005 8 diabetes mellitus 9 hypertension 10 hyperlipidemia 11 BPH 12 history of spinal stenosis with degenerative disc disease 13 history of obstructive sleep apnea unable to use CPAP therapy plan Keep the patient ICU Continue BiPAP at a pressure of 10 over 4 cm with an FiO2 of 50% Oral metoprolol 25 mg by mouth twice a day and stop the Norvasc, continue IV heparin and continue the oral Cardizem IV Lasix 40 mg every 12 hours oral Levaquin Continue BiPAP The patient expressed wishes for comfort care measures. I think she'll get another 24 hours of inpatient treatment to try to diabetes and optimize his CHF and volume status and his atrial fibrillation. A final decision will be done with the next 24 hours. CODE STATUS to DNR/DNI.
--- NOTE | 2019-06-03 13:18 | P.PN ---
Subjective Progress Note Date: 06/03/19 Principal diagnosis: Pneumonia Patient is still requiring BiPAP on and off over the last 24 hours. He still has severe shortness of breath and hypoxia. No pain. Objective - Vital Signs Vital signs: Vital Signs Temp 98 F 06/03/19 08:00 Pulse 85 06/03/19 10:00 Resp 24 06/03/19 10:00 BP 112/53 06/03/19 10:00 Pulse Ox 98 06/03/19 10:00 Intake & Output 06/02/19 06/03/19 06/03/19 18:59 06:59 18:59 Intake Total 205.092 120 40 Output Total 1300 1550 400 Balance -1094.908 -5250 -360 Weight 83.5 kg 81.8 kg Intake: IV 120 120 40 kvo 120 120 40 Intake, IV Titration 85.092 Amount Heparin Sod,Pork in 0.45% 85.092 NaCl 25,000 unit In 0.45 % NaCl 1 250ml.bag @ 11.6 UNITS/KG/HR 9.997 mls/hr IV .Q24H [facility] Rx#: [id number] Output: Urine 1100 1550 400 Other 200 Other: Voiding Method Urinal Urinal Urinal # Voids 1 - Exam Constitutional: mild respiratory distress, conversant, pleasant Eyes:Anicteric sclerae, moist conjunctiva, no lid-lag, PERRLA, ENMT: Oropharynx clear, no erythema, exudates Neck: Supple, FROM, no masses, or JVD, No carotid bruits, No thyromegaly Lungs: bilateral rhonchi, scattered, no wheezing, Clear to percussion, Normal respiratory effort, no accessory muscle use Cardiovascular: slightly tachycardic, irregularly irregular, no murmurs, gallops, or rubs, 1+ peripheral edema Abdominal: Soft, Nontender, abdominal hernia. no guarding, rebound or rigidity, Normoactive bowel sounds, No hepatomegaly, No splenomegaly, No palpable mass Skin: Normal temperature, tone, texture, turgor, no induration, No subcutaneous nodules, No rash, lesions, No ulcers Extremities: No digital cyanosis, No clubbing, Pedal pulses intact and symmetrical, Radial pulses intact and symmetrical, No calf tenderness Psychiatric: Alert and oriented to person, place and time, appropriate affect, intact judgement Neuro: Muscles Strength 5/5 in all 4 extremities, Sensation to light touch grossly present throughout, Cranial nerves II-XII grossly intact, no focal sensory deficits - Labs CBC & Chem 7: 06/03/19 04:20 06/03/19 04:20 Labs: Abnormal Lab Results - Last 24 Hours (Table) 06/02/19 06/02/19 06/03/19 Range/Units 13:03 17:08 04:20 RBC 2.42 L (4.30-5.90) m/uL Hgb 7.0 L (13.0-17.5) gm/dL Hct 22.3 L (39.0-53.0) % Lymphocytes # 0.5 L (1.0-4.8) k/uL APTT 48.4 H (22.0-30.0) sec BUN (9-20) mg/dL Creatinine (0.66-1.25) mg/dL Glucose (74-99) mg/dL POC Glucose (mg/dL) 141 H (75-99) mg/dL 06/03/19 06/03/19 06/03/19 Range/Units 04:20 04:20 06:56 RBC (4.30-5.90) m/uL Hgb (13.0-17.5) gm/dL Hct (39.0-53.0) % Lymphocytes # (1.0-4.8) k/uL APTT 53.2 H (22.0-30.0) sec BUN 36 H (9-20) mg/dL Creatinine 1.42 H (0.66-1.25) mg/dL Glucose 123 H (74-99) mg/dL POC Glucose (mg/dL) 140 H (75-99) mg/dL 06/03/19 Range/Units 11:51 RBC (4.30-5.90) m/uL Hgb (13.0-17.5) gm/dL Hct (39.0-53.0) % Lymphocytes # (1.0-4.8) k/uL APTT (22.0-30.0) sec BUN (9-20) mg/dL Creatinine (0.66-1.25) mg/dL Glucose (74-99) mg/dL POC Glucose (mg/dL) 135 H (75-99) mg/dL Microbiology - Last 24 Hours (Table) 06/02/19 10:40 Gram Stain - Preliminary Sputum Sputum Culture - Preliminary 06/01/19 10:38 Blood Culture Gram Stain - Preliminary Blood Blood Culture - Preliminary Coagulase Negative Staph 06/01/19 10:38 Blood Culture - Final Blood Assessment and Plan Plan: Acute on chronic hypoxic respiratory failure, likely secondary to healthcare associated pneumonia, acute exacerbation of diastolic congestive heart failure, bilateral pleural effusions loculated on the right Requiring BiPAP on and off Continue Levaquin Continue lasix IV 40 mg twice a day DuoNebs every 6 hours and every 4 hours when necessary Monitor I's and O's Discussed with cardio and pulmonary service Possible comfort measures depending on how he does the next [address] Vaughn against thoracentesis as it is a risky procedure. New-onset atrial fibrillation Seen by cardiology D/C heparin as hgb drifting down Cardizem added for rate control, continue metoprolol--rate better now Acute on chronic anemia Chronic anemia likely sec to chronic disease D/W dr. Sheehan, will hold heparin, check iron profile and ferritin and re evaluate in am. Chronic conditions CK D stage III Hypertension Diabetes mellitus, insulin sliding scale COPD currently compensated Continue home meds CODE STATUS: no code DVT prophylaxis: mechanical Discussed with: Patient, Dr. Vaughn, Dr. Sheehan Anticipated discharge place: pending clinical course A total of 35 minutes was spent on the care of this complex patient more than 50% of the time was spent in counseling and care coordination.
[2019-06-03 13:36] LABS: Glucose,Whole Blood 130 mg/dL (75-99)
[2019-06-03] MEDS: LEVOFLOXACIN 750 MG TAB PO SCH (14:35)
[2019-06-03 16:07] VITALS: BP 114/60
[2019-06-03 16:53] LABS: Glucose,Whole Blood 243 mg/dL (75-99)
[2019-06-03] MEDS: INSULN ASP PRT/INSULIN ASPART 100 UNIT/ML 10 ML VIAL SQ SCH ×2 (16:53→16:56)
[2019-06-03] MEDS ORDERED: MORPHINE SULFATE 2 MG/ML SYRINGE IV PRN (17:40)
[2019-06-03] MEDS ORDERED: ATROPINE OPHTH SOLN 1% 5ML BTL SUBLINGUAL PRN (17:40)
[2019-06-03] MEDS ORDERED: SCOPOLAMINE 1.5MG/72HR PATCH TRANSDERM SCH (18:00)
[2019-06-03] MEDS: MORPHINE SULFATE (100 MG/2 ML) 100 MG in SODIUM CHLORIDE 0.9% 100 ML IV SCH ×2 (18:02→22:15)
[2019-06-03] MEDS ORDERED: APIXABAN 5 MG TAB PO SCH (21:00)
[2019-06-04] MEDS: LATANOPROST 0.005% OPHTH DROPS 2.5 ML BTL BOTH EYES SCH ×2 (01:25→22:05)
[2019-06-04] MEDS: MORPHINE SULFATE (100 MG/2 ML) 100 MG in SODIUM CHLORIDE 0.9% 100 ML IV SCH ×6 (01:26→20:56)
[2019-06-04] MEDS ORDERED: FUROSEMIDE 10 MG/ML 4 ML VIAL IV SCH (09:00)
--- NOTE | 2019-06-04 09:38 | CDI ---
Documentation Clarification Form Date: 06/04/2019 09:10:20 AM From: Jerica Kahn RN CCDS Admit Date: 06/01/2019 01:23:00 PM Patient Name: Ralph Krishna Visit Number: [id number] Discharge Date: ATTENTION: The Clinical Documentation Specialists (CDI) and [facility] Coding Staff appreciate your assistance in clarifying documentation. Please respond to the clarification below the line at the bottom and electronically sign. The CDI & [facility] Coding staff will review the response and follow-up if needed. Please note: Queries are made part of the Legal Health Record. If you have any questions, please contact the author of this message via ITS. Dr. [facility] associated pneumonia is documented in the H & P and in subsequent documentation History/Risk Factors: 78-year-old male presents to the ED with shortness of breath and palpitations. Medical history Admitted earlier this month with Acute Exacerbation of Diastolic CHF with a loculated pleural effusions with a thoracentesis: COPD; BPH; CKD 3; DM Clinical Indicators: Vital signs:99/81 99 98.1 20 99% 4L nc WBC 6.6; CXR: 06/01 Right lower lobe infiltrate with a small right pleural effusion. CXR 06/02 Worsening Bibasilar Basilar infiltrates CXR 06/03 Bilateral effusions which may be loculated on the right. Lung/Breathing assessment H & P Bilateral rhonchi scattered, no wheezing, clear to percussion, Normal respiratory effort, no accessory muscle use. Treatment:06/01 Duoneb Ipratropium Q 4 Prn Qid Desire; 06/01 Lasix 40mg Q12 ivp; 06/04 Lasix Daily 40mg iv Antibiotics 06/01 Levaquin ivpb Daily changed to oral Levaquin Daily D/cd 06/03; Zosyn ivpb Q 8hrs D/cd 06/01; 06/02 Vancomycin ivpb x1 O2 06/01 4L nasal cannula 06/01 Bipap; 06/01 12L high flow oxygen; 06/02 Bipap Breathing Tx: In order to capture the severity of condition, please clarify if the condition signifies and you are treating for: * Bacterial Pneumonia, specify causal organism (if known) Likely bacterial pneumonia (Last Revision: September 2017) MTDD
[2019-06-04 11:18] LABS: % Iron Saturation 4.9 (15.00-50.00)
--- NOTE | 2019-06-04 15:29 | P.PN ---
Subjective Progress Note Date: 06/04/19 patient seen and examined at bedside, several members of family present. Discussed hospice which they want to continue with, also amenable with doing hospice and outpatient facility. Patient continued on morphine drip currently at 30 mg/h Objective - Vital Signs Vital signs: Vital Signs Temp 98.2 F 06/03/19 16:00 Pulse 92 06/03/19 16:00 Resp 21 06/03/19 16:00 BP 114/60 06/03/19 16:00 Pulse Ox 97 06/03/19 17:20 Intake & Output 06/03/19 06/04/19 06/04/19 18:59 06:59 18:59 Intake Total 102.618 408.792 204 Output Total 700 0 Balance -597.382 408.792 204 Intake: IV 100 110 kvo 100 110 Intake, IV Titration 2.618 298.792 204 Amount Morphine Sulfate (100 mg/ 2.618 298.792 204 2 ml) 100 mg In Sodium Chloride 0.9% 100 ml @ 1 MG/HR 1.02 mls/hr IV . Q24H [facility] Rx#:[id number] Output: Urine 700 0 Other: Voiding Method Urinal - Exam Constitutional: unlabored, appears comfortable Eyes: Anicteric sclerae, moist conjunctiva, no lid-lag, pin point pupils ENMT: NC/AT,Oropharynx clear, no erythema, exudates Neck:Supple, FROM, no masses, or JVD, No carotid bruits; No thyromegaly Lungs:unlabored has some agonal breaths intermittently on 2 L by nasal cannula Cardiovascular: Heart regular in rate and rhythm, No murmurs, gallops, or rubs no peripheral edema Abdominal: Soft Nontender, nom distended, no guarding, no rebound or rigidity, Normoactive bowel sounds No hepatomegaly, No splenomegaly, No palpable mass No abdominal wall hernia noted Skin: Normal temperature, tone, texture, turgor, No induration No subcutaneous nodules, No rash, lesions, No ulcers Extremities:No digital cyanosis No clubbing, Pedal pulses intact and symmetrical Radial pulses intact and symmetrical Normal gait and station, No calf tenderness Psychiatric: unable to evaluate Neuro:unable to evaluate - Labs CBC & Chem 7: 06/03/19 04:20 06/03/19 04:20 Labs: Abnormal Lab Results - Last 24 Hours (Table) 06/03/19 06/03/19 Range/Units 04:20 16:50 POC Glucose (mg/dL) 243 H (75-99) mg/dL Iron 10 L (65-175) ug/dL TIBC 204 L (228-460) ug/dL % Saturation 4.90 L (15.00-50.00) Microbiology - Last 24 Hours (Table) 06/02/19 10:40 Gram Stain - Final Sputum Sputum Culture - Final Assessment and Plan Assessment: Acute on chronic hypoxic respiratory failure * multifactorial acute exacerbation of diastolic congestive heart failure with bilateral pleural effusions loculated on the right New-onset atrial fibrillation Acute on chronic anemia Chronic conditions CK D stage III Hypertension Diabetes mellitus, insulin sliding scale COPD currently compensated Continue home meds CODE STATUS: no code DVT prophylaxis: mechanical Discussed with: Patient, Dr. Vaughn, Dr. Sheehan Anticipated discharge place: pending clinical course disposition * Continue hospice orders
[2019-06-05] MEDS: MORPHINE SULFATE (100 MG/2 ML) 100 MG in SODIUM CHLORIDE 0.9% 100 ML IV SCH ×3 (01:13→11:33)
[2019-06-05 16:31] VITALS: PULSE 65; RESP 14; TEMP 98.9
[2019-06-05] MEDS: LATANOPROST 0.005% OPHTH DROPS 2.5 ML BTL BOTH EYES SCH (21:22)
--- NOTE | 2019-06-06 11:23 | P.DS ---
Providers Date of admission: 06/01/19 13:23 Expected date of discharge: 06/06/19 Attending physician: Drew Valiente MD Consults: 06/01/19 13:23 Consult Physician Urgent Consulting Provider: Opal Contreras Consult Reason/Comments: chf,a fib Do you want consulting provider notified?: Yes 06/01/19 13:24 Consult Physician Urgent Consulting Provider: Wilmer Campo Consult Reason/Comments: dyspnea Do you want consulting provider notified?: Yes Primary care physician: Ford Altman Hospital Course: Discharge diagnosis Acute on chronic respiratory failure Probable healthcare associated pneumonia Acute on chronic diastolic CHF exacerbation New-onset atrial fibrillation Chronic kidney disease stage III Insulin-dependent type 2 diabetes COPD Hospital course The patient is a 78-year-old male that presented to the ER with dyspnea and palpitations and was admitted with acute on chronic respiratory failure with hypoxia of multifactorial etiology secondary to likely healthcare associated pneumonia superimposed on acute on chronic diastolic CHF exacerbation precipitated by a new onset A. fib with chest x-ray showing increased pulmonary vascular congestion and edema with significantly elevated NT proBNP above 20,000 The patient was placed on BiPAP and started on IV Lasix diuresis, the patient was noted to have a mild elevation of his troponins which was not consistent with ACS but likely type II event demand ischemia in the setting of chronic kidney disease. The patient was started on empiric IV antibiotics with Levaquin and Zosyn the patient was here with IV heparin and metoprolol. The patient was treated with no significant improvement And in discussions with the family and decided to de-escalate his therapy to comfort care and hospice as his respiratory status continued to decline. The patient was transitioned to hospice and started on morphine and all therapies were discontinued. The patient eventually 05/06/19 at 21:20. This discharge process took approximately 35 minutes Patient Condition at Discharge: Undetermined Plan - Discharge Summary New Discharge Prescriptions: Discontinued Atorvastatin Calcium [Lipitor] 20 mg PO HS Aspirin EC [Ecotrin Low Dose] 81 mg PO DAILY Budesonide/Formoterol Fumarate [Symbicort 160-4.5 Mcg Inhaler] 2 puff INHALATION RT-BID Cholecalciferol (Vitamin D3) [Vitamin D3] 2,000 unit PO DAILY Ipratropium-Albuterol Nebulize [Duoneb 0.5 mg-3 mg/3 ml Soln] 3 ml INHALATION RT-QID ampul.neb Latanoprost Ophth [Xalatan 0.005%] 1 drops BOTH EYES HS Ascorbic Acid [Vitamin C] 500 mg PO DAILY Sertraline [Zoloft] 150 mg PO DAILY Clobetasol Propionate [Temovate 0.05% Cream] 1 applic TOPICAL BID Hydrochlorothiazide [Hydrodiuril] 25 mg PO DAILY #30 tab Metoprolol Tartrate [Lopressor] 50 mg PO BID #60 tab amLODIPine [Norvasc] 10 mg PO HS #30 tab Ferrous Sulfate [Feosol] 325 mg PO BID #60 tab Glucagon Emergency Kit 1 mg PO ONCE PRN PRN Reason: LOW BLOOD SUGAR Insulin NPH Hum/Reg Insulin Hm [NovoLIN 70-30 100 UNIT/ML VIAL] 20 unit SQ BID Follow up Appointment(s)/Referral(s): Ford Altman MD [Primary Care Provider] - 1-2 days Discharge Disposition:
== END 2019-06-05 21:20 | disposition expired | DRG 291 ==
LOC: EC 09:50 → 3SCARD 13:23 → 2SICU 17:07
PROVIDERS: ADMIT Family Medicine; ATTEND Family Medicine
PROC: 5A09557 Assistance with Respiratory Ventilation, Greater than 96 Consecutive Hours, Continuous Positive Airway Pressure (ICD-10-PCS; principal; 2019-06-01)
DX: I13.0 Hypertensive heart and chronic kidney disease with heart failure and stage 1 through stage 4 chronic kidney disease, or unspecified chronic kidney disease (principal); I50.33 Acute on chronic diastolic (congestive) heart failure; J96.21 Acute and chronic respiratory failure with hypoxia; J15.9 Unspecified bacterial pneumonia; J44.0 Chronic obstructive pulmonary disease with (acute) lower respiratory infection; C18.9 Malignant neoplasm of colon, unspecified; I24.8 Other forms of acute ischemic heart disease; I25.10 Atherosclerotic heart disease of native coronary artery without angina pectoris; I48.91 Unspecified atrial fibrillation; D64.9 Anemia, unspecified; E11.22 Type 2 diabetes mellitus with diabetic chronic kidney disease; E11.319 Type 2 diabetes mellitus with unspecified diabetic retinopathy without macular edema; E11.42 Type 2 diabetes mellitus with diabetic polyneuropathy; E78.5 Hyperlipidemia, unspecified; F32.9 Major depressive disorder, single episode, unspecified; F41.9 Anxiety disorder, unspecified; K43.9 Ventral hernia without obstruction or gangrene; N18.3 Chronic kidney disease, stage 3 (moderate); N40.0 Benign prostatic hyperplasia without lower urinary tract symptoms; Y95 Nosocomial condition; Z51.5 Encounter for palliative care; Z79.01 Long term (current) use of anticoagulants; Z79.4 Long term (current) use of insulin; Z79.51 Long term (current) use of inhaled steroids; Z79.82 Long term (current) use of aspirin; Z79.899 Other long term (current) drug therapy; Z80.3 Family history of malignant neoplasm of breast; Z85.038 Personal history of other malignant neoplasm of large intestine; Z87.891 Personal history of nicotine dependence; Z99.81 Dependence on supplemental oxygen; Z88.2 Allergy status to sulfonamides; Z66 Do not resuscitate
CPT/HCPCS: 36415; 71045; 71046; 80048; 80053; 82728; 83540; 83550; 83735; 83880; 84100; 84439; 84443; 84481; 84484; 85025; 85610; 85730; 87040; 87070; 87077; 87186; 87205; 93005; 93308; 94640; 94660; 96365; 96366; 96367; 96368; 96375; 96376; 99291